=== PATIENT | male | born 1980 | race Hispanic/Latino ===

== ENCOUNTER 2019-11-24 01:42 | Emergency (ER) | payer OTHER ==
[2019-11-24 03:08] LABS: APPEARANCE,URINE Clear (CLEAR); BILIRUBIN,URINE Negative (NEGATIVE); COLOR,URINE Yellow (YELLOW); GLUCOSE, URINE (UA) >=1000 mg/dL (NEGATIVE); KETONES,URINE 40 mg/dL (NEGATIVE); LEUKOCYTE ESTERASE ,URINE Negative (NEGATIVE); NITRATE,URINE Negative (NEGATIVE); OCCULT BLOOD,URINE Negative (NEGATIVE); PH,URINE 6.5 (5.0-8.0); PROTEIN,URINE Negative (NEGATIVE); UROBILINOGEN,URINE 0.2 mg/dL (0.2-1.0)
[2019-11-24 03:15] LABS: BACTERIA,URINE None Seen /HPF (None Seen); SQUAMOUS EPITHELIAL CELL,UR Rare /HPF (0-2); WBC,URINE None Seen /HPF (0-1)
[2019-11-24 03:16] LABS: AMPHET/METH SCREEN,URINE NEGATIVE (NEGATIVE); BARBITURATE SCREEN, URINE NEGATIVE (NEGATIVE); BENZODIAZEPINES SCREEN,URINE NEGATIVE (NEGATIVE); CANNABINOID SCREEN,URINE NEGATIVE (NEGATIVE); COCAINE SCREEN,URINE POSITIVE (NEGATIVE); OPIATE SCREEN,URINE NEGATIVE (NEGATIVE); PHENCYCLIDINE SCREEN,URINE NEGATIVE (NEGATIVE)
[2019-11-24] MEDS ORDERED: INSULIN HUMULIN R 100 UNIT/ML 3ML ONE (03:20)
== END 2019-11-24 03:53 | disposition home or self-care (01) ==
LOC: EDH 01:42 → EEVIPCON 01:42 → EDH 03:53
DX: E11.65 Type 2 diabetes mellitus with hyperglycemia (principal); F14.10 Cocaine abuse, uncomplicated; Z72.0 Tobacco use
CPT/HCPCS: 80305; 81001; 82948; 96372; 99283; J1815

== ENCOUNTER 2021-02-17 09:29 | Inpatient (IN) | payer OTHER ==
[~2021-02-17] VITALS: Ht 170.2 cm; Wt 50.3 kg
[2021-02-17] MEDS ORDERED: INSULIN HUMULIN R 100 UNIT/ML 3ML IV SCH ×3 (09:45→13:45)
[2021-02-17 10:03] LABS: BASOPHILS % (AUTO) 0.5 % (0.0-5.0); EOSINOPHILS % (AUTO) 1.7 % (0.0-8.0); HEMATOCRIT 33.3 % (42-54); LYMPHOCYTES % (AUTO) 10.8 % (21.0-51.0); MEAN CORPUSCULAR HEMOGLOBIN 27.7 pg (27.0-33.0); MEAN CORPUSCULAR HGB CONC 33.3 g/dL (32.0-36.0); MONOCYTES % (AUTO) 4.6 % (3.0-13.0); NEUTROPHILS % (AUTO) 81.7 % (40.0-77.0); PLATELET COUNT (AUTO) 365 K/uL (130-400); RED BLOOD CELL COUNT(AUTO) 4.01 MIL/uL (4.50-6.20); RED CELL DISTRIBUTION WIDTH 12.6 % (11.0-15.5); WHITE BLOOD COUNT (AUTO) 8.5 K/uL (4.8-10.8)
[2021-02-17 10:18] LABS: BILIRUBIN,TOTAL 0.2 mg/dL (0.2-1.0); CREATININE 1.8 mg/dL (0.5-1.5); POTASSIUM 4.7 mmol/L (3.5-5.1); TOTAL PROTEIN, SERUM 9.5 g/dL (6.0-8.3)
[2021-02-17] MEDS ORDERED: SODIUM CHLORIDE 0.9% 1000ML 3,000 ML IV ONE (10:25)
[2021-02-17] MEDS ORDERED: SODIUM CHLORIDE 0.9% IV SCH (10:45)
[2021-02-17] MEDS ORDERED: INSULIN HUMULIN R 100 UNIT/ML 3ML SQ SCH (12:45)
[2021-02-17] MEDS ORDERED: INSULIN REGULAR, HUMAN 3ML 100 UNIT in SODIUM CHLORIDE 0.9% 99 ML IV PRN ×2 (13:00)
[2021-02-17 13:06] VITALS: BP 125/65
[2021-02-17] MEDS ORDERED: SODIUM CHLORIDE 0.9% 1000ML 1,000 ML IV SCH (13:45)
[2021-02-17] MEDS ORDERED: DEXTROSE 5 %-0.45 % NACL 1,000 ML IV PRN (13:45)
[2021-02-17] MEDS ORDERED: ACETAMINOPHEN 325 MG TAB PO PRN ×2 (13:45)
[2021-02-17] MEDS ORDERED: POTASSIUM CHLORIDE 10MEQ/100ML 100 ML IV PRN (13:45)
[2021-02-17] MEDS ORDERED: TEMAZEPAM 15 MG CAPSULE PO PRN (13:45)
[2021-02-17] MEDS ORDERED: ONDANSETRON HCL 4 MG/2 ML VIAL IV PRN (13:45)
[2021-02-17] MEDS ORDERED: LACTULOSE 20 GM/30 ML UDCUP PO PRN (13:45)
[2021-02-17 15:28] LABS: CARBON DIOXIDE 23 mmol/L (21-32); CHLORIDE 96 mmol/L (101-111); CREATININE 1.2 mg/dL (0.5-1.5); GLOMERULAR FILTR. RATE CALC 72 mL/min (>60); GLUCOSE,RANDOM 376 mg/dL (70-105); POTASSIUM 3.9 mmol/L (3.5-5.1); SODIUM SERUM 128 mmol/L (136-145); UREA NITROGEN, BLOOD 15 mg/dL (7-18)
[2021-02-17 15:30] LABS: ALCOHOL, BLOOD < 3 mg/dL (0-10); PHOSPHORUS 2.5 mg/dL (2.5-4.9)
[2021-02-17 15:45] VITALS: BP 134/82
[2021-02-17 16:03] LABS: APPEARANCE,URINE Clear (CLEAR); BILIRUBIN,URINE Negative (NEGATIVE); COLOR,URINE Yellow (YELLOW); GLUCOSE, URINE (UA) >=1000 mg/dL (NEGATIVE); KETONES,URINE Negative (NEGATIVE); LEUKOCYTE ESTERASE ,URINE Moderate (NEGATIVE); NITRATE,URINE Negative (NEGATIVE); OCCULT BLOOD,URINE Trace (NEGATIVE); PH,URINE 6.5 (5.0-8.0); PROTEIN,URINE Negative (NEGATIVE); UROBILINOGEN,URINE 0.2 mg/dL (0.2-1.0)
[2021-02-17 16:09] LABS: BACTERIA,URINE Rare /HPF (None Seen); WBC,URINE 26-50 /HPF (0-1); YEAST,URINE BUDDING Rare /HPF (None Seen)
[2021-02-17 16:10] LABS: SQUAMOUS EPITHELIAL CELL,UR Rare /HPF (0-2)
[2021-02-17 16:11] LABS: AMPHET/METH SCREEN,URINE NEGATIVE (NEGATIVE); BARBITURATE SCREEN, URINE NEGATIVE (NEGATIVE); BENZODIAZEPINES SCREEN,URINE NEGATIVE (NEGATIVE); CANNABINOID SCREEN,URINE NEGATIVE (NEGATIVE); COCAINE SCREEN,URINE POSITIVE (NEGATIVE); OPIATE SCREEN,URINE NEGATIVE (NEGATIVE); PHENCYCLIDINE SCREEN,URINE NEGATIVE (NEGATIVE)
[2021-02-17] MEDS ORDERED: PIP/TAZ ZOSYN 3.375G 3.375 GM VIAL IVPB SCH (17:15)
[2021-02-17] MEDS ORDERED: 0.9% SODIUM CHLORIDE 50 ML IV BAG IV SCH (18:00)
[2021-02-17] MEDS: SODIUM CHLORIDE 0.9% 1000ML 1,000 ML IV SCH ×2 (18:45→19:29)
[2021-02-17] MEDS ORDERED: SODIUM CHLORIDE 0.9% 50 ML IV ONE (19:17)
[2021-02-17] MEDS: ZOSYN 3.375GM+NS 50ML 50 ML IV SCH (19:24)
[2021-02-17 19:40] LABS: CREATININE 1.4 mg/dL (0.5-1.5); POTASSIUM 4.1 mmol/L (3.5-5.1)
[2021-02-17] MEDS: FAMOTIDINE/PF 20 MG/2 ML VIAL IV SCH (19:50)
[2021-02-17] MEDS: INSULIN HUMULIN R 100 UNIT/ML 3ML SQ SCH (19:56)
[2021-02-17] MEDS: INSULIN GLARGINE 100 UNITS/ML 10 ML VIAL SQ SCH (19:56)
[2021-02-17 23:30] VITALS: BP 138/86
[2021-02-17 23:53] VITALS: BP 142/100
[2021-02-18] MEDS: SODIUM CHLORIDE 0.9% 1000ML 1,000 ML IV SCH ×3 (00:04→08:35)
[2021-02-18 00:19] LABS: CREATININE 1.4 mg/dL (0.5-1.5)
[2021-02-18] MEDS: ZOSYN 3.375GM+NS 50ML 50 ML IV SCH ×3 (02:16→18:16)
[2021-02-18 04:00] VITALS: BP 160/107
[2021-02-18 04:50] LABS: CREATININE 1.4 mg/dL (0.5-1.5); MAGNESIUM 1.8 mg/dL (1.80-2.40); POTASSIUM 4.2 mmol/L (3.5-5.1)
[2021-02-18] MEDS: INSULIN HUMULIN R 100 UNIT/ML 3ML SQ SCH ×8 (07:11→20:18)
[2021-02-18 07:53] VITALS: BP 159/100
[2021-02-18] MEDS: FAMOTIDINE/PF 20 MG/2 ML VIAL IV SCH (08:29)
[2021-02-18] MEDS ORDERED: ENOXAPARIN SODIUM 40 MG/0.4 ML SYRINGE SQ SCH (09:00)
[2021-02-18 11:23] VITALS: BP 149/96
[2021-02-18 16:00] VITALS: BP 166/107
[2021-02-18 20:00] VITALS: BP 157/96
[2021-02-18] MEDS: INSULIN GLARGINE 100 UNITS/ML 10 ML VIAL SQ SCH (20:17)
[2021-02-18] MEDS ORDERED: ZOLPIDEM TARTRATE 5 MG TAB ONE (23:12)
[2021-02-18] MEDS ORDERED: ZOLPIDEM TARTRATE 5 MG TAB PO ONE (23:15)
[2021-02-19] VITALS: BP 146/86
[2021-02-19] MEDS: ZOSYN 3.375GM+NS 50ML 50 ML IV SCH ×3 (02:31→18:35)
[2021-02-19 04:00] VITALS: BP 139/94
[2021-02-19] MEDS: INSULIN HUMULIN R 100 UNIT/ML 3ML SQ SCH ×5 (06:09→18:34)
[2021-02-19 08:11] VITALS: BP 143/92
[2021-02-19] MEDS ORDERED: INSULIN GLARGINE 100 UNITS/ML 10 ML VIAL SQ SCH ×2 (09:00→21:00)
[2021-02-19 11:44] VITALS: BP 130/93
[2021-02-19 15:59] VITALS: BP 152/95
[2021-02-19] MEDS ORDERED: INSULIN HUMULIN R 100 UNIT/ML 3ML SQ SCH ×2 (17:00→22:00)
[2021-02-19 19:49] VITALS: BP 147/79
[2021-02-19] MEDS ORDERED: ACETAMINOPHEN 325 MG TAB ONE (23:43)
[2021-02-19] MEDS ORDERED: ZOLPIDEM TARTRATE 5 MG TAB ONE (23:44)
[2021-02-19] MEDS ORDERED: ACETAMINOPHEN 325 MG TAB PO PRN (23:45)
[2021-02-19] MEDS ORDERED: ZOLPIDEM TARTRATE 5 MG TAB PO ONE (23:45)
[2021-02-20] VITALS: BP 140/74
[2021-02-20] MEDS: ZOSYN 3.375GM+NS 50ML 50 ML IV SCH ×2 (01:35→09:41)
[2021-02-20 03:45] VITALS: BP 104/54
[2021-02-20] MEDS: INSULIN HUMULIN R 100 UNIT/ML 3ML SQ SCH ×5 (06:31→12:56)
[2021-02-20] MEDS: INSULIN GLARGINE 100 UNITS/ML 10 ML VIAL SQ SCH ×2 (06:33→06:36)
[2021-02-20 08:09] VITALS: BP 128/87
[2021-02-20] MEDS ORDERED: INSULIN HUMULIN R 100 UNIT/ML 3ML SQ SCH (11:30)
[2021-02-20 12:00] VITALS: BP 126/84
[2021-02-20 12:06] VITALS: BP 126/84
[2021-02-20 16:00] VITALS: BP 126/78
[2021-02-20] MEDS ORDERED: INSULIN GLARGINE 100 UNITS/ML 10 ML VIAL SQ SCH (21:00)
== END 2021-02-20 18:30 | disposition left against medical advice (07) | DRG 638 ==
LOC: EDH 09:29 → EDHIP 09:30 → 4BH 02-18 01:35
PROVIDERS: ADMIT Internal Medicine; ATTEND Internal Medicine
DX: E11.00 Type 2 diabetes mellitus with hyperosmolarity without nonketotic hyperglycemic-hyperosmolar coma (NKHHC) (principal); E87.1 Hypo-osmolality and hyponatremia; N17.9 Acute kidney failure, unspecified; F14.20 Cocaine dependence, uncomplicated; E86.1 Hypovolemia; F17.210 Nicotine dependence, cigarettes, uncomplicated; D72.810 Lymphocytopenia; E86.0 Dehydration; Z53.29 Procedure and treatment not carried out because of patient's decision for other reasons; Z59.0 Homelessness; Z79.4 Long term (current) use of insulin; Z91.19 Patient's noncompliance with other medical treatment and regimen
CPT/HCPCS: 36415; 71045; 80048; 80053; 80305; 81001; 82010; 82948; 82977; 83036; 83605; 83735; 83930; 84100; 84145; 84443; 84484; 85025; 86701; 86709; 87040; 87088; 87390; 99291; G0378; J1650; J1815; J2543; J3490; J7030

== ENCOUNTER 2021-02-27 19:33 | Inpatient (IN) | payer OTHER ==
[~2021-02-27] VITALS: Ht 170.2 cm; Wt 53.5 kg
[2021-02-27 19:38] VITALS: BP 152/102
[2021-02-27] MEDS ORDERED: INSULIN HUMULIN R 100 UNIT/ML 3ML IV STA (19:45)
[2021-02-27] MEDS ORDERED: NACL 0.9% 1000ML 1,000 ML IV ONE ×2 (19:45→22:27)
[2021-02-27 20:01] LABS: HEMATOCRIT 30.3 % (42-54); MEAN CORPUSCULAR HEMOGLOBIN 27.4 pg (27.0-33.0); MEAN CORPUSCULAR HGB CONC 34.3 g/dL (32.0-36.0); MEAN CORPUSCULAR VOLUME 79.9 fL (79-99); RED BLOOD CELL COUNT(AUTO) 3.79 MIL/uL (4.50-6.20); RED CELL DISTRIBUTION WIDTH 12.5 % (11.0-15.5); WHITE BLOOD COUNT (AUTO) 17.6 K/uL (4.8-10.8)
[2021-02-27 20:03] LABS: APPEARANCE,URINE Cloudy (CLEAR); BILIRUBIN,URINE Negative (NEGATIVE); COLOR,URINE Yellow (YELLOW); GLUCOSE, URINE (UA) >=1000 mg/dL (NEGATIVE); KETONES,URINE Negative (NEGATIVE); LEUKOCYTE ESTERASE ,URINE Moderate (NEGATIVE); NITRATE,URINE Negative (NEGATIVE); OCCULT BLOOD,URINE Trace (NEGATIVE); PROTEIN,URINE Trace mg/dL (NEGATIVE); UROBILINOGEN,URINE 0.2 mg/dL (0.2-1.0)
[2021-02-27 20:08] LABS: ABG BASE EXCESS -1.5 mmol/L (-2.0-3.0); ABG OXYGEN SATURATION 98.3 % (95.0-99.0); ABG PCO2 26 mmHg (35-48)
[2021-02-27] MEDS ORDERED: CEFTRIAXONE 1G VIAL IVP STA (20:11)
[2021-02-27 20:20] LABS: ALANINE AMINOTRANSFERASE 18 U/L (12-78); ALBUMIN 2.3 g/dL (3.5-5.0); ASPARTATE AMINOTRANSFERASE 16 U/L (10-37); BILIRUBIN,TOTAL 0.3 mg/dL (0.2-1.0); CARBON DIOXIDE 24 mmol/L (21-32); CREATININE 2.2 mg/dL (0.5-1.5); GLOMERULAR FILTR. RATE CALC 36 mL/min (>60); POTASSIUM 4.1 mmol/L (3.5-5.1); SODIUM SERUM 118 mmol/L (136-145); TOTAL PROTEIN, SERUM 8.3 g/dL (6.0-8.3); UREA NITROGEN, BLOOD 30 mg/dL (7-18)
[2021-02-27 20:21] LABS: BACTERIA,URINE Moderate /HPF (None Seen); WBC,URINE 26-50 /HPF (0-1); YEAST,URINE BUDDING Many /HPF (None Seen)
[2021-02-27 20:26] LABS: LIPASE < 50 U/L (114-286)
[2021-02-27 20:27] LABS: CHLORIDE 85 mmol/L (101-111); GLUCOSE,RANDOM 676 mg/dL (70-105)
[2021-02-27 21:26] VITALS: BP 137/80
[2021-02-27] MEDS ORDERED: NITROGLYCERIN 0.4 MG SL TAB SL PRN (21:30)
[2021-02-27] MEDS ORDERED: ONDANSETRON 4MG INJ IV PRN (21:30)
[2021-02-27] MEDS ORDERED: GLUCAGON 1MG KIT 1 MG ML IM PRN (21:30)
[2021-02-27] MEDS ORDERED: NACL 0.9% IV SCH (21:30)
[2021-02-27] MEDS ORDERED: DEXTROSE 50%-WATER 50 ML DISP.SYRIN IV PRN (21:30)
[2021-02-27] MEDS ORDERED: ACETAMINOPHEN 325 MG TAB PO PRN (21:30)
[2021-02-27] MEDS: NACL 0.9% 1000ML 1,000 ML IV SCH (21:49)
[2021-02-27] MEDS: INSULIN HUMULIN R 100 UNIT/ML 3ML SQ SCH (22:25)
[2021-02-27 22:47] VITALS: BP 130/67
[2021-02-27] MEDS ORDERED: DEXTROSE 5 %-0.45 % NACL 1,000 ML IV PRN (23:00)
[2021-02-27 23:11] LABS: AMPHET/METH SCREEN,URINE NEGATIVE (NEGATIVE); BARBITURATE SCREEN, URINE NEGATIVE (NEGATIVE); BENZODIAZEPINES SCREEN,URINE NEGATIVE (NEGATIVE); CANNABINOID SCREEN,URINE NEGATIVE (NEGATIVE); COCAINE SCREEN,URINE POSITIVE (NEGATIVE); OPIATE SCREEN,URINE NEGATIVE (NEGATIVE); PHENCYCLIDINE SCREEN,URINE NEGATIVE (NEGATIVE)
[2021-02-28] VITALS (7 sets, daily range): BP systolic 122–150; BP diastolic 75–98
[2021-02-28 00:33] LABS: CREATININE 1.9 mg/dL (0.5-1.5); POTASSIUM 3.5 mmol/L (3.5-5.1)
[2021-02-28] MEDS ORDERED: INSULIN HUMULIN R 100 UNIT/ML 3ML SQ SCH (01:30)
[2021-02-28] MEDS: NACL 0.9% 1000ML 1,000 ML IV SCH ×3 (01:47→20:34)
[2021-02-28 05:54] LABS: BASOPHILS % (AUTO) 0.2 % (0.0-5.0); EOSINOPHILS % (AUTO) 1.5 % (0.0-8.0); HEMATOCRIT 27.5 % (42-54); LYMPHOCYTES % (AUTO) 5.8 % (21.0-51.0); MEAN CORPUSCULAR HEMOGLOBIN 27.5 pg (27.0-33.0); MEAN CORPUSCULAR HGB CONC 34.2 g/dL (32.0-36.0); MEAN CORPUSCULAR VOLUME 80.4 fL (79-99); NEUTROPHILS % (AUTO) 86.8 % (40.0-77.0); PLATELET COUNT (AUTO) 338 K/uL (130-400); RED BLOOD CELL COUNT(AUTO) 3.42 MIL/uL (4.50-6.20); RED CELL DISTRIBUTION WIDTH 12.3 % (11.0-15.5); WHITE BLOOD COUNT (AUTO) 14.9 K/uL (4.8-10.8)
[2021-02-28] MEDS: INSULIN HUMULIN R 100 UNIT/ML 3ML SQ SCH ×6 (06:06→20:49)
[2021-02-28 06:14] LABS: ALBUMIN 1.9 g/dL (3.5-5.0); BILIRUBIN,TOTAL 0.2 mg/dL (0.2-1.0); CREATININE 1.8 mg/dL (0.5-1.5); MAGNESIUM 1.9 mg/dL (1.80-2.40); POTASSIUM 3.4 mmol/L (3.5-5.1)
[2021-02-28] MEDS ORDERED: HEPARIN 5,000 UNIT VIAL SQ SCH (09:00)
[2021-02-28] MEDS ORDERED: AMLODIPINE 5 MG TAB PO SCH (09:45)
[2021-02-28] MEDS: FAMOTIDINE 20MG VIAL IV SCH ×2 (10:16→20:34)
[2021-02-28] MEDS ORDERED: KCL 20 MEQ ERTAB PO SCH (12:00)
[2021-02-28 17:41] LABS: CREATININE,URINE RANDOM 11 mg/dL (30-135); SODIUM,URINE RANDOM 20 mmol/l (40-220)
[2021-02-28] MEDS: ACETAMINOPHEN 325 MG TAB PO PRN (20:57)
[2021-02-28] MEDS ORDERED: CEFTRIAXONE 1G VIAL IV SCH (21:00)
[2021-02-28] MEDS: HEPARIN 5,000 UNIT VIAL SQ SCH (22:30)
[2021-02-28] MEDS ORDERED: TEMAZEPAM 15 MG CAPSULE ONE (22:42)
[2021-02-28] MEDS ORDERED: TEMAZEPAM 15 MG CAPSULE PO ONE (22:45)
[2021-03-01] VITALS: BP 131/91
[2021-03-01 04:00] VITALS: BP 129/77
[2021-03-01 04:08] LABS: MEAN CORPUSCULAR HEMOGLOBIN 27.6 pg (27.0-33.0); MEAN CORPUSCULAR HGB CONC 34.6 g/dL (32.0-36.0); MEAN CORPUSCULAR VOLUME 79.8 fL (79-99); RED BLOOD CELL COUNT(AUTO) 3.51 MIL/uL (4.50-6.20); RED CELL DISTRIBUTION WIDTH 12.3 % (11.0-15.5)
[2021-03-01 04:24] LABS: CREATININE 1.5 mg/dL (0.5-1.5); POTASSIUM 4.1 mmol/L (3.5-5.1)
[2021-03-01] MEDS: HEPARIN 5,000 UNIT VIAL SQ SCH (05:41)
[2021-03-01] MEDS: NACL 0.9% 1000ML 1,000 ML IV SCH (05:49)
[2021-03-01] MEDS: INSULIN HUMULIN R 100 UNIT/ML 3ML SQ SCH ×5 (05:56→12:14)
[2021-03-01 07:27] VITALS: BP 135/87
[2021-03-01] MEDS ORDERED: INSULIN GLARGINE 100 UNITS/ML 10 ML VIAL SQ SCH ×2 (09:00→21:00)
[2021-03-01] MEDS: INSULIN GLARGINE 100 UNITS/ML 10 ML VIAL SQ SCH ×2 (09:00→09:44)
[2021-03-01] MEDS ORDERED: AMLODIPINE 5 MG TAB PO SCH (09:00)
[2021-03-01] MEDS: ACETAMINOPHEN 325 MG TAB PO PRN (09:41)
[2021-03-01] MEDS: FAMOTIDINE 20MG VIAL IV SCH (09:45)
[2021-03-01 11:31] VITALS: BP 129/85
[2021-03-01] MEDS ORDERED: INSULIN HUMULIN R 100 UNIT/ML 3ML SQ SCH (17:00)
== END 2021-03-01 15:20 | disposition left against medical advice (07) | DRG 872 ==
LOC: EDH 19:33 → EDHIP 19:34 → 4CH 02-28 01:41
PROVIDERS: ADMIT Family Medicine; ATTEND Family Medicine
DX: A41.9 Sepsis, unspecified organism (principal); E87.1 Hypo-osmolality and hyponatremia; N17.9 Acute kidney failure, unspecified; N39.0 Urinary tract infection, site not specified; E86.0 Dehydration; E86.1 Hypovolemia; E88.09 Other disorders of plasma-protein metabolism, not elsewhere classified; F14.10 Cocaine abuse, uncomplicated; F17.210 Nicotine dependence, cigarettes, uncomplicated; I12.9 Hypertensive chronic kidney disease with stage 1 through stage 4 chronic kidney disease, or unspecified chronic kidney disease; N18.30 Chronic kidney disease, stage 3 unspecified; Z53.29 Procedure and treatment not carried out because of patient's decision for other reasons; E10.65 Type 1 diabetes mellitus with hyperglycemia; E10.22 Type 1 diabetes mellitus with diabetic chronic kidney disease; Z20.822 Contact with and (suspected) exposure to COVID-19; R65.20 Severe sepsis without septic shock; Z59.0 Homelessness; Z79.4 Long term (current) use of insulin; Z86.73 Personal history of transient ischemic attack (TIA), and cerebral infarction without residual deficits; Z91.19 Patient's noncompliance with other medical treatment and regimen
CPT/HCPCS: 36415; 36600; 71045; 80048; 80053; 80305; 81001; 82010; 82570; 82803; 82948; 83036; 83605; 83690; 83735; 84145; 84300; 84484; 85025; 85027; 87040; 87088; 87635; 93005; G0378; J0696; J1644; J1815; J3490; J7030; J7042

== ENCOUNTER 2021-03-11 14:38 | Inpatient (IN) | payer OTHER ==
[~2021-03-11] VITALS: Ht 175.3 cm; Wt 53.8 kg
[~2021-03-11 14:38] MED LIST: CEPH500B PO; FLUC200T8 PO; GLIM1TAB18 PO
[2021-03-11 15:20] LABS: APPEARANCE,URINE Cloudy (CLEAR); BILIRUBIN,URINE Negative (NEGATIVE); GLUCOSE, URINE (UA) >=1000 mg/dL (NEGATIVE); KETONES,URINE Negative (NEGATIVE); LEUKOCYTE ESTERASE ,URINE Moderate (NEGATIVE); NITRATE,URINE Negative (NEGATIVE); OCCULT BLOOD,URINE Large (NEGATIVE); PROTEIN,URINE POS 2+ mg/dL (NEGATIVE); UROBILINOGEN,URINE 0.2 mg/dL (0.2-1.0)
[2021-03-11 15:21] LABS: BASOPHILS % (AUTO) 0.4 % (0.0-5.0); EOSINOPHILS % (AUTO) 0.1 % (0.0-8.0); HEMATOCRIT 28.6 % (42-54); LYMPHOCYTES % (AUTO) 2.4 % (21.0-51.0); MEAN CORPUSCULAR HEMOGLOBIN 27.2 pg (27.0-33.0); MEAN CORPUSCULAR HGB CONC 32.9 g/dL (32.0-36.0); MEAN CORPUSCULAR VOLUME 82.9 fL (79-99); MONOCYTES % (AUTO) 4.6 % (3.0-13.0); NEUTROPHILS % (AUTO) 92.2 % (40.0-77.0); PLATELET COUNT (AUTO) 488 K/uL (130-400); RED BLOOD CELL COUNT(AUTO) 3.45 MIL/uL (4.50-6.20); RED CELL DISTRIBUTION WIDTH 12.2 % (11.0-15.5); WHITE BLOOD COUNT (AUTO) 19.7 K/uL (4.8-10.8)
[2021-03-11 15:28] LABS: AMPHET/METH SCREEN,URINE NEGATIVE (NEGATIVE); BARBITURATE SCREEN, URINE NEGATIVE (NEGATIVE); BENZODIAZEPINES SCREEN,URINE NEGATIVE (NEGATIVE); CANNABINOID SCREEN,URINE NEGATIVE (NEGATIVE); COCAINE SCREEN,URINE POSITIVE (NEGATIVE); OPIATE SCREEN,URINE NEGATIVE (NEGATIVE); PHENCYCLIDINE SCREEN,URINE NEGATIVE (NEGATIVE)
[2021-03-11] MEDS ORDERED: 0.9%NACL 1000ML 1,000 ML IV ONE (15:30)
[2021-03-11 15:40] LABS: COLOR,URINE Red (YELLOW)
[2021-03-11 15:41] LABS: BACTERIA,URINE Few /HPF (None Seen); MUCUS,URINE Few LPF (None Seen); RBC,URINE 26-50 /HPF (0-1); SQUAMOUS EPITHELIAL CELL,UR Few /HPF (0-2)
[2021-03-11 15:44] LABS: ALANINE AMINOTRANSFERASE 15 U/L (12-78); ALBUMIN 2.4 g/dL (3.5-5.0); ASPARTATE AMINOTRANSFERASE 11 U/L (10-37); BILIRUBIN,TOTAL 0.2 mg/dL (0.2-1.0); CARBON DIOXIDE 25 mmol/L (21-32); CREATINE KINASE, TOTAL 39 U/L (21-232); GLOMERULAR FILTR. RATE CALC 40 mL/min (>60); MYOGLOBIN 28 ng/mL (10-92); POTASSIUM 4.1 mmol/L (3.5-5.1); SODIUM SERUM 122 mmol/L (136-145); TOTAL PROTEIN, SERUM 8.4 g/dL (6.0-8.3); TROPONIN I < 0.04 ng/mL (0.00-0.06); UREA NITROGEN, BLOOD 24 mg/dL (7-18)
[2021-03-11 15:47] LABS: CHLORIDE 87 mmol/L (101-111); GLUCOSE,RANDOM 731 mg/dL (70-105)
[2021-03-11] MEDS ORDERED: CEFTRIAXONE 1G VIAL IVP SCH (16:00)
[2021-03-11] MEDS ORDERED: 0.9%NACL 1000ML 1,000 ML IV SCH (16:00)
[2021-03-11] MEDS ORDERED: POTASSIUM CHLORIDE 10% ELIXIR 20 MEQ/15 ML UDCUP PO PRN (18:00)
[2021-03-11] MEDS ORDERED: ONDANSETRON 4MG INJ IV PRN (18:00)
[2021-03-11] MEDS ORDERED: DiphenhydrAMINE HCL 50 MG/ML VIAL IV PRN (18:00)
[2021-03-11] MEDS ORDERED: LACTULOSE 20 GM/30 ML UDCUP PO PRN (18:00)
[2021-03-11] MEDS ORDERED: DEXTROSE 50%-WATER 50 ML DISP.SYRIN IV PRN (18:00)
[2021-03-11] MEDS ORDERED: POTASSIUM CHLORIDE 20MEQ/100ML 100 ML IV PRN (18:00)
[2021-03-11] MEDS ORDERED: GUAIFENESIN-DM 200/20 MG 10 ML PO PRN (18:00)
[2021-03-11] MEDS ORDERED: GLUCAGON 1MG KIT 1 MG ML IM PRN (18:00)
[2021-03-11] MEDS ORDERED: NITROGLYCERIN 0.4 MG SL TAB SL PRN (18:00)
[2021-03-11] MEDS ORDERED: MAG/ALUM/SIMETH 30 ML UDCUP PO PRN (18:00)
[2021-03-11] MEDS ORDERED: ACETAMINOPHEN 325 MG TAB PO PRN (18:00)
[2021-03-11] MEDS ORDERED: INSULIN HUMULIN R 100 UNIT/ML 3ML SQ ONE (18:15)
[2021-03-11 18:46] VITALS: BP 137/80
[2021-03-11] MEDS: LACTATED RINGERS 1000ML 1,000 ML IV SCH ×2 (19:10→22:52)
[2021-03-11 19:22] VITALS: BP 130/82
[2021-03-11 19:27] LABS: CREATININE 1.9 mg/dL (0.5-1.5); POTASSIUM 3.8 mmol/L (3.5-5.1)
[2021-03-11] MEDS: INSULIN HUMULIN R 100 UNIT/ML 3ML SQ SCH (21:00)
[2021-03-11 22:42] LABS: CREATININE 1.6 mg/dL (0.5-1.5)
[2021-03-11] MEDS: POTASSIUM CHLORIDE 20MEQ/100ML 100 ML IV PRN (22:45)
[2021-03-11 22:52] VITALS: BP 123/69
[2021-03-11 23:15] VITALS: BP 137/82
[2021-03-11] MEDS: KCL 20 MEQ ERTAB PO PRN (23:27)
[2021-03-12] VITALS: BP 137/82
[2021-03-12] MEDS: POTASSIUM CHLORIDE 20MEQ/100ML 100 ML IV PRN (00:04)
[2021-03-12] MEDS: KCL 20 MEQ ERTAB PO PRN (00:29)
[2021-03-12] MEDS: LACTATED RINGERS 1000ML 1,000 ML IV SCH ×3 (03:27→21:12)
[2021-03-12 04:00] VITALS: BP 124/72
[2021-03-12 05:18] LABS: BASOPHILS % (AUTO) 0.3 % (0.0-5.0); EOSINOPHILS % (AUTO) 1.5 % (0.0-8.0); HEMATOCRIT 27.2 % (42-54); LYMPHOCYTES % (AUTO) 11.1 % (21.0-51.0); MEAN CORPUSCULAR HEMOGLOBIN 27.3 pg (27.0-33.0); MEAN CORPUSCULAR HGB CONC 33.1 g/dL (32.0-36.0); MEAN CORPUSCULAR VOLUME 82.4 fL (79-99); MONOCYTES % (AUTO) 5.7 % (3.0-13.0); NEUTROPHILS % (AUTO) 80.8 % (40.0-77.0); PLATELET COUNT (AUTO) 459 K/uL (130-400); RED CELL DISTRIBUTION WIDTH 12.2 % (11.0-15.5); WHITE BLOOD COUNT (AUTO) 15.4 K/uL (4.8-10.8)
[2021-03-12 05:39] LABS: ALBUMIN 1.9 g/dL (3.5-5.0); BILIRUBIN,TOTAL 0.2 mg/dL (0.2-1.0); CREATININE 1.4 mg/dL (0.5-1.5); CRP QUANTITATIVE 173.1 mg/L (0.00-9.0); POTASSIUM 4.2 mmol/L (3.5-5.1)
[2021-03-12] MEDS: INSULIN HUMULIN R 100 UNIT/ML 3ML SQ SCH ×8 (06:12→21:16)
[2021-03-12 07:30] VITALS: BP 134/102
[2021-03-12] MEDS: INSULIN GLARGINE 100 UNITS/ML 10 ML VIAL SQ SCH ×3 (07:30→21:13)
[2021-03-12] MEDS: CEFTRIAXONE 1G VIAL IVP SCH ×2 (08:23→21:12)
[2021-03-12 08:27] LABS: CREATININE 1.4 mg/dL (0.5-1.5); POTASSIUM 4.2 mmol/L (3.5-5.1)
[2021-03-12 11:00] VITALS: BP 164/99
[2021-03-12] MEDS ORDERED: INSULIN HUMULIN R 100 UNIT/ML 3ML SQ SCH (11:00)
[2021-03-12 16:00] VITALS: BP 139/81
[2021-03-12 20:00] VITALS: BP 147/92
[2021-03-12] MEDS ORDERED: LACTATED RINGERS 1000ML 1,000 ML IV ONE (21:11)
[2021-03-12] MEDS: DIPHENHYDRAMINE HCL 25 MG CAPSULE PO PRN (21:34)
[2021-03-12] MEDS: ACETAMINOPHEN 325 MG TAB PO PRN (21:35)
[2021-03-13] VITALS: BP 149/85
[2021-03-13] MEDS ORDERED: LACTATED RINGERS 1000ML 1,000 ML IV ONE ×2 (02:13→06:55)
[2021-03-13 04:43] VITALS: BP 146/95
[2021-03-13 04:56] LABS: BASOPHILS % (AUTO) 0.3 % (0.0-5.0); EOSINOPHILS % (AUTO) 2.2 % (0.0-8.0); HEMATOCRIT 25.9 % (42-54); LYMPHOCYTES % (AUTO) 19.2 % (21.0-51.0); MEAN CORPUSCULAR HEMOGLOBIN 26.9 pg (27.0-33.0); MEAN CORPUSCULAR HGB CONC 33.2 g/dL (32.0-36.0); MEAN CORPUSCULAR VOLUME 80.9 fL (79-99); MONOCYTES % (AUTO) 5.4 % (3.0-13.0); NEUTROPHILS % (AUTO) 72.3 % (40.0-77.0); PLATELET COUNT (AUTO) 441 K/uL (130-400); RED CELL DISTRIBUTION WIDTH 11.9 % (11.0-15.5); WHITE BLOOD COUNT (AUTO) 10.5 K/uL (4.8-10.8)
[2021-03-13 05:11] LABS: ALBUMIN 1.7 g/dL (3.5-5.0); BILIRUBIN,TOTAL 0.1 mg/dL (0.2-1.0); CREATININE 1.5 mg/dL (0.5-1.5); CRP QUANTITATIVE 93.2 mg/L (0.00-9.0); POTASSIUM 3.9 mmol/L (3.5-5.1); TOTAL PROTEIN, SERUM 6.8 g/dL (6.0-8.3)
[2021-03-13] MEDS: CEFTRIAXONE 1G VIAL IVP SCH ×2 (05:17→20:44)
[2021-03-13] MEDS: INSULIN HUMULIN R 100 UNIT/ML 3ML SQ SCH ×7 (05:17→20:55)
[2021-03-13 19:52] VITALS: BP 153/99
[2021-03-13] MEDS ORDERED: INSULIN GLARGINE 100 UNITS/ML 10 ML VIAL SQ SCH (21:00)
[2021-03-14 00:06] VITALS: BP 137/77
[2021-03-14] MEDS: DIPHENHYDRAMINE HCL 25 MG CAPSULE PO PRN ×2 (00:09→22:01)
[2021-03-14] MEDS: ACETAMINOPHEN 325 MG TAB PO PRN ×2 (00:12→22:03)
[2021-03-14 05:09] VITALS: BP 126/75
[2021-03-14 06:20] LABS: BASOPHILS % (AUTO) 0.4 % (0.0-5.0); EOSINOPHILS % (AUTO) 1.6 % (0.0-8.0); HEMATOCRIT 28.3 % (42-54); LYMPHOCYTES % (AUTO) 20.7 % (21.0-51.0); MEAN CORPUSCULAR HEMOGLOBIN 26.7 pg (27.0-33.0); MEAN CORPUSCULAR HGB CONC 32.9 g/dL (32.0-36.0); MEAN CORPUSCULAR VOLUME 81.3 fL (79-99); NEUTROPHILS % (AUTO) 70.6 % (40.0-77.0); PLATELET COUNT (AUTO) 458 K/uL (130-400); RED BLOOD CELL COUNT(AUTO) 3.48 MIL/uL (4.50-6.20); RED CELL DISTRIBUTION WIDTH 12.3 % (11.0-15.5); WHITE BLOOD COUNT (AUTO) 8.9 K/uL (4.8-10.8)
[2021-03-14 06:41] LABS: ALBUMIN 1.9 g/dL (3.5-5.0); BILIRUBIN,TOTAL 0.1 mg/dL (0.2-1.0); CREATININE 1.5 mg/dL (0.5-1.5); CRP QUANTITATIVE 51.8 mg/L (0.00-9.0); POTASSIUM 3.8 mmol/L (3.5-5.1); TOTAL PROTEIN, SERUM 7.1 g/dL (6.0-8.3)
[2021-03-14] MEDS: INSULIN HUMULIN R 100 UNIT/ML 3ML SQ SCH ×7 (07:23→21:10)
[2021-03-14] MEDS: CEFTRIAXONE 1G VIAL IVP SCH ×2 (09:15→21:12)
[2021-03-14 12:00] VITALS: BP 147/102
[2021-03-14] MEDS ORDERED: AMLODIPINE 5 MG TAB PO ONE (13:30)
[2021-03-14 16:00] VITALS: BP 131/69
[2021-03-14 19:38] VITALS: BP 152/94
[2021-03-14] MEDS ORDERED: INSULIN GLARGINE 100 UNITS/ML 10 ML VIAL SQ SCH (21:00)
[2021-03-14 23:37] VITALS: BP 143/84
[2021-03-15 03:55] VITALS: BP 138/84
[2021-03-15 06:27] LABS: BASOPHILS % (AUTO) 0.4 % (0.0-5.0); EOSINOPHILS % (AUTO) 1.5 % (0.0-8.0); LYMPHOCYTES % (AUTO) 20.7 % (21.0-51.0); MEAN CORPUSCULAR HEMOGLOBIN 27.1 pg (27.0-33.0); MEAN CORPUSCULAR HGB CONC 32.8 g/dL (32.0-36.0); MEAN CORPUSCULAR VOLUME 82.6 fL (79-99); MONOCYTES % (AUTO) 6.9 % (3.0-13.0); NEUTROPHILS % (AUTO) 69.4 % (40.0-77.0); PLATELET COUNT (AUTO) 514 K/uL (130-400); RED BLOOD CELL COUNT(AUTO) 3.51 MIL/uL (4.50-6.20); RED CELL DISTRIBUTION WIDTH 12.5 % (11.0-15.5); WHITE BLOOD COUNT (AUTO) 7.9 K/uL (4.8-10.8)
[2021-03-15 06:55] LABS: CREATININE 1.6 mg/dL (0.5-1.5); POTASSIUM 4.3 mmol/L (3.5-5.1)
[2021-03-15] MEDS: INSULIN HUMULIN R 100 UNIT/ML 3ML SQ SCH ×4 (07:27→12:09)
[2021-03-15 07:30] VITALS: BP 162/108
[2021-03-15] MEDS ORDERED: AMLODIPINE 5 MG TAB PO SCH (09:00)
[2021-03-15] MEDS: CEFTRIAXONE 1G VIAL IVP SCH (09:11)
[2021-03-15] MEDS: ACETAMINOPHEN 325 MG TAB PO PRN (09:18)
[2021-03-15 11:00] VITALS: BP 146/99
== END 2021-03-15 16:00 | disposition left against medical advice (07) | DRG 872 ==
LOC: EDH 14:38 → EDHIP 14:39 → 3CH 23:22
PROVIDERS: ADMIT Family Medicine; ATTEND Family Medicine
DX: A41.9 Sepsis, unspecified organism (principal); N39.0 Urinary tract infection, site not specified; N17.9 Acute kidney failure, unspecified; R45.851 Suicidal ideations; I10 Essential (primary) hypertension; E86.0 Dehydration; F14.90 Cocaine use, unspecified, uncomplicated; E10.65 Type 1 diabetes mellitus with hyperglycemia; F60.7 Dependent personality disorder; F19.10 Other psychoactive substance abuse, uncomplicated; Z59.0 Homelessness; Z79.4 Long term (current) use of insulin; Z91.14 Patient's other noncompliance with medication regimen; Z91.19 Patient's noncompliance with other medical treatment and regimen; Z82.3 Family history of stroke; Z83.3 Family history of diabetes mellitus; Z82.0 Family history of epilepsy and other diseases of the nervous system; Z82.49 Family history of ischemic heart disease and other diseases of the circulatory system
CPT/HCPCS: 36415; 71045; 73562; 73600; 73630; 80048; 80053; 80305; 81001; 82010; 82550; 82947; 82948; 83605; 83874; 84145; 84484; 85025; 86140; 87040; 87088; G0378; J0696; J1200; J1815; J3480; J7120; Q0163

== ENCOUNTER 2021-04-10 17:10 | Inpatient (IN) | payer OTHER ==
[~2021-04-10] VITALS: Ht 170.2 cm; Wt 51.1 kg
[2021-04-10 17:21] VITALS: BP 128/88
[2021-04-10 17:35] LABS: BASOPHILS % (AUTO) 0.3 % (0.0-5.0); EOSINOPHILS % (AUTO) 0.4 % (0.0-8.0); HEMATOCRIT 28.5 % (42-54); LYMPHOCYTES % (AUTO) 5.2 % (21.0-51.0); MEAN CORPUSCULAR HEMOGLOBIN 27.3 pg (27.0-33.0); MEAN CORPUSCULAR HGB CONC 34.4 g/dL (32.0-36.0); MEAN CORPUSCULAR VOLUME 79.4 fL (79-99); NEUTROPHILS % (AUTO) 88.9 % (40.0-77.0); PLATELET COUNT (AUTO) 342 K/uL (130-400); RED BLOOD CELL COUNT(AUTO) 3.59 MIL/uL (4.50-6.20); RED CELL DISTRIBUTION WIDTH 12.8 % (11.0-15.5); WHITE BLOOD COUNT (AUTO) 14.3 K/uL (4.8-10.8)
[2021-04-10 17:56] LABS: PLATELET MORPHOLOGY PLT CLUMPS PRESENT
[2021-04-10 18:06] LABS: ALBUMIN 2.6 g/dL (3.5-5.0); BILIRUBIN,TOTAL 0.2 mg/dL (0.2-1.0); CREATININE 1.8 mg/dL (0.5-1.5); POTASSIUM 3.6 mmol/L (3.5-5.1); TOTAL PROTEIN, SERUM 8.1 g/dL (6.0-8.3)
[2021-04-10] MEDS ORDERED: 0.9%NACL 1000ML 1,000 ML IV ONE ×2 (18:30→19:30)
[2021-04-10] MEDS ORDERED: ONDANSETRON 4MG INJ IVP ONE (18:30)
[2021-04-10 18:37] VITALS: BP 142/92
[2021-04-10] MEDS ORDERED: ONDANSETRON 4MG INJ ONE (20:05)
[2021-04-10 21:04] VITALS: BP 159/98
[2021-04-10 21:28] LABS: APPEARANCE,URINE CLOUDY (CLEAR); BILIRUBIN,URINE NEGATIVE (NEGATIVE); COLOR,URINE YELLOW (YELLOW); GLUCOSE, URINE (UA) >=1000 mg/dL (NEGATIVE); KETONES,URINE NEGATIVE (NEGATIVE); LEUKOCYTE ESTERASE ,URINE MODERATE (NEGATIVE); NITRATE,URINE NEGATIVE (NEGATIVE); OCCULT BLOOD,URINE LARGE (NEGATIVE); PROTEIN,URINE 30 mg/dL (NEGATIVE); UROBILINOGEN,URINE 0.2 mg/dL (0.2-1.0)
[2021-04-10 21:52] LABS: BACTERIA,URINE Few /HPF (None Seen); WBC,URINE TNTC /HPF (0-1)
[2021-04-10 22:13] VITALS: BP 151/86
[2021-04-10] MEDS ORDERED: CEFTRIAXONE 1G VIAL IVP ONE (22:30)
[2021-04-10 22:53] LABS: CREATININE 1.6 mg/dL (0.5-1.5); POTASSIUM 3.5 mmol/L (3.5-5.1)
[2021-04-10 23:00] LABS: INR 0.98 (0.85-1.15); PROTHROMBIN TIME 10.7 SEC (9.6-11.6)
[2021-04-10] MEDS ORDERED: ZOLPIDEM TARTRATE 5 MG TAB PO PRN (23:00)
[2021-04-10] MEDS ORDERED: ONDANSETRON 4MG INJ IV PRN (23:00)
[2021-04-10] MEDS ORDERED: 0.9%NACL 1000ML 1,983 ML IV ONE (23:00)
[2021-04-10] MEDS ORDERED: SODIUM CHLORIDE 3% 500 ML IV SCH (23:00)
[2021-04-10 23:01] LABS: PARTIAL THROMBOPLASTIN TIME 26.8 SEC (26.3-35.5)
[2021-04-10 23:25] VITALS: BP 151/86
[2021-04-11] MEDS: CEFTRIAXONE 1G VIAL IV SCH ×2 (00:18→22:07)
[2021-04-11 01:36] VITALS: BP 145/86
[2021-04-11] MEDS ORDERED: SODIUM CHLORIDE 1,000 MG TAB ONE (05:49)
[2021-04-11 06:25] VITALS: BP 155/91
[2021-04-11 06:53] LABS: BASOPHILS % (AUTO) 0.3 % (0.0-5.0); EOSINOPHILS % (AUTO) 2.1 % (0.0-8.0); HEMATOCRIT 28.9 % (42-54); LYMPHOCYTES % (AUTO) 14.8 % (21.0-51.0); MEAN CORPUSCULAR HEMOGLOBIN 27.3 pg (27.0-33.0); MEAN CORPUSCULAR HGB CONC 33.9 g/dL (32.0-36.0); MEAN CORPUSCULAR VOLUME 80.5 fL (79-99); MONOCYTES % (AUTO) 5.8 % (3.0-13.0); NEUTROPHILS % (AUTO) 76.7 % (40.0-77.0); PLATELET COUNT (AUTO) 354 K/uL (130-400); RED BLOOD CELL COUNT(AUTO) 3.59 MIL/uL (4.50-6.20); RED CELL DISTRIBUTION WIDTH 13.1 % (11.0-15.5)
[2021-04-11 07:07] LABS: PROTHROMBIN TIME 10.9 SEC (9.6-11.6)
[2021-04-11 07:08] LABS: PARTIAL THROMBOPLASTIN TIME 26.6 SEC (26.3-35.5)
[2021-04-11 07:09] LABS: POTASSIUM 3.7 mmol/L (3.5-5.1)
[2021-04-11 07:10] LABS: ALBUMIN 2.2 g/dL (3.5-5.0); BILIRUBIN,TOTAL 0.2 mg/dL (0.2-1.0); CREATININE 1.5 mg/dL (0.5-1.5); MAGNESIUM 1.8 mg/dL (1.80-2.40); PHOSPHORUS 2.5 mg/dL (2.5-4.9); TOTAL PROTEIN, SERUM 7.5 g/dL (6.0-8.3)
[2021-04-11] MEDS ORDERED: INSULIN HUMULIN R 100 UNIT/ML 3ML SQ SCH (07:30)
[2021-04-11] MEDS ORDERED: SODIUM CHLORIDE 1,000 MG TAB PO SCH (08:00)
[2021-04-11] MEDS: HEPARIN 5,000 UNIT VIAL SQ SCH ×2 (09:00→20:37)
[2021-04-11] MEDS: FAMOTIDINE 20MG VIAL IV SCH ×2 (09:00→20:43)
[2021-04-11] MEDS ORDERED: INSULIN GLARGINE 100 UNITS/ML 10 ML VIAL SQ SCH (09:00)
[2021-04-11 12:00] VITALS: BP 170/116
[2021-04-11] MEDS: INSULIN HUMULIN R 100 UNIT/ML 3ML SQ SCH ×4 (13:20→20:55)
[2021-04-11 13:32] LABS: CREATININE 1.4 mg/dL (0.5-1.5); POTASSIUM 3.9 mmol/L (3.5-5.1)
[2021-04-11] MEDS: 0.9%NACL 1000ML 1,000 ML IV SCH (14:58)
[2021-04-11 16:00] VITALS: BP 142/91
[2021-04-11 20:00] VITALS: BP 159/99
[2021-04-11] MEDS ORDERED: GLUCAGON 1MG KIT 1 MG ML IM PRN (21:00)
[2021-04-11] MEDS ORDERED: DEXTROSE 50%-WATER 50 ML DISP.SYRIN IV PRN (21:00)
[2021-04-11] MEDS ORDERED: INSULIN HUMULIN R 100 UNIT/ML 3ML SQ ONE (21:00)
[2021-04-12] VITALS: BP 115/89
[2021-04-12] MEDS ORDERED: LIDOCAINE 5% TOPICAL PATCH TP ONE
[2021-04-12] MEDS ORDERED: ACETAMINOPHEN 325 MG TAB PO PRN
[2021-04-12] MEDS: 0.9%NACL 1000ML 1,000 ML IV SCH ×2 (02:04→12:44)
[2021-04-12 04:00] VITALS: BP 147/89
[2021-04-12 04:18] LABS: BASOPHILS % (AUTO) 0.3 % (0.0-5.0); EOSINOPHILS % (AUTO) 2.5 % (0.0-8.0); HEMATOCRIT 26.3 % (42-54); LYMPHOCYTES % (AUTO) 21.6 % (21.0-51.0); MEAN CORPUSCULAR HEMOGLOBIN 26.9 pg (27.0-33.0); MEAN CORPUSCULAR HGB CONC 34.2 g/dL (32.0-36.0); MEAN CORPUSCULAR VOLUME 78.5 fL (79-99); NEUTROPHILS % (AUTO) 71.2 % (40.0-77.0); PLATELET COUNT (AUTO) 303 K/uL (130-400); RED BLOOD CELL COUNT(AUTO) 3.35 MIL/uL (4.50-6.20); RED CELL DISTRIBUTION WIDTH 12.7 % (11.0-15.5)
[2021-04-12 04:28] LABS: CREATININE 1.4 mg/dL (0.5-1.5); MAGNESIUM 1.6 mg/dL (1.80-2.40); POTASSIUM 3.4 mmol/L (3.5-5.1)
[2021-04-12] MEDS: INSULIN HUMULIN R 100 UNIT/ML 3ML SQ SCH ×2 (05:52→12:46)
[2021-04-12] MEDS ORDERED: INSULIN GLARGINE 100 UNITS/ML 10 ML VIAL SQ SCH (07:30)
[2021-04-12 07:58] VITALS: BP 141/99
[2021-04-12] MEDS ORDERED: KCL 20 MEQ ERTAB PO SCH (08:00)
[2021-04-12] MEDS: FAMOTIDINE 20MG VIAL IV SCH (08:38)
[2021-04-12] MEDS: HEPARIN 5,000 UNIT VIAL SQ SCH (08:41)
[2021-04-12] MEDS ORDERED: INSULIN GLARGINE 100 UNITS/ML 10 ML VIAL SQ ONE (09:00)
[2021-04-12 12:51] VITALS: BP 161/98
[2021-04-12 16:30] VITALS: BP 160/100
[2021-04-12] MEDS ORDERED: INSULIN HUMULIN R 100 UNIT/ML 3ML SQ SCH ×2 (16:30→17:00)
[2021-04-12] MEDS ORDERED: LACTULOSE 20 GM/30 ML UDCUP PO ONE (17:00)
[2021-04-12] MEDS ORDERED: POLYETHYLENE GLYCOL 3350 17 GM POWD.PACK PO ONE (17:00)
== END 2021-04-12 17:51 | disposition left against medical advice (07) | DRG 638 ==
LOC: EDH 17:10 → EDHIP 17:11 → 4CH 04-11 12:09
PROVIDERS: ADMIT Internal Medicine; ATTEND Internal Medicine
DX: E11.65 Type 2 diabetes mellitus with hyperglycemia (principal); E87.1 Hypo-osmolality and hyponatremia; N17.9 Acute kidney failure, unspecified; N39.0 Urinary tract infection, site not specified; D64.9 Anemia, unspecified; E11.22 Type 2 diabetes mellitus with diabetic chronic kidney disease; E86.1 Hypovolemia; Z20.822 Contact with and (suspected) exposure to COVID-19; Z53.29 Procedure and treatment not carried out because of patient's decision for other reasons; F17.210 Nicotine dependence, cigarettes, uncomplicated; I12.9 Hypertensive chronic kidney disease with stage 1 through stage 4 chronic kidney disease, or unspecified chronic kidney disease; K59.00 Constipation, unspecified; W18.30XA Fall on same level, unspecified, initial encounter; R07.81 Pleurodynia; N18.9 Chronic kidney disease, unspecified; Z59.0 Homelessness; Z79.4 Long term (current) use of insulin; Z86.73 Personal history of transient ischemic attack (TIA), and cerebral infarction without residual deficits; Z91.19 Patient's noncompliance with other medical treatment and regimen; Z91.14 Patient's other noncompliance with medication regimen; Y93.89 Activity, other specified; Y92.89 Other specified places as the place of occurrence of the external cause; Y99.8 Other external cause status
CPT/HCPCS: 36415; 71250; 74176; 80048; 80053; 81001; 82010; 82550; 82948; 83036; 83605; 83690; 83735; 84100; 84145; 84484; 85025; 85610; 85730; 87040; 87088; 87635; 93005; G0378; J0696; J1644; J1815; J2405; J3490; J7030

== ENCOUNTER 2021-04-28 13:04 | Inpatient (IN) | payer OTHER ==
[~2021-04-28] VITALS: Ht 170.2 cm; Wt 52.8 kg
[2021-04-28 13:06] VITALS: BP 154/96
[2021-04-28] MEDS ORDERED: 0.9%NACL 1000ML 1,000 ML IV ONE (13:30)
[2021-04-28] MEDS ORDERED: INSULIN HUMULIN R 100 UNIT/ML 3ML SQ ONE (13:30)
[2021-04-28 13:40] LABS: ABG BASE EXCESS -5.5 mmol/L (-2.0-3.0); ABG HCO3 20.4 mmol/L (21.0-28.0); ABG OXYGEN SATURATION 44.3 % (95.0-99.0); ABG PCO2 41 mmHg (35-48)
[2021-04-28 13:45] LABS: APPEARANCE,URINE Cloudy (CLEAR); BILIRUBIN,URINE Negative (NEGATIVE); COLOR,URINE Yellow (YELLOW); GLUCOSE, URINE (UA) >=1000 mg/dL (NEGATIVE); KETONES,URINE Negative (NEGATIVE); LEUKOCYTE ESTERASE ,URINE Moderate (NEGATIVE); NITRATE,URINE Negative (NEGATIVE); OCCULT BLOOD,URINE Trace (NEGATIVE); PH,URINE 6.5 (5.0-8.0); PROTEIN,URINE Trace mg/dL (NEGATIVE); UROBILINOGEN,URINE 0.2 mg/dL (0.2-1.0)
[2021-04-28 14:34] LABS: BASOPHILS % (AUTO) 0.2 % (0.0-5.0); EOSINOPHILS % (AUTO) 1.5 % (0.0-8.0); HEMATOCRIT 31.8 % (42-54); LYMPHOCYTES % (AUTO) 18.8 % (21.0-51.0); MEAN CORPUSCULAR HEMOGLOBIN 26.6 pg (27.0-33.0); MEAN CORPUSCULAR VOLUME 80.5 fL (79-99); MONOCYTES % (AUTO) 1.7 % (3.0-13.0); NEUTROPHILS % (AUTO) 77.6 % (40.0-77.0); PLATELET COUNT (AUTO) 294 K/uL (130-400); RED BLOOD CELL COUNT(AUTO) 3.95 MIL/uL (4.50-6.20); WHITE BLOOD COUNT (AUTO) 4.6 K/uL (4.8-10.8)
[2021-04-28 14:43] LABS: ALBUMIN 2.7 g/dL (3.5-5.0); BILIRUBIN,TOTAL 0.2 mg/dL (0.2-1.0); CREATININE 1.6 mg/dL (0.5-1.5); CRP QUANTITATIVE 3.5 mg/L (0.00-9.0); POTASSIUM 3.1 mmol/L (3.5-5.1); TOTAL PROTEIN, SERUM 7.7 g/dL (6.0-8.3)
[2021-04-28 14:52] LABS: BACTERIA,URINE Rare /HPF (None Seen); SQUAMOUS EPITHELIAL CELL,UR Rare /HPF (0-2); WBC,URINE 26-50 /HPF (0-1)
[2021-04-28] MEDS ORDERED: MAG/ALUM/SIMETH 30 ML UDCUP PO PRN (15:30)
[2021-04-28] MEDS ORDERED: NITROGLYCERIN 0.4 MG SL TAB SL PRN (15:30)
[2021-04-28] MEDS ORDERED: DIPHENHYDRAMINE HCL 25 MG CAPSULE PO PRN (15:30)
[2021-04-28] MEDS ORDERED: ACETAMINOPHEN WITH CODEINE 1 TAB TAB PO PRN (15:30)
[2021-04-28] MEDS ORDERED: POTASSIUM BICARB/CIT AC 25 MEQ TABLET.EFF PO ONE (15:30)
[2021-04-28] MEDS ORDERED: LACTULOSE 20 GM/30 ML UDCUP PO PRN (15:30)
[2021-04-28] MEDS ORDERED: GUAIFENESIN-DM 200/20 MG 10 ML PO PRN (15:30)
[2021-04-28] MEDS ORDERED: ONDANSETRON 4MG INJ IV PRN (15:30)
[2021-04-28] MEDS ORDERED: ACETAMINOPHEN 325 MG TAB PO PRN (15:30)
[2021-04-28] MEDS ORDERED: HYDRALAZINE 20MG/ML VIAL IV PRN (16:00)
[2021-04-28] MEDS ORDERED: DEXTROSE 50%-WATER 50 ML DISP.SYRIN IV PRN (16:00)
[2021-04-28] MEDS ORDERED: GLUCAGON 1MG KIT 1 MG ML IM PRN (16:00)
[2021-04-28] MEDS: 0.9%NACL 1000ML 1,000 ML IV SCH (16:29)
[2021-04-28 17:41] VITALS: BP 138/96
[2021-04-28] MEDS: INSULIN HUMULIN R 100 UNIT/ML 3ML SQ SCH ×2 (18:18→22:08)
[2021-04-28 19:35] VITALS: BP 130/74
[2021-04-28 21:00] VITALS: BP 130/74
[2021-04-28] MEDS: HEPARIN 5,000 UNIT VIAL SQ SCH (23:00)
[2021-04-29] VITALS (8 sets, daily range): BP systolic 132–161; BP diastolic 71–104
[2021-04-29] MEDS: 0.9%NACL 1000ML 1,000 ML IV SCH ×3 (00:41→22:10)
[2021-04-29] MEDS: INSULIN HUMULIN R 100 UNIT/ML 3ML SQ SCH ×7 (05:39→22:12)
[2021-04-29 06:32] LABS: BASOPHILS % (AUTO) 0.1 % (0.0-5.0); EOSINOPHILS % (AUTO) 2.3 % (0.0-8.0); HEMATOCRIT 28.8 % (42-54); LYMPHOCYTES % (AUTO) 21.3 % (21.0-51.0); MEAN CORPUSCULAR HEMOGLOBIN 26.9 pg (27.0-33.0); MEAN CORPUSCULAR VOLUME 79.1 fL (79-99); PLATELET COUNT (AUTO) 309 K/uL (130-400); RED BLOOD CELL COUNT(AUTO) 3.64 MIL/uL (4.50-6.20); WHITE BLOOD COUNT (AUTO) 6.8 K/uL (4.8-10.8)
[2021-04-29 06:54] LABS: ALBUMIN 2.3 g/dL (3.5-5.0); BILIRUBIN,TOTAL 0.2 mg/dL (0.2-1.0); CREATININE 1.6 mg/dL (0.5-1.5); POTASSIUM 3.6 mmol/L (3.5-5.1); TOTAL PROTEIN, SERUM 6.6 g/dL (6.0-8.3)
[2021-04-29] MEDS: INSULIN GLARGINE 100 UNITS/ML 10 ML VIAL SQ SCH ×2 (07:07→22:11)
[2021-04-29] MEDS: FAMOTIDINE 20MG VIAL IV SCH (09:20)
[2021-04-29] MEDS: HEPARIN 5,000 UNIT VIAL SQ SCH ×2 (09:21→22:14)
[2021-04-30 00:10] VITALS: BP 147/90
[2021-04-30 04:20] VITALS: BP 130/85
[2021-04-30] MEDS: INSULIN HUMULIN R 100 UNIT/ML 3ML SQ SCH ×7 (06:20→16:54)
[2021-04-30 07:30] VITALS: BP 112/64
[2021-04-30] MEDS: 0.9%NACL 1000ML 1,000 ML IV SCH ×2 (07:30→11:59)
[2021-04-30] MEDS: INSULIN GLARGINE 100 UNITS/ML 10 ML VIAL SQ SCH (07:30)
[2021-04-30 07:56] LABS: BASOPHILS % (AUTO) 0.3 % (0.0-5.0); EOSINOPHILS % (AUTO) 1.3 % (0.0-8.0); HEMATOCRIT 28.8 % (42-54); MEAN CORPUSCULAR HEMOGLOBIN 27.1 pg (27.0-33.0); MEAN CORPUSCULAR HGB CONC 33.7 g/dL (32.0-36.0); MEAN CORPUSCULAR VOLUME 80.4 fL (79-99); MONOCYTES % (AUTO) 5.5 % (3.0-13.0); NEUTROPHILS % (AUTO) 71.2 % (40.0-77.0); PLATELET COUNT (AUTO) 298 K/uL (130-400); RED BLOOD CELL COUNT(AUTO) 3.58 MIL/uL (4.50-6.20); RED CELL DISTRIBUTION WIDTH 13.5 % (11.0-15.5); WHITE BLOOD COUNT (AUTO) 7.5 K/uL (4.8-10.8)
[2021-04-30 08:06] LABS: CREATININE 1.2 mg/dL (0.5-1.5); MAGNESIUM 1.7 mg/dL (1.80-2.40)
[2021-04-30] MEDS: FAMOTIDINE 20MG VIAL IV SCH (08:55)
[2021-04-30] MEDS: HEPARIN 5,000 UNIT VIAL SQ SCH (08:56)
[2021-04-30] MEDS: KCL 20 MEQ ERTAB PO PRN ×3 (09:00→16:50)
[2021-04-30] MEDS ORDERED: MAGNESIUM OXIDE 400 MG TABLET PO SCH (09:00)
[2021-04-30] MEDS ORDERED: POTASSIUM CHLORIDE 20MEQ/100ML 100 ML IV PRN (09:00)
[2021-04-30] MEDS ORDERED: MAGNESIUM 2GM PREMIX 50ML 50 ML IV SCH (09:00)
[2021-04-30] MEDS ORDERED: POTASSIUM CHLORIDE 10% ELIXIR 20 MEQ/15 ML UDCUP PO PRN (09:00)
[2021-04-30 11:00] VITALS: BP 113/81
[2021-04-30 16:00] VITALS: BP 142/94
== END 2021-04-30 18:25 | disposition left against medical advice (07) | DRG 638 ==
LOC: EDH 13:04 → EDHIP 13:05 → UNDOADMIN 16:21 → EDHIP 16:21 → 3CH 04-29 00:11
PROVIDERS: ADMIT Hospitalist; ATTEND Hospitalist
DX: E11.65 Type 2 diabetes mellitus with hyperglycemia (principal); E87.1 Hypo-osmolality and hyponatremia; R64 Cachexia; Z68.1 Body mass index [BMI] 19.9 or less, adult; E86.0 Dehydration; D64.9 Anemia, unspecified; E87.6 Hypokalemia; I10 Essential (primary) hypertension; E86.1 Hypovolemia; F12.90 Cannabis use, unspecified, uncomplicated; F14.90 Cocaine use, unspecified, uncomplicated; F17.210 Nicotine dependence, cigarettes, uncomplicated; N28.9 Disorder of kidney and ureter, unspecified; Z20.822 Contact with and (suspected) exposure to COVID-19; Z59.0 Homelessness; Z79.4 Long term (current) use of insulin; Z86.73 Personal history of transient ischemic attack (TIA), and cerebral infarction without residual deficits; Z91.14 Patient's other noncompliance with medication regimen; Z91.19 Patient's noncompliance with other medical treatment and regimen; Z82.0 Family history of epilepsy and other diseases of the nervous system; Z82.3 Family history of stroke; Z83.3 Family history of diabetes mellitus; Z82.49 Family history of ischemic heart disease and other diseases of the circulatory system
CPT/HCPCS: 36415; 36600; 71045; 80048; 80053; 81001; 82010; 82803; 82948; 83036; 83735; 84484; 85025; 86140; 87088; 87635; 93005; C9803; G0378; J1644; J1815; J3475; J3490; J7030

== ENCOUNTER 2021-06-07 15:55 | Emergency (ER) | payer OTHER ==
[~2021-06-07] VITALS: Ht 157.5 cm; Wt 59.0 kg
[2021-06-07 16:16] VITALS: BP 122/97
[2021-06-07 17:31] LABS: HEMATOCRIT 31.6 % (42-54); MEAN CORPUSCULAR HEMOGLOBIN 27.6 pg (27.0-33.0); MEAN CORPUSCULAR HGB CONC 33.2 g/dL (32.0-36.0); MEAN CORPUSCULAR VOLUME 83.2 fL (79-99); RED BLOOD CELL COUNT(AUTO) 3.8 MIL/uL (4.50-6.20); RED CELL DISTRIBUTION WIDTH 13.2 % (11.0-15.5); WHITE BLOOD COUNT (AUTO) 10.4 K/uL (4.8-10.8)
[2021-06-07 17:50] LABS: CREATININE 1.4 mg/dL (0.5-1.5); POTASSIUM 4.1 mmol/L (3.5-5.1)
[2021-06-07] MEDS ORDERED: INSULIN HUMULIN R 100 UNIT/ML 3ML SQ STA (18:26)
[2021-06-07] MEDS ORDERED: METF-444 PO (19:07)
[2021-06-07 19:25] VITALS: BP 124/89
== END 2021-06-07 19:31 | disposition home or self-care (01) ==
LOC: EDH 15:55
DX: E11.65 Type 2 diabetes mellitus with hyperglycemia (principal); Z59.0 Homelessness
CPT/HCPCS: 36415; 80048; 85027; 96372; 99283; J1815

== ENCOUNTER 2021-08-11 03:01 | Emergency (ER) | payer OTHER ==
[~2021-08-11] VITALS: Ht 170.2 cm; Wt 61.7 kg
[~2021-08-11 03:01] MED LIST changes: -CEPH500B PO; -FLUC200T8 PO; -GLIM1TAB18 PO; +METF-444 PO
[2021-08-11 04:56] VITALS: BP 122/49
== END 2021-08-11 04:53 | disposition home or self-care (01) ==
LOC: EDH 03:01
DX: Z46.6 Encounter for fitting and adjustment of urinary device (principal); E11.9 Type 2 diabetes mellitus without complications; F17.200 Nicotine dependence, unspecified, uncomplicated; Z79.84 Long term (current) use of oral hypoglycemic drugs; Z86.73 Personal history of transient ischemic attack (TIA), and cerebral infarction without residual deficits

== ENCOUNTER 2021-08-19 13:36 | Emergency (ER) | payer OTHER ==
[~2021-08-19] VITALS: Ht 170.2 cm; Wt 59.0 kg
[2021-08-19 13:59] LABS: BASOPHILS % (AUTO) 0.4 % (0.0-5.0); EOSINOPHILS % (AUTO) 0.5 % (0.0-8.0); HEMATOCRIT 26.6 % (42-54); LYMPHOCYTES % (AUTO) 7.2 % (21.0-51.0); MEAN CORPUSCULAR HEMOGLOBIN 27.3 pg (27.0-33.0); MEAN CORPUSCULAR HGB CONC 33.8 g/dL (32.0-36.0); MEAN CORPUSCULAR VOLUME 80.6 fL (79-99); NEUTROPHILS % (AUTO) 82.5 % (40.0-77.0); PLATELET COUNT (AUTO) 286 K/uL (130-400); RED CELL DISTRIBUTION WIDTH 12.2 % (11.0-15.5); WHITE BLOOD COUNT (AUTO) 10.5 K/uL (4.8-10.8)
[2021-08-19 14:20] LABS: CREATININE 1.6 mg/dL (0.5-1.5); POTASSIUM 3.7 mmol/L (3.5-5.1)
[2021-08-19 14:25] LABS: BILIRUBIN,TOTAL 0.3 mg/dL (0.2-1.0); TOTAL PROTEIN, SERUM 7.2 g/dL (6.0-8.3)
[2021-08-19] MEDS ORDERED: NITROGLYCERIN 1GM OINT 1 INCH/1GM TD ONE (14:30)
[2021-08-19 14:53] VITALS: BP 143/82
== END 2021-08-19 15:43 | disposition home or self-care (01) ==
LOC: EDH 13:36
DX: E11.65 Type 2 diabetes mellitus with hyperglycemia (principal); R07.89 Other chest pain; I10 Essential (primary) hypertension; Z20.822 Contact with and (suspected) exposure to COVID-19; Z91.14 Patient's other noncompliance with medication regimen; F17.210 Nicotine dependence, cigarettes, uncomplicated; Z79.84 Long term (current) use of oral hypoglycemic drugs; Z86.73 Personal history of transient ischemic attack (TIA), and cerebral infarction without residual deficits
CPT/HCPCS: 36415; 71045; 73030; 80053; 83605; 84484; 85025; 87040 ×2; 87635; 93005; 99285; C9803

== ENCOUNTER 2021-08-25 19:30 | Inpatient (IN) | payer OTHER ==
[~2021-08-25] VITALS: Ht 170.2 cm; Wt 58.1 kg
[2021-08-25] MEDS ORDERED: NEOMY SULF/BACITRA/POLYMYXIN B 1 EACH PACKET TP ONE ×2 (20:00→21:56)
[2021-08-25] MEDS ORDERED: 0.9%NACL 1000ML 1,000 ML IV ONE ×3 (20:00→22:00)
[2021-08-25 20:28] LABS: ABG BASE EXCESS -9.1 mmol/L (-2.0-3.0); ABG HCO3 12.2 mmol/L (21.0-28.0); ABG OXYGEN SATURATION 98.1 % (95.0-99.0); ABG PCO2 16 mmHg (35-48)
[2021-08-25 20:37] LABS: BASOPHILS % (AUTO) 0.6 % (0.0-5.0); EOSINOPHILS % (AUTO) 0.1 % (0.0-8.0); LYMPHOCYTES % (AUTO) 2.3 % (21.0-51.0); MEAN CORPUSCULAR HEMOGLOBIN 27.4 pg (27.0-33.0); MEAN CORPUSCULAR HGB CONC 34.8 g/dL (32.0-36.0); MEAN CORPUSCULAR VOLUME 78.6 fL (79-99); MONOCYTES % (AUTO) 5.7 % (3.0-13.0); NEUTROPHILS % (AUTO) 90.2 % (40.0-77.0); PLATELET COUNT (AUTO) 365 K/uL (130-400); RED BLOOD CELL COUNT(AUTO) 3.18 MIL/uL (4.50-6.20); RED CELL DISTRIBUTION WIDTH 11.8 % (11.0-15.5); WHITE BLOOD COUNT (AUTO) 19.7 K/uL (4.8-10.8)
[2021-08-25 20:53] LABS: BILIRUBIN,TOTAL 0.5 mg/dL (0.2-1.0); CREATININE 1.6 mg/dL (0.5-1.5); POTASSIUM 3.5 mmol/L (3.5-5.1); TOTAL PROTEIN, SERUM 6.9 g/dL (6.0-8.3)
[2021-08-25] MEDS ORDERED: INSULIN HUMULIN R 100 UNIT/ML 3ML IV ONE (22:00)
[2021-08-25] MEDS ORDERED: 0.9%NACL 1000ML 1,000 ML IV SCH (23:00)
[2021-08-25] MEDS ORDERED: DEXTROSE 5 %-0.45 % NACL 1,000 ML IV PRN (23:00)
[2021-08-25 23:01] LABS: APPEARANCE,URINE Cloudy (CLEAR); BILIRUBIN,URINE Negative (NEGATIVE); COLOR,URINE Yellow (YELLOW); GLUCOSE, URINE (UA) >=1000 mg/dL (NEGATIVE); KETONES,URINE 40 mg/dL (NEGATIVE); LEUKOCYTE ESTERASE ,URINE Moderate (NEGATIVE); NITRATE,URINE Negative (NEGATIVE); OCCULT BLOOD,URINE Small (NEGATIVE); PROTEIN,URINE POS 2+ mg/dL (NEGATIVE); UROBILINOGEN,URINE 0.2 mg/dL (0.2-1.0)
[2021-08-25 23:13] LABS: RBC,URINE 0-1 /HPF (0-1); WBC,URINE 26-50 /HPF (0-1)
[2021-08-25 23:16] LABS: BACTERIA,URINE Rare /HPF (None Seen); SQUAMOUS EPITHELIAL CELL,UR Few /HPF (0-2); YEAST,URINE BUDDING Few /HPF (None Seen)
[2021-08-25] MEDS ORDERED: ONDANSETRON 4MG INJ IV PRN (23:30)
[2021-08-25] MEDS ORDERED: POTASSIUM CHLORIDE 10MEQ/100ML 10 MEQ/100 ML ML IV SCH (23:30)
[2021-08-25] MEDS ORDERED: HYDRALAZINE 20MG/ML VIAL IV PRN (23:30)
[2021-08-25] MEDS ORDERED: GUAIFENESIN-DM 200/20 MG 10 ML PO PRN (23:30)
[2021-08-25] MEDS ORDERED: ACETAMINOPHEN 325 MG TAB PO PRN (23:30)
[2021-08-25] MEDS ORDERED: LACTULOSE 20 GM/30 ML UDCUP PO PRN (23:30)
[2021-08-25] MEDS ORDERED: INSULIN REGULAR, HUMAN 3ML 100 UNIT in 0.9%NACL 100ML 99 ML IV PRN ×2 (23:30)
[2021-08-25] MEDS ORDERED: MAG/ALUM/SIMETH 30 ML UDCUP PO PRN (23:30)
[2021-08-25] MEDS: 0.9%NACL 1000ML 1,000 ML IV SCH (23:43)
[2021-08-26] VITALS (19 sets, daily range): BP systolic 127–170; BP diastolic 50–98
[2021-08-26] MEDS: ZOSYN 3.375GM +NS 50ML IV SCH ×2 (00:10→08:55)
[2021-08-26] MEDS ORDERED: INSULIN HUMULIN R 100 UNIT/ML 3ML ONE (00:13)
[2021-08-26 00:14] LABS: AMPHET/METH SCREEN,URINE NEGATIVE (NEGATIVE); BARBITURATE SCREEN, URINE NEGATIVE (NEGATIVE); BENZODIAZEPINES SCREEN,URINE NEGATIVE (NEGATIVE); CANNABINOID SCREEN,URINE NEGATIVE (NEGATIVE); COCAINE SCREEN,URINE POSITIVE (NEGATIVE); OPIATE SCREEN,URINE NEGATIVE (NEGATIVE); PHENCYCLIDINE SCREEN,URINE NEGATIVE (NEGATIVE)
[2021-08-26 00:42] LABS: CREATININE 1.5 mg/dL (0.5-1.5)
[2021-08-26 01:06] LABS: ABG BASE EXCESS -5.4 mmol/L (-2.0-3.0); ABG HCO3 15.5 mmol/L (21.0-28.0); ABG OXYGEN SATURATION 98.3 % (95.0-99.0); ABG PCO2 21 mmHg (35-48)
[2021-08-26] MEDS ORDERED: MAGNESIUM 2GM PREMIX 50ML 50 ML IV SCH (02:30)
[2021-08-26] MEDS ORDERED: MORPHINE 2 MG SYG IVP ONE ×2 (03:30→22:00)
[2021-08-26] MEDS: POTASSIUM CHLORIDE 10MEQ/100ML 100 ML IV PRN ×6 (04:00→16:44)
[2021-08-26] MEDS: 0.9%NACL 1000ML 1,000 ML IV SCH ×4 (04:00→17:54)
[2021-08-26 05:00] LABS: CREATININE 1.4 mg/dL (0.5-1.5)
[2021-08-26 05:11] LABS: POTASSIUM 2.9 mmol/L (3.5-5.1)
[2021-08-26 08:16] LABS: CREATININE 1.3 mg/dL (0.5-1.5)
[2021-08-26] MEDS: FAMOTIDINE 20MG TAB PO SCH ×2 (08:55→21:00)
[2021-08-26] MEDS: ACETAMINOPHEN WITH CODEINE 1 TAB TAB PO PRN ×2 (08:56→17:08)
[2021-08-26] MEDS: ENOXAPARIN SODIUM 30 MG/0.3 ML SQ SCH (08:57)
[2021-08-26] MEDS: CEFTRIAXONE 1G VIAL IVP SCH (11:45)
[2021-08-26 12:19] LABS: CREATININE 1.2 mg/dL (0.5-1.5)
[2021-08-26 12:21] LABS: POTASSIUM 2.9 mmol/L (3.5-5.1)
[2021-08-26] MEDS ORDERED: KCL 20 MEQ ERTAB PO ONE (12:25)
[2021-08-26 16:17] LABS: CREATININE 1.2 mg/dL (0.5-1.5); POTASSIUM 3.5 mmol/L (3.5-5.1)
[2021-08-26] MEDS ORDERED: POTASSIUM CHLORIDE 20MEQ/100ML 100 ML IV PRN (17:00)
[2021-08-26] MEDS ORDERED: MAGNESIUM 2GM PREMIX 50ML 50 ML IV PRN (17:00)
[2021-08-26] MEDS ORDERED: KCL 20 MEQ ERTAB PO PRN (17:00)
[2021-08-26] MEDS ORDERED: LIDOCAINE HCL-MPF 1% 2ML VIAL IV PRN (17:00)
[2021-08-26 21:54] LABS: CREATININE 1.1 mg/dL (0.5-1.5); POTASSIUM 3.2 mmol/L (3.5-5.1)
[2021-08-26] MEDS: POTASSIUM CHLORIDE 10% ELIXIR 20 MEQ/15 ML UDCUP PO PRN (22:43)
[2021-08-27] MEDS: 0.9%NACL 1000ML 1,000 ML IV SCH (00:27)
[2021-08-27] MEDS: POTASSIUM CHLORIDE 10% ELIXIR 20 MEQ/15 ML UDCUP PO PRN ×2 (01:31→04:22)
[2021-08-27] MEDS: ACETAMINOPHEN WITH CODEINE 1 TAB TAB PO PRN ×4 (01:34→21:03)
[2021-08-27 04:30] VITALS: BP 132/80
[2021-08-27 04:32] LABS: CREATININE 1.2 mg/dL (0.5-1.5); POTASSIUM 3.9 mmol/L (3.5-5.1)
[2021-08-27 07:12] LABS: BASOPHILS % (AUTO) 0.8 % (0.0-5.0); EOSINOPHILS % (AUTO) 0.2 % (0.0-8.0); HEMATOCRIT 23.4 % (42-54); MEAN CORPUSCULAR HEMOGLOBIN 27.1 pg (27.0-33.0); MEAN CORPUSCULAR HGB CONC 33.8 g/dL (32.0-36.0); MEAN CORPUSCULAR VOLUME 80.1 fL (79-99); MONOCYTES % (AUTO) 2.2 % (3.0-13.0); PLATELET COUNT (AUTO) 329 K/uL (130-400); RED BLOOD CELL COUNT(AUTO) 2.92 MIL/uL (4.50-6.20); RED CELL DISTRIBUTION WIDTH 11.8 % (11.0-15.5); WHITE BLOOD COUNT (AUTO) 15.7 K/uL (4.8-10.8)
[2021-08-27 07:50] LABS: PHOSPHORUS 1.8 mg/dL (2.5-4.9)
[2021-08-27 08:00] VITALS: BP 122/80
[2021-08-27] MEDS: FAMOTIDINE 20MG TAB PO SCH ×2 (08:09→20:47)
[2021-08-27] MEDS: METOPROLOL TARTRATE 25 MG TAB PO SCH ×2 (08:09→20:49)
[2021-08-27] MEDS: ENOXAPARIN SODIUM 30 MG/0.3 ML SQ SCH (08:10)
[2021-08-27] MEDS: INSULIN GLARGINE 100 UNITS/ML 10 ML VIAL SQ SCH (08:11)
[2021-08-27 08:48] LABS: % IRON SATURATION 8.3 % (30-44)
[2021-08-27] MEDS: CEFTRIAXONE 1G VIAL IVP SCH (09:24)
[2021-08-27] MEDS ORDERED: ZOSYN 3.375GM +NS 50ML IV SCH (10:00)
[2021-08-27] MEDS ORDERED: ZOSYN 3.375GM+NS 50ML 50 ML IV SCH ×2 (10:00→21:00)
[2021-08-27] MEDS ORDERED: 0.9%NACL 50ML 50 ML IV ONE (10:19)
[2021-08-27 11:00] VITALS: BP 117/69
[2021-08-27] MEDS ORDERED: BALSAM PERU/CASTOR OIL 60 GM TUBE TP SCH (11:00)
[2021-08-27] MEDS: ZYVOX 600 MG TAB PO SCH ×2 (11:21→20:47)
[2021-08-27] MEDS: INSULIN HUMULIN R 100 UNIT/ML 3ML SQ SCH ×3 (11:33→20:51)
[2021-08-27] MEDS ORDERED: VANCOMYCIN PROTOCOL PER PHARMACY IV SCH (12:30)
[2021-08-27] MEDS ORDERED: COMPOUND IV REFRIGERATED 1 EACH IVSOLN MISC PRN (13:00)
[2021-08-27] MEDS ORDERED: VANCOMYCIN 1.25GM/NS 250ML IVPB ONE ×2 (13:00)
[2021-08-27] MEDS: FLUCONAZOLE 100 MG TAB PO SCH (15:11)
[2021-08-27 16:53] VITALS: BP 134/81
[2021-08-27 19:50] VITALS: BP 133/83
[2021-08-27] MEDS: VANCOMYCIN 750MG VIAL IVPB SCH (20:49)
[2021-08-27] MEDS: 0.9% NACL 250ML 250 ML IV SCH (20:49)
[2021-08-27 23:31] VITALS: BP 117/67
[2021-08-28] VITALS (20 sets, daily range): BP systolic 93–146; BP diastolic 54–95
[2021-08-28] MEDS ORDERED: DiphenhydrAMINE HCL 50 MG/ML VIAL IV ONE
[2021-08-28] MEDS: 0.9% NACL 250ML 250 ML IV SCH ×3 (05:12→20:55)
[2021-08-28] MEDS: VANCOMYCIN 750MG VIAL IVPB SCH ×2 (05:12→13:00)
[2021-08-28] MEDS: INSULIN HUMULIN R 100 UNIT/ML 3ML SQ SCH ×7 (06:24→20:56)
[2021-08-28 07:38] LABS: HEMATOCRIT 21.7 % (42-54); MEAN CORPUSCULAR HGB CONC 34.6 g/dL (32.0-36.0); MEAN CORPUSCULAR VOLUME 78.1 fL (79-99); RED BLOOD CELL COUNT(AUTO) 2.78 MIL/uL (4.50-6.20); RED CELL DISTRIBUTION WIDTH 11.9 % (11.0-15.5); WHITE BLOOD COUNT (AUTO) 15.9 K/uL (4.8-10.8)
[2021-08-28 07:59] LABS: ALBUMIN 1.2 g/dL (3.5-5.0); BILIRUBIN,TOTAL 0.3 mg/dL (0.2-1.0); CREATININE 1.1 mg/dL (0.5-1.5); POTASSIUM 3.4 mmol/L (3.5-5.1); TOTAL PROTEIN, SERUM 5.9 g/dL (6.0-8.3)
[2021-08-28] MEDS: METOPROLOL TARTRATE 25 MG TAB PO SCH ×2 (08:16→20:55)
[2021-08-28] MEDS: ACETAMINOPHEN WITH CODEINE 1 TAB TAB PO PRN ×2 (08:16→08:17)
[2021-08-28] MEDS: FAMOTIDINE 20MG TAB PO SCH ×2 (08:16→20:54)
[2021-08-28] MEDS: INSULIN GLARGINE 100 UNITS/ML 10 ML VIAL SQ SCH (08:54)
[2021-08-28] MEDS: ENOXAPARIN SODIUM 30 MG/0.3 ML SQ SCH (08:55)
[2021-08-28] MEDS ORDERED: FENTANYL CITRATE PF 50 MCG/1 ML 2ML VIAL ONE (13:43)
[2021-08-28] MEDS ORDERED: PROPOFOL 10 MG/ML 20ML VIAL IV ONE (13:43)
[2021-08-28] MEDS ORDERED: MIDAZOLAM HCL 1 MG/ML 2ML VIAL ONE (13:43)
[2021-08-28] MEDS ORDERED: BUPIVACAINE/PF 0.25% 30ML VIAL IJ ONE (13:45)
[2021-08-28] MEDS ORDERED: LIDOCAINE HCL 1% 20 ML VIAL ONE (13:45)
[2021-08-28] MEDS ORDERED: CEFAZOLIN SODIUM 1 GM VIAL ONE (13:54)
[2021-08-28] MEDS ORDERED: CEFAZOLIN SODIUM 2 GM VIAL IV ONE (13:55)
[2021-08-28] MEDS ORDERED: VANCOMYCIN 750MG VIAL ONE (13:56)
[2021-08-28] MEDS ORDERED: RENAL DOSE IV SCH (15:30)
[2021-08-28] MEDS: DOXYCYCLINE HYCLATE 100 MG TABLET PO SCH (16:23)
[2021-08-28] MEDS: FLUCONAZOLE 100 MG TAB PO SCH (16:23)
[2021-08-28] MEDS: TRAZODONE HCL 100 MG TABLET PO SCH (20:54)
[2021-08-28] MEDS: DULOXETINE HCL 30 MG CAP PO SCH (20:55)
[2021-08-28] MEDS: 0.9%NACL 100ML 100 ML IV SCH (23:26)
[2021-08-28] MEDS: VANCOMYCIN 500MG+NS 100ML IVPB IV SCH (23:27)
[2021-08-29] MEDS: DOXYCYCLINE HYCLATE 100 MG TABLET PO SCH ×2 (03:12→12:23)
[2021-08-29 04:02] VITALS: BP 128/87
[2021-08-29] MEDS: 0.9% NACL 250ML 250 ML IV SCH ×4 (05:00→19:34)
[2021-08-29] MEDS: 0.9%NACL 100ML 100 ML IV SCH ×3 (06:03→22:12)
[2021-08-29] MEDS: VANCOMYCIN 500MG+NS 100ML IVPB IV SCH ×3 (06:03→22:12)
[2021-08-29] MEDS: INSULIN HUMULIN R 100 UNIT/ML 3ML SQ SCH ×7 (06:08→22:25)
[2021-08-29 06:40] LABS: BASOPHILS % (AUTO) 0.3 % (0.0-5.0); EOSINOPHILS % (AUTO) 0.5 % (0.0-8.0); HEMATOCRIT 22.4 % (42-54); LYMPHOCYTES % (AUTO) 4.3 % (21.0-51.0); MEAN CORPUSCULAR HEMOGLOBIN 27.2 pg (27.0-33.0); MEAN CORPUSCULAR HGB CONC 33.9 g/dL (32.0-36.0); MEAN CORPUSCULAR VOLUME 80.3 fL (79-99); MONOCYTES % (AUTO) 2.8 % (3.0-13.0); NEUTROPHILS % (AUTO) 89.2 % (40.0-77.0); PLATELET COUNT (AUTO) 309 K/uL (130-400); RED BLOOD CELL COUNT(AUTO) 2.79 MIL/uL (4.50-6.20); RED CELL DISTRIBUTION WIDTH 12.3 % (11.0-15.5); WHITE BLOOD COUNT (AUTO) 14.9 K/uL (4.8-10.8)
[2021-08-29 06:58] LABS: ALBUMIN 1.2 g/dL (3.5-5.0); BILIRUBIN,TOTAL 0.2 mg/dL (0.2-1.0); CREATININE 1.1 mg/dL (0.5-1.5); POTASSIUM 3.7 mmol/L (3.5-5.1)
[2021-08-29 07:51] VITALS: BP 140/76
[2021-08-29] MEDS: FAMOTIDINE 20MG TAB PO SCH ×2 (08:16→22:11)
[2021-08-29] MEDS: DULOXETINE HCL 30 MG CAP PO SCH ×2 (08:16→22:12)
[2021-08-29] MEDS: AMLODIPINE 5 MG TAB PO SCH (08:16)
[2021-08-29] MEDS: FLUOXETINE HCL 20 MG CAPSULE PO SCH (08:16)
[2021-08-29] MEDS: ENOXAPARIN SODIUM 30 MG/0.3 ML SQ SCH (08:17)
[2021-08-29] MEDS: INSULIN GLARGINE 100 UNITS/ML 10 ML VIAL SQ SCH (08:21)
[2021-08-29 11:43] VITALS: BP 119/72
[2021-08-29] MEDS: ACETAMINOPHEN WITH CODEINE 1 TAB TAB PO PRN ×2 (12:23→22:12)
[2021-08-29] MEDS: FLUCONAZOLE 100 MG TAB PO SCH (12:24)
[2021-08-29] MEDS: CEFTRIAXONE 2GM VIAL IVP SCH (12:31)
[2021-08-29 15:24] VITALS: BP 123/71
[2021-08-29 19:51] VITALS: BP 140/83
[2021-08-29] MEDS: TRAZODONE HCL 100 MG TABLET PO SCH (22:12)
[2021-08-29 23:27] VITALS: BP 129/78
[2021-08-30] MEDS: DOXYCYCLINE HYCLATE 100 MG TABLET PO SCH ×2 (03:29→13:24)
[2021-08-30 03:41] VITALS: BP 127/78
[2021-08-30] MEDS: ACETAMINOPHEN WITH CODEINE 1 TAB TAB PO PRN ×3 (05:38→19:33)
[2021-08-30] MEDS: VANCOMYCIN 500MG+NS 100ML IVPB IV SCH ×3 (06:12→20:17)
[2021-08-30] MEDS: 0.9%NACL 100ML 100 ML IV SCH ×3 (06:12→20:17)
[2021-08-30] MEDS: INSULIN HUMULIN R 100 UNIT/ML 3ML SQ SCH ×7 (06:14→20:27)
[2021-08-30 07:00] VITALS: BP 144/91
[2021-08-30 07:03] LABS: BASOPHILS % (AUTO) 0.2 % (0.0-5.0); EOSINOPHILS % (AUTO) 0.9 % (0.0-8.0); HEMATOCRIT 21.6 % (42-54); LYMPHOCYTES % (AUTO) 5.3 % (21.0-51.0); MEAN CORPUSCULAR HEMOGLOBIN 26.8 pg (27.0-33.0); MEAN CORPUSCULAR HGB CONC 33.8 g/dL (32.0-36.0); MEAN CORPUSCULAR VOLUME 79.4 fL (79-99); MONOCYTES % (AUTO) 4.3 % (3.0-13.0); NEUTROPHILS % (AUTO) 83.3 % (40.0-77.0); PLATELET COUNT (AUTO) 335 K/uL (130-400); RED BLOOD CELL COUNT(AUTO) 2.72 MIL/uL (4.50-6.20); RED CELL DISTRIBUTION WIDTH 12.5 % (11.0-15.5); WHITE BLOOD COUNT (AUTO) 15.6 K/uL (4.8-10.8)
[2021-08-30 07:11] LABS: CREATININE 0.8 mg/dL (0.5-1.5); POTASSIUM 3.7 mmol/L (3.5-5.1)
[2021-08-30] MEDS: FAMOTIDINE 20MG TAB PO SCH ×2 (08:10→20:16)
[2021-08-30] MEDS: DULOXETINE HCL 30 MG CAP PO SCH ×2 (08:10→20:16)
[2021-08-30] MEDS: AMLODIPINE 5 MG TAB PO SCH (08:10)
[2021-08-30] MEDS: FLUOXETINE HCL 20 MG CAPSULE PO SCH (08:10)
[2021-08-30] MEDS: CEFTRIAXONE 2GM VIAL IVP SCH (08:10)
[2021-08-30] MEDS: ENOXAPARIN SODIUM 30 MG/0.3 ML SQ SCH (08:10)
[2021-08-30] MEDS: INSULIN GLARGINE 100 UNITS/ML 10 ML VIAL SQ SCH (08:14)
[2021-08-30 11:00] VITALS: BP 128/85
[2021-08-30] MEDS: 0.9% NACL 250ML 250 ML IV SCH ×2 (13:24→20:28)
[2021-08-30] MEDS: FLUCONAZOLE 100 MG TAB PO SCH (13:42)
[2021-08-30 16:00] VITALS: BP 160/98
[2021-08-30 19:56] VITALS: BP 138/85
[2021-08-30] MEDS: TRAZODONE HCL 100 MG TABLET PO SCH (20:16)
[2021-08-30] MEDS: SODIUM HYPOCHLORITE 0.25% [HALF STRENGTH] 473 ML TOPICAL SOLN TP SCH (20:17)
[2021-08-30 22:50] VITALS: BP 142/91
[2021-08-31] MEDS: DOXYCYCLINE HYCLATE 100 MG TABLET PO SCH ×2 (01:05→13:13)
[2021-08-31 04:00] VITALS: BP 153/88
[2021-08-31] MEDS: 0.9% NACL 250ML 250 ML IV SCH (05:00)
[2021-08-31 05:35] LABS: BASOPHILS % (AUTO) 0.3 % (0.0-5.0); EOSINOPHILS % (AUTO) 0.8 % (0.0-8.0); HEMATOCRIT 22.6 % (42-54); LYMPHOCYTES % (AUTO) 6.8 % (21.0-51.0); MEAN CORPUSCULAR HEMOGLOBIN 27.2 pg (27.0-33.0); MEAN CORPUSCULAR HGB CONC 33.6 g/dL (32.0-36.0); MONOCYTES % (AUTO) 5.9 % (3.0-13.0); NEUTROPHILS % (AUTO) 78.9 % (40.0-77.0); PLATELET COUNT (AUTO) 351 K/uL (130-400); RED BLOOD CELL COUNT(AUTO) 2.79 MIL/uL (4.50-6.20); RED CELL DISTRIBUTION WIDTH 12.2 % (11.0-15.5); WHITE BLOOD COUNT (AUTO) 14.6 K/uL (4.8-10.8)
[2021-08-31 05:43] LABS: CREATININE 0.8 mg/dL (0.5-1.5); POTASSIUM 3.5 mmol/L (3.5-5.1)
[2021-08-31] MEDS: INSULIN HUMULIN R 100 UNIT/ML 3ML SQ SCH ×6 (06:51→17:00)
[2021-08-31] MEDS: 0.9%NACL 100ML 100 ML IV SCH (07:00)
[2021-08-31] MEDS: VANCOMYCIN 500MG+NS 100ML IVPB IV SCH (07:00)
[2021-08-31 07:14] VITALS: BP 146/90
[2021-08-31] MEDS ORDERED: 0.9% NACL 250ML 250 ML IV SCH ×3 (07:30→21:00)
[2021-08-31] MEDS ORDERED: VANCOMYCIN KIT 1 GM/250 ML IV.KIT IV SCH ×2 (07:30→12:00)
[2021-08-31] MEDS: ACETAMINOPHEN WITH CODEINE 1 TAB TAB PO PRN ×2 (08:26→10:35)
[2021-08-31] MEDS ORDERED: INSULIN GLARGINE 100 UNITS/ML 10 ML VIAL SQ SCH (09:00)
[2021-08-31] MEDS: DULOXETINE HCL 30 MG CAP PO SCH (10:09)
[2021-08-31] MEDS: FAMOTIDINE 20MG TAB PO SCH (10:09)
[2021-08-31] MEDS: AMLODIPINE 5 MG TAB PO SCH (10:09)
[2021-08-31] MEDS: FLUOXETINE HCL 20 MG CAPSULE PO SCH (10:09)
[2021-08-31] MEDS: CEFTRIAXONE 2GM VIAL IVP SCH (10:09)
[2021-08-31] MEDS: ENOXAPARIN SODIUM 30 MG/0.3 ML SQ SCH (10:10)
[2021-08-31] MEDS: SODIUM HYPOCHLORITE 0.25% [HALF STRENGTH] 473 ML TOPICAL SOLN TP SCH (10:16)
[2021-08-31 11:20] VITALS: BP 129/83
[2021-08-31] MEDS: FLUCONAZOLE 100 MG TAB PO SCH (11:49)
[2021-08-31 15:02] VITALS: BP 115/72
[2021-08-31] MEDS ORDERED: METF-446 PO (16:48)
[2021-08-31] MEDS ORDERED: GLIM4TAB36 PO (16:48)
[2021-08-31] MEDS ORDERED: PIOG30TA10 PO (16:48)
[2021-08-31] MEDS ORDERED: CEFU500T67 PO (16:48)
[2021-08-31] MEDS ORDERED: DOXY100T2 PO (16:48)
[2021-08-31] MEDS ORDERED: VANCOMYCIN 750MG VIAL IVPB SCH (21:00)
== END 2021-08-31 18:35 | disposition home or self-care (01) | DRG 853 ==
LOC: EDH 19:30 → EDHIP 19:31 → 2BH 08-26 02:01 → 2DH 08-27 17:08 → 3AH 08-30 22:44
PROVIDERS: ADMIT Hospitalist; ATTEND Hospitalist
PROC: 0WBK0ZZ Excision of Upper Back, Open Approach (ICD-10-PCS; principal; 2021-08-28 14:01)
DX: A41.9 Sepsis, unspecified organism (principal); E11.10 Type 2 diabetes mellitus with ketoacidosis without coma; N39.0 Urinary tract infection, site not specified; F32.1 Major depressive disorder, single episode, moderate; L02.212 Cutaneous abscess of back [any part, except buttock and flank]; R64 Cachexia; E87.1 Hypo-osmolality and hyponatremia; E87.6 Hypokalemia; L89.322 Pressure ulcer of left buttock, stage 2; L89.312 Pressure ulcer of right buttock, stage 2; F14.10 Cocaine abuse, uncomplicated; D64.9 Anemia, unspecified; B96.20 Unspecified Escherichia coli [E. coli] as the cause of diseases classified elsewhere; B37.9 Candidiasis, unspecified; B95.62 Methicillin resistant Staphylococcus aureus infection as the cause of diseases classified elsewhere; E86.0 Dehydration; F17.210 Nicotine dependence, cigarettes, uncomplicated; F41.1 Generalized anxiety disorder; I10 Essential (primary) hypertension; Z68.20 Body mass index [BMI] 20.0-20.9, adult; Z59.00 Homelessness unspecified; Z79.4 Long term (current) use of insulin; Z91.14 Patient's other noncompliance with medication regimen; Z91.19 Patient's noncompliance with other medical treatment and regimen; Z83.3 Family history of diabetes mellitus; Z82.3 Family history of stroke; Z82.49 Family history of ischemic heart disease and other diseases of the circulatory system; Z82.0 Family history of epilepsy and other diseases of the nervous system; Z82.1 Family history of blindness and visual loss
CPT/HCPCS: 36415; 36600; 71045; 73080; 73552; 80048; 80053; 80202; 80305; 81001; 82010; 82435; 82607; 82728; 82746; 82803; 82947; 82948; 83540; 83550; 83605; 83690; 83735; 84100; 84132; 84145; 84295; 84484; 85018; 85025; 85027; 85045; 87040; 87070; 87076; 87077; 87088; 87186; 87205; 93005; 99291; G0378; J0360; J0690; J0696; J1200; J1650; J1815; J2250; J2405; J2543; J2704; J3010; J3370; J3475; J3490; J7030; J7042; J7050

== ENCOUNTER 2021-09-01 06:49 | Emergency (ER) | payer OTHER ==
[~2021-09-01 06:49] MED LIST changes: +CEFU500T67 PO; +DOXY100T2 PO; +GLIM4TAB36 PO; -METF-444 PO; +METF-446 PO; +PIOG30TA10 PO
== END 2021-09-01 08:19 | disposition home or self-care (01) ==
LOC: EDH 06:49
DX: M79.652 Pain in left thigh (principal); E11.9 Type 2 diabetes mellitus without complications; I10 Essential (primary) hypertension; F17.200 Nicotine dependence, unspecified, uncomplicated; Z79.84 Long term (current) use of oral hypoglycemic drugs
CPT/HCPCS: 99281

== ENCOUNTER 2021-09-01 12:52 | Emergency (ER) | payer OTHER ==
[~2021-09-01] VITALS: Ht 170.2 cm; Wt 54.4 kg
[2021-09-01] MEDS ORDERED: HYDROCODONE/ACETAMINOPHEN 10/325 MG TAB ONE (14:26)
[2021-09-01] MEDS ORDERED: HYDROCODONE/ACETAMINOPHEN 10/325 MG TAB PO ONE (14:30)
[2021-09-01 15:24] VITALS: BP 128/81
== END 2021-09-01 15:32 | disposition left against medical advice (07) ==
LOC: EDH 12:52
DX: R11.0 Nausea (principal); Z53.21 Procedure and treatment not carried out due to patient leaving prior to being seen by health care provider
CPT/HCPCS: 87070; 87076; 87077; 87186

== ENCOUNTER 2021-09-06 13:00 | Emergency (ER) | payer OTHER ==
[~2021-09-06] VITALS: Ht 170.2 cm; Wt 47.6 kg
[2021-09-06 14:17] VITALS: BP 152/101
[2021-09-06 14:18] LABS: BASOPHILS % (AUTO) 0.2 % (0.0-5.0); EOSINOPHILS % (AUTO) 0.1 % (0.0-8.0); HEMATOCRIT 25.1 % (42-54); MEAN CORPUSCULAR HGB CONC 32.3 g/dL (32.0-36.0); MEAN CORPUSCULAR VOLUME 83.7 fL (79-99); MONOCYTES % (AUTO) 3.1 % (3.0-13.0); NEUTROPHILS % (AUTO) 88.3 % (40.0-77.0); PLATELET COUNT (AUTO) 651 K/uL (130-400); RED CELL DISTRIBUTION WIDTH 12.8 % (11.0-15.5)
[2021-09-06 14:38] LABS: ALANINE AMINOTRANSFERASE 12 U/L (12-78); ALBUMIN 1.8 g/dL (3.5-5.0); AMYLASE 18 U/L (25-115); ASPARTATE AMINOTRANSFERASE 17 U/L (10-37); BILIRUBIN,TOTAL 0.1 mg/dL (0.2-1.0); CARBON DIOXIDE 30 mmol/L (21-32); CHLORIDE 98 mmol/L (101-111); CREATININE 1.2 mg/dL (0.5-1.5); GLOMERULAR FILTR. RATE CALC 72 mL/min (>60); GLUCOSE,RANDOM 367 mg/dL (70-105); SODIUM SERUM 132 mmol/L (136-145); TOTAL PROTEIN, SERUM 7.2 g/dL (6.0-8.3); UREA NITROGEN, BLOOD 7 mg/dL (7-18)
[2021-09-06 14:55] LABS: POTASSIUM 2.8 mmol/L (3.5-5.1)
[2021-09-06] MEDS ORDERED: 0.9%NACL 1000ML 1,000 ML IV SCH (15:00)
[2021-09-06] MEDS ORDERED: POTASSIUM BICARB/CIT AC 25 MEQ TABLET.EFF PO ONE (15:30)
[2021-09-06] MEDS ORDERED: POTASSIUM CHLORIDE 10MEQ/100ML 10 MEQ/100 ML ML IV ONE (15:30)
[2021-09-06] MEDS ORDERED: METF-446 PO (17:10)
[2021-09-06 17:23] LABS: APPEARANCE,URINE Clear (CLEAR); BILIRUBIN,URINE Negative (NEGATIVE); COLOR,URINE Yellow (YELLOW); GLUCOSE, URINE (UA) >=1000 mg/dL (NEGATIVE); KETONES,URINE Negative (NEGATIVE); LEUKOCYTE ESTERASE ,URINE Trace (NEGATIVE); NITRATE,URINE Negative (NEGATIVE); OCCULT BLOOD,URINE Negative (NEGATIVE); PROTEIN,URINE Negative (NEGATIVE); UROBILINOGEN,URINE 0.2 mg/dL (0.2-1.0)
[2021-09-06 17:51] LABS: BACTERIA,URINE Few /HPF (None Seen); RBC,URINE None Seen /HPF (0-1); SQUAMOUS EPITHELIAL CELL,UR None Seen /HPF (0-2)
[2021-09-06 18:21] LABS: AMPHET/METH SCREEN,URINE NEGATIVE (NEGATIVE); BARBITURATE SCREEN, URINE NEGATIVE (NEGATIVE); BENZODIAZEPINES SCREEN,URINE NEGATIVE (NEGATIVE); CANNABINOID SCREEN,URINE NEGATIVE (NEGATIVE); COCAINE SCREEN,URINE POSITIVE (NEGATIVE); OPIATE SCREEN,URINE NEGATIVE (NEGATIVE); PHENCYCLIDINE SCREEN,URINE NEGATIVE (NEGATIVE)
== END 2021-09-06 17:40 | disposition home or self-care (01) ==
LOC: EDH 13:00
DX: E87.6 Hypokalemia (principal); D75.839 Thrombocytosis, unspecified; D72.819 Decreased white blood cell count, unspecified; I12.9 Hypertensive chronic kidney disease with stage 1 through stage 4 chronic kidney disease, or unspecified chronic kidney disease; E11.65 Type 2 diabetes mellitus with hyperglycemia; N18.9 Chronic kidney disease, unspecified; E11.22 Type 2 diabetes mellitus with diabetic chronic kidney disease; D63.1 Anemia in chronic kidney disease; F17.210 Nicotine dependence, cigarettes, uncomplicated; Z79.84 Long term (current) use of oral hypoglycemic drugs; Z79.899 Other long term (current) drug therapy
CPT/HCPCS: 36415; 80053; 80305; 81001; 82010; 82150; 85025; 87088; 96365; 99284; J7030

== ENCOUNTER 2021-10-23 16:16 | Inpatient (IN) | payer OTHER ==
[~2021-10-23] VITALS: Ht 157.5 cm; Wt 51.3 kg
[2021-10-23 16:57] LABS: BASOPHILS % (AUTO) 0.2 % (0.0-5.0); EOSINOPHILS % (AUTO) 0.1 % (0.0-8.0); HEMATOCRIT 26.7 % (42-54); LYMPHOCYTES % (AUTO) 4.6 % (21.0-51.0); MEAN CORPUSCULAR HEMOGLOBIN 26.6 pg (27.0-33.0); MEAN CORPUSCULAR HGB CONC 29.6 g/dL (32.0-36.0); MEAN CORPUSCULAR VOLUME 89.9 fL (79-99); MONOCYTES % (AUTO) 5.3 % (3.0-13.0); PLATELET COUNT (AUTO) 675 K/uL (130-400); RED BLOOD CELL COUNT(AUTO) 2.97 MIL/uL (4.50-6.20); WHITE BLOOD COUNT (AUTO) 16.7 K/uL (4.8-10.8)
[2021-10-23] MEDS ORDERED: 0.9%NACL 1000ML 1,000 ML IV SCH (17:00)
[2021-10-23] MEDS ORDERED: POTASSIUM CHLORIDE 10MEQ/100ML 100 ML IV PRN (17:00)
[2021-10-23] MEDS ORDERED: DEXTROSE 5 %-0.45 % NACL 1,000 ML IV PRN (17:00)
[2021-10-23 17:09] LABS: ABG BASE EXCESS -8.3 mmol/L (-2.0-3.0); ABG HCO3 14.8 mmol/L (21.0-28.0); ABG OXYGEN SATURATION 97.7 % (95.0-99.0); ABG PCO2 26 mmHg (35-48)
[2021-10-23 17:19] LABS: CREATININE 2.2 mg/dL (0.5-1.5); POTASSIUM 3.9 mmol/L (3.5-5.1)
[2021-10-23 17:26] LABS: ALBUMIN 1.9 g/dL (3.5-5.0); BILIRUBIN,TOTAL 0.1 mg/dL (0.2-1.0)
[2021-10-23] MEDS ORDERED: INSULIN HUMULIN R 100 UNIT/ML 3ML IV ONE (18:00)
[2021-10-23] MEDS ORDERED: INSULIN REGULAR, HUMAN 3ML 100 UNIT in 0.9%NACL 100ML 99 ML IV PRN ×2 (18:00)
[2021-10-23] MEDS: 0.9%NACL 1000ML 1,000 ML IV SCH ×2 (18:40→20:05)
[2021-10-23] MEDS ORDERED: ONDANSETRON 4MG INJ ONE (18:42)
[2021-10-23] MEDS ORDERED: POTASSIUM CHLORIDE 10MEQ SR TAB PO SCH (19:00)
[2021-10-23] MEDS ORDERED: ONDANSETRON 4MG INJ IVP ONE (19:00)
[2021-10-23] MEDS ORDERED: ONDANSETRON 4MG INJ IV PRN (19:30)
[2021-10-23] MEDS ORDERED: KCL 20 MEQ ERTAB PO ONE (19:45)
[2021-10-23] MEDS: FAMOTIDINE 20MG VIAL IV SCH (20:05)
[2021-10-23 20:11] LABS: APPEARANCE,URINE CLOUDY (CLEAR); BILIRUBIN,URINE NEGATIVE (NEGATIVE); COLOR,URINE YELLOW (YELLOW); GLUCOSE, URINE (UA) >=1000 mg/dL (NEGATIVE); KETONES,URINE NEGATIVE (NEGATIVE); LEUKOCYTE ESTERASE ,URINE MODERATE (NEGATIVE); NITRATE,URINE NEGATIVE (NEGATIVE); OCCULT BLOOD,URINE MODERATE (NEGATIVE); PROTEIN,URINE 30 mg/dL (NEGATIVE); UROBILINOGEN,URINE 0.2 mg/dL (0.2-1.0)
[2021-10-23 20:18] LABS: BACTERIA,URINE Few /HPF (None Seen); WBC,URINE TNTC /HPF (0-1); YEAST,URINE BUDDING Moderate /HPF (None Seen)
[2021-10-23 20:20] LABS: AMPHET/METH SCREEN,URINE NEGATIVE (NEGATIVE); BARBITURATE SCREEN, URINE NEGATIVE (NEGATIVE); BENZODIAZEPINES SCREEN,URINE NEGATIVE (NEGATIVE); CANNABINOID SCREEN,URINE NEGATIVE (NEGATIVE); COCAINE SCREEN,URINE POSITIVE (NEGATIVE); OPIATE SCREEN,URINE NEGATIVE (NEGATIVE); PHENCYCLIDINE SCREEN,URINE NEGATIVE (NEGATIVE)
[2021-10-23 20:21] LABS: SQUAMOUS EPITHELIAL CELL,UR Rare /HPF (0-2)
[2021-10-23] MEDS ORDERED: MORPHINE 2 MG SYG IVP ONE (20:30)
[2021-10-23] MEDS ORDERED: VANCOMYCIN 1G/250ML KIT 250 ML IV ONE (21:30)
[2021-10-23] MEDS ORDERED: VANCOMYCIN 1G VIAL IVPB ONE (21:30)
[2021-10-23] MEDS ORDERED: VANCOMYCIN PROTOCOL PER PHARMACY IV SCH (21:30)
[2021-10-23] MEDS ORDERED: PHARMACY COMMUNICATION MISC SCH (21:30)
[2021-10-23] MEDS ORDERED: RENAL DOSE IV ONE (21:30)
[2021-10-23 21:36] LABS: CREATININE 1.5 mg/dL (0.5-1.5)
[2021-10-23] MEDS: ZOSYN 3.375GM +NS 50ML IV SCH (21:37)
[2021-10-23 21:38] LABS: POTASSIUM 2.6 mmol/L (3.5-5.1)
[2021-10-23 21:39] LABS: INR 1.06 (0.85-1.15); PROTHROMBIN TIME 11.5 SEC (9.6-11.6)
[2021-10-23 21:40] LABS: PARTIAL THROMBOPLASTIN TIME 29.3 SEC (26.3-35.5)
[2021-10-23 21:55] LABS: HEMOGLOBIN A1C 11.7 % (4.0-6.0)
[2021-10-23 22:20] LABS: CHLORIDE,URINE RANDOM 35 mmol/L (110-250); POTASSIUM,URINE RANDOM < 9 mmol/L (25-125); SODIUM,URINE RANDOM 34 mmol/l (40-220)
[2021-10-23] MEDS: POTASSIUM CHLORIDE 10MEQ/100ML 100 ML IV PRN (22:58)
[2021-10-24] VITALS (24 sets, daily range): BP systolic 90–122; BP diastolic 60–82
[2021-10-24] MEDS: POTASSIUM CHLORIDE 10MEQ/100ML 100 ML IV PRN (00:33)
[2021-10-24] MEDS ORDERED: SODIUM BICARB 8.4% 50ML SYRING 150 MEQ in DEXTROSE 5%-WATER 1,000 ML IVP STA (02:23)
[2021-10-24] MEDS ORDERED: PROMETHAZINE HCL 25 MG/ML 1ML AMPULE IM PRN (02:30)
[2021-10-24] MEDS ORDERED: SODIUM BICARB 50MEQ 50ML VIAL 150 ML ONE (02:39)
[2021-10-24] MEDS ORDERED: MORPHINE 4 MG SYG IV STA (02:46)
[2021-10-24] MEDS ORDERED: MORPHINE 4 MG SYG ONE (02:47)
[2021-10-24 03:29] LABS: ABG OXYGEN SATURATION 76.2 % (95.0-99.0); BASE EXCESS,VENOUS BLOOD GAS -1.7 (-2.0-3.0); HCO3,VENOUS BLOOD GAS 22.8 (21.0-28.0); PCO2,VENOUS BLOOD GAS 38 (35-48); PH,VENOUS BLOOD GAS 7.399 (7.350-7.450)
[2021-10-24] MEDS ORDERED: 0.9%NACL 1000ML 1,000 ML IV SCH (03:30)
[2021-10-24 03:44] LABS: CREATININE 1.3 mg/dL (0.5-1.5); POTASSIUM 3.3 mmol/L (3.5-5.1)
[2021-10-24 03:56] LABS: ALBUMIN 1.5 g/dL (3.5-5.0); BILIRUBIN,TOTAL 0.1 mg/dL (0.2-1.0); TOTAL PROTEIN, SERUM 6.4 g/dL (6.0-8.3)
[2021-10-24] MEDS: ZOSYN 3.375GM +NS 50ML IV SCH (06:05)
[2021-10-24 07:52] LABS: BASOPHILS % (AUTO) 0.3 % (0.0-5.0); EOSINOPHILS % (AUTO) 1.2 % (0.0-8.0); HEMATOCRIT 22.1 % (42-54); LYMPHOCYTES % (AUTO) 12.6 % (21.0-51.0); MEAN CORPUSCULAR HEMOGLOBIN 27.1 pg (27.0-33.0); MEAN CORPUSCULAR HGB CONC 32.1 g/dL (32.0-36.0); MEAN CORPUSCULAR VOLUME 84.4 fL (79-99); MONOCYTES % (AUTO) 6.6 % (3.0-13.0); NEUTROPHILS % (AUTO) 78.8 % (40.0-77.0); PLATELET COUNT (AUTO) 665 K/uL (130-400); RED BLOOD CELL COUNT(AUTO) 2.62 MIL/uL (4.50-6.20); RED CELL DISTRIBUTION WIDTH 12.9 % (11.0-15.5); WHITE BLOOD COUNT (AUTO) 10.3 K/uL (4.8-10.8)
[2021-10-24 08:08] LABS: CREATININE 1.2 mg/dL (0.5-1.5); POTASSIUM 3.3 mmol/L (3.5-5.1)
[2021-10-24] MEDS: ENOXAPARIN SODIUM 30 MG/0.3 ML SQ SCH (08:53)
[2021-10-24] MEDS: INSULIN GLARGINE 100 UNITS/ML 10 ML VIAL SQ SCH (08:58)
[2021-10-24] MEDS ORDERED: KCL 20 MEQ ERTAB PO SCH (09:00)
[2021-10-24] MEDS: 0.9%NACL 1000ML 1,000 ML IV SCH ×2 (09:09→21:26)
[2021-10-24] MEDS: VANCOMYCIN 500MG+NS 100ML 100 ML IV SCH ×2 (09:23→21:32)
[2021-10-24 10:18] LABS: RETICULOCYTE % (AUTO) 1.95 % (0.42-2.23)
[2021-10-24 10:56] LABS: THYROID STIMULATING HORMONE 3.1 uIU/mL (0.36-3.74)
[2021-10-24] MEDS: INSULIN HUMULIN R 100 UNIT/ML 3ML SQ SCH ×3 (11:27→21:00)
[2021-10-24 11:33] LABS: % IRON SATURATION 14.1 % (30-44)
[2021-10-24] MEDS ORDERED: LIDOCAINE HCL MPF 1% 5ML VIAL ONE (12:25)
[2021-10-24 13:23] LABS: CREATININE 1.2 mg/dL (0.5-1.5); POTASSIUM 3.6 mmol/L (3.5-5.1)
[2021-10-24] MEDS ORDERED: SUCCINYLCHOLINE CHLORIDE 20 MG/ML 10 ML VIAL ONE (14:31)
[2021-10-24] MEDS ORDERED: LIDOCAINE PF 100MG/5ML (2%) SYRINGE 5ML ONE (14:32)
[2021-10-24] MEDS ORDERED: MIDAZOLAM HCL 1 MG/ML 2ML VIAL ONE (14:32)
[2021-10-24] MEDS ORDERED: PROPOFOL 10 MG/ML 20ML VIAL IV ONE (14:32)
[2021-10-24] MEDS ORDERED: FENTANYL CITRATE PF 50 MCG/1 ML 2ML VIAL ONE (14:33)
[2021-10-24] MEDS ORDERED: GLYCOPYRROLATE 1 MG/5 ML SYRINGE ONE (14:58)
[2021-10-24] MEDS ORDERED: ONDANSETRON 4MG INJ ONE (15:29)
[2021-10-24] MEDS: CEFEPIME HCL 2 GM VIAL IVP SCH (16:00)
[2021-10-24] MEDS ORDERED: MEPERIDINE-PF 25 MG/ML SYG ONE ×2 (16:01→16:14)
[2021-10-24 20:58] LABS: CREATININE 1.1 mg/dL (0.5-1.5); POTASSIUM 3.5 mmol/L (3.5-5.1)
[2021-10-24] MEDS: FAMOTIDINE 20MG VIAL IV SCH (21:21)
[2021-10-24] MEDS: MORPHINE 2 MG SYG IVP PRN (21:23)
[2021-10-24] MEDS: METRONIDAZOLE 500MG/100ML BAG 100 ML IVPB SCH (21:26)
[2021-10-25 00:26] VITALS: BP 102/72
[2021-10-25] MEDS: MORPHINE 2 MG SYG IVP PRN ×3 (02:04→21:08)
[2021-10-25 03:00] LABS: CREATININE 1.1 mg/dL (0.5-1.5); POTASSIUM 3.7 mmol/L (3.5-5.1)
[2021-10-25] MEDS ORDERED: MORPHINE 4 MG SYG IM ONE (04:30)
[2021-10-25] MEDS ORDERED: TAMSULOSIN HCL 0.4 MG CAP.ER.24H PO SCH (04:30)
[2021-10-25] MEDS: CEFEPIME HCL 2 GM VIAL IVP SCH ×2 (04:34→16:28)
[2021-10-25 04:36] VITALS: BP 116/75
[2021-10-25] MEDS: INSULIN HUMULIN R 100 UNIT/ML 3ML SQ SCH ×4 (06:34→21:25)
[2021-10-25] MEDS: METRONIDAZOLE 500MG/100ML BAG 100 ML IVPB SCH ×3 (06:36→21:08)
[2021-10-25 07:42] VITALS: BP 118/74
[2021-10-25] MEDS ORDERED: COMPOUND IV MISC 1 EACH IVSOLN MISC PRN (10:00)
[2021-10-25] MEDS ORDERED: 0.9%NACL 100ML 100 ML ONE (10:15)
[2021-10-25] MEDS: VANCOMYCIN 500MG+NS 100ML 100 ML IV SCH (10:27)
[2021-10-25] MEDS: ENOXAPARIN SODIUM 30 MG/0.3 ML SQ SCH (10:28)
[2021-10-25] MEDS: INSULIN GLARGINE 100 UNITS/ML 10 ML VIAL SQ SCH (10:34)
[2021-10-25 11:16] VITALS: BP 124/82
[2021-10-25] MEDS: IRON SUCROSE COMPLEX 300 MG in 0.9% NACL 250ML 250 ML IV SCH (16:01)
[2021-10-25] MEDS: 0.9%NACL 1000ML 1,000 ML IV SCH (16:01)
[2021-10-25 16:29] VITALS: BP 130/74
[2021-10-25 20:00] VITALS: BP 143/77
[2021-10-25] MEDS: TAMSULOSIN HCL 0.4 MG CAP.ER.24H PO SCH (21:08)
[2021-10-25] MEDS: FAMOTIDINE 20MG VIAL IV SCH (21:08)
[2021-10-26] VITALS: BP_SYST 113; BP_SYST 158; BP_DIAS 67; BP_DIAS 71
[2021-10-26] MEDS: CEFEPIME HCL 2 GM VIAL IVP SCH ×2 (02:56→18:08)
[2021-10-26] MEDS: MORPHINE 2 MG SYG IVP PRN ×3 (02:59→12:19)
[2021-10-26] MEDS: 0.9%NACL 1000ML 1,000 ML IV SCH ×2 (03:01→14:20)
[2021-10-26 04:00] VITALS: BP 132/80
[2021-10-26 05:30] LABS: HEMATOCRIT 21.6 % (42-54); MEAN CORPUSCULAR HEMOGLOBIN 26.7 pg (27.0-33.0); MEAN CORPUSCULAR HGB CONC 31.5 g/dL (32.0-36.0); MEAN CORPUSCULAR VOLUME 84.7 fL (79-99); RED BLOOD CELL COUNT(AUTO) 2.55 MIL/uL (4.50-6.20); RED CELL DISTRIBUTION WIDTH 12.6 % (11.0-15.5); WHITE BLOOD COUNT (AUTO) 8.8 K/uL (4.8-10.8)
[2021-10-26 05:48] LABS: CREATININE 1.3 mg/dL (0.5-1.5); POTASSIUM 3.9 mmol/L (3.5-5.1)
[2021-10-26] MEDS: INSULIN HUMULIN R 100 UNIT/ML 3ML SQ SCH ×4 (06:18→21:00)
[2021-10-26] MEDS: METRONIDAZOLE 500MG/100ML BAG 100 ML IVPB SCH ×3 (06:26→21:53)
[2021-10-26 07:55] VITALS: BP 142/85
[2021-10-26] MEDS: INSULIN GLARGINE 100 UNITS/ML 10 ML VIAL SQ SCH (10:09)
[2021-10-26] MEDS: IRON SUCROSE COMPLEX 300 MG in 0.9% NACL 250ML 250 ML IV SCH (10:12)
[2021-10-26] MEDS: VANCOMYCIN 750MG VIAL IVPB SCH (10:12)
[2021-10-26 11:13] VITALS: BP 158/91
[2021-10-26] MEDS ORDERED: 0.9% NACL 500ML IV.SOLN 500 ML IV ONE (11:53)
[2021-10-26 12:38] LABS: HEMATOCRIT 18.7 % (42-54)
[2021-10-26 16:20] VITALS: BP 126/75
[2021-10-26 16:34] LABS: HEMATOCRIT 23.6 % (42-54)
[2021-10-26] MEDS: ACETAMINOPHEN WITH CODEINE 1 TAB TAB PO PRN ×2 (18:36→23:00)
[2021-10-26 19:00] VITALS: BP 117/69
[2021-10-26] MEDS ORDERED: EPOETIN ALFA-EPBX (NON-ESRD) 10,000 UNIT/ML VIAL SQ SCH (19:30)
[2021-10-26] MEDS: FAMOTIDINE 20MG VIAL IV SCH (21:53)
[2021-10-26] MEDS: TAMSULOSIN HCL 0.4 MG CAP.ER.24H PO SCH (21:54)
[2021-10-26 23:07] LABS: HEMATOCRIT 23.5 % (42-54)
[2021-10-27] VITALS: BP 133/78
[2021-10-27 04:00] VITALS: BP 123/81
[2021-10-27] MEDS: CEFEPIME HCL 2 GM VIAL IVP SCH (05:09)
[2021-10-27] MEDS: ACETAMINOPHEN WITH CODEINE 1 TAB TAB PO PRN ×3 (05:11→20:14)
[2021-10-27] MEDS: METRONIDAZOLE 500MG/100ML BAG 100 ML IVPB SCH (05:12)
[2021-10-27 05:15] LABS: MEAN CORPUSCULAR HEMOGLOBIN 26.7 pg (27.0-33.0); MEAN CORPUSCULAR VOLUME 83.3 fL (79-99); RED CELL DISTRIBUTION WIDTH 12.7 % (11.0-15.5); WHITE BLOOD COUNT (AUTO) 8.6 K/uL (4.8-10.8)
[2021-10-27 05:22] LABS: POTASSIUM 4.5 mmol/L (3.5-5.1)
[2021-10-27] MEDS: INSULIN HUMULIN R 100 UNIT/ML 3ML SQ SCH ×4 (07:30→21:03)
[2021-10-27 08:00] VITALS: BP 132/83
[2021-10-27] MEDS ORDERED: 0.9% NACL 500ML IV.SOLN 500 ML IV ONE (10:23)
[2021-10-27] MEDS: INSULIN GLARGINE 100 UNITS/ML 10 ML VIAL SQ SCH (10:29)
[2021-10-27] MEDS: VANCOMYCIN 750MG VIAL IVPB SCH (10:30)
[2021-10-27] MEDS: IRON SUCROSE COMPLEX 300 MG in 0.9% NACL 250ML 250 ML IV SCH (10:30)
[2021-10-27 12:00] VITALS: BP 121/80
[2021-10-27 16:00] VITALS: BP 166/65
[2021-10-27] MEDS: TAMSULOSIN HCL 0.4 MG CAP.ER.24H PO SCH (20:10)
[2021-10-27] MEDS: FAMOTIDINE 20MG VIAL IV SCH (20:10)
[2021-10-27] MEDS: DOXYCYCLINE HYCLATE 100 MG TABLET PO SCH (20:10)
[2021-10-27 21:14] VITALS: BP 138/90
[2021-10-28 01:01] VITALS: BP 144/74
[2021-10-28] MEDS: ACETAMINOPHEN WITH CODEINE 1 TAB TAB PO PRN ×2 (04:25→12:31)
[2021-10-28 04:38] LABS: HEMATOCRIT 25.3 % (42-54); MEAN CORPUSCULAR HEMOGLOBIN 26.8 pg (27.0-33.0); MEAN CORPUSCULAR VOLUME 83.8 fL (79-99); RED BLOOD CELL COUNT(AUTO) 3.02 MIL/uL (4.50-6.20); RED CELL DISTRIBUTION WIDTH 12.7 % (11.0-15.5); WHITE BLOOD COUNT (AUTO) 5.6 K/uL (4.8-10.8)
[2021-10-28 04:45] LABS: CREATININE 1.3 mg/dL (0.5-1.5); POTASSIUM 4.6 mmol/L (3.5-5.1)
[2021-10-28] MEDS: INSULIN HUMULIN R 100 UNIT/ML 3ML SQ SCH ×2 (06:02→11:30)
[2021-10-28 06:40] VITALS: BP 127/77
[2021-10-28] MEDS: DOXYCYCLINE HYCLATE 100 MG TABLET PO SCH (08:14)
[2021-10-28] MEDS: INSULIN GLARGINE 100 UNITS/ML 10 ML VIAL SQ SCH (08:20)
[2021-10-28 10:35] VITALS: BP 126/82
[2021-10-28 12:00] VITALS: BP 156/97
[2021-10-28] MEDS ORDERED: PIOG30TA10 PO (12:57)
[2021-10-28] MEDS ORDERED: GLIM4TAB36 PO (12:57)
[2021-10-28] MEDS ORDERED: METF-446 PO (12:57)
[2021-10-28] MEDS ORDERED: DOXY100T2 PO (12:57)
== END 2021-10-28 17:00 | disposition home or self-care (01) | DRG 853 ==
LOC: EDH 16:16 → EDHIP 16:17 → 4CH 10-24 16:35 → 3BH 10-25 06:26 → 4BH 10-27 11:47
PROVIDERS: ADMIT Internal Medicine; ATTEND Internal Medicine
PROC: 0J9M3ZX Drainage of Left Upper Leg Subcutaneous Tissue and Fascia, Percutaneous Approach, Diagnostic (ICD-10-PCS; 2021-10-24)
PROC: 0JBM0ZZ Excision of Left Upper Leg Subcutaneous Tissue and Fascia, Open Approach (ICD-10-PCS; principal; 2021-10-24 14:31)
PROC: 30233N1 Transfusion of Nonautologous Red Blood Cells into Peripheral Vein, Percutaneous Approach (ICD-10-PCS; 2021-10-26)
DX: A41.9 Sepsis, unspecified organism (principal); E10.10 Type 1 diabetes mellitus with ketoacidosis without coma; E43 Unspecified severe protein-calorie malnutrition; E87.1 Hypo-osmolality and hyponatremia; N17.9 Acute kidney failure, unspecified; L02.416 Cutaneous abscess of left lower limb; I12.9 Hypertensive chronic kidney disease with stage 1 through stage 4 chronic kidney disease, or unspecified chronic kidney disease; Z20.822 Contact with and (suspected) exposure to COVID-19; B95.62 Methicillin resistant Staphylococcus aureus infection as the cause of diseases classified elsewhere; D50.9 Iron deficiency anemia, unspecified; E86.0 Dehydration; F14.10 Cocaine abuse, uncomplicated; F17.210 Nicotine dependence, cigarettes, uncomplicated; E10.22 Type 1 diabetes mellitus with diabetic chronic kidney disease; N18.9 Chronic kidney disease, unspecified; N32.89 Other specified disorders of bladder; Z68.20 Body mass index [BMI] 20.0-20.9, adult; Z71.89 Other specified counseling; Z59.00 Homelessness unspecified; Z79.4 Long term (current) use of insulin; Z91.14 Patient's other noncompliance with medication regimen; Z91.19 Patient's noncompliance with other medical treatment and regimen; Z83.3 Family history of diabetes mellitus; Z82.49 Family history of ischemic heart disease and other diseases of the circulatory system; Z82.3 Family history of stroke; Z82.41 Family history of sudden cardiac death; Z82.0 Family history of epilepsy and other diseases of the nervous system
CPT/HCPCS: 36415; 36430; 36600; 71045; 73700; 74176; 80048; 80051; 80053; 80202; 80305; 81001; 82010; 82040; 82270; 82435; 82550; 82607; 82728; 82803; 82947; 82948; 83036; 83605; 83630; 83690; 83735; 83930; 83935; 84132; 84145; 84295; 84443; 84484; 85014; 85018; 85025; 85027; 85610; 85651; 85730; 86140; 86850; 86900; 86901; 86923; 87040; 87046; 87070; 87076; 87077; 87088; 87177; 87186; 87205; 87324; 87338; 87635; 87804; 93005; 93926; 97039; 99291; G0378; J0330; J0692; J1650; J1756; J1815; J2001; J2175; J2250; J2270; J2405; J2543; J2704; J3010; J3370; J3490; J7030; J7040; J7050; J7070; P9016

== ENCOUNTER 2021-11-16 13:32 | Observation (INO) | payer OTHER ==
[~2021-11-16] VITALS: Ht 170.2 cm; Wt 55.3 kg
[~2021-11-16 13:32] MED LIST changes: -CEFU500T67 PO
[2021-11-16 14:01] LABS: BASOPHILS % (AUTO) 0.4 % (0.0-5.0); EOSINOPHILS % (AUTO) 0.3 % (0.0-8.0); HEMATOCRIT 37.1 % (42-54); LYMPHOCYTES % (AUTO) 7.6 % (21.0-51.0); MEAN CORPUSCULAR HEMOGLOBIN 27.5 pg (27.0-33.0); MEAN CORPUSCULAR HGB CONC 30.2 g/dL (32.0-36.0); MEAN CORPUSCULAR VOLUME 90.9 fL (79-99); MONOCYTES % (AUTO) 4.2 % (3.0-13.0); PLATELET COUNT (AUTO) 455 K/uL (130-400); RED BLOOD CELL COUNT(AUTO) 4.08 MIL/uL (4.50-6.20); RED CELL DISTRIBUTION WIDTH 14.6 % (11.0-15.5); WHITE BLOOD COUNT (AUTO) 9.2 K/uL (4.8-10.8)
[2021-11-16 14:25] LABS: ALBUMIN 2.5 g/dL (3.5-5.0); BILIRUBIN,TOTAL 0.1 mg/dL (0.2-1.0); CREATININE 1.5 mg/dL (0.5-1.5); POTASSIUM 4.1 mmol/L (3.5-5.1); TOTAL PROTEIN, SERUM 8.1 g/dL (6.0-8.3)
[2021-11-16] MEDS ORDERED: CEFTRIAXONE 1G VIAL IVP ONE (14:30)
[2021-11-16] MEDS ORDERED: 0.9%NACL 1000ML 1,000 ML IV ONE ×2 (14:30→15:30)
[2021-11-16] MEDS ORDERED: INSULIN HUMULIN R 100 UNIT/ML 3ML IV ONE (15:00)
[2021-11-16 15:03] LABS: PLATELET MORPHOLOGY PLT CLUMPS PRESENT
[2021-11-16 15:13] LABS: ABG OXYGEN SATURATION 73.6 % (95.0-99.0); BASE EXCESS,VENOUS BLOOD GAS -3.4 (-2.0-3.0); HCO3,VENOUS BLOOD GAS 22.1 (21.0-28.0); PCO2,VENOUS BLOOD GAS 42 (35-48); PH,VENOUS BLOOD GAS 7.345 (7.350-7.450)
[2021-11-16 16:39] LABS: CREATININE 1.5 mg/dL (0.5-1.5); POTASSIUM 3.1 mmol/L (3.5-5.1)
[2021-11-16] MEDS ORDERED: DEXTROSE 50%-WATER 50 ML DISP.SYRIN IV PRN (19:00)
[2021-11-16] MEDS ORDERED: GLUCAGON 1MG KIT 1 MG ML IM PRN (19:00)
[2021-11-16] MEDS: 0.9%NACL 1000ML 1,000 ML IV SCH (20:43)
[2021-11-16] MEDS: INSULIN HUMULIN R 100 UNIT/ML 3ML SQ SCH (20:51)
[2021-11-16] MEDS ORDERED: NITROGLYCERIN 0.4 MG SL TAB SL PRN (21:30)
[2021-11-16] MEDS ORDERED: DIPHENHYDRAMINE HCL 25 MG CAPSULE PO PRN (21:30)
[2021-11-16] MEDS ORDERED: MAG/ALUM/SIMETH 30 ML UDCUP PO PRN (21:30)
[2021-11-16] MEDS ORDERED: LACTULOSE 20 GM/30 ML UDCUP PO PRN (21:30)
[2021-11-16] MEDS ORDERED: POTASSIUM CHLORIDE 20MEQ/100ML 100 ML IV PRN (21:30)
[2021-11-16] MEDS ORDERED: ACETAMINOPHEN 325 MG TAB PO PRN (21:30)
[2021-11-16] MEDS ORDERED: LIDOCAINE HCL-MPF 1% 2ML VIAL IV PRN (21:30)
[2021-11-16] MEDS ORDERED: ONDANSETRON 4MG INJ IV PRN (21:30)
[2021-11-16] MEDS ORDERED: GUAIFENESIN-DM 200/20 MG 10 ML PO PRN (21:30)
[2021-11-16] MEDS ORDERED: KCL 20 MEQ ERTAB PO PRN (21:30)
[2021-11-16] MEDS ORDERED: HYDRALAZINE 20MG/ML VIAL IV PRN (21:30)
[2021-11-16] MEDS ORDERED: ACETAMINOPHEN WITH CODEINE 1 TAB TAB PO PRN ×2 (21:30)
[2021-11-16] MEDS ORDERED: POTASSIUM CHLORIDE 10% ELIXIR 20 MEQ/15 ML UDCUP PO PRN (21:30)
[2021-11-16 21:53] LABS: HEMOGLOBIN A1C 9.9 % (4.0-6.0)
[2021-11-16] MEDS ORDERED: [UNRECOGNIZED DRUG - REMARK] MISC SCH (22:00)
[2021-11-16] MEDS ORDERED: PHARMACY COMMUNICATION MISC SCH (22:30)
[2021-11-17 02:30] VITALS: BP 151/88
[2021-11-17] MEDS: 0.9%NACL 1000ML 1,000 ML IV SCH ×2 (04:03→15:11)
[2021-11-17] MEDS: ZOSYN 3.375GM+NS 50ML 50 ML IV SCH ×2 (04:13→12:02)
[2021-11-17] MEDS: INSULIN HUMULIN R 100 UNIT/ML 3ML SQ SCH ×3 (06:36→15:33)
[2021-11-17 07:10] VITALS: BP 133/84
[2021-11-17] MEDS ORDERED: ENOXAPARIN SODIUM 40 MG/0.4 ML SYRINGE SQ SCH (09:00)
[2021-11-17] MEDS ORDERED: PIOGLITAZONE 30MG TAB PO SCH (09:00)
[2021-11-17] MEDS ORDERED: FAMOTIDINE 20MG VIAL IV SCH (09:00)
[2021-11-17] MEDS ORDERED: GLIMEPIRIDE 2 MG TABLET PO SCH (09:00)
[2021-11-17] MEDS ORDERED: KCL 20 MEQ ERTAB PO SCH (10:30)
[2021-11-17 11:10] VITALS: BP 155/103
[2021-11-17 15:05] VITALS: BP 146/92
[2021-11-17] MEDS ORDERED: INSULIN GLARGINE 100 UNITS/ML 10 ML VIAL SQ SCH (21:00)
[2021-11-18] MEDS ORDERED: METFORMIN HCL 500 MG TAB.SR.24H PO SCH (17:00)
== END 2021-11-17 19:53 | disposition left against medical advice (07) ==
LOC: EDH 13:32 → EDHIP 13:33 → 3AH 11-17 02:37
PROVIDERS: ADMIT Hospitalist; ATTEND Hospitalist
DX: M79.652 Pain in left thigh (principal); E87.2 Acidosis; E86.0 Dehydration; E87.6 Hypokalemia; F17.200 Nicotine dependence, unspecified, uncomplicated; L02.416 Cutaneous abscess of left lower limb; Z79.4 Long term (current) use of insulin; Z91.19 Patient's noncompliance with other medical treatment and regimen; Z79.899 Other long term (current) drug therapy; Z98.890 Other specified postprocedural states
CPT/HCPCS: 36415 ×2; 36600; 76882; 80053; 82010; 82803; 82948 ×9; 83036; 83605 ×3; 84132; 85025; 87040 ×2; 96361 ×2; 96365; 96366 ×2; 96372 ×2; 96375 ×2; 99291; G0378 ×25; J0696; J1650; J1815 ×4; J2543 ×2; J3490; J7030 ×3; J7070; 80048

== ENCOUNTER 2021-11-24 05:58 | Emergency (ER) | payer OTHER ==
[~2021-11-24] VITALS: Ht 170.2 cm; Wt 51.3 kg
[2021-11-24 07:56] LABS: BASOPHILS % (AUTO) 0.1 % (0.0-5.0); EOSINOPHILS % (AUTO) 0.1 % (0.0-8.0); LYMPHOCYTES % (AUTO) 5.9 % (21.0-51.0); MEAN CORPUSCULAR HEMOGLOBIN 27.2 pg (27.0-33.0); MEAN CORPUSCULAR HGB CONC 31.7 g/dL (32.0-36.0); MEAN CORPUSCULAR VOLUME 85.8 fL (79-99); MONOCYTES % (AUTO) 5.4 % (3.0-13.0); NEUTROPHILS % (AUTO) 87.7 % (40.0-77.0); PLATELET COUNT (AUTO) 474 K/uL (130-400); RED BLOOD CELL COUNT(AUTO) 4.08 MIL/uL (4.50-6.20); RED CELL DISTRIBUTION WIDTH 14.5 % (11.0-15.5); WHITE BLOOD COUNT (AUTO) 14.6 K/uL (4.8-10.8)
[2021-11-24 08:24] LABS: ALBUMIN 2.9 g/dL (3.5-5.0); CREATININE 1.5 mg/dL (0.5-1.5); POTASSIUM 4.1 mmol/L (3.5-5.1)
[2021-11-24 08:27] LABS: BILIRUBIN,TOTAL 0.2 mg/dL (0.2-1.0); TOTAL PROTEIN, SERUM 8.9 g/dL (6.0-8.3)
[2021-11-24] MEDS ORDERED: INSULIN HUMULIN R 100 UNIT/ML 3ML IV SCH (09:00)
[2021-11-24] MEDS ORDERED: 0.9%NACL 1000ML 1,000 ML IV SCH (09:00)
[2021-11-24] MEDS ORDERED: CEPH500B PO (10:06)
[2021-11-24 10:12] VITALS: BP 125/71
[2021-11-24] MEDS ORDERED: CEFTRIAXONE 1G VIAL IVP SCH (10:30)
== END 2021-11-24 10:25 | disposition home or self-care (01) ==
LOC: EDH 05:58
DX: L08.9 Local infection of the skin and subcutaneous tissue, unspecified (principal); E11.9 Type 2 diabetes mellitus without complications; Z91.19 Patient's noncompliance with other medical treatment and regimen; M79.605 Pain in left leg; F17.200 Nicotine dependence, unspecified, uncomplicated; Z79.4 Long term (current) use of insulin
CPT/HCPCS: 36415; 80053; 82010; 85025; 96361; 96374; 96375; 99284; J0696; J1815; J7030

== ENCOUNTER 2021-12-27 11:00 | Emergency (ER) | payer SELFPAY ==
[~2021-12-27] VITALS: Ht 170.2 cm; Wt 59.0 kg
[~2021-12-27 11:00] MED LIST changes: +CEPH500B PO
[2021-12-27 11:01] VITALS: BP 143/99
== END 2021-12-27 11:18 | disposition left against medical advice (07) ==
LOC: EDH 11:00
DX: R51.9 Headache, unspecified (principal); Z53.21 Procedure and treatment not carried out due to patient leaving prior to being seen by health care provider

== ENCOUNTER 2021-12-29 02:45 | Emergency (ER) | payer OTHER ==
[2021-12-29 02:49] VITALS: BP 145/89
== END 2021-12-29 04:21 | disposition home or self-care (01) ==
LOC: EDH 02:45
DX: L02.821 Furuncle of head [any part, except face] (principal); Z91.14 Patient's other noncompliance with medication regimen; E11.9 Type 2 diabetes mellitus without complications; F17.200 Nicotine dependence, unspecified, uncomplicated; Z59.00 Homelessness unspecified; Z79.84 Long term (current) use of oral hypoglycemic drugs

== ENCOUNTER 2022-01-11 21:38 | Inpatient (IN) | payer OTHER ==
[~2022-01-11] VITALS: Ht 170.2 cm; Wt 55.9 kg
[2022-01-11 22:00] LABS: BASOPHILS % (AUTO) 0.3 % (0.0-5.0); EOSINOPHILS % (AUTO) 0.4 % (0.0-8.0); LYMPHOCYTES % (AUTO) 7.9 % (21.0-51.0); MEAN CORPUSCULAR HEMOGLOBIN 27.6 pg (27.0-33.0); MEAN CORPUSCULAR HGB CONC 33.7 g/dL (32.0-36.0); MEAN CORPUSCULAR VOLUME 81.8 fL (79-99); MONOCYTES % (AUTO) 5.9 % (3.0-13.0); NEUTROPHILS % (AUTO) 85.1 % (40.0-77.0); PLATELET COUNT (AUTO) 399 K/uL (130-400); RED CELL DISTRIBUTION WIDTH 12.4 % (11.0-15.5); WHITE BLOOD COUNT (AUTO) 11.4 K/uL (4.8-10.8)
[2022-01-11] MEDS ORDERED: 0.9%NACL 1000ML 1,000 ML IV ONE (22:00)
[2022-01-11 22:20] LABS: ALANINE AMINOTRANSFERASE 8 U/L (12-78); ALBUMIN 2.3 g/dL (3.5-5.0); ASPARTATE AMINOTRANSFERASE 10 U/L (10-37); BILIRUBIN,TOTAL 0.2 mg/dL (0.2-1.0); CARBON DIOXIDE 28 mmol/L (21-32); CHLORIDE 92 mmol/L (101-111); CREATININE 1.7 mg/dL (0.5-1.5); GLOMERULAR FILTR. RATE CALC 48 mL/min (>60); GLUCOSE,RANDOM 604 mg/dL (70-105); POTASSIUM 3.1 mmol/L (3.5-5.1); SODIUM SERUM 128 mmol/L (136-145); TOTAL PROTEIN, SERUM 8.1 g/dL (6.0-8.3); UREA NITROGEN, BLOOD 10 mg/dL (7-18)
[2022-01-11] MEDS ORDERED: CEFTRIAXONE 1G VIAL ONE (22:50)
[2022-01-11] MEDS ORDERED: INSULIN HUMULIN R 100 UNIT/ML 3ML ONE (22:51)
[2022-01-11] MEDS ORDERED: INSULIN HUMULIN R 100 UNIT/ML 3ML IV ONE (23:00)
[2022-01-11] MEDS ORDERED: CEFTRIAXONE 1G VIAL IVP ONE (23:00)
[2022-01-11] MEDS ORDERED: POTASSIUM BICARB/CIT AC 25 MEQ TABLET.EFF PO ONE (23:00)
[2022-01-12] MEDS ORDERED: VANCOMYCIN PROTOCOL PER PHARMACY IV PRN
[2022-01-12] MEDS ORDERED: LIDOCAINE HCL-MPF 1% 2ML VIAL IV PRN
[2022-01-12] MEDS ORDERED: POTASSIUM CHLORIDE 10% ELIXIR 20 MEQ/15 ML UDCUP PO PRN
[2022-01-12] MEDS ORDERED: MORPHINE 4 MG SYG IV PRN
[2022-01-12] MEDS ORDERED: POTASSIUM CHLORIDE 20MEQ/100ML 100 ML IV PRN
[2022-01-12] MEDS ORDERED: KCL 20 MEQ ERTAB PO PRN
[2022-01-12] MEDS ORDERED: PHARMACY COMMUNICATION MISC SCH
[2022-01-12] MEDS ORDERED: ONDANSETRON 4MG INJ IV PRN
[2022-01-12] MEDS ORDERED: VANCOMYCIN 1G/250ML KIT 250 ML IV ONE (01:00)
[2022-01-12] MEDS: 0.9%NACL 1000ML 1,000 ML IV SCH ×3 (01:10→20:45)
[2022-01-12] MEDS ORDERED: [UNRECOGNIZED DRUG - OTHER] IV ONE (01:30)
[2022-01-12] MEDS: CEFEPIME HCL 2 GM VIAL IVP SCH (01:31)
[2022-01-12] MEDS: HYDROCODONE/ACETAMINOPHEN 5/325 MG TAB PO PRN (01:57)
[2022-01-12 07:25] LABS: BASOPHILS % (AUTO) 0.2 % (0.0-5.0); EOSINOPHILS % (AUTO) 1.3 % (0.0-8.0); HEMATOCRIT 28.5 % (42-54); LYMPHOCYTES % (AUTO) 9.6 % (21.0-51.0); MEAN CORPUSCULAR HEMOGLOBIN 26.8 pg (27.0-33.0); MEAN CORPUSCULAR VOLUME 81.2 fL (79-99); NEUTROPHILS % (AUTO) 82.5 % (40.0-77.0); PLATELET COUNT (AUTO) 417 K/uL (130-400); RED BLOOD CELL COUNT(AUTO) 3.51 MIL/uL (4.50-6.20); RED CELL DISTRIBUTION WIDTH 12.6 % (11.0-15.5); WHITE BLOOD COUNT (AUTO) 13.5 K/uL (4.8-10.8)
[2022-01-12 07:44] LABS: CREATININE 1.3 mg/dL (0.5-1.5); MAGNESIUM 1.8 mg/dL (1.80-2.40); PHOSPHORUS 2.1 mg/dL (2.5-4.9); POTASSIUM 3.6 mmol/L (3.5-5.1)
[2022-01-12] MEDS ORDERED: HEPARIN 5,000 UNIT VIAL SQ SCH (09:00)
[2022-01-12] MEDS: FAMOTIDINE 20MG VIAL IV SCH (09:19)
[2022-01-12] MEDS: INSULIN HUMULIN R 100 UNIT/ML 3ML SQ SCH ×4 (09:19→21:13)
[2022-01-12 09:58] LABS: APPEARANCE,URINE Cloudy (CLEAR); BILIRUBIN,URINE Negative (NEGATIVE); COLOR,URINE Yellow (YELLOW); GLUCOSE, URINE (UA) >=1000 mg/dL (NEGATIVE); KETONES,URINE Negative (NEGATIVE); LEUKOCYTE ESTERASE ,URINE Moderate (NEGATIVE); NITRATE,URINE Negative (NEGATIVE); OCCULT BLOOD,URINE Moderate (NEGATIVE); PH,URINE 6.5 (5.0-8.0); PROTEIN,URINE POS 2+ mg/dL (NEGATIVE); UROBILINOGEN,URINE 0.2 mg/dL (0.2-1.0)
[2022-01-12 10:10] LABS: BACTERIA,URINE Rare /HPF (None Seen); RBC,URINE 0-1 /HPF (0-1); SQUAMOUS EPITHELIAL CELL,UR Rare /HPF (0-2)
[2022-01-12] MEDS: ACETAMINOPHEN 325 MG TAB PO PRN (11:21)
[2022-01-12 14:51] LABS: HEMOGLOBIN A1C 12.6 % (4.0-6.0)
[2022-01-12] MEDS: VANCOMYCIN 500MG+NS 100ML 100 ML IV SCH (18:17)
[2022-01-13] MEDS: CEFEPIME HCL 2 GM VIAL IVP SCH (02:06)
[2022-01-13] MEDS: VANCOMYCIN 500MG+NS 100ML 100 ML IV SCH ×2 (06:13→19:07)
[2022-01-13] MEDS: INSULIN HUMULIN R 100 UNIT/ML 3ML SQ SCH ×4 (07:30→20:45)
[2022-01-13] MEDS: FAMOTIDINE 20MG VIAL IV SCH (09:11)
[2022-01-13 09:37] LABS: BASOPHILS % (AUTO) 0.3 % (0.0-5.0); EOSINOPHILS % (AUTO) 0.6 % (0.0-8.0); HEMATOCRIT 28.2 % (42-54); LYMPHOCYTES % (AUTO) 12.4 % (21.0-51.0); MEAN CORPUSCULAR HEMOGLOBIN 27.2 pg (27.0-33.0); MEAN CORPUSCULAR HGB CONC 32.3 g/dL (32.0-36.0); MEAN CORPUSCULAR VOLUME 84.4 fL (79-99); MONOCYTES % (AUTO) 6.6 % (3.0-13.0); NEUTROPHILS % (AUTO) 79.7 % (40.0-77.0); PLATELET COUNT (AUTO) 454 K/uL (130-400); RED BLOOD CELL COUNT(AUTO) 3.34 MIL/uL (4.50-6.20); RED CELL DISTRIBUTION WIDTH 12.8 % (11.0-15.5); WHITE BLOOD COUNT (AUTO) 12.3 K/uL (4.8-10.8)
[2022-01-13 09:42] LABS: CREATININE 1.2 mg/dL (0.5-1.5); POTASSIUM 3.8 mmol/L (3.5-5.1)
[2022-01-13 09:43] LABS: INR 0.94 (0.85-1.15); PROTHROMBIN TIME 10.3 SEC (9.6-11.6)
[2022-01-13 09:47] LABS: ALBUMIN 1.7 g/dL (3.5-5.0); BILIRUBIN,TOTAL 0.1 mg/dL (0.2-1.0); CRP QUANTITATIVE 113.4 mg/L (0.00-9.0)
[2022-01-13 10:32] LABS: ERYTHROCYTE SEDIMENTATION RATE 98 MM/HR (0-15)
[2022-01-13] MEDS: 0.9%NACL 1000ML 1,000 ML IV SCH (15:34)
[2022-01-13 16:00] VITALS: BP 149/89
[2022-01-13 20:49] VITALS: BP 147/95
[2022-01-14] VITALS (19 sets, daily range): BP systolic 108–154; BP diastolic 63–118
[2022-01-14] MEDS: CEFEPIME HCL 2 GM VIAL IVP SCH (00:07)
[2022-01-14] MEDS: HYDROCODONE/ACETAMINOPHEN 5/325 MG TAB PO PRN (00:11)
[2022-01-14] MEDS: 0.9%NACL 1000ML 1,000 ML IV SCH ×3 (00:11→20:30)
[2022-01-14] MEDS: VANCOMYCIN 500MG+NS 100ML 100 ML IV SCH ×2 (05:08→17:15)
[2022-01-14] MEDS: INSULIN HUMULIN R 100 UNIT/ML 3ML SQ SCH ×4 (06:37→20:39)
[2022-01-14] MEDS: MORPHINE 2 MG SYG IV PRN ×2 (06:47→20:30)
[2022-01-14 07:10] LABS: BASOPHILS % (AUTO) 0.3 % (0.0-5.0); EOSINOPHILS % (AUTO) 2.2 % (0.0-8.0); HEMATOCRIT 27.1 % (42-54); LYMPHOCYTES % (AUTO) 19.8 % (21.0-51.0); MEAN CORPUSCULAR HEMOGLOBIN 26.4 pg (27.0-33.0); MEAN CORPUSCULAR HGB CONC 31.4 g/dL (32.0-36.0); MEAN CORPUSCULAR VOLUME 84.2 fL (79-99); MONOCYTES % (AUTO) 6.7 % (3.0-13.0); NEUTROPHILS % (AUTO) 70.7 % (40.0-77.0); PLATELET COUNT (AUTO) 400 K/uL (130-400); RED BLOOD CELL COUNT(AUTO) 3.22 MIL/uL (4.50-6.20); RED CELL DISTRIBUTION WIDTH 12.7 % (11.0-15.5); WHITE BLOOD COUNT (AUTO) 6.8 K/uL (4.8-10.8)
[2022-01-14 07:12] LABS: CREATININE 1.4 mg/dL (0.5-1.5); MAGNESIUM 1.9 mg/dL (1.80-2.40)
[2022-01-14] MEDS: FAMOTIDINE 20MG VIAL IV SCH (09:43)
[2022-01-14] MEDS ORDERED: PROPOFOL 1000 MG/100 ML 0 ML IV ONE (10:53)
[2022-01-14] MEDS ORDERED: MIDAZOLAM HCL 1 MG/ML 2ML VIAL ONE (11:00)
[2022-01-14] MEDS ORDERED: PROPOFOL 10 MG/ML 20ML VIAL IV ONE (11:10)
[2022-01-14] MEDS ORDERED: ROCURONIUM 10MG/1ML SYR 10 MG/ML ML ONE (11:10)
[2022-01-14] MEDS ORDERED: GLYCOPYRROLATE 1 MG/5 ML SYRINGE ONE (11:10)
[2022-01-14] MEDS ORDERED: FENTANYL CITRATE PF 50 MCG/1 ML 5ML AMP IV ONE (11:11)
[2022-01-14] MEDS ORDERED: LIDOCAINE PF 100MG/5ML (2%) SYRINGE 5ML ONE (11:16)
[2022-01-14] MEDS ORDERED: MEPERIDINE-PF 25 MG/ML SYG ONE (11:39)
[2022-01-14] MEDS ORDERED: ONDANSETRON 4MG INJ ONE (11:48)
[2022-01-14] MEDS ORDERED: NEOSTIGMINE 5MG/5ML SYR IV ONE (11:48)
[2022-01-14] MEDS: INSULIN GLARGINE 100 UNITS/ML 10 ML VIAL SQ SCH (20:38)
[2022-01-15] VITALS: BP 140/92
[2022-01-15 04:00] VITALS: BP 108/63
[2022-01-15] MEDS: VANCOMYCIN 500MG+NS 100ML 100 ML IV SCH ×2 (06:05→16:51)
[2022-01-15] MEDS: INSULIN HUMULIN R 100 UNIT/ML 3ML SQ SCH ×7 (06:06→22:03)
[2022-01-15 06:11] LABS: BASOPHILS % (AUTO) 0.1 % (0.0-5.0); EOSINOPHILS % (AUTO) 3.2 % (0.0-8.0); HEMATOCRIT 24.6 % (42-54); LYMPHOCYTES % (AUTO) 25.8 % (21.0-51.0); MEAN CORPUSCULAR HEMOGLOBIN 26.4 pg (27.0-33.0); MEAN CORPUSCULAR HGB CONC 31.7 g/dL (32.0-36.0); MEAN CORPUSCULAR VOLUME 83.4 fL (79-99); MONOCYTES % (AUTO) 5.5 % (3.0-13.0); NEUTROPHILS % (AUTO) 64.7 % (40.0-77.0); PLATELET COUNT (AUTO) 385 K/uL (130-400); RED BLOOD CELL COUNT(AUTO) 2.95 MIL/uL (4.50-6.20); RED CELL DISTRIBUTION WIDTH 12.8 % (11.0-15.5); WHITE BLOOD COUNT (AUTO) 7.1 K/uL (4.8-10.8)
[2022-01-15 07:11] LABS: POTASSIUM 4.3 mmol/L (3.5-5.1)
[2022-01-15 08:00] VITALS: BP 132/88
[2022-01-15] MEDS: FAMOTIDINE 20MG VIAL IV SCH (09:29)
[2022-01-15 12:00] VITALS: BP 146/90
[2022-01-15] MEDS: MORPHINE 2 MG SYG IV PRN ×2 (13:23→21:55)
[2022-01-15] MEDS: 0.9%NACL 1000ML 1,000 ML IV SCH (13:23)
[2022-01-15 16:00] VITALS: BP 147/90
[2022-01-15] MEDS: HYDROCODONE/ACETAMINOPHEN 5/325 MG TAB PO PRN (16:56)
[2022-01-15 20:00] VITALS: BP 144/86
[2022-01-15] MEDS: INSULIN GLARGINE 100 UNITS/ML 10 ML VIAL SQ SCH (22:03)
[2022-01-16] VITALS (7 sets, daily range): BP systolic 125–153; BP diastolic 84–105
[2022-01-16] MEDS: HYDROCODONE/ACETAMINOPHEN 5/325 MG TAB PO PRN (00:26)
[2022-01-16 04:07] LABS: HEMATOCRIT 23.9 % (42-54); MEAN CORPUSCULAR HEMOGLOBIN 26.7 pg (27.0-33.0); MEAN CORPUSCULAR HGB CONC 32.2 g/dL (32.0-36.0); RED BLOOD CELL COUNT(AUTO) 2.88 MIL/uL (4.50-6.20); RED CELL DISTRIBUTION WIDTH 12.6 % (11.0-15.5); WHITE BLOOD COUNT (AUTO) 6.9 K/uL (4.8-10.8)
[2022-01-16 04:23] LABS: POTASSIUM 3.9 mmol/L (3.5-5.1)
[2022-01-16] MEDS ORDERED: 0.9% NACL 250ML 250 ML ONE (06:23)
[2022-01-16] MEDS: 0.9%NACL 1000ML 1,000 ML IV SCH ×2 (06:27→16:26)
[2022-01-16] MEDS: VANCOMYCIN 500MG+NS 100ML 100 ML IV SCH ×2 (06:28→16:33)
[2022-01-16] MEDS: MORPHINE 2 MG SYG IV PRN ×3 (06:34→21:56)
[2022-01-16] MEDS: INSULIN HUMULIN R 100 UNIT/ML 3ML SQ SCH ×7 (06:37→21:00)
[2022-01-16] MEDS: FAMOTIDINE 20MG VIAL IV SCH (09:21)
[2022-01-16] MEDS: INSULIN GLARGINE 100 UNITS/ML 10 ML VIAL SQ SCH (21:49)
[2022-01-17] MEDS: MORPHINE 2 MG SYG IV PRN (04:51)
[2022-01-17] MEDS: VANCOMYCIN 500MG+NS 100ML 100 ML IV SCH (04:53)
[2022-01-17] MEDS: 0.9%NACL 1000ML 1,000 ML IV SCH (04:55)
[2022-01-17 05:39] VITALS: BP 140/98
[2022-01-17] MEDS: INSULIN HUMULIN R 100 UNIT/ML 3ML SQ SCH ×6 (06:08→16:16)
[2022-01-17 08:00] VITALS: BP 162/103
[2022-01-17] MEDS: FAMOTIDINE 20MG VIAL IV SCH (08:31)
[2022-01-17 10:50] VITALS: BP 151/102
[2022-01-17] MEDS: ACETAMINOPHEN 325 MG TAB PO PRN (11:29)
[2022-01-17] MEDS ORDERED: AMLODIPINE 5 MG TAB PO SCH (12:30)
[2022-01-17 15:00] VITALS: BP 162/104
[2022-01-18] MEDS ORDERED: AMLODIPINE 5 MG TAB PO SCH (09:00)
== END 2022-01-17 17:22 | disposition left against medical advice (07) | DRG 872 ==
LOC: EDH 21:38 → EDHIP 21:39 → 4CH 01-13 10:35
PROVIDERS: ADMIT Internal Medicine; ATTEND Internal Medicine
PROC: 0J900ZX Drainage of Scalp Subcutaneous Tissue and Fascia, Open Approach, Diagnostic (ICD-10-PCS; principal; 2022-01-14 11:36)
DX: A41.02 Sepsis due to Methicillin resistant Staphylococcus aureus (principal); L02.811 Cutaneous abscess of head [any part, except face]; N17.9 Acute kidney failure, unspecified; N39.0 Urinary tract infection, site not specified; D84.9 Immunodeficiency, unspecified; E46 Unspecified protein-calorie malnutrition; E87.1 Hypo-osmolality and hyponatremia; Z68.1 Body mass index [BMI] 19.9 or less, adult; E87.6 Hypokalemia; E10.22 Type 1 diabetes mellitus with diabetic chronic kidney disease; F02.80 Dementia in other diseases classified elsewhere, unspecified severity, without behavioral disturbance, psychotic disturbance, mood disturbance, and anxiety; F17.210 Nicotine dependence, cigarettes, uncomplicated; Z53.29 Procedure and treatment not carried out because of patient's decision for other reasons; F19.90 Other psychoactive substance use, unspecified, uncomplicated; G30.9 Alzheimer's disease, unspecified; N18.30 Chronic kidney disease, stage 3 unspecified; L73.9 Follicular disorder, unspecified; I12.9 Hypertensive chronic kidney disease with stage 1 through stage 4 chronic kidney disease, or unspecified chronic kidney disease; E10.65 Type 1 diabetes mellitus with hyperglycemia; L02.821 Furuncle of head [any part, except face]; E86.0 Dehydration; I25.10 Atherosclerotic heart disease of native coronary artery without angina pectoris; Z82.3 Family history of stroke; Z82.0 Family history of epilepsy and other diseases of the nervous system; Z83.3 Family history of diabetes mellitus; Z82.49 Family history of ischemic heart disease and other diseases of the circulatory system; Z59.00 Homelessness unspecified; Z79.4 Long term (current) use of insulin; Z91.14 Patient's other noncompliance with medication regimen; Z91.19 Patient's noncompliance with other medical treatment and regimen
CPT/HCPCS: 36415; 71045; 76536; 80048; 80053; 80202; 81001; 82010; 82948; 83036; 83605; 83735; 83930; 84100; 84145; 85025; 85027; 85610; 85651; 85730; 86140; 87040; 87070; 87076; 87077; 87088; 87186; 87205; A6407; G0378; J0692; J0696; J1815; J2001; J2175; J2250; J2405; J2704; J2710; J3010; J3370; J3490; J7030; J7050

== ENCOUNTER 2022-02-17 08:57 | Inpatient (IN) | payer OTHER ==
[~2022-02-17] VITALS: Ht 175.3 cm; Wt 53.5 kg
[2022-02-17 10:22] LABS: ABG BASE EXCESS -10.2 mmol/L (-2.0-3.0); ABG HCO3 16.5 mmol/L (21.0-28.0); ABG OXYGEN SATURATION 29.5 % (95.0-99.0); ABG PCO2 40 mmHg (35-48)
[2022-02-17 10:29] LABS: BASOPHILS % (AUTO) 0.3 % (0.0-5.0); EOSINOPHILS % (AUTO) 0.1 % (0.0-8.0); HEMATOCRIT 30.4 % (42-54); LYMPHOCYTES % (AUTO) 2.5 % (21.0-51.0); MEAN CORPUSCULAR HEMOGLOBIN 27.2 pg (27.0-33.0); MEAN CORPUSCULAR HGB CONC 31.6 g/dL (32.0-36.0); MEAN CORPUSCULAR VOLUME 86.1 fL (79-99); MONOCYTES % (AUTO) 3.1 % (3.0-13.0); NEUTROPHILS % (AUTO) 92.9 % (40.0-77.0); PLATELET COUNT (AUTO) 413 K/uL (130-400); RED BLOOD CELL COUNT(AUTO) 3.53 MIL/uL (4.50-6.20); RED CELL DISTRIBUTION WIDTH 13.1 % (11.0-15.5); WHITE BLOOD COUNT (AUTO) 17.5 K/uL (4.8-10.8)
[2022-02-17] MEDS ORDERED: CEFEPIME HCL 2 GM VIAL IVP SCH ×2 (10:30→20:00)
[2022-02-17] MEDS ORDERED: VANCOMYCIN 1G VIAL IVPB ONE (10:30)
[2022-02-17] MEDS ORDERED: 0.9%NACL 1000ML 1,000 ML IV ONE ×2 (10:30)
[2022-02-17 10:40] LABS: HEMOGLOBIN A1C 12.8 % (4.0-6.0)
[2022-02-17] MEDS ORDERED: VANCOMYCIN 1G/250ML KIT 250 ML IV ONE (10:40)
[2022-02-17 10:42] LABS: ALBUMIN 2.5 g/dL (3.5-5.0); BILIRUBIN,TOTAL 0.1 mg/dL (0.2-1.0); CREATININE 2.9 mg/dL (0.5-1.5); TOTAL PROTEIN, SERUM 8.7 g/dL (6.0-8.3)
[2022-02-17] MEDS ORDERED: INSULIN HUMULIN R 100 UNIT/ML 3ML IV ONE (11:00)
[2022-02-17] MEDS: 0.9%NACL 1000ML 1,000 ML IV SCH ×4 (11:00→21:00)
[2022-02-17] MEDS ORDERED: ACETAMINOPHEN 325 MG TAB PO PRN ×2 (11:00)
[2022-02-17] MEDS ORDERED: ONDANSETRON 4MG INJ IV PRN (11:00)
[2022-02-17] MEDS ORDERED: LORAZEPAM 2 MG/ML 1 ML VIAL IVP ONE (11:00)
[2022-02-17 11:26] LABS: RETICULOCYTE % (AUTO) 1.65 % (0.42-2.23)
[2022-02-17 11:28] LABS: AMPHET/METH SCREEN,URINE NEGATIVE (NEGATIVE); BARBITURATE SCREEN, URINE NEGATIVE (NEGATIVE); BENZODIAZEPINES SCREEN,URINE NEGATIVE (NEGATIVE); CANNABINOID SCREEN,URINE NEGATIVE (NEGATIVE); COCAINE SCREEN,URINE POSITIVE (NEGATIVE); OPIATE SCREEN,URINE NEGATIVE (NEGATIVE); PHENCYCLIDINE SCREEN,URINE NEGATIVE (NEGATIVE)
[2022-02-17] MEDS: FAMOTIDINE 20MG TAB PO SCH (11:29)
[2022-02-17] MEDS ORDERED: DEXTROSE 5 %-0.45 % NACL 1,000 ML IV PRN ×2 (11:30)
[2022-02-17] MEDS ORDERED: POTASSIUM CHLORIDE 10MEQ/100ML 100 ML IV PRN ×2 (11:30)
[2022-02-17] MEDS ORDERED: INSULIN HUMULIN R 100 UNIT/ML 3ML IV SCH (11:30)
[2022-02-17] MEDS ORDERED: 0.9%NACL 1000ML 1,000 ML IV SCH ×3 (11:30)
[2022-02-17] MEDS ORDERED: RENAL DOSE IV SCH (11:30)
[2022-02-17 11:31] LABS: INR 0.93 (0.85-1.15); PROTHROMBIN TIME 10.1 SEC (9.6-11.6)
[2022-02-17 11:32] LABS: PARTIAL THROMBOPLASTIN TIME 30.3 SEC (26.3-35.5)
[2022-02-17 11:47] LABS: APPEARANCE,URINE TURBID (CLEAR); BILIRUBIN,URINE NEGATIVE (NEGATIVE); COLOR,URINE YELLOW (YELLOW); GLUCOSE, URINE (UA) >=1000 mg/dL (NEGATIVE); KETONES,URINE NEGATIVE (NEGATIVE); LEUKOCYTE ESTERASE ,URINE MODERATE (NEGATIVE); NITRATE,URINE NEGATIVE (NEGATIVE); OCCULT BLOOD,URINE MODERATE (NEGATIVE); PROTEIN,URINE 100 mg/dL (NEGATIVE); UROBILINOGEN,URINE 0.2 mg/dL (0.2-1.0)
[2022-02-17 11:48] LABS: % IRON SATURATION 16.1 % (30-44)
[2022-02-17 11:56] LABS: BACTERIA,URINE Few /HPF (None Seen); WBC,URINE TNTC /HPF (0-1); YEAST,URINE BUDDING Few /HPF (None Seen)
[2022-02-17 11:57] LABS: SQUAMOUS EPITHELIAL CELL,UR Rare /HPF (0-2)
[2022-02-17 12:01] LABS: AMMONIA < 10 umol/L (11-32); CARBON DIOXIDE 17 mmol/L (21-32); CHLORIDE 92 mmol/L (101-111); CREATININE 2.4 mg/dL (0.5-1.5); GLOMERULAR FILTR. RATE CALC 32 mL/min (>60); POTASSIUM 3.4 mmol/L (3.5-5.1); SODIUM SERUM 122 mmol/L (136-145); UREA NITROGEN, BLOOD 29 mg/dL (7-18)
[2022-02-17 12:02] LABS: MAGNESIUM 2.4 mg/dL (1.80-2.40); PHOSPHORUS 5.4 mg/dL (2.5-4.9); THYROID STIMULATING HORMONE 2.35 uIU/mL (0.36-3.74)
[2022-02-17 12:02] LABS: GLUCOSE,RANDOM 700 mg/dL (70-105)
[2022-02-17 12:10] LABS: CRP QUANTITATIVE 190.7 mg/L (0.00-9.0)
[2022-02-17] MEDS ORDERED: INSULIN GLARGINE 100 UNITS/ML 10 ML VIAL SQ SCH (12:30)
[2022-02-17] MEDS: INSULIN REGULAR, HUMAN 3ML 100 UNIT in 0.9%NACL 100ML 99 ML IV PRN ×8 (12:42→17:48)
[2022-02-17] MEDS: PHARMACY COMMUNICATION MISC SCH ×9 (13:00→20:00)
[2022-02-17 17:33] LABS: CREATININE 1.8 mg/dL (0.5-1.5); MAGNESIUM 1.8 mg/dL (1.80-2.40); POTASSIUM 3.7 mmol/L (3.5-5.1)
[2022-02-17] MEDS: CEFEPIME HCL 1 GM VIAL IVP SCH (20:58)
[2022-02-17] MEDS: LINEZOLID 600 MG/ISO-OSM 300 ML IV SCH (20:58)
[2022-02-17] MEDS ORDERED: INSULIN HUMULIN R 100 UNIT/ML 3ML SQ SCH (21:00)
[2022-02-17] MEDS ORDERED: INSULIN HUMULIN R 100 UNIT/ML 3ML ONE (23:17)
[2022-02-17] MEDS: INSULIN GLARGINE 100 UNITS/ML 10 ML VIAL SQ SCH (23:22)
[2022-02-18] VITALS (7 sets, daily range): BP systolic 95–135; BP diastolic 66–81
[2022-02-18 04:38] LABS: CREATININE 1.4 mg/dL (0.5-1.5); POTASSIUM 3.1 mmol/L (3.5-5.1)
[2022-02-18] MEDS: INSULIN HUMULIN R 100 UNIT/ML 3ML SQ SCH ×5 (06:25→21:55)
[2022-02-18] MEDS: 0.9%NACL 1000ML 1,000 ML IV SCH (06:25)
[2022-02-18] MEDS ORDERED: ENOXAPARIN SODIUM 40 MG/0.4 ML SYRINGE SQ SCH (09:00)
[2022-02-18] MEDS ORDERED: COMPOUND IV MISC 1 EACH IVSOLN MISC PRN (09:30)
[2022-02-18 09:38] LABS: HEMATOCRIT 26.6 % (42-54); MEAN CORPUSCULAR HEMOGLOBIN 27.1 pg (27.0-33.0); MEAN CORPUSCULAR HGB CONC 33.1 g/dL (32.0-36.0); MEAN CORPUSCULAR VOLUME 81.8 fL (79-99); RED BLOOD CELL COUNT(AUTO) 3.25 MIL/uL (4.50-6.20); RED CELL DISTRIBUTION WIDTH 12.8 % (11.0-15.5); WHITE BLOOD COUNT (AUTO) 12.9 K/uL (4.8-10.8)
[2022-02-18] MEDS: CEFEPIME HCL 2 GM VIAL IVP SCH (10:20)
[2022-02-18] MEDS: ENOXAPARIN SODIUM 40 MG/0.4 ML SYRINGE SQ SCH (10:20)
[2022-02-18] MEDS: FAMOTIDINE 20MG TAB PO SCH (10:20)
[2022-02-18] MEDS: LINEZOLID 600 MG/ISO-OSM 300 ML IV SCH (10:20)
[2022-02-18] MEDS: IRON SUCROSE COMPLEX 300 MG in 0.9%NACL 50ML 50 ML IV SCH (10:40)
[2022-02-18] MEDS ORDERED: KCL 20 MEQ ERTAB PO SCH (12:30)
[2022-02-18] MEDS ORDERED: VANCOMYCIN PROTOCOL PER PHARMACY IV SCH (15:00)
[2022-02-18] MEDS ORDERED: VANCOMYCIN 750MG VIAL IVPB SCH ×2 (15:30)
[2022-02-18] MEDS: VANCOMYCIN 750MG VIAL IVPB SCH (21:47)
[2022-02-18] MEDS: CEFEPIME HCL 1 GM VIAL IVP SCH (21:47)
[2022-02-18] MEDS: 0.9% NACL 250ML 250 ML IV SCH (21:49)
[2022-02-18] MEDS: INSULIN GLARGINE 100 UNITS/ML 10 ML VIAL SQ SCH (21:56)
[2022-02-19 04:00] VITALS: BP 105/71
[2022-02-19 04:11] LABS: HEMATOCRIT 23.8 % (42-54); MEAN CORPUSCULAR HEMOGLOBIN 27.2 pg (27.0-33.0); MEAN CORPUSCULAR HGB CONC 32.4 g/dL (32.0-36.0); MEAN CORPUSCULAR VOLUME 84.1 fL (79-99); RED BLOOD CELL COUNT(AUTO) 2.83 MIL/uL (4.50-6.20); RED CELL DISTRIBUTION WIDTH 12.8 % (11.0-15.5); WHITE BLOOD COUNT (AUTO) 8.9 K/uL (4.8-10.8)
[2022-02-19 04:22] LABS: ALBUMIN 1.6 g/dL (3.5-5.0); CREATININE 1.3 mg/dL (0.5-1.5); POTASSIUM 4.1 mmol/L (3.5-5.1)
[2022-02-19] MEDS: VANCOMYCIN 750MG VIAL IVPB SCH ×2 (04:38→14:02)
[2022-02-19] MEDS: 0.9%NACL 1000ML 1,000 ML IV SCH ×4 (04:38→20:21)
[2022-02-19] MEDS: 0.9% NACL 250ML 250 ML IV SCH ×2 (04:38→14:02)
[2022-02-19] MEDS: INSULIN HUMULIN R 100 UNIT/ML 3ML SQ SCH ×7 (06:50→21:00)
[2022-02-19 07:59] VITALS: BP 134/83
[2022-02-19] MEDS: FAMOTIDINE 20MG TAB PO SCH (09:02)
[2022-02-19] MEDS: ENOXAPARIN SODIUM 40 MG/0.4 ML SYRINGE SQ SCH (09:03)
[2022-02-19] MEDS: CEFEPIME HCL 2 GM VIAL IVP SCH (09:03)
[2022-02-19] MEDS: IRON SUCROSE COMPLEX 300 MG in 0.9%NACL 50ML 50 ML IV SCH (09:54)
[2022-02-19 11:04] VITALS: BP 149/73
[2022-02-19 16:32] VITALS: BP 115/61
[2022-02-19 20:27] VITALS: BP 120/63
[2022-02-19] MEDS: INSULIN GLARGINE 100 UNITS/ML 10 ML VIAL SQ SCH (21:00)
[2022-02-20 00:13] VITALS: BP 123/52
[2022-02-20] MEDS: 0.9%NACL 1000ML 1,000 ML IV SCH ×2 (03:01→08:38)
[2022-02-20] MEDS: VANCOMYCIN 750MG VIAL IVPB SCH (03:27)
[2022-02-20 04:05] LABS: HEMATOCRIT 23.5 % (42-54); MEAN CORPUSCULAR HEMOGLOBIN 27.3 pg (27.0-33.0); MEAN CORPUSCULAR HGB CONC 32.8 g/dL (32.0-36.0); MEAN CORPUSCULAR VOLUME 83.3 fL (79-99); RED BLOOD CELL COUNT(AUTO) 2.82 MIL/uL (4.50-6.20); RED CELL DISTRIBUTION WIDTH 12.8 % (11.0-15.5); WHITE BLOOD COUNT (AUTO) 7.5 K/uL (4.8-10.8)
[2022-02-20 04:19] VITALS: BP 134/92
[2022-02-20 04:22] LABS: POTASSIUM 3.9 mmol/L (3.5-5.1)
[2022-02-20] MEDS: 0.9% NACL 250ML 250 ML IV SCH (04:27)
[2022-02-20 07:45] VITALS: BP 136/83
[2022-02-20] MEDS: INSULIN HUMULIN R 100 UNIT/ML 3ML SQ SCH ×2 (07:54→07:55)
[2022-02-20] MEDS: FAMOTIDINE 20MG TAB PO SCH (08:37)
[2022-02-20] MEDS: ENOXAPARIN SODIUM 40 MG/0.4 ML SYRINGE SQ SCH (08:38)
[2022-02-20] MEDS: CEFEPIME HCL 2 GM VIAL IVP SCH (08:39)
[2022-02-20] MEDS ORDERED: MUPI22OI2 TP (09:15)
[2022-02-20] MEDS ORDERED: DOXY100T2 PO (09:15)
[2022-02-20] MEDS ORDERED: INSLAN SQ (09:26)
[2022-02-20] MEDS ORDERED: SYRI-1554 MC (09:26)
[2022-02-20] MEDS ORDERED: INSU10VI3 SQ (09:26)
[2022-02-20] MEDS ORDERED: GLIM4TAB36 PO (09:29)
[2022-02-20] MEDS ORDERED: METF-446 PO (09:29)
[2022-02-20] MEDS ORDERED: PIOG30TA70 PO (09:29)
== END 2022-02-20 11:43 | disposition home or self-care (01) | DRG 637 ==
LOC: EDH 08:57 → EDHIP 08:58 → 2DH 02-18 00:48 → 4BH 02-18 14:34
PROVIDERS: ADMIT Hospitalist; ATTEND Hospitalist
DX: E11.10 Type 2 diabetes mellitus with ketoacidosis without coma (principal); E43 Unspecified severe protein-calorie malnutrition; E87.1 Hypo-osmolality and hyponatremia; N17.9 Acute kidney failure, unspecified; N39.0 Urinary tract infection, site not specified; Z68.1 Body mass index [BMI] 19.9 or less, adult; L03.818 Cellulitis of other sites; L02.811 Cutaneous abscess of head [any part, except face]; D50.9 Iron deficiency anemia, unspecified; E86.0 Dehydration; E87.6 Hypokalemia; E87.8 Other disorders of electrolyte and fluid balance, not elsewhere classified; F14.90 Cocaine use, unspecified, uncomplicated; F17.200 Nicotine dependence, unspecified, uncomplicated; Z82.3 Family history of stroke; Z82.49 Family history of ischemic heart disease and other diseases of the circulatory system; R74.01 Elevation of levels of liver transaminase levels; E86.1 Hypovolemia; I12.9 Hypertensive chronic kidney disease with stage 1 through stage 4 chronic kidney disease, or unspecified chronic kidney disease; N18.2 Chronic kidney disease, stage 2 (mild); E11.22 Type 2 diabetes mellitus with diabetic chronic kidney disease
CPT/HCPCS: 36415; 36600; 76536; 80048; 80053; 80305; 81001; 82010; 82040; 82140; 82607; 82728; 82746; 82803; 82948; 83036; 83540; 83550; 83605; 83690; 83735; 83930; 83935; 84100; 84132; 84145; 84443; 85025; 85027; 85045; 85610; 85651; 85730; 86140; 86341; 87040; 87077; 87088; 87186; 99291; G0378; J0692; J1650; J1756; J1815; J2020; J2060; J3370; J7030; J7042; J7050

== ENCOUNTER 2022-03-14 09:12 | Emergency (ER) | payer OTHER ==
[~2022-03-14] VITALS: Ht 170.2 cm; Wt 75.7 kg
[~2022-03-14 09:12] MED LIST changes: -CEPH500B PO; +MUPI22OI2 TP; -PIOG30TA10 PO; +PIOG30TA70 PO
[2022-03-14 09:54] LABS: BASOPHILS % (AUTO) 0.1 % (0.0-5.0); EOSINOPHILS % (AUTO) 0.3 % (0.0-8.0); HEMATOCRIT 32.2 % (42-54); LYMPHOCYTES % (AUTO) 6.7 % (21.0-51.0); MEAN CORPUSCULAR HEMOGLOBIN 27.4 pg (27.0-33.0); MEAN CORPUSCULAR VOLUME 85.6 fL (79-99); MONOCYTES % (AUTO) 4.3 % (3.0-13.0); PLATELET COUNT (AUTO) 390 K/uL (130-400); RED BLOOD CELL COUNT(AUTO) 3.76 MIL/uL (4.50-6.20); RED CELL DISTRIBUTION WIDTH 13.3 % (11.0-15.5); WHITE BLOOD COUNT (AUTO) 14.4 K/uL (4.8-10.8)
[2022-03-14 10:16] LABS: ALBUMIN 2.7 g/dL (3.5-5.0); BILIRUBIN,TOTAL 0.3 mg/dL (0.2-1.0); CREATININE 2.1 mg/dL (0.5-1.5); TOTAL PROTEIN, SERUM 8.6 g/dL (6.0-8.3)
[2022-03-14] MEDS ORDERED: INSULIN HUMULIN R 100 UNIT/ML 3ML ONE (10:28)
[2022-03-14] MEDS ORDERED: 0.9%NACL 1000ML 1,000 ML IV SCH (11:00)
[2022-03-14] MEDS ORDERED: INSULIN HUMULIN R 100 UNIT/ML 3ML IV ONE (11:00)
[2022-03-14 12:50] LABS: APPEARANCE,URINE CLEAR (CLEAR); BILIRUBIN,URINE NEGATIVE (NEGATIVE); COLOR,URINE YELLOW (YELLOW); GLUCOSE, URINE (UA) >=1000 mg/dL (NEGATIVE); KETONES,URINE NEGATIVE (NEGATIVE); LEUKOCYTE ESTERASE ,URINE MODERATE (NEGATIVE); NITRATE,URINE NEGATIVE (NEGATIVE); OCCULT BLOOD,URINE MODERATE (NEGATIVE); PROTEIN,URINE TRACE mg/dL (NEGATIVE); UROBILINOGEN,URINE 0.2 mg/dL (0.2-1.0)
[2022-03-14 13:10] LABS: BACTERIA,URINE Rare /HPF (None Seen); RBC,URINE 0-1 /HPF (0-1); WBC,URINE 51-100 /HPF (0-1)
[2022-03-14 13:11] LABS: SQUAMOUS EPITHELIAL CELL,UR Rare /HPF (0-2)
[2022-03-14] MEDS ORDERED: CEFTRIAXONE 1G VIAL IVP ONE (13:30)
[2022-03-14 13:58] VITALS: BP 150/89
[2022-03-14] MEDS ORDERED: CEFD300C3 PO (14:20)
== END 2022-03-14 14:36 | disposition home or self-care (01) ==
LOC: EDH 09:12
DX: N39.0 Urinary tract infection, site not specified (principal); E11.65 Type 2 diabetes mellitus with hyperglycemia; I10 Essential (primary) hypertension; Z98.890 Other specified postprocedural states; Z79.899 Other long term (current) drug therapy; Z79.84 Long term (current) use of oral hypoglycemic drugs; Z59.00 Homelessness unspecified
CPT/HCPCS: 36415; 80053; 81001; 82948; 85025; 87088; 96361; 96374; 96375; 99285; J0696; J1815; J7030

== ENCOUNTER 2022-06-12 12:15 | Emergency (ER) | payer OTHER ==
[~2022-06-12] VITALS: Ht 170.2 cm; Wt 52.2 kg
[~2022-06-12 12:15] MED LIST changes: +CEFD300C3 PO
[2022-06-12] MEDS ORDERED: 0.9%NACL 1000ML 1,000 ML IV ONE ×4 (12:46→14:00)
[2022-06-12] MEDS ORDERED: INSULIN HUMULIN R 100 UNIT/ML 3ML ONE (12:46)
[2022-06-12 12:49] LABS: BASOPHILS % (AUTO) 0.3 % (0.0-5.0); EOSINOPHILS % (AUTO) 0.5 % (0.0-8.0); HEMATOCRIT 24.2 % (42-54); LYMPHOCYTES % (AUTO) 12.1 % (21.0-51.0); MEAN CORPUSCULAR HEMOGLOBIN 27.3 pg (27.0-33.0); MEAN CORPUSCULAR HGB CONC 33.9 g/dL (32.0-36.0); MEAN CORPUSCULAR VOLUME 80.7 fL (79-99); MONOCYTES % (AUTO) 5.7 % (3.0-13.0); NEUTROPHILS % (AUTO) 81.1 % (40.0-77.0); PLATELET COUNT (AUTO) 314 K/uL (130-400); RED CELL DISTRIBUTION WIDTH 12.9 % (11.0-15.5); WHITE BLOOD COUNT (AUTO) 7.9 K/uL (4.8-10.8)
[2022-06-12] MEDS ORDERED: INSULIN HUMULIN R 100 UNIT/ML 3ML IV ONE (13:00)
[2022-06-12 13:08] LABS: CREATININE 1.9 mg/dL (0.5-1.5); POTASSIUM 3.4 mmol/L (3.5-5.1); TOTAL PROTEIN, SERUM 7.5 g/dL (6.0-8.3)
[2022-06-12 13:10] LABS: APPEARANCE,URINE CLOUDY (CLEAR); BILIRUBIN,URINE NEGATIVE (NEGATIVE); COLOR,URINE YELLOW (YELLOW); GLUCOSE, URINE (UA) >=1000 mg/dL (NEGATIVE); KETONES,URINE NEGATIVE (NEGATIVE); LEUKOCYTE ESTERASE ,URINE SMALL Leu/uL (NEGATIVE); NITRATE,URINE NEGATIVE (NEGATIVE); OCCULT BLOOD,URINE MODERATE (NEGATIVE); PROTEIN,URINE 30 mg/dL (NEGATIVE); UROBILINOGEN,URINE 0.2 mg/dL (0.2-1.0)
[2022-06-12 13:17] LABS: BACTERIA,URINE Few /HPF (None Seen); RBC,URINE None Seen /HPF (0-1); WBC,URINE TNTC /HPF (0-1)
[2022-06-12 13:38] LABS: ABG OXYGEN SATURATION 48.7 % (95.0-99.0); BASE EXCESS,VENOUS BLOOD GAS -5.3 (-2.0-3.0); HCO3,VENOUS BLOOD GAS 21.2 (21.0-28.0); PCO2,VENOUS BLOOD GAS 45 (35-48); PH,VENOUS BLOOD GAS 7.293 (7.350-7.450)
[2022-06-12 14:03] VITALS: BP 156/86
[2022-06-12 16:00] LABS: ABG OXYGEN SATURATION 84.8 % (95.0-99.0); BASE EXCESS,VENOUS BLOOD GAS -6.8 (-2.0-3.0); HCO3,VENOUS BLOOD GAS 17.3 (21.0-28.0); PCO2,VENOUS BLOOD GAS 30 (35-48)
[2022-06-12] MEDS ORDERED: KCL 20 MEQ ERTAB PO ONE ×2 (16:04→16:30)
[2022-06-12] MEDS ORDERED: METF-446 PO (16:07)
== END 2022-06-12 16:41 | disposition home or self-care (01) ==
LOC: EDH 12:15
DX: E11.65 Type 2 diabetes mellitus with hyperglycemia (principal); E86.0 Dehydration; E87.1 Hypo-osmolality and hyponatremia; E87.6 Hypokalemia; D64.9 Anemia, unspecified; F17.200 Nicotine dependence, unspecified, uncomplicated; I11.9 Hypertensive heart disease without heart failure; Z79.84 Long term (current) use of oral hypoglycemic drugs; Z91.14 Patient's other noncompliance with medication regimen
CPT/HCPCS: 99284; 96374; 96361; 82947; 82550; 83874; 84484; 80053; 82803 ×2; 85025; 87088; 83605; 82010; 81001; 36415; 93005; 36600 ×2; 82948 ×2; 82435; 84132; 84295; J1815; J7030

== ENCOUNTER 2022-06-20 11:36 | Inpatient (IN) | payer OTHER ==
[2022-06-20] VITALS (8 sets, daily range): BP systolic 109–163; BP diastolic 59–97
[~2022-06-20] VITALS: Ht 170.2 cm; Wt 61.1 kg
[2022-06-20 12:25] LABS: BASOPHILS % (AUTO) 0.2 % (0.0-5.0); HEMATOCRIT 24.3 % (42-54); LYMPHOCYTES % (AUTO) 4.7 % (21.0-51.0); MEAN CORPUSCULAR HEMOGLOBIN 27.6 pg (27.0-33.0); MEAN CORPUSCULAR HGB CONC 33.3 g/dL (32.0-36.0); MEAN CORPUSCULAR VOLUME 82.9 fL (79-99); MONOCYTES % (AUTO) 4.9 % (3.0-13.0); NEUTROPHILS % (AUTO) 89.3 % (40.0-77.0); PLATELET COUNT (AUTO) 391 K/uL (130-400); RED BLOOD CELL COUNT(AUTO) 2.93 MIL/uL (4.50-6.20); RED CELL DISTRIBUTION WIDTH 12.8 % (11.0-15.5); WHITE BLOOD COUNT (AUTO) 10.7 K/uL (4.8-10.8)
[2022-06-20] MEDS ORDERED: 0.9%NACL 1000ML 1,000 ML IV ONE (12:30)
[2022-06-20] MEDS ORDERED: ONDANSETRON 4MG INJ IVP ONE (12:30)
[2022-06-20] MEDS ORDERED: 0.9% NACL 500ML IV.SOLN 500 ML IV ONE (12:30)
[2022-06-20] MEDS ORDERED: MORPHINE 2 MG SYG IVP ONE (12:30)
[2022-06-20 12:40] LABS: ALBUMIN 1.4 g/dL (3.5-5.0); ASPARTATE AMINOTRANSFERASE 12 U/L (10-37); CARBON DIOXIDE 11 mmol/L (21-32); CREATININE 2.2 mg/dL (0.5-1.5); GLOMERULAR FILTR. RATE CALC 36 mL/min (>60); SODIUM SERUM 114 mmol/L (136-145); TOTAL PROTEIN, SERUM 7.2 g/dL (6.0-8.3); UREA NITROGEN, BLOOD 53 mg/dL (7-18)
[2022-06-20 12:50] LABS: ABG OXYGEN SATURATION 54.8 % (95.0-99.0); BASE EXCESS,VENOUS BLOOD GAS -14.2 (-2.0-3.0); HCO3,VENOUS BLOOD GAS 10.9 (21.0-28.0); PCO2,VENOUS BLOOD GAS 25 (35-48); PH,VENOUS BLOOD GAS 7.259 (7.350-7.450)
[2022-06-20 13:21] LABS: ALANINE AMINOTRANSFERASE < 6 U/L (12-78)
[2022-06-20 13:23] LABS: CHLORIDE 82 mmol/L (101-111); GLUCOSE,RANDOM 710 mg/dL (70-105)
[2022-06-20] MEDS ORDERED: INSULIN HUMULIN R 100 UNIT/ML 3ML ONE (13:52)
[2022-06-20] MEDS ORDERED: INSULIN HUMULIN R 100 UNIT/ML 3ML IV ONE (14:00)
[2022-06-20] MEDS ORDERED: POTASSIUM CHLORIDE 20 MEQ/10 ML VIAL IV SCH (16:30)
[2022-06-20] MEDS ORDERED: ACETAMINOPHEN 325 MG TAB PO PRN (16:30)
[2022-06-20] MEDS ORDERED: MAGNESIUM 2GM PREMIX 50ML 50 ML IV SCH ×2 (16:30)
[2022-06-20] MEDS ORDERED: MANNITOL 20% IV SCH (16:30)
[2022-06-20] MEDS ORDERED: DEXTROSE 5 %-0.45 % NACL 1,000 ML IV SCH ×2 (16:30)
[2022-06-20] MEDS ORDERED: 0.9%NACL 1000ML 1,000 ML IV SCH ×2 (16:30)
[2022-06-20] MEDS ORDERED: ONDANSETRON 4MG INJ IV PRN (16:30)
[2022-06-20] MEDS ORDERED: INSULIN REGULAR, HUMAN 3ML 100 UNIT in 0.9%NACL 100ML 100 ML IV SCH ×2 (16:30)
[2022-06-20] MEDS ORDERED: POTASSIUM CHLORIDE 10MEQ/100ML 100 ML IV PRN (16:30)
[2022-06-20 17:00] LABS: POTASSIUM 3.6 mmol/L (3.5-5.1)
[2022-06-20 17:01] LABS: ABG OXYGEN SATURATION 76.5 % (95.0-99.0); BASE EXCESS,VENOUS BLOOD GAS -10.7 (-2.0-3.0); HCO3,VENOUS BLOOD GAS 12.8 (21.0-28.0); PCO2,VENOUS BLOOD GAS 24 (35-48); PH,VENOUS BLOOD GAS 7.346 (7.350-7.450)
[2022-06-20] MEDS: 0.9%NACL 1000ML 1,000 ML IV SCH ×2 (17:24→20:12)
[2022-06-20] MEDS: POTASSIUM CHLORIDE 10MEQ/100ML 100 ML IV PRN ×2 (18:22→22:36)
[2022-06-20] MEDS: D5W-1/2 NS/20MEQ KCL 1,000 ML IV SCH ×2 (19:00→20:11)
[2022-06-20] MEDS ORDERED: PHARMACY COMMUNICATION MISC SCH (19:00)
[2022-06-20] MEDS: ACETAMINOPHEN 325 MG TAB PO PRN (20:08)
[2022-06-20] MEDS: FAMOTIDINE 20MG VIAL IV SCH (20:08)
[2022-06-20 20:20] LABS: POTASSIUM 3.4 mmol/L (3.5-5.1)
[2022-06-20 20:42] LABS: CHOLESTEROL 53 mg/dL (<200); HDL CHOLESTEROL 12 mg/dL (29-71); TRIGLYCERIDES 101 mg/dL (30-200)
[2022-06-20 20:43] LABS: ALCOHOL, BLOOD < 3 mg/dL (0-10); LDL DIRECT 17 mg/dL (0-99); THYROID STIMULATING HORMONE 0.98 uIU/mL (0.36-3.74)
[2022-06-20 20:45] LABS: INR 1.14 (0.85-1.15); PROTHROMBIN TIME 12.3 SEC (9.6-11.6)
[2022-06-20 21:39] LABS: AMPHET/METH SCREEN,URINE NEGATIVE (NEGATIVE); BARBITURATE SCREEN, URINE NEGATIVE (NEGATIVE); BENZODIAZEPINES SCREEN,URINE NEGATIVE (NEGATIVE); CANNABINOID SCREEN,URINE NEGATIVE (NEGATIVE); COCAINE SCREEN,URINE POSITIVE (NEGATIVE); OPIATE SCREEN,URINE NEGATIVE (NEGATIVE); PHENCYCLIDINE SCREEN,URINE NEGATIVE (NEGATIVE)
[2022-06-20 21:49] LABS: APPEARANCE,URINE CLEAR (CLEAR); BILIRUBIN,URINE NEGATIVE (NEGATIVE); COLOR,URINE LIGHT-YELLOW (YELLOW); GLUCOSE, URINE (UA) >=1000 mg/dL (NEGATIVE); KETONES,URINE 20 mg/dL (NEGATIVE); LEUKOCYTE ESTERASE ,URINE NEGATIVE Leu/uL (NEGATIVE); NITRATE,URINE NEGATIVE (NEGATIVE); OCCULT BLOOD,URINE SMALL (NEGATIVE); PH,URINE 5.5 (5.0-8.0); PROTEIN,URINE 50 mg/dL (NEGATIVE); UROBILINOGEN,URINE 0.2 mg/dL (0.2-1.0)
[2022-06-20 21:54] LABS: BACTERIA,URINE RARE /HPF (None Seen); MUCUS,URINE RARE LPF (None Seen); SQUAMOUS EPITHELIAL CELL,UR RARE /HPF (0-2)
[2022-06-21] VITALS (19 sets, daily range): BP systolic 107–161; BP diastolic 62–108
[2022-06-21] MEDS: TRAMADOL HCL 50 MG TABLET PO PRN ×4 (00:13→19:52)
[2022-06-21 00:28] LABS: CREATININE 1.8 mg/dL (0.5-1.5); POTASSIUM 3.4 mmol/L (3.5-5.1)
[2022-06-21] MEDS: POTASSIUM CHLORIDE 10MEQ/100ML 100 ML IV PRN ×5 (00:36→06:31)
[2022-06-21] MEDS: 0.9%NACL 1000ML 1,000 ML IV SCH ×4 (02:43→15:18)
[2022-06-21 03:43] LABS: CREATININE 1.7 mg/dL (0.5-1.5); POTASSIUM 3.2 mmol/L (3.5-5.1)
[2022-06-21] MEDS: D5W-1/2 NS/20MEQ KCL 1,000 ML IV SCH (04:18)
[2022-06-21 07:31] LABS: HEMATOCRIT 22.8 % (42-54); MEAN CORPUSCULAR HGB CONC 33.8 g/dL (32.0-36.0); RED BLOOD CELL COUNT(AUTO) 2.85 MIL/uL (4.50-6.20); RED CELL DISTRIBUTION WIDTH 12.9 % (11.0-15.5); WHITE BLOOD COUNT (AUTO) 11.6 K/uL (4.8-10.8)
[2022-06-21 07:48] LABS: CREATININE 1.5 mg/dL (0.5-1.5); MAGNESIUM 1.7 mg/dL (1.80-2.40); POTASSIUM 4.3 mmol/L (3.5-5.1)
[2022-06-21] MEDS: FAMOTIDINE 20MG VIAL IV SCH ×2 (07:49→19:48)
[2022-06-21] MEDS: ENOXAPARIN SODIUM 40 MG/0.4 ML SYRINGE SQ SCH (07:49)
[2022-06-21] MEDS: INSULIN HUMULIN R 100 UNIT/ML 3ML SQ SCH ×4 (08:05→19:50)
[2022-06-21] MEDS: INSULIN GLARGINE 100 UNITS/ML 10 ML VIAL SQ SCH ×2 (08:14→19:59)
[2022-06-21] MEDS: CEFTRIAXONE 1G VIAL IVP SCH ×2 (08:18→19:50)
[2022-06-21] MEDS ORDERED: POTASSIUM CHLORIDE 20MEQ/100ML 100 ML IV PRN ×2 (10:00)
[2022-06-21] MEDS ORDERED: POTASSIUM CHLORIDE 10% ELIXIR 20 MEQ/15 ML UDCUP PO PRN (10:00)
[2022-06-21] MEDS ORDERED: LIDOCAINE HCL-MPF 1% 2ML VIAL IV PRN ×2 (10:00)
[2022-06-21] MEDS: MAGNESIUM 2GM PREMIX 50ML 50 ML IV PRN (10:12)
[2022-06-21] MEDS ORDERED: DEXTROSE 50%-WATER 50 ML DISP.SYRIN IV ONE (15:35)
[2022-06-21] MEDS ORDERED: GLUCAGON 1MG KIT 1 MG ML IM PRN (16:00)
[2022-06-21] MEDS ORDERED: DEXTROSE 50%-WATER 50 ML DISP.SYRIN IV PRN (16:00)
[2022-06-22] MEDS: 0.9%NACL 1000ML 1,000 ML IV SCH (02:18)
[2022-06-22] MEDS: TRAMADOL HCL 50 MG TABLET PO PRN ×4 (02:18→23:12)
[2022-06-22 03:52] VITALS: BP 126/72
[2022-06-22] MEDS: INSULIN HUMULIN R 100 UNIT/ML 3ML SQ SCH ×4 (05:45→21:00)
[2022-06-22] MEDS: INSULIN GLARGINE 100 UNITS/ML 10 ML VIAL SQ SCH ×2 (05:46→21:55)
[2022-06-22] MEDS: CEFTRIAXONE 1G VIAL IVP SCH ×2 (07:20→20:01)
[2022-06-22] MEDS: FAMOTIDINE 20MG VIAL IV SCH ×2 (07:20→20:01)
[2022-06-22] MEDS: ENOXAPARIN SODIUM 40 MG/0.4 ML SYRINGE SQ SCH (07:23)
[2022-06-22 08:00] VITALS: BP 121/58
[2022-06-22 08:46] LABS: BASOPHILS % (AUTO) 0.2 % (0.0-5.0); EOSINOPHILS % (AUTO) 0.2 % (0.0-8.0); LYMPHOCYTES % (AUTO) 6.7 % (21.0-51.0); MEAN CORPUSCULAR HEMOGLOBIN 27.2 pg (27.0-33.0); MEAN CORPUSCULAR HGB CONC 33.2 g/dL (32.0-36.0); MEAN CORPUSCULAR VOLUME 82.1 fL (79-99); NEUTROPHILS % (AUTO) 88.6 % (40.0-77.0); PLATELET COUNT (AUTO) 279 K/uL (130-400); RED BLOOD CELL COUNT(AUTO) 2.46 MIL/uL (4.50-6.20); RED CELL DISTRIBUTION WIDTH 12.9 % (11.0-15.5); WHITE BLOOD COUNT (AUTO) 9.1 K/uL (4.8-10.8)
[2022-06-22 08:51] LABS: HEMATOCRIT 20.2 % (42-54)
[2022-06-22 08:55] LABS: INR 1.31 (0.85-1.15); PROTHROMBIN TIME 14.1 SEC (9.6-11.6)
[2022-06-22 08:56] LABS: PARTIAL THROMBOPLASTIN TIME 44.5 SEC (26.3-35.5)
[2022-06-22 09:01] LABS: CARBON DIOXIDE 20 mmol/L (21-32); CHLORIDE 96 mmol/L (101-111); CREATININE 1.2 mg/dL (0.5-1.5); GLOMERULAR FILTR. RATE CALC 72 mL/min (>60); GLUCOSE,RANDOM 96 mg/dL (70-105); PHOSPHORUS 1.5 mg/dL (2.5-4.9); POTASSIUM 3.3 mmol/L (3.5-5.1); SODIUM SERUM 121 mmol/L (136-145); UREA NITROGEN, BLOOD 19 mg/dL (7-18)
[2022-06-22 09:08] LABS: % IRON SATURATION 18.1 % (30-44)
[2022-06-22] MEDS: METOPROLOL TARTRATE 25 MG TAB PO SCH ×2 (09:08→20:01)
[2022-06-22] MEDS: DRONABINOL 2.5 MG CAP PO SCH ×2 (09:08→20:01)
[2022-06-22 09:40] LABS: ASPARTATE AMINOTRANSFERASE 15 U/L (10-37); BILIRUBIN,DIRECT 0.2 mg/dL (0.0-0.3); THYROID STIMULATING HORMONE 1.73 uIU/mL (0.36-3.74); TOTAL PROTEIN, SERUM 5.9 g/dL (6.0-8.3)
[2022-06-22 09:43] LABS: ALANINE AMINOTRANSFERASE < 6 U/L (12-78)
[2022-06-22 12:00] VITALS: BP 108/70
[2022-06-22 16:00] VITALS: BP 126/71
[2022-06-22 20:00] VITALS: BP 139/87
[2022-06-22] MEDS: KCL 20 MEQ ERTAB PO PRN (23:13)
[2022-06-23] VITALS: BP 128/77
[2022-06-23] MEDS: KCL 20 MEQ ERTAB PO PRN ×2 (00:58→03:22)
[2022-06-23] MEDS: TRAMADOL HCL 50 MG TABLET PO PRN ×3 (03:23→22:17)
[2022-06-23] MEDS: MAGNESIUM 2GM PREMIX 50ML 50 ML IV PRN ×2 (03:28→05:52)
[2022-06-23 04:53] LABS: EOSINOPHILS % (AUTO) 0.2 % (0.0-8.0); HEMATOCRIT 21.5 % (42-54); MEAN CORPUSCULAR HEMOGLOBIN 26.4 pg (27.0-33.0); MEAN CORPUSCULAR HGB CONC 32.6 g/dL (32.0-36.0); MEAN CORPUSCULAR VOLUME 81.1 fL (79-99); MONOCYTES % (AUTO) 3.9 % (3.0-13.0); NEUTROPHILS % (AUTO) 86.9 % (40.0-77.0); PLATELET COUNT (AUTO) 284 K/uL (130-400); RED BLOOD CELL COUNT(AUTO) 2.65 MIL/uL (4.50-6.20); RED CELL DISTRIBUTION WIDTH 12.9 % (11.0-15.5); WHITE BLOOD COUNT (AUTO) 9.2 K/uL (4.8-10.8)
[2022-06-23 04:54] LABS: BASOPHILS % (AUTO) 0.2 % (0.0-5.0)
[2022-06-23 05:05] VITALS: BP 149/77
[2022-06-23 05:14] LABS: CREATININE 1.1 mg/dL (0.5-1.5); MAGNESIUM 1.7 mg/dL (1.80-2.40); POTASSIUM 3.9 mmol/L (3.5-5.1)
[2022-06-23] MEDS: INSULIN HUMULIN R 100 UNIT/ML 3ML SQ SCH ×4 (05:24→20:08)
[2022-06-23] MEDS: INSULIN GLARGINE 100 UNITS/ML 10 ML VIAL SQ SCH ×2 (05:29→20:08)
[2022-06-23] MEDS ORDERED: PHARMACY COMMUNICATION MISC SCH (05:30)
[2022-06-23 08:00] VITALS: BP 113/63
[2022-06-23] MEDS ORDERED: [UNRECOGNIZED DRUG - OTHER] IV SCH (09:00)
[2022-06-23] MEDS ORDERED: IRON SUCROSE COMPLEX IV SCH (09:00)
[2022-06-23] MEDS ORDERED: IRON SUCROSE COMPLEX 100 MG/5 ML VIAL ONE (09:06)
[2022-06-23] MEDS: DRONABINOL 2.5 MG CAP PO SCH ×2 (09:10→20:07)
[2022-06-23] MEDS: FAMOTIDINE 20MG VIAL IV SCH ×2 (09:10→20:08)
[2022-06-23] MEDS: METOPROLOL TARTRATE 25 MG TAB PO SCH ×2 (09:10→20:07)
[2022-06-23] MEDS: CEFTRIAXONE 1G VIAL IVP SCH (09:10)
[2022-06-23 12:00] VITALS: BP 120/72
[2022-06-23] MEDS ORDERED: EPOETIN ALFA-EPBX (NON-ESRD) 10,000 UNIT/ML VIAL SQ SCH (13:30)
[2022-06-23 16:00] VITALS: BP 142/89
[2022-06-23] MEDS: CLONAZEPAM 1MG TAB PO SCH ×2 (17:12→20:07)
[2022-06-23] MEDS ORDERED: VANCOMYCIN PROTOCOL PER PHARMACY IV SCH (17:30)
[2022-06-23] MEDS: VANCOMYCIN 1G/250ML KIT 250 ML IV SCH (18:43)
[2022-06-23 20:12] VITALS: BP 155/99
[2022-06-24] VITALS: BP 139/92
[2022-06-24] MEDS: TRAMADOL HCL 50 MG TABLET PO PRN ×2 (02:30→10:14)
[2022-06-24 04:00] VITALS: BP 152/77
[2022-06-24] MEDS: INSULIN HUMULIN R 100 UNIT/ML 3ML SQ SCH ×4 (05:27→21:00)
[2022-06-24 05:28] LABS: POTASSIUM 3.5 mmol/L (3.5-5.1)
[2022-06-24] MEDS: INSULIN GLARGINE 100 UNITS/ML 10 ML VIAL SQ SCH ×2 (06:46→21:00)
[2022-06-24 08:00] VITALS: BP 133/74
[2022-06-24] MEDS ORDERED: IRON SUCROSE COMPLEX 100 MG/5 ML VIAL IVP SCH (09:00)
[2022-06-24] MEDS: NEUTRA-PHOS PACKET 1 EACH PO SCH ×4 (09:00→21:16)
[2022-06-24] MEDS ORDERED: IRON SUCROSE COMPLEX 500 MG in 0.9%NACL 50ML 50 ML IV SCH (09:00)
[2022-06-24] MEDS: DULOXETINE HCL 30 MG CAP PO SCH (09:55)
[2022-06-24] MEDS: TAMSULOSIN HCL 0.4 MG CAP.ER.24H PO SCH (09:56)
[2022-06-24] MEDS: FINASTERIDE 5 MG TABLET PO SCH (09:56)
[2022-06-24] MEDS: DRONABINOL 2.5 MG CAP PO SCH ×2 (09:58→21:17)
[2022-06-24] MEDS: FAMOTIDINE 20MG VIAL IV SCH ×2 (09:58→21:17)
[2022-06-24] MEDS: METOPROLOL TARTRATE 25 MG TAB PO SCH ×2 (09:59→21:16)
[2022-06-24] MEDS ORDERED: 0.9% NACL 250ML 250 ML ONE ×2 (10:04→21:13)
[2022-06-24] MEDS: KCL 20 MEQ ERTAB PO PRN ×2 (10:08→12:49)
[2022-06-24] MEDS: CLONAZEPAM 1MG TAB PO SCH ×2 (10:13→21:17)
[2022-06-24] MEDS: VANCOMYCIN 1G/250ML KIT 250 ML IV SCH ×2 (10:13→21:17)
[2022-06-24 12:00] VITALS: BP 127/96
[2022-06-24] MEDS ORDERED: EPOETIN ALFA-EPBX (NON-ESRD) 10,000 UNIT/ML VIAL SQ SCH (12:00)
[2022-06-24] MEDS ORDERED: KETOROLAC 30MG VIAL (30MG/ML) IVP PRN (14:30)
[2022-06-24 16:00] VITALS: BP 113/75
[2022-06-24 19:59] VITALS: BP 128/75
[2022-06-25] VITALS (7 sets, daily range): BP systolic 98–133; BP diastolic 47–84
[2022-06-25] MEDS: TRAMADOL HCL 50 MG TABLET PO PRN (04:52)
[2022-06-25 05:00] LABS: BASOPHILS % (AUTO) 0.2 % (0.0-5.0); EOSINOPHILS % (AUTO) 0.3 % (0.0-8.0); HEMATOCRIT 21.3 % (42-54); MEAN CORPUSCULAR HGB CONC 32.9 g/dL (32.0-36.0); MEAN CORPUSCULAR VOLUME 82.2 fL (79-99); MONOCYTES % (AUTO) 7.8 % (3.0-13.0); NEUTROPHILS % (AUTO) 78.3 % (40.0-77.0); PLATELET COUNT (AUTO) 223 K/uL (130-400); RED BLOOD CELL COUNT(AUTO) 2.59 MIL/uL (4.50-6.20); RED CELL DISTRIBUTION WIDTH 12.9 % (11.0-15.5); WHITE BLOOD COUNT (AUTO) 8.8 K/uL (4.8-10.8)
[2022-06-25 05:26] LABS: MAGNESIUM 1.7 mg/dL (1.80-2.40); PHOSPHORUS 3.3 mg/dL (2.5-4.9)
[2022-06-25 05:36] LABS: CRP QUANTITATIVE 159.6 mg/L (0.00-9.0)
[2022-06-25] MEDS: INSULIN HUMULIN R 100 UNIT/ML 3ML SQ SCH ×4 (05:59→21:00)
[2022-06-25] MEDS: MAGNESIUM 2GM PREMIX 50ML 50 ML IV PRN (06:00)
[2022-06-25] MEDS: INSULIN GLARGINE 100 UNITS/ML 10 ML VIAL SQ SCH ×2 (07:13→21:39)
[2022-06-25 08:28] LABS: HEMATOCRIT 21.5 % (42-54)
[2022-06-25] MEDS: VANCOMYCIN 1G/250ML KIT 250 ML IV SCH (09:00)
[2022-06-25] MEDS: TAMSULOSIN HCL 0.4 MG CAP.ER.24H PO SCH (09:19)
[2022-06-25] MEDS: DULOXETINE HCL 30 MG CAP PO SCH (09:19)
[2022-06-25] MEDS: METOPROLOL TARTRATE 25 MG TAB PO SCH ×2 (09:20→21:34)
[2022-06-25] MEDS: FINASTERIDE 5 MG TABLET PO SCH (09:20)
[2022-06-25] MEDS: DRONABINOL 2.5 MG CAP PO SCH ×2 (09:21→21:34)
[2022-06-25] MEDS: FAMOTIDINE 20MG VIAL IV SCH ×2 (09:21→21:34)
[2022-06-25] MEDS: CLONAZEPAM 1MG TAB PO SCH ×2 (09:21→21:34)
[2022-06-25] MEDS: NEUTRA-PHOS PACKET 1 EACH PO SCH ×2 (09:23→12:05)
[2022-06-25] MEDS: ACETAMINOPHEN 325 MG TAB PO PRN (09:40)
[2022-06-25] MEDS: 0.9% NACL 250ML 250 ML IV SCH (21:33)
[2022-06-25] MEDS: VANCOMYCIN 750MG VIAL IVPB SCH (21:34)
[2022-06-25] MEDS ORDERED: MAGNESIUM 2GM PREMIX 50ML 50 ML IV PRN (22:00)
[2022-06-26 03:59] VITALS: BP 106/63
[2022-06-26 05:26] LABS: BASOPHILS % (AUTO) 0.2 % (0.0-5.0); EOSINOPHILS % (AUTO) 0.4 % (0.0-8.0); HEMATOCRIT 21.9 % (42-54); LYMPHOCYTES % (AUTO) 8.6 % (21.0-51.0); MEAN CORPUSCULAR HEMOGLOBIN 26.6 pg (27.0-33.0); MEAN CORPUSCULAR VOLUME 83.3 fL (79-99); PLATELET COUNT (AUTO) 235 K/uL (130-400); RED BLOOD CELL COUNT(AUTO) 2.63 MIL/uL (4.50-6.20); RED CELL DISTRIBUTION WIDTH 12.9 % (11.0-15.5); WHITE BLOOD COUNT (AUTO) 9.4 K/uL (4.8-10.8)
[2022-06-26 05:42] LABS: CREATININE 1.1 mg/dL (0.5-1.5); MAGNESIUM 2.1 mg/dL (1.80-2.40); POTASSIUM 3.9 mmol/L (3.5-5.1)
[2022-06-26] MEDS: INSULIN GLARGINE 100 UNITS/ML 10 ML VIAL SQ SCH ×2 (06:38→19:49)
[2022-06-26] MEDS: INSULIN HUMULIN R 100 UNIT/ML 3ML SQ SCH ×4 (06:41→19:50)
[2022-06-26 07:10] VITALS: BP 100/60
[2022-06-26 08:48] LABS: HEMATOCRIT 21.3 % (42-54)
[2022-06-26] MEDS: 0.9% NACL 250ML 250 ML IV SCH ×2 (09:51→19:20)
[2022-06-26] MEDS: VANCOMYCIN 750MG VIAL IVPB SCH ×2 (09:51→19:20)
[2022-06-26] MEDS: FAMOTIDINE 20MG VIAL IV SCH ×2 (09:52→19:20)
[2022-06-26] MEDS: DULOXETINE HCL 30 MG CAP PO SCH (09:54)
[2022-06-26] MEDS: TAMSULOSIN HCL 0.4 MG CAP.ER.24H PO SCH (09:54)
[2022-06-26] MEDS: CLONAZEPAM 1MG TAB PO SCH ×2 (09:56→19:19)
[2022-06-26] MEDS: METOPROLOL TARTRATE 25 MG TAB PO SCH ×2 (09:56→19:19)
[2022-06-26] MEDS: FINASTERIDE 5 MG TABLET PO SCH (09:57)
[2022-06-26] MEDS: DRONABINOL 2.5 MG CAP PO SCH ×2 (09:57→19:19)
[2022-06-26 11:10] VITALS: BP 103/70
[2022-06-26 15:05] VITALS: BP 119/65
[2022-06-26 20:17] VITALS: BP 132/64
[2022-06-27 04:57] VITALS: BP 121/66
[2022-06-27] MEDS: INSULIN GLARGINE 100 UNITS/ML 10 ML VIAL SQ SCH ×2 (05:27→21:00)
[2022-06-27] MEDS: INSULIN HUMULIN R 100 UNIT/ML 3ML SQ SCH ×4 (05:27→21:00)
[2022-06-27 05:31] LABS: BASOPHILS % (AUTO) 0.2 % (0.0-5.0); EOSINOPHILS % (AUTO) 0.2 % (0.0-8.0); HEMATOCRIT 21.3 % (42-54); LYMPHOCYTES % (AUTO) 9.1 % (21.0-51.0); MEAN CORPUSCULAR HEMOGLOBIN 26.5 pg (27.0-33.0); MEAN CORPUSCULAR HGB CONC 31.9 g/dL (32.0-36.0); MEAN CORPUSCULAR VOLUME 82.9 fL (79-99); MONOCYTES % (AUTO) 5.9 % (3.0-13.0); NEUTROPHILS % (AUTO) 77.6 % (40.0-77.0); PLATELET COUNT (AUTO) 278 K/uL (130-400); RED BLOOD CELL COUNT(AUTO) 2.57 MIL/uL (4.50-6.20); WHITE BLOOD COUNT (AUTO) 14.2 K/uL (4.8-10.8)
[2022-06-27 06:02] LABS: POTASSIUM 3.8 mmol/L (3.5-5.1)
[2022-06-27 08:00] VITALS: BP 149/59
[2022-06-27 08:21] LABS: HEMATOCRIT 21.3 % (42-54)
[2022-06-27] MEDS: DRONABINOL 2.5 MG CAP PO SCH ×2 (08:41→21:00)
[2022-06-27] MEDS: TAMSULOSIN HCL 0.4 MG CAP.ER.24H PO SCH (08:41)
[2022-06-27] MEDS: METOPROLOL TARTRATE 25 MG TAB PO SCH ×2 (08:42→21:00)
[2022-06-27] MEDS: FAMOTIDINE 20MG VIAL IV SCH ×2 (08:42→21:00)
[2022-06-27] MEDS: CLONAZEPAM 1MG TAB PO SCH ×2 (08:42→21:00)
[2022-06-27] MEDS: DULOXETINE HCL 30 MG CAP PO SCH (08:42)
[2022-06-27] MEDS: 0.9% NACL 250ML 250 ML IV SCH ×2 (10:56→21:00)
[2022-06-27] MEDS: VANCOMYCIN 750MG VIAL IVPB SCH ×2 (10:56→21:00)
[2022-06-27 12:00] VITALS: BP 107/57
[2022-06-27 16:00] VITALS: BP 100/58
[2022-06-27] MEDS: ACETAMINOPHEN 325 MG TAB PO PRN (22:52)
[2022-06-28] VITALS (12 sets, daily range): BP systolic 117–139; BP diastolic 65–81
[2022-06-28 05:27] LABS: BASOPHILS % (AUTO) 0.2 % (0.0-5.0); EOSINOPHILS % (AUTO) 0.3 % (0.0-8.0); LYMPHOCYTES % (AUTO) 9.5 % (21.0-51.0); MEAN CORPUSCULAR HEMOGLOBIN 27.2 pg (27.0-33.0); MEAN CORPUSCULAR VOLUME 82.4 fL (79-99); MONOCYTES % (AUTO) 4.3 % (3.0-13.0); NEUTROPHILS % (AUTO) 79.6 % (40.0-77.0); PLATELET COUNT (AUTO) 306 K/uL (130-400); RED CELL DISTRIBUTION WIDTH 13.1 % (11.0-15.5); WHITE BLOOD COUNT (AUTO) 14.8 K/uL (4.8-10.8)
[2022-06-28 05:38] LABS: HEMATOCRIT 20.6 % (42-54)
[2022-06-28 05:40] LABS: MAGNESIUM 1.7 mg/dL (1.80-2.40); PHOSPHORUS 3.7 mg/dL (2.5-4.9); POTASSIUM 3.8 mmol/L (3.5-5.1)
[2022-06-28] MEDS: INSULIN GLARGINE 100 UNITS/ML 10 ML VIAL SQ SCH ×2 (06:44→20:47)
[2022-06-28] MEDS: INSULIN HUMULIN R 100 UNIT/ML 3ML SQ SCH ×4 (06:44→20:32)
[2022-06-28] MEDS ORDERED: BACITRACIN 28.4 GM OINT TP ONE (09:00)
[2022-06-28] MEDS: CLONAZEPAM 1MG TAB PO SCH ×2 (10:20→20:31)
[2022-06-28] MEDS: DRONABINOL 2.5 MG CAP PO SCH ×2 (10:20→20:31)
[2022-06-28] MEDS: DULOXETINE HCL 30 MG CAP PO SCH (10:20)
[2022-06-28] MEDS: TAMSULOSIN HCL 0.4 MG CAP.ER.24H PO SCH (10:20)
[2022-06-28] MEDS: METOPROLOL TARTRATE 25 MG TAB PO SCH ×2 (10:22→20:32)
[2022-06-28] MEDS: 0.9% NACL 250ML 250 ML IV SCH ×2 (11:36→20:56)
[2022-06-28] MEDS: FAMOTIDINE 20MG VIAL IV SCH ×2 (11:36→20:31)
[2022-06-28] MEDS: VANCOMYCIN 750MG VIAL IVPB SCH ×2 (11:36→20:56)
[2022-06-29] VITALS (7 sets, daily range): BP systolic 95–141; BP diastolic 60–90
[2022-06-29 05:51] LABS: BASOPHILS % (AUTO) 0.3 % (0.0-5.0); EOSINOPHILS % (AUTO) 0.3 % (0.0-8.0); HEMATOCRIT 24.2 % (42-54); LYMPHOCYTES % (AUTO) 9.1 % (21.0-51.0); MEAN CORPUSCULAR HEMOGLOBIN 27.4 pg (27.0-33.0); MEAN CORPUSCULAR HGB CONC 32.6 g/dL (32.0-36.0); MONOCYTES % (AUTO) 4.8 % (3.0-13.0); NEUTROPHILS % (AUTO) 79.3 % (40.0-77.0); PLATELET COUNT (AUTO) 283 K/uL (130-400); RED BLOOD CELL COUNT(AUTO) 2.88 MIL/uL (4.50-6.20); RED CELL DISTRIBUTION WIDTH 13.5 % (11.0-15.5); WHITE BLOOD COUNT (AUTO) 10.4 K/uL (4.8-10.8)
[2022-06-29 06:05] LABS: CREATININE 1.2 mg/dL (0.5-1.5); POTASSIUM 3.8 mmol/L (3.5-5.1)
[2022-06-29] MEDS: INSULIN GLARGINE 100 UNITS/ML 10 ML VIAL SQ SCH ×3 (06:27→20:43)
[2022-06-29] MEDS: INSULIN HUMULIN R 100 UNIT/ML 3ML SQ SCH ×4 (06:28→20:42)
[2022-06-29] MEDS: TAMSULOSIN HCL 0.4 MG CAP.ER.24H PO SCH (09:02)
[2022-06-29] MEDS: FAMOTIDINE 20MG VIAL IV SCH ×2 (09:03→20:41)
[2022-06-29] MEDS: CLONAZEPAM 1MG TAB PO SCH ×2 (09:03→20:39)
[2022-06-29] MEDS: METOPROLOL TARTRATE 25 MG TAB PO SCH ×2 (09:03→21:07)
[2022-06-29] MEDS: DULOXETINE HCL 30 MG CAP PO SCH (09:03)
[2022-06-29] MEDS: BACITRACIN 28.4 GM OINT TP SCH (09:04)
[2022-06-29] MEDS: VANCOMYCIN 750MG VIAL IVPB SCH ×2 (09:04→20:36)
[2022-06-29] MEDS: 0.9% NACL 250ML 250 ML IV SCH ×2 (09:18→20:37)
[2022-06-29] MEDS: ACETAMINOPHEN 325 MG TAB PO PRN ×2 (15:26→20:38)
[2022-06-30] MEDS: ACETAMINOPHEN 325 MG TAB PO PRN (02:50)
[2022-06-30 03:32] VITALS: BP 132/63
[2022-06-30] MEDS: INSULIN HUMULIN R 100 UNIT/ML 3ML SQ SCH ×4 (06:35→20:40)
[2022-06-30] MEDS: INSULIN GLARGINE 100 UNITS/ML 10 ML VIAL SQ SCH ×2 (06:40→20:40)
[2022-06-30 07:44] VITALS: BP 130/56
[2022-06-30] MEDS: VANCOMYCIN 750MG VIAL IVPB SCH ×2 (09:10→20:38)
[2022-06-30] MEDS: 0.9% NACL 250ML 250 ML IV SCH ×2 (09:10→20:38)
[2022-06-30] MEDS: CLONAZEPAM 1MG TAB PO SCH ×2 (09:11→20:38)
[2022-06-30] MEDS: DULOXETINE HCL 30 MG CAP PO SCH (09:11)
[2022-06-30] MEDS: METOPROLOL TARTRATE 25 MG TAB PO SCH ×2 (09:11→20:38)
[2022-06-30] MEDS: TAMSULOSIN HCL 0.4 MG CAP.ER.24H PO SCH (09:11)
[2022-06-30] MEDS: FAMOTIDINE 20MG VIAL IV SCH ×2 (09:11→21:28)
[2022-06-30] MEDS: BACITRACIN 28.4 GM OINT TP SCH (09:11)
[2022-06-30 09:23] LABS: BASOPHILS % (AUTO) 0.2 % (0.0-5.0); EOSINOPHILS % (AUTO) 0.3 % (0.0-8.0); HEMATOCRIT 25.8 % (42-54); LYMPHOCYTES % (AUTO) 9.5 % (21.0-51.0); MEAN CORPUSCULAR HEMOGLOBIN 26.9 pg (27.0-33.0); MEAN CORPUSCULAR HGB CONC 31.4 g/dL (32.0-36.0); MEAN CORPUSCULAR VOLUME 85.7 fL (79-99); MONOCYTES % (AUTO) 3.8 % (3.0-13.0); NEUTROPHILS % (AUTO) 82.5 % (40.0-77.0); PLATELET COUNT (AUTO) 294 K/uL (130-400); RED BLOOD CELL COUNT(AUTO) 3.01 MIL/uL (4.50-6.20); RED CELL DISTRIBUTION WIDTH 13.8 % (11.0-15.5); WHITE BLOOD COUNT (AUTO) 12.5 K/uL (4.8-10.8)
[2022-06-30 09:39] LABS: CREATININE 1.2 mg/dL (0.5-1.5); POTASSIUM 3.7 mmol/L (3.5-5.1)
[2022-06-30 12:00] VITALS: BP 139/65
[2022-06-30 16:00] VITALS: BP 112/64
[2022-06-30 19:41] VITALS: BP 127/83
[2022-07-01] VITALS (7 sets, daily range): BP systolic 119–176; BP diastolic 46–91
[2022-07-01] MEDS: INSULIN GLARGINE 100 UNITS/ML 10 ML VIAL SQ SCH ×2 (06:16→21:20)
[2022-07-01] MEDS: INSULIN HUMULIN R 100 UNIT/ML 3ML SQ SCH ×4 (06:17→21:00)
[2022-07-01] MEDS: VANCOMYCIN 750MG VIAL IVPB SCH ×2 (09:49→21:00)
[2022-07-01] MEDS: CLONAZEPAM 1MG TAB PO SCH ×2 (09:50→21:18)
[2022-07-01] MEDS: METOPROLOL TARTRATE 25 MG TAB PO SCH ×2 (09:50→21:18)
[2022-07-01] MEDS: FAMOTIDINE 20MG VIAL IV SCH ×2 (09:50→21:18)
[2022-07-01] MEDS: DULOXETINE HCL 30 MG CAP PO SCH (09:50)
[2022-07-01] MEDS: 0.9% NACL 250ML 250 ML IV SCH ×2 (09:50→21:00)
[2022-07-01] MEDS: TAMSULOSIN HCL 0.4 MG CAP.ER.24H PO SCH (09:50)
[2022-07-01] MEDS: BACITRACIN 28.4 GM OINT TP SCH (09:51)
[2022-07-01] MEDS: ACETAMINOPHEN 325 MG TAB PO PRN ×2 (13:37→22:34)
[2022-07-01] MEDS ORDERED: KETOROLAC 15MG/ML VIAL (15MG/ML) IM ONE (17:30)
[2022-07-01] MEDS: KCL 20 MEQ ERTAB PO PRN (17:42)
[2022-07-02 04:25] VITALS: BP 117/74
[2022-07-02 05:37] LABS: BASOPHILS % (AUTO) 0.2 % (0.0-5.0); EOSINOPHILS % (AUTO) 0.3 % (0.0-8.0); HEMATOCRIT 25.6 % (42-54); LYMPHOCYTES % (AUTO) 14.4 % (21.0-51.0); MEAN CORPUSCULAR HEMOGLOBIN 26.6 pg (27.0-33.0); MEAN CORPUSCULAR HGB CONC 30.9 g/dL (32.0-36.0); MEAN CORPUSCULAR VOLUME 86.2 fL (79-99); MONOCYTES % (AUTO) 4.9 % (3.0-13.0); PLATELET COUNT (AUTO) 311 K/uL (130-400); RED BLOOD CELL COUNT(AUTO) 2.97 MIL/uL (4.50-6.20); RED CELL DISTRIBUTION WIDTH 13.8 % (11.0-15.5); WHITE BLOOD COUNT (AUTO) 9.6 K/uL (4.8-10.8)
[2022-07-02 05:59] LABS: MAGNESIUM 1.9 mg/dL (1.80-2.40); PHOSPHORUS 3.9 mg/dL (2.5-4.9); POTASSIUM 4.9 mmol/L (3.5-5.1)
[2022-07-02] MEDS ORDERED: VANCOMYCIN 500MG+NS 100ML 100 ML IV SCH (06:00)
[2022-07-02] MEDS: INSULIN HUMULIN R 100 UNIT/ML 3ML SQ SCH ×2 (06:15→11:30)
[2022-07-02] MEDS: INSULIN GLARGINE 100 UNITS/ML 10 ML VIAL SQ SCH (06:21)
[2022-07-02 08:00] VITALS: BP 126/75
[2022-07-02] MEDS: TAMSULOSIN HCL 0.4 MG CAP.ER.24H PO SCH (08:44)
[2022-07-02] MEDS: FAMOTIDINE 20MG VIAL IV SCH (08:44)
[2022-07-02] MEDS: CLONAZEPAM 1MG TAB PO SCH (08:44)
[2022-07-02] MEDS: DULOXETINE HCL 30 MG CAP PO SCH (08:44)
[2022-07-02] MEDS: METOPROLOL TARTRATE 25 MG TAB PO SCH (08:44)
[2022-07-02] MEDS: ACETAMINOPHEN 325 MG TAB PO PRN (08:49)
[2022-07-02] MEDS: MAGNESIUM 2GM PREMIX 50ML 50 ML IV PRN (08:50)
[2022-07-02] MEDS: BACITRACIN 28.4 GM OINT TP SCH (08:57)
[2022-07-02 12:00] VITALS: BP 121/72
== END 2022-07-02 15:30 | disposition left against medical advice (07) | DRG 871 ==
LOC: EDH 11:36 → EDHIP 11:37 → 2BH 17:52 → 3AH 06-21 18:45
PROVIDERS: ADMIT Internal Medicine; ATTEND Internal Medicine
PROC: 30233N1 Transfusion of Nonautologous Red Blood Cells into Peripheral Vein, Percutaneous Approach (ICD-10-PCS; principal; 2022-06-22)
DX: A41.02 Sepsis due to Methicillin resistant Staphylococcus aureus (principal); E11.10 Type 2 diabetes mellitus with ketoacidosis without coma; E43 Unspecified severe protein-calorie malnutrition; I26.90 Septic pulmonary embolism without acute cor pulmonale; Z20.822 Contact with and (suspected) exposure to COVID-19; S72.115A Nondisplaced fracture of greater trochanter of left femur, initial encounter for closed fracture; N17.9 Acute kidney failure, unspecified; L03.115 Cellulitis of right lower limb; E87.1 Hypo-osmolality and hyponatremia; R64 Cachexia; N13.6 Pyonephrosis; L02.511 Cutaneous abscess of right hand; I13.0 Hypertensive heart and chronic kidney disease with heart failure and stage 1 through stage 4 chronic kidney disease, or unspecified chronic kidney disease; W18.39XA Other fall on same level, initial encounter; E11.22 Type 2 diabetes mellitus with diabetic chronic kidney disease; R65.20 Severe sepsis without septic shock; E86.1 Hypovolemia; I95.1 Orthostatic hypotension; Z53.20 Procedure and treatment not carried out because of patient's decision for unspecified reasons; N18.9 Chronic kidney disease, unspecified; F17.210 Nicotine dependence, cigarettes, uncomplicated; F14.10 Cocaine abuse, uncomplicated; E87.6 Hypokalemia; E86.0 Dehydration; F32.A Depression, unspecified; Z59.00 Homelessness unspecified; Z91.199 Patient's noncompliance with other medical treatment and regimen due to unspecified reason; Z91.14 Patient's other noncompliance with medication regimen; Z86.73 Personal history of transient ischemic attack (TIA), and cerebral infarction without residual deficits; Z86.718 Personal history of other venous thrombosis and embolism; Z79.4 Long term (current) use of insulin; Z56.0 Unemployment, unspecified; Y93.89 Activity, other specified; Y92.89 Other specified places as the place of occurrence of the external cause; Y99.8 Other external cause status; Z68.21 Body mass index [BMI] 21.0-21.9, adult
CPT/HCPCS: 36415; 36430; 36600; 70450; 71045; 71250; 72125; 72131; 73502; 73552; 74176; 76770; 78582; 80048; 80053; 80061; 80076; 80202; 80305; 81001; 82010; 82270; 82728; 82746; 82803; 82948; 83540; 83550; 83605; 83735; 84100; 84145; 84443; 84484; 85014; 85018; 85025; 85027; 85045; 85610; 85651; 85730; 86140; 86701; 86850; 86900; 86901; 86923; 87040; 87070; 87076; 87077; 87088; 87186; 87390; 87635; 87804; 93005; 93306; 93356; 93970; A9540; A9558; G0378; J0696; J1650; J1756; J1815; J1885; J2405; J3370; J3475; J3480; J3490; J7030; J7050; J7070; P9016; Q0167

== ENCOUNTER 2022-07-03 17:28 | Inpatient (IN) | payer OTHER ==
[~2022-07-03] VITALS: Ht 170.2 cm; Wt 62.4 kg
[~2022-07-03 17:28] MED LIST changes: -CEFD300C3 PO; -DOXY100T2 PO; -MUPI22OI2 TP
[2022-07-03 17:43] LABS: BASOPHILS % (AUTO) 0.1 % (0.0-5.0); EOSINOPHILS % (AUTO) 0.1 % (0.0-8.0); HEMATOCRIT 25.3 % (42-54); LYMPHOCYTES % (AUTO) 14.2 % (21.0-51.0); MEAN CORPUSCULAR HEMOGLOBIN 26.8 pg (27.0-33.0); MEAN CORPUSCULAR VOLUME 83.8 fL (79-99); PLATELET COUNT (AUTO) 322 K/uL (130-400); RED BLOOD CELL COUNT(AUTO) 3.02 MIL/uL (4.50-6.20); RED CELL DISTRIBUTION WIDTH 14.4 % (11.0-15.5)
[2022-07-03 17:51] LABS: CREATININE 0.9 mg/dL (0.5-1.5); POTASSIUM 3.8 mmol/L (3.5-5.1)
[2022-07-03 17:56] LABS: ALBUMIN 1.4 g/dL (3.5-5.0); TOTAL PROTEIN, SERUM 6.8 g/dL (6.0-8.3)
[2022-07-03 18:30] LABS: APPEARANCE,URINE CLOUDY (CLEAR); BILIRUBIN,URINE NEGATIVE (NEGATIVE); COLOR,URINE LIGHT-YELLOW (YELLOW); GLUCOSE, URINE (UA) NEGATIVE (NEGATIVE); KETONES,URINE NEGATIVE (NEGATIVE); LEUKOCYTE ESTERASE ,URINE 500 Leu/uL (NEGATIVE); NITRATE,URINE NEGATIVE (NEGATIVE); PH,URINE 6.5 (5.0-8.0); PROTEIN,URINE 10 mg/dL (NEGATIVE); UROBILINOGEN,URINE 0.2 mg/dL (0.2-1.0)
[2022-07-03] MEDS ORDERED: ONDANSETRON 4MG INJ IV PRN (18:30)
[2022-07-03] MEDS ORDERED: VANCOMYCIN PROTOCOL PER PHARMACY IV PRN (18:30)
[2022-07-03] MEDS ORDERED: MORPHINE 2 MG SYG IV PRN (18:30)
[2022-07-03] MEDS ORDERED: 0.9%NACL 1000ML 1,000 ML IV SCH (18:30)
[2022-07-03 18:38] LABS: AMPHET/METH SCREEN,URINE NEGATIVE (NEGATIVE); BARBITURATE SCREEN, URINE NEGATIVE (NEGATIVE); BENZODIAZEPINES SCREEN,URINE NEGATIVE (NEGATIVE); CANNABINOID SCREEN,URINE NEGATIVE (NEGATIVE); COCAINE SCREEN,URINE POSITIVE (NEGATIVE); OPIATE SCREEN,URINE NEGATIVE (NEGATIVE); PHENCYCLIDINE SCREEN,URINE NEGATIVE (NEGATIVE)
[2022-07-03 18:39] LABS: MUCUS,URINE RARE LPF (None Seen); SQUAMOUS EPITHELIAL CELL,UR RARE /HPF (0-2); WBC,URINE 51-100 /HPF (0-1); YEAST,URINE BUDDING MOD /HPF (None Seen)
[2022-07-03] MEDS: VANCOMYCIN 500MG+NS 100ML 100 ML IV SCH (19:03)
[2022-07-03] MEDS: LACTATED RINGERS 1000ML 1,000 ML IV SCH (19:03)
[2022-07-03] MEDS: HEPARIN 5,000 UNIT VIAL SQ SCH (21:05)
[2022-07-03] MEDS: INSULIN HUMULIN R 100 UNIT/ML 3ML SQ SCH (21:05)
[2022-07-03] MEDS: MORPHINE 4 MG SYG IV PRN (23:33)
[2022-07-03] MEDS: CLONAZEPAM 0.5 MG TABLET PO SCH (23:33)
[2022-07-04] VITALS (7 sets, daily range): BP systolic 121–165; BP diastolic 75–98
[2022-07-04] MEDS: MORPHINE 4 MG SYG IV PRN ×2 (04:09→09:18)
[2022-07-04 05:10] LABS: BASOPHILS % (AUTO) 0.4 % (0.0-5.0); EOSINOPHILS % (AUTO) 0.4 % (0.0-8.0); HEMATOCRIT 22.6 % (42-54); LYMPHOCYTES % (AUTO) 12.7 % (21.0-51.0); MEAN CORPUSCULAR HEMOGLOBIN 27.2 pg (27.0-33.0); MEAN CORPUSCULAR HGB CONC 31.4 g/dL (32.0-36.0); MEAN CORPUSCULAR VOLUME 86.6 fL (79-99); MONOCYTES % (AUTO) 6.9 % (3.0-13.0); NEUTROPHILS % (AUTO) 78.4 % (40.0-77.0); PLATELET COUNT (AUTO) 326 K/uL (130-400); RED BLOOD CELL COUNT(AUTO) 2.61 MIL/uL (4.50-6.20); RED CELL DISTRIBUTION WIDTH 14.3 % (11.0-15.5); WHITE BLOOD COUNT (AUTO) 7.7 K/uL (4.8-10.8)
[2022-07-04 05:21] LABS: MAGNESIUM 1.9 mg/dL (1.80-2.40); PHOSPHORUS 3.5 mg/dL (2.5-4.9); POTASSIUM 4.6 mmol/L (3.5-5.1)
[2022-07-04] MEDS ORDERED: 0.9%NACL 100ML 100 ML ONE (05:42)
[2022-07-04] MEDS: VANCOMYCIN 500MG+NS 100ML 100 ML IV SCH ×2 (05:47→18:28)
[2022-07-04] MEDS: INSULIN HUMULIN R 100 UNIT/ML 3ML SQ SCH ×3 (05:59→17:12)
[2022-07-04] MEDS ORDERED: ACETAMINOPHEN 325 MG TAB PO PRN (06:30)
[2022-07-04] MEDS: ACETAMINOPHEN 325 MG TAB PO PRN (06:40)
[2022-07-04] MEDS ORDERED: DULOXETINE HCL 30 MG CAP PO SCH (09:00)
[2022-07-04] MEDS: FAMOTIDINE 20MG TAB PO SCH (09:09)
[2022-07-04] MEDS: CLONAZEPAM 0.5 MG TABLET PO SCH ×2 (09:09→20:17)
[2022-07-04] MEDS: TAMSULOSIN HCL 0.4 MG CAP.ER.24H PO SCH (09:09)
[2022-07-04] MEDS: FINASTERIDE 5 MG TABLET PO SCH (09:09)
[2022-07-04] MEDS: HEPARIN 5,000 UNIT VIAL SQ SCH ×2 (09:10→20:28)
[2022-07-04] MEDS: LACTATED RINGERS 1000ML 1,000 ML IV SCH (09:22)
[2022-07-04] MEDS ORDERED: TROLAMINE SALICYLATE CREAM 85 GM TUBE TP PRN (17:30)
[2022-07-04] MEDS: GABAPENTIN 300 MG CAPSULE PO SCH (20:18)
[2022-07-04] MEDS: ACETAMINOPHEN WITH CODEINE 1 TAB TAB PO PRN (20:18)
[2022-07-04] MEDS: INSULIN LISPRO 100 UNIT/ML 3ML SQ SCH (20:19)
[2022-07-05] VITALS (7 sets, daily range): BP systolic 133–157; BP diastolic 73–96
[2022-07-05 05:50] LABS: BASOPHILS % (AUTO) 0.3 % (0.0-5.0); EOSINOPHILS % (AUTO) 0.6 % (0.0-8.0); HEMATOCRIT 22.8 % (42-54); LYMPHOCYTES % (AUTO) 18.9 % (21.0-51.0); MEAN CORPUSCULAR HEMOGLOBIN 27.4 pg (27.0-33.0); MEAN CORPUSCULAR VOLUME 85.7 fL (79-99); MONOCYTES % (AUTO) 7.1 % (3.0-13.0); NEUTROPHILS % (AUTO) 72.3 % (40.0-77.0); PLATELET COUNT (AUTO) 338 K/uL (130-400); RED BLOOD CELL COUNT(AUTO) 2.66 MIL/uL (4.50-6.20); RED CELL DISTRIBUTION WIDTH 14.3 % (11.0-15.5); WHITE BLOOD COUNT (AUTO) 6.2 K/uL (4.8-10.8)
[2022-07-05 06:13] LABS: % IRON SATURATION 20.6 % (30-44)
[2022-07-05 06:22] LABS: CREATININE 1.3 mg/dL (0.5-1.5); MAGNESIUM 1.9 mg/dL (1.80-2.40); PHOSPHORUS 4.1 mg/dL (2.5-4.9); POTASSIUM 4.4 mmol/L (3.5-5.1); THYROID STIMULATING HORMONE 9.41 uIU/mL (0.36-3.74)
[2022-07-05] MEDS: INSULIN LISPRO 100 UNIT/ML 3ML SQ SCH ×4 (06:56→21:09)
[2022-07-05] MEDS: INSULIN HUMULIN R 100 UNIT/ML 3ML SQ SCH ×3 (06:56→16:27)
[2022-07-05] MEDS: FAMOTIDINE 20MG TAB PO SCH (08:14)
[2022-07-05] MEDS: CLONAZEPAM 0.5 MG TABLET PO SCH ×2 (08:14→21:11)
[2022-07-05] MEDS: GABAPENTIN 300 MG CAPSULE PO SCH ×2 (08:14→21:10)
[2022-07-05] MEDS: TAMSULOSIN HCL 0.4 MG CAP.ER.24H PO SCH (08:14)
[2022-07-05] MEDS: DULOXETINE HCL 30 MG CAP PO SCH (08:14)
[2022-07-05] MEDS: FINASTERIDE 5 MG TABLET PO SCH (08:14)
[2022-07-05] MEDS: HEPARIN 5,000 UNIT VIAL SQ SCH ×2 (08:21→21:09)
[2022-07-05] MEDS ORDERED: IRON SUCROSE COMPLEX 200 MG in 0.9%NACL 50ML 50 ML IV SCH (10:30)
[2022-07-05] MEDS ORDERED: EPOETIN ALFA-EPBX (NON-ESRD) 10,000 UNIT/ML VIAL SQ SCH (10:30)
[2022-07-05] MEDS: DRONABINOL 2.5 MG CAP PO SCH (11:26)
[2022-07-05] MEDS: IRON SUCROSE COMPLEX 100 MG/5 ML VIAL IVP SCH (11:27)
[2022-07-05] MEDS: VANCOMYCIN 500MG+NS 100ML 100 ML IV SCH (18:21)
[2022-07-06 03:38] VITALS: BP 148/108
[2022-07-06 03:47] VITALS: BP 150/90
[2022-07-06 05:50] LABS: BASOPHILS % (AUTO) 0.5 % (0.0-5.0); EOSINOPHILS % (AUTO) 0.5 % (0.0-8.0); HEMATOCRIT 23.7 % (42-54); MEAN CORPUSCULAR HEMOGLOBIN 27.2 pg (27.0-33.0); MEAN CORPUSCULAR HGB CONC 32.1 g/dL (32.0-36.0); MEAN CORPUSCULAR VOLUME 84.9 fL (79-99); MONOCYTES % (AUTO) 6.9 % (3.0-13.0); NEUTROPHILS % (AUTO) 78.8 % (40.0-77.0); PLATELET COUNT (AUTO) 344 K/uL (130-400); RED BLOOD CELL COUNT(AUTO) 2.79 MIL/uL (4.50-6.20); RED CELL DISTRIBUTION WIDTH 14.2 % (11.0-15.5); WHITE BLOOD COUNT (AUTO) 6.6 K/uL (4.8-10.8)
[2022-07-06] MEDS: VANCOMYCIN 500MG+NS 100ML 100 ML IV SCH ×2 (06:28→17:29)
[2022-07-06] MEDS: LEVOTHYROXINE 50 MCG TABLET PO SCH (06:28)
[2022-07-06] MEDS: INSULIN LISPRO 100 UNIT/ML 3ML SQ SCH ×2 (06:34→11:30)
[2022-07-06 06:35] LABS: CREATININE 1.2 mg/dL (0.5-1.5); MAGNESIUM 1.8 mg/dL (1.80-2.40); PHOSPHORUS 3.2 mg/dL (2.5-4.9); POTASSIUM 4.5 mmol/L (3.5-5.1)
[2022-07-06] MEDS: INSULIN HUMULIN R 100 UNIT/ML 3ML SQ SCH ×5 (06:35→21:26)
[2022-07-06 08:00] VITALS: BP 123/83
[2022-07-06] MEDS: ZINC SULFATE 220 CAPSULE PO SCH (10:18)
[2022-07-06] MEDS: IRON SUCROSE COMPLEX 100 MG/5 ML VIAL IVP SCH (10:18)
[2022-07-06] MEDS: TAMSULOSIN HCL 0.4 MG CAP.ER.24H PO SCH (10:19)
[2022-07-06] MEDS: GABAPENTIN 300 MG CAPSULE PO SCH ×3 (10:19→21:25)
[2022-07-06] MEDS: DULOXETINE HCL 30 MG CAP PO SCH (10:19)
[2022-07-06] MEDS: DRONABINOL 2.5 MG CAP PO SCH (10:19)
[2022-07-06] MEDS: FINASTERIDE 5 MG TABLET PO SCH (10:19)
[2022-07-06] MEDS: CLONAZEPAM 0.5 MG TABLET PO SCH ×2 (10:19→21:25)
[2022-07-06] MEDS: ASCORBIC ACID 500 MG TAB PO SCH (10:19)
[2022-07-06] MEDS: FAMOTIDINE 20MG TAB PO SCH (10:20)
[2022-07-06] MEDS: HEPARIN 5,000 UNIT VIAL SQ SCH ×2 (10:30→21:29)
[2022-07-06 12:00] VITALS: BP 145/95
[2022-07-06] MEDS ORDERED: METOPROLOL TARTRATE 25 MG TAB PO ONE (12:30)
[2022-07-06] MEDS: METOPROLOL TARTRATE 25 MG TAB PO SCH ×2 (13:11→21:25)
[2022-07-06 16:00] VITALS: BP 123/68
[2022-07-06] MEDS: ACETAMINOPHEN WITH CODEINE 1 TAB TAB PO PRN (18:16)
[2022-07-06 20:28] VITALS: BP 133/87
[2022-07-06] MEDS: ACETAMINOPHEN 325 MG TAB PO PRN (21:24)
[2022-07-07] VITALS (7 sets, daily range): BP systolic 124–155; BP diastolic 71–92
[2022-07-07] MEDS: ACETAMINOPHEN WITH CODEINE 1 TAB TAB PO PRN ×2 (00:07→21:43)
[2022-07-07 05:42] LABS: BASOPHILS % (AUTO) 0.5 % (0.0-5.0); EOSINOPHILS % (AUTO) 1.6 % (0.0-8.0); HEMATOCRIT 21.2 % (42-54); LYMPHOCYTES % (AUTO) 19.7 % (21.0-51.0); MEAN CORPUSCULAR HEMOGLOBIN 27.2 pg (27.0-33.0); MEAN CORPUSCULAR HGB CONC 31.6 g/dL (32.0-36.0); MEAN CORPUSCULAR VOLUME 86.2 fL (79-99); MONOCYTES % (AUTO) 8.7 % (3.0-13.0); NEUTROPHILS % (AUTO) 68.1 % (40.0-77.0); PLATELET COUNT (AUTO) 321 K/uL (130-400); RED BLOOD CELL COUNT(AUTO) 2.46 MIL/uL (4.50-6.20); RED CELL DISTRIBUTION WIDTH 14.1 % (11.0-15.5); WHITE BLOOD COUNT (AUTO) 6.3 K/uL (4.8-10.8)
[2022-07-07 06:12] LABS: CREATININE 1.6 mg/dL (0.5-1.5)
[2022-07-07] MEDS: VANCOMYCIN 500MG+NS 100ML 100 ML IV SCH ×2 (06:47→19:25)
[2022-07-07] MEDS: LEVOTHYROXINE 50 MCG TABLET PO SCH (06:47)
[2022-07-07] MEDS: INSULIN HUMULIN R 100 UNIT/ML 3ML SQ SCH ×7 (07:23→21:47)
[2022-07-07] MEDS: IRON SUCROSE COMPLEX 100 MG/5 ML VIAL IVP SCH (08:44)
[2022-07-07] MEDS: FINASTERIDE 5 MG TABLET PO SCH (08:45)
[2022-07-07] MEDS: GABAPENTIN 300 MG CAPSULE PO SCH ×3 (08:45→21:44)
[2022-07-07] MEDS: TAMSULOSIN HCL 0.4 MG CAP.ER.24H PO SCH (08:45)
[2022-07-07] MEDS: ZINC SULFATE 220 CAPSULE PO SCH (08:45)
[2022-07-07] MEDS: DULOXETINE HCL 30 MG CAP PO SCH (08:46)
[2022-07-07] MEDS: CLONAZEPAM 0.5 MG TABLET PO SCH ×2 (08:46→21:44)
[2022-07-07] MEDS: ASCORBIC ACID 500 MG TAB PO SCH (08:46)
[2022-07-07] MEDS: DRONABINOL 2.5 MG CAP PO SCH (08:46)
[2022-07-07] MEDS: FAMOTIDINE 20MG TAB PO SCH (08:46)
[2022-07-07] MEDS: METOPROLOL TARTRATE 25 MG TAB PO SCH (08:46)
[2022-07-07] MEDS: HEPARIN 5,000 UNIT VIAL SQ SCH ×2 (08:54→21:45)
[2022-07-07] MEDS: METOPROLOL TARTRATE 50 MG TAB PO SCH (21:44)
[2022-07-08 04:42] VITALS: BP 116/66
[2022-07-08 04:44] LABS: BASOPHILS % (AUTO) 0.4 % (0.0-5.0); EOSINOPHILS % (AUTO) 2.5 % (0.0-8.0); HEMATOCRIT 26.1 % (42-54); LYMPHOCYTES % (AUTO) 17.7 % (21.0-51.0); MEAN CORPUSCULAR HEMOGLOBIN 28.1 pg (27.0-33.0); MEAN CORPUSCULAR HGB CONC 32.6 g/dL (32.0-36.0); MEAN CORPUSCULAR VOLUME 86.1 fL (79-99); MONOCYTES % (AUTO) 8.6 % (3.0-13.0); NEUTROPHILS % (AUTO) 70.1 % (40.0-77.0); PLATELET COUNT (AUTO) 305 K/uL (130-400); RED BLOOD CELL COUNT(AUTO) 3.03 MIL/uL (4.50-6.20); RED CELL DISTRIBUTION WIDTH 14.6 % (11.0-15.5); WHITE BLOOD COUNT (AUTO) 6.7 K/uL (4.8-10.8)
[2022-07-08 04:57] LABS: CREATININE 1.4 mg/dL (0.5-1.5); POTASSIUM 4.1 mmol/L (3.5-5.1)
[2022-07-08 04:58] LABS: % IRON SATURATION 20.9 % (30-44)
[2022-07-08] MEDS: VANCOMYCIN 500MG+NS 100ML 100 ML IV SCH ×2 (06:12→18:26)
[2022-07-08] MEDS: LEVOTHYROXINE 50 MCG TABLET PO SCH (06:12)
[2022-07-08] MEDS: INSULIN HUMULIN R 100 UNIT/ML 3ML SQ SCH ×6 (06:56→21:04)
[2022-07-08 08:45] VITALS: BP 133/73
[2022-07-08] MEDS: IRON SUCROSE COMPLEX 100 MG/5 ML VIAL IVP SCH (09:45)
[2022-07-08] MEDS: CLONAZEPAM 0.5 MG TABLET PO SCH ×2 (09:46→21:01)
[2022-07-08] MEDS: DULOXETINE HCL 30 MG CAP PO SCH (09:46)
[2022-07-08] MEDS: ZINC SULFATE 220 CAPSULE PO SCH (09:46)
[2022-07-08] MEDS: DRONABINOL 2.5 MG CAP PO SCH (09:47)
[2022-07-08] MEDS: GABAPENTIN 300 MG CAPSULE PO SCH ×3 (09:47→21:02)
[2022-07-08] MEDS: ASCORBIC ACID 500 MG TAB PO SCH (09:47)
[2022-07-08] MEDS: TAMSULOSIN HCL 0.4 MG CAP.ER.24H PO SCH (09:48)
[2022-07-08] MEDS: FAMOTIDINE 20MG TAB PO SCH (09:49)
[2022-07-08] MEDS: FINASTERIDE 5 MG TABLET PO SCH (09:49)
[2022-07-08] MEDS: METOPROLOL TARTRATE 50 MG TAB PO SCH ×2 (09:49→21:02)
[2022-07-08] MEDS: HEPARIN 5,000 UNIT VIAL SQ SCH ×2 (09:50→21:05)
[2022-07-08 12:55] VITALS: BP 148/88
[2022-07-08] MEDS: ACETAMINOPHEN WITH CODEINE 1 TAB TAB PO PRN ×2 (13:01→21:02)
[2022-07-08 15:35] VITALS: BP 123/72
[2022-07-08 19:52] VITALS: BP 122/83
[2022-07-08] MEDS ORDERED: INSULIN GLARGINE 100 UNITS/ML 10 ML VIAL SQ SCH (21:00)
[2022-07-08 23:53] VITALS: BP 128/85
[2022-07-09 03:45] VITALS: BP 143/87
[2022-07-09] MEDS: VANCOMYCIN 500MG+NS 100ML 100 ML IV SCH ×2 (06:16→17:38)
[2022-07-09] MEDS: LEVOTHYROXINE 50 MCG TABLET PO SCH (06:19)
[2022-07-09] MEDS: INSULIN HUMULIN R 100 UNIT/ML 3ML SQ SCH ×8 (06:20→21:42)
[2022-07-09] MEDS: ACETAMINOPHEN WITH CODEINE 1 TAB TAB PO PRN ×2 (06:28→22:17)
[2022-07-09 08:00] VITALS: BP 110/66
[2022-07-09] MEDS: DRONABINOL 2.5 MG CAP PO SCH (09:54)
[2022-07-09] MEDS: DULOXETINE HCL 30 MG CAP PO SCH (09:55)
[2022-07-09] MEDS: ASCORBIC ACID 500 MG TAB PO SCH (09:55)
[2022-07-09] MEDS: FINASTERIDE 5 MG TABLET PO SCH (09:55)
[2022-07-09] MEDS: ZINC SULFATE 220 CAPSULE PO SCH (09:55)
[2022-07-09] MEDS: FAMOTIDINE 20MG TAB PO SCH (09:55)
[2022-07-09] MEDS: METOPROLOL TARTRATE 50 MG TAB PO SCH (09:55)
[2022-07-09] MEDS: GABAPENTIN 300 MG CAPSULE PO SCH ×3 (09:55→21:40)
[2022-07-09] MEDS: CLONAZEPAM 0.5 MG TABLET PO SCH ×2 (09:56→21:39)
[2022-07-09] MEDS: TAMSULOSIN HCL 0.4 MG CAP.ER.24H PO SCH (09:56)
[2022-07-09] MEDS: IRON SUCROSE COMPLEX 100 MG/5 ML VIAL IVP SCH (09:56)
[2022-07-09] MEDS: HEPARIN 5,000 UNIT VIAL SQ SCH ×2 (10:04→21:41)
[2022-07-09 12:00] VITALS: BP 126/73
[2022-07-09] MEDS ORDERED: EPOETIN ALFA-EPBX (NON-ESRD) 10,000 UNIT/ML VIAL SQ SCH (14:30)
[2022-07-09 16:00] VITALS: BP 100/60
[2022-07-09] MEDS ORDERED: 0.9%NACL 100ML 100 ML ONE (17:37)
[2022-07-09 20:51] VITALS: BP 113/68
[2022-07-09] MEDS: METOPROLOL TARTRATE 25 MG TAB PO SCH (21:40)
[2022-07-09] MEDS: INSULIN GLARGINE 100 UNITS/ML 10 ML VIAL SQ SCH (21:43)
[2022-07-09 22:58] VITALS: BP 124/69
[2022-07-10 03:44] VITALS: BP 106/65
[2022-07-10 04:38] LABS: BASOPHILS % (AUTO) 0.3 % (0.0-5.0); EOSINOPHILS % (AUTO) 3.4 % (0.0-8.0); HEMATOCRIT 24.6 % (42-54); LYMPHOCYTES % (AUTO) 19.1 % (21.0-51.0); MEAN CORPUSCULAR HEMOGLOBIN 28.3 pg (27.0-33.0); MEAN CORPUSCULAR HGB CONC 32.5 g/dL (32.0-36.0); MEAN CORPUSCULAR VOLUME 86.9 fL (79-99); NEUTROPHILS % (AUTO) 64.1 % (40.0-77.0); PLATELET COUNT (AUTO) 333 K/uL (130-400); RED BLOOD CELL COUNT(AUTO) 2.83 MIL/uL (4.50-6.20); RED CELL DISTRIBUTION WIDTH 15.4 % (11.0-15.5); WHITE BLOOD COUNT (AUTO) 7.2 K/uL (4.8-10.8)
[2022-07-10 04:57] LABS: CREATININE 1.5 mg/dL (0.5-1.5); CRP QUANTITATIVE 156.7 mg/L (0.00-9.0); PHOSPHORUS 4.6 mg/dL (2.5-4.9); POTASSIUM 4.2 mmol/L (3.5-5.1)
[2022-07-10] MEDS: LEVOTHYROXINE 50 MCG TABLET PO SCH (05:59)
[2022-07-10] MEDS: VANCOMYCIN 500MG+NS 100ML 100 ML IV SCH ×2 (05:59→18:05)
[2022-07-10] MEDS: INSULIN HUMULIN R 100 UNIT/ML 3ML SQ SCH ×7 (06:21→21:33)
[2022-07-10] MEDS: ACETAMINOPHEN WITH CODEINE 1 TAB TAB PO PRN ×2 (06:45→16:43)
[2022-07-10 06:52] LABS: ERYTHROCYTE SEDIMENTATION RATE 126 MM/HR (0-15)
[2022-07-10 07:49] VITALS: BP 109/74
[2022-07-10] MEDS: CLONAZEPAM 0.5 MG TABLET PO SCH ×2 (09:21→21:30)
[2022-07-10] MEDS: IRON SUCROSE COMPLEX 100 MG/5 ML VIAL IVP SCH (09:21)
[2022-07-10] MEDS: TAMSULOSIN HCL 0.4 MG CAP.ER.24H PO SCH (09:22)
[2022-07-10] MEDS: DULOXETINE HCL 30 MG CAP PO SCH (09:22)
[2022-07-10] MEDS: GABAPENTIN 300 MG CAPSULE PO SCH ×2 (09:23→16:42)
[2022-07-10] MEDS: FINASTERIDE 5 MG TABLET PO SCH (09:23)
[2022-07-10] MEDS: DRONABINOL 2.5 MG CAP PO SCH (09:23)
[2022-07-10] MEDS: METOPROLOL TARTRATE 25 MG TAB PO SCH ×2 (09:23→21:29)
[2022-07-10] MEDS: ASCORBIC ACID 500 MG TAB PO SCH (09:24)
[2022-07-10] MEDS: ZINC SULFATE 220 CAPSULE PO SCH (09:24)
[2022-07-10] MEDS: HEPARIN 5,000 UNIT VIAL SQ SCH (09:30)
[2022-07-10] MEDS: FAMOTIDINE 20MG TAB PO SCH (09:32)
[2022-07-10 11:57] VITALS: BP 112/62
[2022-07-10 16:09] VITALS: BP 123/81
[2022-07-10] MEDS ORDERED: IRON SUCROSE COMPLEX 200 MG in 0.9%NACL 50ML 50 ML IV SCH (17:30)
[2022-07-10] MEDS ORDERED: EPOETIN ALFA-EPBX (NON-ESRD) 10,000 UNIT/ML VIAL SQ SCH (17:30)
[2022-07-10 19:12] VITALS: BP 123/66
[2022-07-10 20:08] LABS: APPEARANCE,URINE CLOUDY (CLEAR); BILIRUBIN,URINE NEGATIVE (NEGATIVE); COLOR,URINE LIGHT-YELLOW (YELLOW); GLUCOSE, URINE (UA) NEGATIVE (NEGATIVE); KETONES,URINE NEGATIVE (NEGATIVE); LEUKOCYTE ESTERASE ,URINE 500 Leu/uL (NEGATIVE); NITRATE,URINE NEGATIVE (NEGATIVE); OCCULT BLOOD,URINE SMALL (NEGATIVE); PH,URINE 6.5 (5.0-8.0); PROTEIN,URINE 20 mg/dL (NEGATIVE); UROBILINOGEN,URINE 0.2 mg/dL (0.2-1.0)
[2022-07-10 20:14] LABS: BACTERIA,URINE RARE /HPF (None Seen); MUCUS,URINE RARE LPF (None Seen); SQUAMOUS EPITHELIAL CELL,UR FEW /HPF (0-2); WBC,URINE TNTC /HPF (0-1)
[2022-07-10] MEDS: GABAPENTIN 100 MG CAPSULE PO SCH (21:29)
[2022-07-10] MEDS: INSULIN GLARGINE 100 UNITS/ML 10 ML VIAL SQ SCH (21:32)
[2022-07-10 22:52] VITALS: BP 125/70
[2022-07-11 03:22] VITALS: BP 114/68
[2022-07-11 05:37] LABS: BASOPHILS % (AUTO) 0.4 % (0.0-5.0); EOSINOPHILS % (AUTO) 4.4 % (0.0-8.0); HEMATOCRIT 25.3 % (42-54); LYMPHOCYTES % (AUTO) 20.3 % (21.0-51.0); MEAN CORPUSCULAR HEMOGLOBIN 27.9 pg (27.0-33.0); MEAN CORPUSCULAR VOLUME 87.2 fL (79-99); MONOCYTES % (AUTO) 11.8 % (3.0-13.0); PLATELET COUNT (AUTO) 345 K/uL (130-400); RED CELL DISTRIBUTION WIDTH 15.5 % (11.0-15.5); WHITE BLOOD COUNT (AUTO) 7.5 K/uL (4.8-10.8)
[2022-07-11] MEDS: VANCOMYCIN 500MG+NS 100ML 100 ML IV SCH ×2 (05:39→17:47)
[2022-07-11] MEDS: LEVOTHYROXINE 50 MCG TABLET PO SCH (05:39)
[2022-07-11 05:47] LABS: ALBUMIN 1.5 g/dL (3.5-5.0); CREATININE 1.4 mg/dL (0.5-1.5); CRP QUANTITATIVE 129.3 mg/L (0.00-9.0); POTASSIUM 4.6 mmol/L (3.5-5.1)
[2022-07-11] MEDS: INSULIN HUMULIN R 100 UNIT/ML 3ML SQ SCH ×7 (06:42→21:00)
[2022-07-11 07:02] LABS: ERYTHROCYTE SEDIMENTATION RATE 123 MM/HR (0-15)
[2022-07-11 07:34] VITALS: BP 127/76
[2022-07-11] MEDS: IRON SUCROSE COMPLEX 100 MG/5 ML VIAL IVP SCH (10:04)
[2022-07-11] MEDS: CLONAZEPAM 0.5 MG TABLET PO SCH ×2 (10:05→20:09)
[2022-07-11] MEDS: METOPROLOL TARTRATE 25 MG TAB PO SCH ×2 (10:05→20:09)
[2022-07-11] MEDS: DULOXETINE HCL 30 MG CAP PO SCH (10:05)
[2022-07-11] MEDS: TAMSULOSIN HCL 0.4 MG CAP.ER.24H PO SCH (10:05)
[2022-07-11] MEDS: ASCORBIC ACID 500 MG TAB PO SCH (10:06)
[2022-07-11] MEDS: DRONABINOL 2.5 MG CAP PO SCH (10:06)
[2022-07-11] MEDS: ZINC SULFATE 220 CAPSULE PO SCH (10:06)
[2022-07-11] MEDS: FAMOTIDINE 20MG TAB PO SCH (10:06)
[2022-07-11] MEDS: GABAPENTIN 100 MG CAPSULE PO SCH ×3 (10:06→20:08)
[2022-07-11] MEDS: FINASTERIDE 5 MG TABLET PO SCH (10:07)
[2022-07-11 11:43] VITALS: BP 113/69
[2022-07-11] MEDS ORDERED: EPOETIN ALFA-EPBX (NON-ESRD) 10,000 UNIT/ML VIAL SQ SCH (13:30)
[2022-07-11 15:51] VITALS: BP 127/87
[2022-07-11 19:56] VITALS: BP 131/82
[2022-07-11] MEDS ORDERED: TRAZODONE HCL 50 MG TAB PO SCH (21:00)
[2022-07-12 00:25] VITALS: BP 125/77
[2022-07-12] MEDS: INSULIN GLARGINE 100 UNITS/ML 10 ML VIAL SQ SCH ×2 (00:25→20:19)
[2022-07-12 03:59] VITALS: BP 179/82
[2022-07-12] MEDS: VANCOMYCIN 500MG+NS 100ML 100 ML IV SCH ×2 (05:05→18:07)
[2022-07-12] MEDS: LEVOTHYROXINE 50 MCG TABLET PO SCH (06:25)
[2022-07-12] MEDS: INSULIN HUMULIN R 100 UNIT/ML 3ML SQ SCH ×7 (07:30→20:18)
[2022-07-12 08:21] VITALS: BP 132/76
[2022-07-12] MEDS: ZINC SULFATE 220 CAPSULE PO SCH (09:30)
[2022-07-12] MEDS: FAMOTIDINE 20MG TAB PO SCH (09:30)
[2022-07-12] MEDS: FINASTERIDE 5 MG TABLET PO SCH (09:30)
[2022-07-12] MEDS: GABAPENTIN 100 MG CAPSULE PO SCH ×3 (09:31→20:12)
[2022-07-12] MEDS: CLONAZEPAM 0.5 MG TABLET PO SCH ×2 (09:31→20:13)
[2022-07-12] MEDS: IRON SUCROSE COMPLEX 100 MG/5 ML VIAL IVP SCH (09:31)
[2022-07-12] MEDS: ASCORBIC ACID 500 MG TAB PO SCH (09:31)
[2022-07-12] MEDS: TAMSULOSIN HCL 0.4 MG CAP.ER.24H PO SCH (09:32)
[2022-07-12] MEDS: DRONABINOL 2.5 MG CAP PO SCH (09:32)
[2022-07-12] MEDS: DULOXETINE HCL 30 MG CAP PO SCH (09:32)
[2022-07-12] MEDS: METOPROLOL TARTRATE 25 MG TAB PO SCH ×2 (09:46→20:12)
[2022-07-12 11:42] VITALS: BP 130/74
[2022-07-12 16:25] VITALS: BP 96/50
[2022-07-12 20:23] VITALS: BP 120/68
[2022-07-12] MEDS: TRAZODONE HCL 50 MG TAB PO SCH (21:00)
[2022-07-13] VITALS (7 sets, daily range): BP systolic 111–151; BP diastolic 64–97
[2022-07-13] MEDS: VANCOMYCIN 500MG+NS 100ML 100 ML IV SCH ×2 (05:38→18:27)
[2022-07-13] MEDS: INSULIN HUMULIN R 100 UNIT/ML 3ML SQ SCH ×7 (05:46→23:08)
[2022-07-13] MEDS: LEVOTHYROXINE 50 MCG TABLET PO SCH (06:42)
[2022-07-13] MEDS: DULOXETINE HCL 30 MG CAP PO SCH (09:30)
[2022-07-13] MEDS: METOPROLOL TARTRATE 25 MG TAB PO SCH ×2 (09:31→20:30)
[2022-07-13] MEDS: ASCORBIC ACID 500 MG TAB PO SCH (09:31)
[2022-07-13] MEDS: ZINC SULFATE 220 CAPSULE PO SCH (09:31)
[2022-07-13] MEDS: CLONAZEPAM 0.5 MG TABLET PO SCH ×2 (09:31→20:30)
[2022-07-13] MEDS: GABAPENTIN 100 MG CAPSULE PO SCH ×3 (09:31→20:28)
[2022-07-13] MEDS: FAMOTIDINE 20MG TAB PO SCH (09:31)
[2022-07-13] MEDS: FINASTERIDE 5 MG TABLET PO SCH (09:31)
[2022-07-13] MEDS: IRON SUCROSE COMPLEX 100 MG/5 ML VIAL IVP SCH (09:32)
[2022-07-13] MEDS: TAMSULOSIN HCL 0.4 MG CAP.ER.24H PO SCH (09:32)
[2022-07-13] MEDS: ACETAMINOPHEN WITH CODEINE 1 TAB TAB PO PRN ×2 (11:05→20:29)
[2022-07-13] MEDS: TRAZODONE HCL 50 MG TAB PO SCH (20:29)
[2022-07-13] MEDS: INSULIN GLARGINE 100 UNITS/ML 10 ML VIAL SQ SCH (23:10)
[2022-07-14 03:55] VITALS: BP 123/72
[2022-07-14 05:00] LABS: BASOPHILS % (AUTO) 0.6 % (0.0-5.0); EOSINOPHILS % (AUTO) 5.9 % (0.0-8.0); HEMATOCRIT 28.7 % (42-54); LYMPHOCYTES % (AUTO) 18.7 % (21.0-51.0); MEAN CORPUSCULAR HEMOGLOBIN 27.6 pg (27.0-33.0); MEAN CORPUSCULAR HGB CONC 31.7 g/dL (32.0-36.0); MONOCYTES % (AUTO) 10.4 % (3.0-13.0); NEUTROPHILS % (AUTO) 60.2 % (40.0-77.0); PLATELET COUNT (AUTO) 402 K/uL (130-400); WHITE BLOOD COUNT (AUTO) 8.2 K/uL (4.8-10.8)
[2022-07-14 05:13] LABS: CREATININE 1.9 mg/dL (0.5-1.5); MAGNESIUM 1.9 mg/dL (1.80-2.40); POTASSIUM 4.7 mmol/L (3.5-5.1)
[2022-07-14] MEDS: VANCOMYCIN 500MG+NS 100ML 100 ML IV SCH ×2 (06:25→17:45)
[2022-07-14] MEDS: INSULIN HUMULIN R 100 UNIT/ML 3ML SQ SCH ×6 (06:29→20:50)
[2022-07-14 09:00] VITALS: BP 126/74
[2022-07-14] MEDS: ZINC SULFATE 220 CAPSULE PO SCH (10:01)
[2022-07-14] MEDS: GABAPENTIN 100 MG CAPSULE PO SCH ×3 (10:01→20:53)
[2022-07-14] MEDS: IRON SUCROSE COMPLEX 100 MG/5 ML VIAL IVP SCH (10:01)
[2022-07-14] MEDS: CLONAZEPAM 0.5 MG TABLET PO SCH ×2 (10:02→20:48)
[2022-07-14] MEDS: FINASTERIDE 5 MG TABLET PO SCH (10:02)
[2022-07-14] MEDS: TAMSULOSIN HCL 0.4 MG CAP.ER.24H PO SCH (10:02)
[2022-07-14] MEDS: DULOXETINE HCL 30 MG CAP PO SCH (10:02)
[2022-07-14] MEDS: FAMOTIDINE 20MG TAB PO SCH (10:02)
[2022-07-14] MEDS: METOPROLOL TARTRATE 25 MG TAB PO SCH ×2 (10:03→20:48)
[2022-07-14] MEDS: LEVOTHYROXINE 50 MCG TABLET PO SCH (10:07)
[2022-07-14] MEDS: ASCORBIC ACID 500 MG TAB PO SCH (10:12)
[2022-07-14 10:50] VITALS: BP 98/55
[2022-07-14 15:28] VITALS: BP 113/84
[2022-07-14] MEDS: ACETAMINOPHEN WITH CODEINE 1 TAB TAB PO PRN (17:20)
[2022-07-14 20:00] VITALS: BP 128/83
[2022-07-14] MEDS: TRAZODONE HCL 50 MG TAB PO SCH (20:49)
[2022-07-14] MEDS: INSULIN GLARGINE 100 UNITS/ML 10 ML VIAL SQ SCH (20:51)
[2022-07-15] VITALS (7 sets, daily range): BP systolic 106–141; BP diastolic 61–88
[2022-07-15] MEDS: ACETAMINOPHEN WITH CODEINE 1 TAB TAB PO PRN (01:05)
[2022-07-15] MEDS: VANCOMYCIN 500MG+NS 100ML 100 ML IV SCH (06:28)
[2022-07-15] MEDS: INSULIN HUMULIN R 100 UNIT/ML 3ML SQ SCH ×7 (06:32→21:22)
[2022-07-15] MEDS: LEVOTHYROXINE 50 MCG TABLET PO SCH (06:58)
[2022-07-15 10:26] LABS: BASOPHILS % (AUTO) 0.5 % (0.0-5.0); EOSINOPHILS % (AUTO) 6.9 % (0.0-8.0); HEMATOCRIT 27.1 % (42-54); LYMPHOCYTES % (AUTO) 19.5 % (21.0-51.0); MEAN CORPUSCULAR HGB CONC 31.7 g/dL (32.0-36.0); MEAN CORPUSCULAR VOLUME 88.3 fL (79-99); MONOCYTES % (AUTO) 8.6 % (3.0-13.0); NEUTROPHILS % (AUTO) 58.5 % (40.0-77.0); PLATELET COUNT (AUTO) 408 K/uL (130-400); RED BLOOD CELL COUNT(AUTO) 3.07 MIL/uL (4.50-6.20); RED CELL DISTRIBUTION WIDTH 16.4 % (11.0-15.5); WHITE BLOOD COUNT (AUTO) 8.9 K/uL (4.8-10.8)
[2022-07-15 10:35] LABS: CREATININE 1.5 mg/dL (0.5-1.5); POTASSIUM 4.7 mmol/L (3.5-5.1)
[2022-07-15] MEDS: IRON SUCROSE COMPLEX 100 MG/5 ML VIAL IVP SCH (10:37)
[2022-07-15] MEDS: TAMSULOSIN HCL 0.4 MG CAP.ER.24H PO SCH (10:38)
[2022-07-15] MEDS: FAMOTIDINE 20MG TAB PO SCH (10:38)
[2022-07-15] MEDS: CLONAZEPAM 0.5 MG TABLET PO SCH ×2 (10:38→21:20)
[2022-07-15] MEDS: METOPROLOL TARTRATE 25 MG TAB PO SCH ×2 (10:38→21:18)
[2022-07-15] MEDS: ASCORBIC ACID 500 MG TAB PO SCH (10:38)
[2022-07-15] MEDS: ZINC SULFATE 220 CAPSULE PO SCH (10:38)
[2022-07-15] MEDS: DULOXETINE HCL 30 MG CAP PO SCH (10:38)
[2022-07-15] MEDS: FINASTERIDE 5 MG TABLET PO SCH (10:38)
[2022-07-15] MEDS: GABAPENTIN 100 MG CAPSULE PO SCH ×3 (10:39→21:19)
[2022-07-15] MEDS: TRAZODONE HCL 50 MG TAB PO SCH (21:20)
[2022-07-15] MEDS: INSULIN GLARGINE 100 UNITS/ML 10 ML VIAL SQ SCH (21:21)
[2022-07-16 04:00] VITALS: BP 99/71
[2022-07-16 05:31] LABS: BASOPHILS % (AUTO) 0.4 % (0.0-5.0); EOSINOPHILS % (AUTO) 5.5 % (0.0-8.0); HEMATOCRIT 28.8 % (42-54); MEAN CORPUSCULAR HEMOGLOBIN 28.2 pg (27.0-33.0); MEAN CORPUSCULAR HGB CONC 32.3 g/dL (32.0-36.0); MEAN CORPUSCULAR VOLUME 87.3 fL (79-99); MONOCYTES % (AUTO) 6.6 % (3.0-13.0); NEUTROPHILS % (AUTO) 67.9 % (40.0-77.0); PLATELET COUNT (AUTO) 451 K/uL (130-400); RED CELL DISTRIBUTION WIDTH 16.6 % (11.0-15.5); WHITE BLOOD COUNT (AUTO) 10.1 K/uL (4.8-10.8)
[2022-07-16 05:44] LABS: CREATININE 1.7 mg/dL (0.5-1.5); MAGNESIUM 2.2 mg/dL (1.80-2.40); POTASSIUM 5.2 mmol/L (3.5-5.1)
[2022-07-16] MEDS: LEVOTHYROXINE 50 MCG TABLET PO SCH (06:00)
[2022-07-16] MEDS: VANCOMYCIN 500MG+NS 100ML 100 ML IV SCH (06:00)
[2022-07-16] MEDS: INSULIN HUMULIN R 100 UNIT/ML 3ML SQ SCH ×7 (06:07→21:23)
[2022-07-16] MEDS: ACETAMINOPHEN WITH CODEINE 1 TAB TAB PO PRN ×3 (06:08→21:17)
[2022-07-16 07:08] VITALS: BP 110/72
[2022-07-16] MEDS: GABAPENTIN 100 MG CAPSULE PO SCH ×3 (09:52→21:15)
[2022-07-16] MEDS: FINASTERIDE 5 MG TABLET PO SCH (09:53)
[2022-07-16] MEDS: CLONAZEPAM 0.5 MG TABLET PO SCH ×2 (09:53→21:16)
[2022-07-16] MEDS: DULOXETINE HCL 30 MG CAP PO SCH (09:53)
[2022-07-16] MEDS: FAMOTIDINE 20MG TAB PO SCH (09:53)
[2022-07-16] MEDS: TAMSULOSIN HCL 0.4 MG CAP.ER.24H PO SCH (09:53)
[2022-07-16] MEDS: ASCORBIC ACID 500 MG TAB PO SCH (09:53)
[2022-07-16] MEDS: ZINC SULFATE 220 CAPSULE PO SCH (09:53)
[2022-07-16] MEDS: IRON SUCROSE COMPLEX 100 MG/5 ML VIAL IVP SCH (09:54)
[2022-07-16] MEDS: METOPROLOL TARTRATE 25 MG TAB PO SCH ×2 (09:54→21:15)
[2022-07-16 11:11] VITALS: BP 107/76
[2022-07-16 16:16] VITALS: BP 112/81
[2022-07-16 20:10] VITALS: BP 117/72
[2022-07-16] MEDS: TRAZODONE HCL 50 MG TAB PO SCH (21:14)
[2022-07-16] MEDS: INSULIN GLARGINE 100 UNITS/ML 10 ML VIAL SQ SCH (21:19)
[2022-07-17 00:06] VITALS: BP 100/64
[2022-07-17 03:55] VITALS: BP 94/54
[2022-07-17] MEDS: INSULIN HUMULIN R 100 UNIT/ML 3ML SQ SCH ×7 (06:20→21:02)
[2022-07-17] MEDS: LEVOTHYROXINE 50 MCG TABLET PO SCH (06:20)
[2022-07-17] MEDS: ACETAMINOPHEN WITH CODEINE 1 TAB TAB PO PRN ×2 (06:24→20:51)
[2022-07-17 08:54] VITALS: BP 118/70
[2022-07-17 09:00] LABS: BASOPHILS % (AUTO) 0.4 % (0.0-5.0); EOSINOPHILS % (AUTO) 5.5 % (0.0-8.0); HEMATOCRIT 29.3 % (42-54); LYMPHOCYTES % (AUTO) 14.1 % (21.0-51.0); MEAN CORPUSCULAR HEMOGLOBIN 28.3 pg (27.0-33.0); MEAN CORPUSCULAR HGB CONC 32.1 g/dL (32.0-36.0); MEAN CORPUSCULAR VOLUME 88.3 fL (79-99); MONOCYTES % (AUTO) 7.3 % (3.0-13.0); NEUTROPHILS % (AUTO) 68.2 % (40.0-77.0); PLATELET COUNT (AUTO) 466 K/uL (130-400); RED BLOOD CELL COUNT(AUTO) 3.32 MIL/uL (4.50-6.20); RED CELL DISTRIBUTION WIDTH 16.7 % (11.0-15.5); WHITE BLOOD COUNT (AUTO) 11.2 K/uL (4.8-10.8)
[2022-07-17 09:12] LABS: CREATININE 1.5 mg/dL (0.5-1.5); POTASSIUM 5.2 mmol/L (3.5-5.1)
[2022-07-17] MEDS: CLONAZEPAM 0.5 MG TABLET PO SCH ×2 (09:15→20:52)
[2022-07-17] MEDS: ASCORBIC ACID 500 MG TAB PO SCH (09:15)
[2022-07-17] MEDS: TAMSULOSIN HCL 0.4 MG CAP.ER.24H PO SCH (09:15)
[2022-07-17] MEDS: FINASTERIDE 5 MG TABLET PO SCH (09:15)
[2022-07-17] MEDS: DULOXETINE HCL 30 MG CAP PO SCH (09:15)
[2022-07-17] MEDS: FAMOTIDINE 20MG TAB PO SCH (09:15)
[2022-07-17] MEDS: ZINC SULFATE 220 CAPSULE PO SCH (09:16)
[2022-07-17] MEDS: METOPROLOL TARTRATE 25 MG TAB PO SCH ×2 (09:16→20:50)
[2022-07-17] MEDS: GABAPENTIN 100 MG CAPSULE PO SCH ×3 (09:16→20:50)
[2022-07-17] MEDS: IRON SUCROSE COMPLEX 100 MG/5 ML VIAL IVP SCH (09:16)
[2022-07-17 12:05] VITALS: BP 148/106
[2022-07-17] MEDS: VANCOMYCIN 500MG+NS 100ML 100 ML IV SCH (14:22)
[2022-07-17 17:03] VITALS: BP 144/92
[2022-07-17 20:00] VITALS: BP 128/85
[2022-07-17] MEDS: TRAZODONE HCL 50 MG TAB PO SCH (20:50)
[2022-07-17] MEDS: INSULIN GLARGINE 100 UNITS/ML 10 ML VIAL SQ SCH (21:00)
[2022-07-18] VITALS: BP 108/75
[2022-07-18 04:00] VITALS: BP_SYST 106; BP_SYST 122; BP_DIAS 58; BP_DIAS 65
[2022-07-18] MEDS ORDERED: BUPIVACAINE/PF 0.25% 30ML VIAL IJ ONE (04:29)
[2022-07-18] MEDS ORDERED: LIDOCAINE HCL 1% 20 ML VIAL ONE (04:30)
[2022-07-18] MEDS: VANCOMYCIN 500MG+NS 100ML 100 ML IV SCH (05:43)
[2022-07-18] MEDS: LEVOTHYROXINE 50 MCG TABLET PO SCH (05:58)
[2022-07-18 06:33] LABS: BASOPHILS % (AUTO) 0.6 % (0.0-5.0); EOSINOPHILS % (AUTO) 5.2 % (0.0-8.0); LYMPHOCYTES % (AUTO) 13.6 % (21.0-51.0); MEAN CORPUSCULAR HEMOGLOBIN 28.3 pg (27.0-33.0); MEAN CORPUSCULAR HGB CONC 32.1 g/dL (32.0-36.0); MEAN CORPUSCULAR VOLUME 88.1 fL (79-99); MONOCYTES % (AUTO) 6.7 % (3.0-13.0); NEUTROPHILS % (AUTO) 68.9 % (40.0-77.0); PLATELET COUNT (AUTO) 473 K/uL (130-400); RED BLOOD CELL COUNT(AUTO) 3.29 MIL/uL (4.50-6.20); RED CELL DISTRIBUTION WIDTH 16.8 % (11.0-15.5); WHITE BLOOD COUNT (AUTO) 10.3 K/uL (4.8-10.8)
[2022-07-18] MEDS: INSULIN HUMULIN R 100 UNIT/ML 3ML SQ SCH ×7 (06:40→21:00)
[2022-07-18 06:47] LABS: CREATININE 1.5 mg/dL (0.5-1.5); POTASSIUM 5.5 mmol/L (3.5-5.1)
[2022-07-18 08:05] VITALS: BP 148/87
[2022-07-18] MEDS: DULOXETINE HCL 30 MG CAP PO SCH (09:50)
[2022-07-18] MEDS: TAMSULOSIN HCL 0.4 MG CAP.ER.24H PO SCH (09:50)
[2022-07-18] MEDS: ASCORBIC ACID 500 MG TAB PO SCH (09:50)
[2022-07-18] MEDS: IRON SUCROSE COMPLEX 100 MG/5 ML VIAL IVP SCH (09:50)
[2022-07-18] MEDS: ZINC SULFATE 220 CAPSULE PO SCH (09:51)
[2022-07-18] MEDS: FINASTERIDE 5 MG TABLET PO SCH (09:51)
[2022-07-18] MEDS: FAMOTIDINE 20MG TAB PO SCH (09:51)
[2022-07-18] MEDS: GABAPENTIN 100 MG CAPSULE PO SCH ×3 (09:52→21:24)
[2022-07-18] MEDS: CLONAZEPAM 0.5 MG TABLET PO SCH ×2 (09:52→21:25)
[2022-07-18] MEDS: METOPROLOL TARTRATE 25 MG TAB PO SCH ×2 (09:52→21:25)
[2022-07-18 11:23] VITALS: BP 137/94
[2022-07-18 17:11] VITALS: BP 127/90
[2022-07-18 20:00] VITALS: BP 121/59
[2022-07-18] MEDS: TRAZODONE HCL 50 MG TAB PO SCH (21:25)
[2022-07-18] MEDS: ACETAMINOPHEN WITH CODEINE 1 TAB TAB PO PRN (21:25)
[2022-07-18] MEDS: INSULIN GLARGINE 100 UNITS/ML 10 ML VIAL SQ SCH (21:29)
[2022-07-19] VITALS: BP 103/50
[2022-07-19 04:00] VITALS: BP 93/52
[2022-07-19 05:42] LABS: BASOPHILS % (AUTO) 0.6 % (0.0-5.0); EOSINOPHILS % (AUTO) 4.4 % (0.0-8.0); HEMATOCRIT 28.3 % (42-54); LYMPHOCYTES % (AUTO) 13.1 % (21.0-51.0); MEAN CORPUSCULAR HEMOGLOBIN 28.7 pg (27.0-33.0); MEAN CORPUSCULAR HGB CONC 32.5 g/dL (32.0-36.0); MEAN CORPUSCULAR VOLUME 88.2 fL (79-99); MONOCYTES % (AUTO) 7.5 % (3.0-13.0); NEUTROPHILS % (AUTO) 68.9 % (40.0-77.0); PLATELET COUNT (AUTO) 512 K/uL (130-400); RED BLOOD CELL COUNT(AUTO) 3.21 MIL/uL (4.50-6.20); RED CELL DISTRIBUTION WIDTH 16.6 % (11.0-15.5)
[2022-07-19 06:07] LABS: CREATININE 1.7 mg/dL (0.5-1.5); CRP QUANTITATIVE 75.7 mg/L (0.00-9.0); POTASSIUM 5.7 mmol/L (3.5-5.1)
[2022-07-19] MEDS: LEVOTHYROXINE 50 MCG TABLET PO SCH (06:45)
[2022-07-19] MEDS: VANCOMYCIN 500MG+NS 100ML 100 ML IV SCH (06:45)
[2022-07-19] MEDS: INSULIN HUMULIN R 100 UNIT/ML 3ML SQ SCH ×4 (06:46→11:30)
[2022-07-19 07:00] LABS: ERYTHROCYTE SEDIMENTATION RATE 107 MM/HR (0-15)
[2022-07-19 08:07] VITALS: BP 98/54
[2022-07-19] MEDS: IRON SUCROSE COMPLEX 100 MG/5 ML VIAL IVP SCH (09:54)
[2022-07-19] MEDS: CLONAZEPAM 0.5 MG TABLET PO SCH (09:55)
[2022-07-19] MEDS: TAMSULOSIN HCL 0.4 MG CAP.ER.24H PO SCH (09:56)
[2022-07-19] MEDS: METOPROLOL TARTRATE 25 MG TAB PO SCH (09:57)
[2022-07-19] MEDS: DULOXETINE HCL 30 MG CAP PO SCH (09:58)
[2022-07-19] MEDS: ASCORBIC ACID 500 MG TAB PO SCH (09:59)
[2022-07-19] MEDS: FAMOTIDINE 20MG TAB PO SCH (09:59)
[2022-07-19] MEDS: ZINC SULFATE 220 CAPSULE PO SCH (09:59)
[2022-07-19] MEDS: GABAPENTIN 100 MG CAPSULE PO SCH ×2 (10:01→14:32)
[2022-07-19] MEDS: FINASTERIDE 5 MG TABLET PO SCH (10:01)
[2022-07-19 11:00] VITALS: BP 129/86
[2022-07-19] MEDS ORDERED: TAMS-1 PO (13:41)
[2022-07-19] MEDS ORDERED: FINA5TAB2 PO (13:41)
[2022-07-19] MEDS ORDERED: METO50TA18 PO (13:41)
[2022-07-19] MEDS ORDERED: DULO30CA2 PO (13:41)
[2022-07-19] MEDS ORDERED: METF-446 PO (13:41)
[2022-07-19] MEDS ORDERED: GLIM4TAB36 PO (13:41)
[2022-07-19] MEDS ORDERED: LEVO50TA4 PO (13:41)
[2022-07-19] MEDS ORDERED: DOXY100C5 PO (13:42)
== END 2022-07-19 16:40 | disposition home or self-care (01) | DRG 637 ==
LOC: EDH 17:28 → EDHIP 17:29 → 3DH 23:29 → 3CH 07-08 14:31 → 3DH 07-08 14:32
PROVIDERS: ADMIT Internal Medicine; ATTEND Internal Medicine
PROC: 30233N1 Transfusion of Nonautologous Red Blood Cells into Peripheral Vein, Percutaneous Approach (ICD-10-PCS; principal; 2022-07-07)
DX: E11.10 Type 2 diabetes mellitus with ketoacidosis without coma (principal); A41.9 Sepsis, unspecified organism; N13.6 Pyonephrosis; E87.1 Hypo-osmolality and hyponatremia; F02.83 Dementia in other diseases classified elsewhere, unspecified severity, with mood disturbance; R64 Cachexia; N17.9 Acute kidney failure, unspecified; F32.A Depression, unspecified; N32.0 Bladder-neck obstruction; N18.9 Chronic kidney disease, unspecified; I12.9 Hypertensive chronic kidney disease with stage 1 through stage 4 chronic kidney disease, or unspecified chronic kidney disease; F17.210 Nicotine dependence, cigarettes, uncomplicated; E11.22 Type 2 diabetes mellitus with diabetic chronic kidney disease; E86.1 Hypovolemia; S61.401A Unspecified open wound of right hand, initial encounter; X58.XXXA Exposure to other specified factors, initial encounter; F10.10 Alcohol abuse, uncomplicated; D50.9 Iron deficiency anemia, unspecified; Z53.29 Procedure and treatment not carried out because of patient's decision for other reasons; I95.1 Orthostatic hypotension; F14.10 Cocaine abuse, uncomplicated; Z59.00 Homelessness unspecified; Z91.199 Patient's noncompliance with other medical treatment and regimen due to unspecified reason; Z79.4 Long term (current) use of insulin; Z56.0 Unemployment, unspecified; Z68.21 Body mass index [BMI] 21.0-21.9, adult
CPT/HCPCS: 36415; 73562; 76770; 80048; 80053; 80202; 80305; 81001; 82040; 82270; 82306; 82607; 82728; 82746; 82948; 83540; 83550; 83735; 83930; 83935; 84100; 84145; 84300; 84439; 84443; 84481; 85025; 85045; 85651; 86140; 86850; 86900; 86901; 86923; 87088; 97039; A6266; G0378; J1644; J1756; J1815; J2270; J2405; J3370; J3490; J7120; P9016; Q0167

== ENCOUNTER 2022-08-19 03:28 | Inpatient (IN) | payer OTHER ==
[~2022-08-19] VITALS: Ht 170.2 cm; Wt 67.9 kg
[~2022-08-19 03:28] MED LIST changes: +ARIP15TA18 PO; +CLOP-31 PO; +DULO30CA2 PO; +FINA5TAB2 PO; +FOLI1TAB85 PO; +LEVO50TA4 PO; +LINA5TAB PO; +METO50TA18 PO; +MIDO5TAB4 PO; -PIOG30TA70 PO; +TAMS-1 PO
[2022-08-19 04:13] LABS: HEMATOCRIT 29.9 % (42-54); MEAN CORPUSCULAR HGB CONC 32.4 g/dL (32.0-36.0); MEAN CORPUSCULAR VOLUME 89.5 fL (79-99); PLATELET COUNT (AUTO) 244 K/uL (130-400); RED BLOOD CELL COUNT(AUTO) 3.34 MIL/uL (4.50-6.20); RED CELL DISTRIBUTION WIDTH 15.2 % (11.0-15.5)
[2022-08-19 04:26] LABS: CREATININE 1.4 mg/dL (0.5-1.5); POTASSIUM 4.3 mmol/L (3.5-5.1)
[2022-08-19 04:30] LABS: ALBUMIN 1.8 g/dL (3.5-5.0); BASOPHILS % (AUTO) 0.5 % (0.0-5.0); EOSINOPHILS % (AUTO) 3.4 % (0.0-8.0); LYMPHOCYTES % (AUTO) 17.1 % (21.0-51.0); NEUTROPHILS % (AUTO) 71.5 % (40.0-77.0); TOTAL PROTEIN, SERUM 7.2 g/dL (6.0-8.3)
[2022-08-19] MEDS ORDERED: LACTULOSE 20 GM/30 ML UDCUP PO PRN (05:30)
[2022-08-19] MEDS ORDERED: VANCOMYCIN 1G/250ML KIT 250 ML IV SCH (05:30)
[2022-08-19] MEDS ORDERED: LIDOCAINE HCL-MPF 1% 2ML VIAL IV PRN (05:30)
[2022-08-19] MEDS ORDERED: KCL 20 MEQ ERTAB PO PRN (05:30)
[2022-08-19] MEDS ORDERED: POTASSIUM CHLORIDE 10% ELIXIR 20 MEQ/15 ML UDCUP PO PRN (05:30)
[2022-08-19] MEDS ORDERED: POTASSIUM CHLORIDE 20MEQ/100ML 100 ML IV PRN (05:30)
[2022-08-19] MEDS ORDERED: VANCOMYCIN PROTOCOL PER PHARMACY IV SCH (05:30)
[2022-08-19] MEDS ORDERED: MAGNESIUM 2GM PREMIX 50ML 50 ML IV PRN (05:30)
[2022-08-19] MEDS: FUROSEMIDE 20MG VIAL IV SCH ×2 (06:09→16:30)
[2022-08-19] MEDS: LEVOTHYROXINE 50 MCG TABLET PO SCH (06:12)
[2022-08-19 06:28] LABS: APPEARANCE,URINE CLEAR (CLEAR); BILIRUBIN,URINE NEGATIVE (NEGATIVE); COLOR,URINE LIGHT-YELLOW (YELLOW); GLUCOSE, URINE (UA) 500 mg/dL (NEGATIVE); KETONES,URINE NEGATIVE (NEGATIVE); LEUKOCYTE ESTERASE ,URINE 500 Leu/uL (NEGATIVE); NITRATE,URINE NEGATIVE (NEGATIVE); OCCULT BLOOD,URINE SMALL (NEGATIVE); PROTEIN,URINE 20 mg/dL (NEGATIVE); UROBILINOGEN,URINE 0.2 mg/dL (0.2-1.0)
[2022-08-19 06:35] LABS: AMPHET/METH SCREEN,URINE NEGATIVE (NEGATIVE); BARBITURATE SCREEN, URINE NEGATIVE (NEGATIVE); BENZODIAZEPINES SCREEN,URINE NEGATIVE (NEGATIVE); CANNABINOID SCREEN,URINE NEGATIVE (NEGATIVE); COCAINE SCREEN,URINE NEGATIVE (NEGATIVE); OPIATE SCREEN,URINE NEGATIVE (NEGATIVE); PHENCYCLIDINE SCREEN,URINE NEGATIVE (NEGATIVE)
[2022-08-19 07:47] LABS: BACTERIA,URINE FEW /HPF (None Seen); SQUAMOUS EPITHELIAL CELL,UR RARE /HPF (0-2); WBC,URINE TNTC /HPF (0-1)
[2022-08-19] MEDS: NYSTATIN 30 GM CREAM.GM. TP SCH ×2 (09:00→21:00)
[2022-08-19] MEDS: LISINOPRIL 20 MG TABLET PO SCH (09:08)
[2022-08-19] MEDS: FAMOTIDINE 20MG TAB PO SCH ×2 (09:08→21:16)
[2022-08-19] MEDS: TAMSULOSIN HCL 0.4 MG CAP.ER.24H PO SCH (09:09)
[2022-08-19] MEDS: ACETAMINOPHEN 325 MG TAB PO PRN ×2 (09:09→21:16)
[2022-08-19] MEDS: METOPROLOL TARTRATE 25 MG TAB PO SCH ×2 (09:09→21:15)
[2022-08-19] MEDS: ASPIRIN 81MG CHEW TAB PO SCH (09:09)
[2022-08-19] MEDS: ENOXAPARIN SODIUM 30 MG/0.3 ML SQ SCH (09:09)
[2022-08-19] MEDS: INSULIN HUMULIN R 100 UNIT/ML 3ML SQ SCH ×4 (09:21→21:19)
[2022-08-19 10:35] VITALS: BP 153/98
[2022-08-19] MEDS: DULOXETINE HCL 30 MG CAP PO SCH (11:44)
[2022-08-19 16:00] VITALS: BP 122/71
[2022-08-19 20:33] VITALS: BP 160/92
[2022-08-19] MEDS: VANCOMYCIN 1G/250ML KIT 250 ML IV SCH (21:17)
[2022-08-19 23:33] VITALS: BP 165/118
[2022-08-20 03:33] VITALS: BP 126/83
[2022-08-20] MEDS: LEVOTHYROXINE 50 MCG TABLET PO SCH (05:36)
[2022-08-20] MEDS: FUROSEMIDE 20MG VIAL IV SCH ×2 (05:37→16:40)
[2022-08-20] MEDS: ACETAMINOPHEN 325 MG TAB PO PRN ×2 (05:42→20:52)
[2022-08-20] MEDS: INSULIN HUMULIN R 100 UNIT/ML 3ML SQ SCH ×4 (07:30→20:55)
[2022-08-20 08:00] VITALS: BP 137/57
[2022-08-20] MEDS: VANCOMYCIN 1G/250ML KIT 250 ML IV SCH ×2 (08:57→20:44)
[2022-08-20] MEDS: METOPROLOL TARTRATE 25 MG TAB PO SCH ×2 (08:58→20:51)
[2022-08-20] MEDS: FAMOTIDINE 20MG TAB PO SCH ×2 (09:00→20:50)
[2022-08-20] MEDS: DULOXETINE HCL 30 MG CAP PO SCH (09:00)
[2022-08-20] MEDS: LISINOPRIL 20 MG TABLET PO SCH (09:02)
[2022-08-20] MEDS: TAMSULOSIN HCL 0.4 MG CAP.ER.24H PO SCH (09:02)
[2022-08-20] MEDS: ASPIRIN 81MG CHEW TAB PO SCH (09:03)
[2022-08-20] MEDS: ENOXAPARIN SODIUM 30 MG/0.3 ML SQ SCH (09:04)
[2022-08-20 10:08] LABS: HEMATOCRIT 23.7 % (42-54); MEAN CORPUSCULAR HEMOGLOBIN 29.1 pg (27.0-33.0); MEAN CORPUSCULAR HGB CONC 32.1 g/dL (32.0-36.0); MEAN CORPUSCULAR VOLUME 90.8 fL (79-99); RED BLOOD CELL COUNT(AUTO) 2.61 MIL/uL (4.50-6.20); WHITE BLOOD COUNT (AUTO) 7.7 K/uL (4.8-10.8)
[2022-08-20 10:22] LABS: ALBUMIN 1.7 g/dL (3.5-5.0); BILIRUBIN,DIRECT 0.1 mg/dL (0.0-0.3); CREATININE 1.5 mg/dL (0.5-1.5); CRP QUANTITATIVE 48.5 mg/L (0.00-9.0); MAGNESIUM 1.4 mg/dL (1.80-2.40); POTASSIUM 4.1 mmol/L (3.5-5.1); TOTAL PROTEIN, SERUM 6.6 g/dL (6.0-8.3)
[2022-08-20] MEDS: NYSTATIN 30 GM CREAM.GM. TP SCH ×2 (11:00→20:55)
[2022-08-20 11:31] VITALS: BP 136/87
[2022-08-20 16:00] VITALS: BP 123/77
[2022-08-20 20:24] VITALS: BP 152/85
[2022-08-20 23:43] VITALS: BP 138/72
[2022-08-21 04:03] VITALS: BP 146/85
[2022-08-21 05:15] LABS: HEMATOCRIT 23.2 % (42-54); MEAN CORPUSCULAR HEMOGLOBIN 28.7 pg (27.0-33.0); MEAN CORPUSCULAR HGB CONC 31.9 g/dL (32.0-36.0); MEAN CORPUSCULAR VOLUME 89.9 fL (79-99); RED BLOOD CELL COUNT(AUTO) 2.58 MIL/uL (4.50-6.20); RED CELL DISTRIBUTION WIDTH 14.6 % (11.0-15.5)
[2022-08-21 05:38] LABS: ALBUMIN 1.7 g/dL (3.5-5.0); CREATININE 1.2 mg/dL (0.5-1.5); CRP QUANTITATIVE 46.3 mg/L (0.00-9.0); POTASSIUM 3.9 mmol/L (3.5-5.1); TOTAL PROTEIN, SERUM 6.6 g/dL (6.0-8.3)
[2022-08-21] MEDS: LEVOTHYROXINE 50 MCG TABLET PO SCH (06:24)
[2022-08-21] MEDS: ACETAMINOPHEN 325 MG TAB PO PRN ×2 (06:24→16:55)
[2022-08-21] MEDS: FUROSEMIDE 20MG VIAL IV SCH ×2 (06:27→17:31)
[2022-08-21] MEDS: INSULIN HUMULIN R 100 UNIT/ML 3ML SQ SCH ×4 (06:29→21:00)
[2022-08-21 07:00] VITALS: BP 157/88
[2022-08-21] MEDS: VANCOMYCIN 1G/250ML KIT 250 ML IV SCH ×2 (09:00→21:51)
[2022-08-21] MEDS: LISINOPRIL 20 MG TABLET PO SCH (09:35)
[2022-08-21] MEDS: TAMSULOSIN HCL 0.4 MG CAP.ER.24H PO SCH (09:35)
[2022-08-21] MEDS: FAMOTIDINE 20MG TAB PO SCH ×2 (09:36→21:52)
[2022-08-21] MEDS: DULOXETINE HCL 30 MG CAP PO SCH (09:36)
[2022-08-21] MEDS: METOPROLOL TARTRATE 25 MG TAB PO SCH ×2 (09:36→21:52)
[2022-08-21] MEDS: ASPIRIN 81MG CHEW TAB PO SCH (09:36)
[2022-08-21] MEDS: NYSTATIN 30 GM CREAM.GM. TP SCH ×2 (09:49→21:00)
[2022-08-21] MEDS: ENOXAPARIN SODIUM 30 MG/0.3 ML SQ SCH (09:49)
[2022-08-21 12:00] VITALS: BP 167/111
[2022-08-21 16:00] VITALS: BP 152/93
[2022-08-21 19:50] VITALS: BP 145/92
[2022-08-22 00:02] VITALS: BP 158/98
[2022-08-22] MEDS: ACETAMINOPHEN 325 MG TAB PO PRN ×4 (01:28→20:51)
[2022-08-22 04:42] VITALS: BP 136/80
[2022-08-22 05:06] LABS: HEMATOCRIT 23.5 % (42-54); MEAN CORPUSCULAR HEMOGLOBIN 28.6 pg (27.0-33.0); MEAN CORPUSCULAR HGB CONC 31.5 g/dL (32.0-36.0); MEAN CORPUSCULAR VOLUME 90.7 fL (79-99); RED BLOOD CELL COUNT(AUTO) 2.59 MIL/uL (4.50-6.20); RED CELL DISTRIBUTION WIDTH 14.6 % (11.0-15.5); WHITE BLOOD COUNT (AUTO) 7.1 K/uL (4.8-10.8)
[2022-08-22 05:34] LABS: ALBUMIN 1.7 g/dL (3.5-5.0); CREATININE 1.2 mg/dL (0.5-1.5); CRP QUANTITATIVE 45.7 mg/L (0.00-9.0); POTASSIUM 4.1 mmol/L (3.5-5.1); TOTAL PROTEIN, SERUM 6.7 g/dL (6.0-8.3)
[2022-08-22] MEDS: LEVOTHYROXINE 50 MCG TABLET PO SCH (06:05)
[2022-08-22] MEDS: FUROSEMIDE 20MG VIAL IV SCH ×2 (06:05→16:59)
[2022-08-22] MEDS: INSULIN HUMULIN R 100 UNIT/ML 3ML SQ SCH ×4 (06:12→20:03)
[2022-08-22 07:50] VITALS: BP 167/111
[2022-08-22] MEDS: VANCOMYCIN 1G/250ML KIT 250 ML IV SCH ×2 (08:57→20:44)
[2022-08-22] MEDS: ASPIRIN 81MG CHEW TAB PO SCH (08:58)
[2022-08-22] MEDS: ENOXAPARIN SODIUM 30 MG/0.3 ML SQ SCH (08:58)
[2022-08-22] MEDS: LISINOPRIL 20 MG TABLET PO SCH (08:58)
[2022-08-22] MEDS: DULOXETINE HCL 30 MG CAP PO SCH (08:58)
[2022-08-22] MEDS: TAMSULOSIN HCL 0.4 MG CAP.ER.24H PO SCH (08:58)
[2022-08-22] MEDS: FAMOTIDINE 20MG TAB PO SCH ×2 (08:59→20:44)
[2022-08-22] MEDS: METOPROLOL TARTRATE 25 MG TAB PO SCH ×2 (08:59→20:45)
[2022-08-22] MEDS: NYSTATIN 30 GM CREAM.GM. TP SCH ×2 (09:50→20:46)
[2022-08-22 11:24] VITALS: BP 140/92
[2022-08-22 15:59] VITALS: BP 148/94
[2022-08-22 20:00] VITALS: BP 141/90
[2022-08-22] MEDS: ONDANSETRON 4MG INJ IVP PRN (23:10)
[2022-08-23] VITALS: BP 149/97
[2022-08-23] MEDS: TEMAZEPAM 15 MG CAPSULE PO PRN ×2 (00:18→23:31)
[2022-08-23 04:00] VITALS: BP 156/96
[2022-08-23] MEDS: FUROSEMIDE 20MG VIAL IV SCH ×2 (05:30→17:34)
[2022-08-23] MEDS: INSULIN HUMULIN R 100 UNIT/ML 3ML SQ SCH ×4 (06:04→21:00)
[2022-08-23] MEDS: LEVOTHYROXINE 50 MCG TABLET PO SCH (06:23)
[2022-08-23] MEDS: ACETAMINOPHEN 325 MG TAB PO PRN ×3 (06:30→23:32)
[2022-08-23 07:57] LABS: HEMATOCRIT 23.7 % (42-54); MEAN CORPUSCULAR HEMOGLOBIN 29.2 pg (27.0-33.0); MEAN CORPUSCULAR HGB CONC 32.9 g/dL (32.0-36.0); MEAN CORPUSCULAR VOLUME 88.8 fL (79-99); RED BLOOD CELL COUNT(AUTO) 2.67 MIL/uL (4.50-6.20); RED CELL DISTRIBUTION WIDTH 14.9 % (11.0-15.5); WHITE BLOOD COUNT (AUTO) 6.6 K/uL (4.8-10.8)
[2022-08-23 08:00] VITALS: BP 160/94
[2022-08-23 08:08] LABS: CREATININE 1.6 mg/dL (0.5-1.5); POTASSIUM 4.2 mmol/L (3.5-5.1)
[2022-08-23] MEDS: VANCOMYCIN 1G/250ML KIT 250 ML IV SCH ×3 (09:00→21:00)
[2022-08-23] MEDS: ASPIRIN 81MG CHEW TAB PO SCH (09:16)
[2022-08-23] MEDS: TAMSULOSIN HCL 0.4 MG CAP.ER.24H PO SCH (09:16)
[2022-08-23] MEDS: METOPROLOL TARTRATE 25 MG TAB PO SCH ×2 (09:16→20:17)
[2022-08-23] MEDS: FAMOTIDINE 20MG TAB PO SCH ×2 (09:16→20:17)
[2022-08-23] MEDS: LISINOPRIL 20 MG TABLET PO SCH (09:16)
[2022-08-23] MEDS: ENOXAPARIN SODIUM 30 MG/0.3 ML SQ SCH (09:17)
[2022-08-23] MEDS: DULOXETINE HCL 30 MG CAP PO SCH (09:17)
[2022-08-23] MEDS: NYSTATIN 30 GM CREAM.GM. TP SCH ×2 (09:18→21:39)
[2022-08-23 11:00] VITALS: BP 155/89
[2022-08-23 16:00] VITALS: BP 156/100
[2022-08-23 19:00] VITALS: BP 144/95
[2022-08-23] MEDS ORDERED: PHARMACY COMMUNICATION MISC SCH (21:30)
[2022-08-24] VITALS: BP 160/110
[2022-08-24 04:00] VITALS: BP 149/106
[2022-08-24] MEDS: INSULIN HUMULIN R 100 UNIT/ML 3ML SQ SCH ×5 (06:13→21:00)
[2022-08-24] MEDS: LEVOTHYROXINE 50 MCG TABLET PO SCH (06:27)
[2022-08-24] MEDS: FUROSEMIDE 20MG VIAL IV SCH ×2 (06:28→16:48)
[2022-08-24 07:10] VITALS: BP 160/111
[2022-08-24] MEDS: ACETAMINOPHEN 325 MG TAB PO PRN (07:33)
[2022-08-24] MEDS: DULOXETINE HCL 30 MG CAP PO SCH (09:09)
[2022-08-24] MEDS: ASPIRIN 81MG CHEW TAB PO SCH (09:09)
[2022-08-24] MEDS: FAMOTIDINE 20MG TAB PO SCH ×2 (09:09→21:07)
[2022-08-24] MEDS: TAMSULOSIN HCL 0.4 MG CAP.ER.24H PO SCH (09:10)
[2022-08-24] MEDS: LISINOPRIL 20 MG TABLET PO SCH (09:10)
[2022-08-24] MEDS: ENOXAPARIN SODIUM 30 MG/0.3 ML SQ SCH (09:11)
[2022-08-24] MEDS: METOPROLOL TARTRATE 25 MG TAB PO SCH ×2 (09:11→21:07)
[2022-08-24] MEDS: NYSTATIN 30 GM CREAM.GM. TP SCH ×2 (09:21→21:08)
[2022-08-24 11:10] VITALS: BP 131/87
[2022-08-24 15:35] VITALS: BP 146/96
[2022-08-24] MEDS ORDERED: VANCOMYCIN 750MG VIAL IVPB SCH (18:00)
[2022-08-24] MEDS ORDERED: 0.9% NACL 250ML 250 ML IV SCH (18:00)
[2022-08-24] MEDS: ONDANSETRON 4MG INJ IVP PRN (18:30)
[2022-08-24 19:00] VITALS: BP 157/97
[2022-08-24] MEDS: TEMAZEPAM 15 MG CAPSULE PO PRN (21:07)
[2022-08-25] VITALS: BP 149/87
[2022-08-25 04:00] VITALS: BP 139/88
[2022-08-25 04:51] LABS: HEMATOCRIT 24.1 % (42-54); MEAN CORPUSCULAR VOLUME 87.6 fL (79-99); RED BLOOD CELL COUNT(AUTO) 2.75 MIL/uL (4.50-6.20); RED CELL DISTRIBUTION WIDTH 14.3 % (11.0-15.5); WHITE BLOOD COUNT (AUTO) 6.8 K/uL (4.8-10.8)
[2022-08-25 05:02] LABS: POTASSIUM 4.3 mmol/L (3.5-5.1)
[2022-08-25] MEDS: FUROSEMIDE 20MG VIAL IV SCH ×2 (05:33→17:30)
[2022-08-25] MEDS: LEVOTHYROXINE 50 MCG TABLET PO SCH (05:33)
[2022-08-25] MEDS: VANCOMYCIN 750MG VIAL IVPB SCH (05:33)
[2022-08-25] MEDS: INSULIN HUMULIN R 100 UNIT/ML 3ML SQ SCH ×4 (05:38→21:36)
[2022-08-25 07:10] VITALS: BP 170/110
[2022-08-25] MEDS: ASPIRIN 81MG CHEW TAB PO SCH (07:50)
[2022-08-25] MEDS: METOPROLOL TARTRATE 25 MG TAB PO SCH ×2 (07:51→21:26)
[2022-08-25] MEDS: FAMOTIDINE 20MG TAB PO SCH ×2 (07:51→21:26)
[2022-08-25] MEDS: TAMSULOSIN HCL 0.4 MG CAP.ER.24H PO SCH (07:51)
[2022-08-25] MEDS: DULOXETINE HCL 30 MG CAP PO SCH (07:51)
[2022-08-25] MEDS: LISINOPRIL 20 MG TABLET PO SCH (07:52)
[2022-08-25] MEDS: ENOXAPARIN SODIUM 30 MG/0.3 ML SQ SCH (07:53)
[2022-08-25] MEDS: NYSTATIN 30 GM CREAM.GM. TP SCH ×2 (07:53→21:27)
[2022-08-25] MEDS: 0.9%NACL 1000ML 1,000 ML IV SCH ×2 (08:15→21:20)
[2022-08-25 11:10] VITALS: BP 169/107
[2022-08-25] MEDS: CEFUROXIME AXETIL 250 MG TABLET PO SCH (14:23)
[2022-08-25 15:10] VITALS: BP 132/85
[2022-08-25 20:00] VITALS: BP 144/101
[2022-08-26] VITALS (7 sets, daily range): BP systolic 126–151; BP diastolic 70–100
[2022-08-26] MEDS: TEMAZEPAM 15 MG CAPSULE PO PRN ×2 (00:57→23:50)
[2022-08-26] MEDS: CEFUROXIME AXETIL 250 MG TABLET PO SCH (00:57)
[2022-08-26] MEDS: ACETAMINOPHEN 325 MG TAB PO PRN ×2 (01:04→20:33)
[2022-08-26] MEDS: FUROSEMIDE 20MG VIAL IV SCH ×2 (05:33→16:17)
[2022-08-26] MEDS: LEVOTHYROXINE 50 MCG TABLET PO SCH (05:33)
[2022-08-26] MEDS: VANCOMYCIN 750MG VIAL IVPB SCH (05:34)
[2022-08-26] MEDS: INSULIN HUMULIN R 100 UNIT/ML 3ML SQ SCH ×4 (08:20→20:28)
[2022-08-26] MEDS: LISINOPRIL 20 MG TABLET PO SCH (09:14)
[2022-08-26] MEDS: DULOXETINE HCL 30 MG CAP PO SCH (09:15)
[2022-08-26] MEDS: FAMOTIDINE 20MG TAB PO SCH ×2 (09:15→20:27)
[2022-08-26] MEDS: METOPROLOL TARTRATE 25 MG TAB PO SCH ×2 (09:15→20:27)
[2022-08-26] MEDS: ASPIRIN 81MG CHEW TAB PO SCH (09:15)
[2022-08-26] MEDS: TAMSULOSIN HCL 0.4 MG CAP.ER.24H PO SCH (09:15)
[2022-08-26] MEDS: ENOXAPARIN SODIUM 30 MG/0.3 ML SQ SCH (09:16)
[2022-08-26] MEDS: NYSTATIN 30 GM CREAM.GM. TP SCH ×2 (09:19→20:29)
[2022-08-26] MEDS: 0.9%NACL 1000ML 1,000 ML IV SCH (10:40)
[2022-08-26] MEDS: ZOSYN 3.375GM +NS 50ML IV SCH ×2 (13:21→20:27)
[2022-08-27 03:51] LABS: BASOPHILS % (AUTO) 0.8 % (0.0-5.0); EOSINOPHILS % (AUTO) 5.2 % (0.0-8.0); HEMATOCRIT 24.4 % (42-54); LYMPHOCYTES % (AUTO) 18.7 % (21.0-51.0); MEAN CORPUSCULAR VOLUME 90.7 fL (79-99); MONOCYTES % (AUTO) 7.2 % (3.0-13.0); NEUTROPHILS % (AUTO) 67.6 % (40.0-77.0); PLATELET COUNT (AUTO) 321 K/uL (130-400); RED BLOOD CELL COUNT(AUTO) 2.69 MIL/uL (4.50-6.20); RED CELL DISTRIBUTION WIDTH 14.3 % (11.0-15.5)
[2022-08-27 04:00] VITALS: BP 142/86
[2022-08-27 04:13] LABS: ALBUMIN 2.1 g/dL (3.5-5.0); CREATININE 1.7 mg/dL (0.5-1.5); POTASSIUM 4.7 mmol/L (3.5-5.1); TOTAL PROTEIN, SERUM 7.8 g/dL (6.0-8.3)
[2022-08-27] MEDS: VANCOMYCIN 750MG VIAL IVPB SCH (05:02)
[2022-08-27] MEDS: FUROSEMIDE 20MG VIAL IV SCH ×2 (05:03→16:00)
[2022-08-27] MEDS: LEVOTHYROXINE 50 MCG TABLET PO SCH (06:20)
[2022-08-27] MEDS: INSULIN HUMULIN R 100 UNIT/ML 3ML SQ SCH ×4 (06:22→20:10)
[2022-08-27] MEDS: ZOSYN 3.375GM +NS 50ML IV SCH ×3 (06:24→19:55)
[2022-08-27 08:00] VITALS: BP 173/120
[2022-08-27] MEDS: ASPIRIN 81MG CHEW TAB PO SCH (08:58)
[2022-08-27] MEDS: METOPROLOL TARTRATE 25 MG TAB PO SCH ×2 (08:58→19:55)
[2022-08-27] MEDS: TAMSULOSIN HCL 0.4 MG CAP.ER.24H PO SCH (08:58)
[2022-08-27] MEDS: DULOXETINE HCL 30 MG CAP PO SCH (08:58)
[2022-08-27] MEDS: LISINOPRIL 20 MG TABLET PO SCH (08:59)
[2022-08-27] MEDS: FAMOTIDINE 20MG TAB PO SCH ×2 (08:59→19:55)
[2022-08-27] MEDS: ENOXAPARIN SODIUM 30 MG/0.3 ML SQ SCH (09:00)
[2022-08-27] MEDS: NYSTATIN 30 GM CREAM.GM. TP SCH ×2 (09:00→20:36)
[2022-08-27 12:00] VITALS: BP 154/99
[2022-08-27] MEDS: 0.9%NACL 1000ML 1,000 ML IV SCH ×2 (13:57)
[2022-08-27 16:00] VITALS: BP 151/104
[2022-08-27 19:45] VITALS: BP 130/87
[2022-08-27] MEDS: ACETAMINOPHEN 325 MG TAB PO PRN (19:55)
[2022-08-28] VITALS: BP 131/91
[2022-08-28] MEDS: 0.9%NACL 1000ML 1,000 ML IV SCH ×2 (03:08→16:43)
[2022-08-28 04:18] VITALS: BP 134/84
[2022-08-28] MEDS: ZOSYN 3.375GM +NS 50ML IV SCH ×3 (04:34→19:58)
[2022-08-28] MEDS: VANCOMYCIN 750MG VIAL IVPB SCH (05:36)
[2022-08-28] MEDS: LEVOTHYROXINE 50 MCG TABLET PO SCH (05:36)
[2022-08-28] MEDS: FUROSEMIDE 20MG VIAL IV SCH ×2 (05:36→16:43)
[2022-08-28] MEDS: INSULIN HUMULIN R 100 UNIT/ML 3ML SQ SCH ×4 (06:01→20:35)
[2022-08-28 08:30] VITALS: BP 124/82
[2022-08-28] MEDS: FAMOTIDINE 20MG TAB PO SCH ×2 (09:29→19:58)
[2022-08-28] MEDS: DULOXETINE HCL 30 MG CAP PO SCH (09:31)
[2022-08-28] MEDS: TAMSULOSIN HCL 0.4 MG CAP.ER.24H PO SCH (09:31)
[2022-08-28] MEDS: ASPIRIN 81MG CHEW TAB PO SCH (09:31)
[2022-08-28] MEDS: LISINOPRIL 20 MG TABLET PO SCH (09:31)
[2022-08-28] MEDS: ENOXAPARIN SODIUM 30 MG/0.3 ML SQ SCH (09:32)
[2022-08-28] MEDS: METOPROLOL TARTRATE 25 MG TAB PO SCH ×2 (09:32→20:27)
[2022-08-28] MEDS: NYSTATIN 30 GM CREAM.GM. TP SCH ×2 (09:34→21:46)
[2022-08-28 11:00] VITALS: BP 166/102
[2022-08-28 16:00] VITALS: BP 145/91
[2022-08-28 20:00] VITALS: BP 161/102
[2022-08-29] VITALS (7 sets, daily range): BP systolic 124–152; BP diastolic 79–99
[2022-08-29] MEDS: ZOSYN 3.375GM +NS 50ML IV SCH ×3 (04:57→20:20)
[2022-08-29] MEDS: VANCOMYCIN 750MG VIAL IVPB SCH (04:58)
[2022-08-29] MEDS: 0.9%NACL 1000ML 1,000 ML IV SCH ×2 (05:11→18:40)
[2022-08-29] MEDS: FUROSEMIDE 20MG VIAL IV SCH ×2 (05:11→14:33)
[2022-08-29] MEDS: ACETAMINOPHEN 325 MG TAB PO PRN ×2 (05:15→20:34)
[2022-08-29 05:16] LABS: BASOPHILS % (AUTO) 0.6 % (0.0-5.0); EOSINOPHILS % (AUTO) 4.3 % (0.0-8.0); HEMATOCRIT 23.7 % (42-54); LYMPHOCYTES % (AUTO) 17.4 % (21.0-51.0); MEAN CORPUSCULAR HEMOGLOBIN 28.6 pg (27.0-33.0); MEAN CORPUSCULAR HGB CONC 31.2 g/dL (32.0-36.0); MEAN CORPUSCULAR VOLUME 91.5 fL (79-99); MONOCYTES % (AUTO) 8.1 % (3.0-13.0); NEUTROPHILS % (AUTO) 68.8 % (40.0-77.0); PLATELET COUNT (AUTO) 313 K/uL (130-400); RED BLOOD CELL COUNT(AUTO) 2.59 MIL/uL (4.50-6.20); RED CELL DISTRIBUTION WIDTH 14.6 % (11.0-15.5); WHITE BLOOD COUNT (AUTO) 6.4 K/uL (4.8-10.8)
[2022-08-29 05:39] LABS: ALBUMIN 2.1 g/dL (3.5-5.0); CREATININE 1.6 mg/dL (0.5-1.5); MAGNESIUM 1.9 mg/dL (1.80-2.40); POTASSIUM 4.5 mmol/L (3.5-5.1); TOTAL PROTEIN, SERUM 7.6 g/dL (6.0-8.3)
[2022-08-29] MEDS: LEVOTHYROXINE 50 MCG TABLET PO SCH (06:22)
[2022-08-29] MEDS: INSULIN HUMULIN R 100 UNIT/ML 3ML SQ SCH ×4 (06:38→20:21)
[2022-08-29] MEDS: NYSTATIN 30 GM CREAM.GM. TP SCH ×2 (09:00→20:22)
[2022-08-29] MEDS: FAMOTIDINE 20MG TAB PO SCH ×2 (10:57→20:20)
[2022-08-29] MEDS: TAMSULOSIN HCL 0.4 MG CAP.ER.24H PO SCH (10:57)
[2022-08-29] MEDS: LISINOPRIL 20 MG TABLET PO SCH (10:57)
[2022-08-29] MEDS: ASPIRIN 81MG CHEW TAB PO SCH (10:57)
[2022-08-29] MEDS: METOPROLOL TARTRATE 25 MG TAB PO SCH ×2 (10:57→20:20)
[2022-08-29] MEDS: DULOXETINE HCL 30 MG CAP PO SCH (11:02)
[2022-08-29] MEDS: ENOXAPARIN SODIUM 30 MG/0.3 ML SQ SCH (11:03)
[2022-08-30 03:40] VITALS: BP 138/82
[2022-08-30] MEDS: VANCOMYCIN 750MG VIAL IVPB SCH (05:32)
[2022-08-30] MEDS: LEVOTHYROXINE 50 MCG TABLET PO SCH (05:32)
[2022-08-30] MEDS: ZOSYN 3.375GM +NS 50ML IV SCH ×3 (05:32→20:28)
[2022-08-30] MEDS: FUROSEMIDE 20MG VIAL IV SCH ×2 (05:32→17:30)
[2022-08-30] MEDS: INSULIN HUMULIN R 100 UNIT/ML 3ML SQ SCH ×4 (05:45→20:28)
[2022-08-30 08:00] VITALS: BP 135/91
[2022-08-30] MEDS: 0.9%NACL 1000ML 1,000 ML IV SCH ×2 (08:00→20:30)
[2022-08-30] MEDS: NYSTATIN 30 GM CREAM.GM. TP SCH ×2 (09:00→20:30)
[2022-08-30] MEDS: FAMOTIDINE 20MG TAB PO SCH ×2 (09:04→20:28)
[2022-08-30] MEDS: DULOXETINE HCL 30 MG CAP PO SCH (09:04)
[2022-08-30] MEDS: LISINOPRIL 20 MG TABLET PO SCH (09:04)
[2022-08-30] MEDS: TAMSULOSIN HCL 0.4 MG CAP.ER.24H PO SCH (09:04)
[2022-08-30] MEDS: METOPROLOL TARTRATE 25 MG TAB PO SCH ×2 (09:04→20:28)
[2022-08-30] MEDS: ASPIRIN 81MG CHEW TAB PO SCH (09:04)
[2022-08-30] MEDS: ENOXAPARIN SODIUM 30 MG/0.3 ML SQ SCH (09:05)
[2022-08-30 11:25] VITALS: BP 181/83
[2022-08-30] MEDS: ACETAMINOPHEN 325 MG TAB PO PRN ×2 (15:48→20:34)
[2022-08-30 16:00] VITALS: BP 164/117
[2022-08-30 20:10] VITALS: BP 154/103
[2022-08-30 23:36] VITALS: BP 150/102
[2022-08-31] MEDS: ONDANSETRON 4MG INJ IVP PRN (01:47)
[2022-08-31 03:50] VITALS: BP 148/97
[2022-08-31] MEDS: FUROSEMIDE 20MG VIAL IV SCH ×2 (04:01→17:30)
[2022-08-31] MEDS: ZOSYN 3.375GM +NS 50ML IV SCH ×3 (04:05→19:36)
[2022-08-31 04:38] LABS: MEAN CORPUSCULAR HEMOGLOBIN 29.3 pg (27.0-33.0); MEAN CORPUSCULAR HGB CONC 31.9 g/dL (32.0-36.0); MEAN CORPUSCULAR VOLUME 91.9 fL (79-99); RED BLOOD CELL COUNT(AUTO) 2.83 MIL/uL (4.50-6.20); RED CELL DISTRIBUTION WIDTH 15.5 % (11.0-15.5); WHITE BLOOD COUNT (AUTO) 6.2 K/uL (4.8-10.8)
[2022-08-31 05:06] LABS: CREATININE 1.5 mg/dL (0.5-1.5); MAGNESIUM 2.2 mg/dL (1.80-2.40); POTASSIUM 4.8 mmol/L (3.5-5.1)
[2022-08-31] MEDS: LEVOTHYROXINE 50 MCG TABLET PO SCH (05:39)
[2022-08-31] MEDS: VANCOMYCIN 500MG+NS 100ML 100 ML IV SCH (05:39)
[2022-08-31] MEDS: INSULIN HUMULIN R 100 UNIT/ML 3ML SQ SCH ×4 (05:49→20:16)
[2022-08-31] MEDS: ACETAMINOPHEN 325 MG TAB PO PRN (05:58)
[2022-08-31 08:00] VITALS: BP 152/100
[2022-08-31] MEDS: FAMOTIDINE 20MG TAB PO SCH ×2 (09:28→19:37)
[2022-08-31] MEDS: LISINOPRIL 20 MG TABLET PO SCH (09:28)
[2022-08-31] MEDS: TAMSULOSIN HCL 0.4 MG CAP.ER.24H PO SCH (09:28)
[2022-08-31] MEDS: DULOXETINE HCL 30 MG CAP PO SCH (09:28)
[2022-08-31] MEDS: ASPIRIN 81MG CHEW TAB PO SCH (09:28)
[2022-08-31] MEDS: METOPROLOL TARTRATE 25 MG TAB PO SCH ×2 (09:28→19:37)
[2022-08-31] MEDS: ENOXAPARIN SODIUM 30 MG/0.3 ML SQ SCH (09:29)
[2022-08-31] MEDS: NYSTATIN 30 GM CREAM.GM. TP SCH ×2 (09:29→19:37)
[2022-08-31] MEDS: 0.9%NACL 1000ML 1,000 ML IV SCH (10:40)
[2022-08-31 12:00] VITALS: BP 141/93
[2022-08-31 16:00] VITALS: BP 160/113
[2022-08-31 20:00] VITALS: BP 151/103
[2022-09-01] VITALS: BP 145/99
[2022-09-01] MEDS: FUROSEMIDE 20MG VIAL IV SCH ×2 (04:14→17:30)
[2022-09-01] MEDS: ZOSYN 3.375GM +NS 50ML IV SCH ×3 (04:14→21:16)
[2022-09-01] MEDS: VANCOMYCIN 500MG+NS 100ML 100 ML IV SCH (05:04)
[2022-09-01] MEDS: LEVOTHYROXINE 50 MCG TABLET PO SCH (05:04)
[2022-09-01 05:06] VITALS: BP 150/98
[2022-09-01] MEDS: INSULIN HUMULIN R 100 UNIT/ML 3ML SQ SCH ×4 (05:48→21:17)
[2022-09-01 08:00] VITALS: BP 168/118
[2022-09-01] MEDS: TAMSULOSIN HCL 0.4 MG CAP.ER.24H PO SCH (08:46)
[2022-09-01] MEDS: LISINOPRIL 20 MG TABLET PO SCH (08:46)
[2022-09-01] MEDS: DULOXETINE HCL 30 MG CAP PO SCH (08:46)
[2022-09-01] MEDS: METOPROLOL TARTRATE 25 MG TAB PO SCH ×2 (08:46→21:18)
[2022-09-01] MEDS: ENOXAPARIN SODIUM 30 MG/0.3 ML SQ SCH (08:46)
[2022-09-01] MEDS: FAMOTIDINE 20MG TAB PO SCH ×2 (08:46→21:17)
[2022-09-01] MEDS: ASPIRIN 81MG CHEW TAB PO SCH (08:46)
[2022-09-01] MEDS: NYSTATIN 30 GM CREAM.GM. TP SCH ×2 (08:47→21:00)
[2022-09-01 12:01] VITALS: BP 147/98
[2022-09-01] MEDS: 0.9%NACL 1000ML 1,000 ML IV SCH ×2 (13:20)
[2022-09-01] MEDS: ACETAMINOPHEN 325 MG TAB PO PRN ×2 (14:20→21:27)
[2022-09-01 16:00] VITALS: BP 137/70
[2022-09-01 20:00] VITALS: BP 163/100
[2022-09-02] VITALS: BP 150/97
[2022-09-02] MEDS: 0.9%NACL 1000ML 1,000 ML IV SCH ×3 (02:40→19:31)
[2022-09-02 04:00] VITALS: BP 151/99
[2022-09-02] MEDS: ZOSYN 3.375GM +NS 50ML IV SCH ×3 (04:26→20:35)
[2022-09-02 04:34] LABS: BASOPHILS % (AUTO) 0.6 % (0.0-5.0); EOSINOPHILS % (AUTO) 3.1 % (0.0-8.0); LYMPHOCYTES % (AUTO) 16.6 % (21.0-51.0); MEAN CORPUSCULAR HEMOGLOBIN 28.9 pg (27.0-33.0); MEAN CORPUSCULAR HGB CONC 31.4 g/dL (32.0-36.0); MEAN CORPUSCULAR VOLUME 91.8 fL (79-99); MONOCYTES % (AUTO) 6.8 % (3.0-13.0); NEUTROPHILS % (AUTO) 72.3 % (40.0-77.0); PLATELET COUNT (AUTO) 322 K/uL (130-400); RED BLOOD CELL COUNT(AUTO) 3.05 MIL/uL (4.50-6.20); RED CELL DISTRIBUTION WIDTH 16.3 % (11.0-15.5); WHITE BLOOD COUNT (AUTO) 6.4 K/uL (4.8-10.8)
[2022-09-02 04:53] LABS: % IRON SATURATION 33.1 % (30-44)
[2022-09-02 05:06] LABS: ALBUMIN 2.3 g/dL (3.5-5.0); CREATININE 1.5 mg/dL (0.5-1.5); CRP QUANTITATIVE 44.5 mg/L (0.00-9.0); POTASSIUM 4.8 mmol/L (3.5-5.1)
[2022-09-02] MEDS: FUROSEMIDE 20MG VIAL IV SCH ×3 (05:09→18:14)
[2022-09-02] MEDS: INSULIN HUMULIN R 100 UNIT/ML 3ML SQ SCH ×4 (06:02→21:00)
[2022-09-02] MEDS: VANCOMYCIN 500MG+NS 100ML 100 ML IV SCH (06:35)
[2022-09-02] MEDS: LEVOTHYROXINE 50 MCG TABLET PO SCH (06:35)
[2022-09-02 08:00] VITALS: BP 156/109
[2022-09-02] MEDS: METOPROLOL TARTRATE 25 MG TAB PO SCH (09:46)
[2022-09-02] MEDS: DULOXETINE HCL 30 MG CAP PO SCH (09:46)
[2022-09-02] MEDS: TAMSULOSIN HCL 0.4 MG CAP.ER.24H PO SCH (09:46)
[2022-09-02] MEDS: LISINOPRIL 20 MG TABLET PO SCH (09:46)
[2022-09-02] MEDS: ASPIRIN 81MG CHEW TAB PO SCH (09:47)
[2022-09-02] MEDS: FAMOTIDINE 20MG TAB PO SCH ×2 (09:47→20:35)
[2022-09-02] MEDS: ENOXAPARIN SODIUM 30 MG/0.3 ML SQ SCH (09:47)
[2022-09-02] MEDS: NYSTATIN 30 GM CREAM.GM. TP SCH ×2 (09:48→20:43)
[2022-09-02 11:55] VITALS: BP 154/73
[2022-09-02] MEDS: ACETAMINOPHEN 325 MG TAB PO PRN (12:11)
[2022-09-02] MEDS ORDERED: METOPROLOL TARTRATE 25 MG TAB PO ONE (14:30)
[2022-09-02 16:00] VITALS: BP 173/118
[2022-09-02 20:00] VITALS: BP 152/89
[2022-09-02] MEDS: METOPROLOL TARTRATE 50 MG TAB PO SCH (20:35)
[2022-09-02] MEDS: ONDANSETRON 4MG INJ IVP PRN (23:24)
[2022-09-03] VITALS: BP 144/91
[2022-09-03] MEDS: ZOSYN 3.375GM +NS 50ML IV SCH ×3 (03:48→20:21)
[2022-09-03] MEDS: FUROSEMIDE 20MG VIAL IV SCH ×2 (03:49→16:41)
[2022-09-03 04:30] VITALS: BP 151/99
[2022-09-03] MEDS: VANCOMYCIN 500MG+NS 100ML 100 ML IV SCH (05:19)
[2022-09-03] MEDS: LEVOTHYROXINE 50 MCG TABLET PO SCH (05:19)
[2022-09-03] MEDS: INSULIN HUMULIN R 100 UNIT/ML 3ML SQ SCH ×4 (06:17→20:18)
[2022-09-03 08:00] VITALS: BP 155/119
[2022-09-03] MEDS: DULOXETINE HCL 30 MG CAP PO SCH (08:46)
[2022-09-03] MEDS: TAMSULOSIN HCL 0.4 MG CAP.ER.24H PO SCH (08:46)
[2022-09-03] MEDS: FAMOTIDINE 20MG TAB PO SCH ×2 (08:47→20:21)
[2022-09-03] MEDS: LISINOPRIL 20 MG TABLET PO SCH (08:47)
[2022-09-03] MEDS: ASPIRIN 81MG CHEW TAB PO SCH (08:47)
[2022-09-03] MEDS: ENOXAPARIN SODIUM 30 MG/0.3 ML SQ SCH (08:50)
[2022-09-03] MEDS: NYSTATIN 30 GM CREAM.GM. TP SCH ×2 (08:51→20:22)
[2022-09-03] MEDS: METOPROLOL TARTRATE 50 MG TAB PO SCH ×2 (08:51→20:21)
[2022-09-03] MEDS: ACETAMINOPHEN 325 MG TAB PO PRN ×2 (08:54→20:27)
[2022-09-03] MEDS ORDERED: AMLODIPINE 5 MG TAB PO ONE (13:00)
[2022-09-03] MEDS: AMLODIPINE 5 MG TAB PO SCH (13:33)
[2022-09-03 16:00] VITALS: BP 139/98
[2022-09-03 19:50] VITALS: BP 153/98
[2022-09-03] MEDS: ONDANSETRON 4MG INJ IVP PRN (20:24)
[2022-09-03 23:34] VITALS: BP 140/96
[2022-09-04 03:49] VITALS: BP 156/92
[2022-09-04] MEDS: ZOSYN 3.375GM +NS 50ML IV SCH ×3 (04:11→20:44)
[2022-09-04] MEDS: FUROSEMIDE 20MG VIAL IV SCH (04:12)
[2022-09-04] MEDS: VANCOMYCIN 500MG+NS 100ML 100 ML IV SCH (05:16)
[2022-09-04] MEDS: LEVOTHYROXINE 50 MCG TABLET PO SCH (05:22)
[2022-09-04 05:42] LABS: HEMATOCRIT 31.6 % (42-54); MEAN CORPUSCULAR HGB CONC 30.7 g/dL (32.0-36.0); MEAN CORPUSCULAR VOLUME 94.3 fL (79-99); PLATELET COUNT (AUTO) 285 K/uL (130-400); RED BLOOD CELL COUNT(AUTO) 3.35 MIL/uL (4.50-6.20); RED CELL DISTRIBUTION WIDTH 16.9 % (11.0-15.5); WHITE BLOOD COUNT (AUTO) 6.4 K/uL (4.8-10.8)
[2022-09-04] MEDS: INSULIN HUMULIN R 100 UNIT/ML 3ML SQ SCH ×4 (05:46→20:58)
[2022-09-04 06:39] LABS: POTASSIUM 5.1 mmol/L (3.5-5.1)
[2022-09-04 06:40] LABS: CREATININE 1.6 mg/dL (0.5-1.5); MAGNESIUM 2.2 mg/dL (1.80-2.40)
[2022-09-04 08:00] VITALS: BP 163/114
[2022-09-04] MEDS: ASPIRIN 81MG CHEW TAB PO SCH (08:34)
[2022-09-04] MEDS: DULOXETINE HCL 30 MG CAP PO SCH (08:34)
[2022-09-04] MEDS: ACETAMINOPHEN 325 MG TAB PO PRN ×2 (08:35→20:53)
[2022-09-04] MEDS: LISINOPRIL 20 MG TABLET PO SCH (08:36)
[2022-09-04] MEDS: METOPROLOL TARTRATE 50 MG TAB PO SCH ×2 (08:36→20:44)
[2022-09-04] MEDS: TAMSULOSIN HCL 0.4 MG CAP.ER.24H PO SCH (08:36)
[2022-09-04] MEDS: FAMOTIDINE 20MG TAB PO SCH ×2 (08:36→20:44)
[2022-09-04] MEDS: NYSTATIN 30 GM CREAM.GM. TP SCH ×2 (08:37→20:58)
[2022-09-04] MEDS: ENOXAPARIN SODIUM 30 MG/0.3 ML SQ SCH (08:37)
[2022-09-04] MEDS: AMLODIPINE 5 MG TAB PO SCH (08:37)
[2022-09-04] MEDS ORDERED: SODIUM ZIRCONIUM CYCLOSILICATE 5 GM POWD.PACK PO SCH (09:30)
[2022-09-04 12:00] VITALS: BP 146/105
[2022-09-04 16:00] VITALS: BP 138/98
[2022-09-04 20:17] VITALS: BP 141/96
[2022-09-04] MEDS: ONDANSETRON 4MG INJ IVP PRN (20:44)
[2022-09-04] MEDS: TEMAZEPAM 15 MG CAPSULE PO PRN (21:00)
[2022-09-04 23:58] VITALS: BP 141/73
[2022-09-05 03:40] VITALS: BP 126/84
[2022-09-05] MEDS: ZOSYN 3.375GM +NS 50ML IV SCH ×3 (04:11→20:14)
[2022-09-05] MEDS: LEVOTHYROXINE 50 MCG TABLET PO SCH (05:12)
[2022-09-05 05:40] LABS: CREATININE 1.8 mg/dL (0.5-1.5); POTASSIUM 4.6 mmol/L (3.5-5.1)
[2022-09-05] MEDS: INSULIN HUMULIN R 100 UNIT/ML 3ML SQ SCH ×4 (05:56→21:00)
[2022-09-05] MEDS: VANCOMYCIN 500MG+NS 100ML 100 ML IV SCH (06:39)
[2022-09-05 08:00] VITALS: BP 160/108
[2022-09-05] MEDS: ENOXAPARIN SODIUM 30 MG/0.3 ML SQ SCH (08:57)
[2022-09-05] MEDS: DULOXETINE HCL 30 MG CAP PO SCH (08:57)
[2022-09-05] MEDS: ACETAMINOPHEN 325 MG TAB PO PRN ×2 (08:58→20:19)
[2022-09-05] MEDS: FAMOTIDINE 20MG TAB PO SCH ×2 (08:58→20:14)
[2022-09-05] MEDS: LISINOPRIL 20 MG TABLET PO SCH (08:59)
[2022-09-05] MEDS: METOPROLOL TARTRATE 50 MG TAB PO SCH ×2 (08:59→20:14)
[2022-09-05] MEDS: AMLODIPINE 5 MG TAB PO SCH (08:59)
[2022-09-05] MEDS: ASPIRIN 81MG CHEW TAB PO SCH (08:59)
[2022-09-05] MEDS: TAMSULOSIN HCL 0.4 MG CAP.ER.24H PO SCH (08:59)
[2022-09-05] MEDS: NYSTATIN 30 GM CREAM.GM. TP SCH ×2 (09:00→21:00)
[2022-09-05 12:00] VITALS: BP 164/109
[2022-09-05 16:00] VITALS: BP 132/89
[2022-09-05 20:00] VITALS: BP 138/98
[2022-09-06] VITALS: BP 137/96
[2022-09-06 04:00] VITALS: BP 147/94
[2022-09-06] MEDS: ZOSYN 3.375GM +NS 50ML IV SCH ×3 (04:07→22:16)
[2022-09-06] MEDS: LEVOTHYROXINE 50 MCG TABLET PO SCH (05:09)
[2022-09-06] MEDS: INSULIN HUMULIN R 100 UNIT/ML 3ML SQ SCH ×4 (05:50→20:51)
[2022-09-06] MEDS: ACETAMINOPHEN 325 MG TAB PO PRN ×2 (05:54→22:23)
[2022-09-06] MEDS: VANCOMYCIN 500MG+NS 100ML 100 ML IV SCH (06:36)
[2022-09-06 08:00] VITALS: BP 155/108
[2022-09-06] MEDS: ENOXAPARIN SODIUM 30 MG/0.3 ML SQ SCH (08:32)
[2022-09-06] MEDS: DULOXETINE HCL 30 MG CAP PO SCH (08:34)
[2022-09-06] MEDS: FAMOTIDINE 20MG TAB PO SCH ×2 (08:34→22:16)
[2022-09-06] MEDS: ASPIRIN 81MG CHEW TAB PO SCH (08:34)
[2022-09-06] MEDS: AMLODIPINE 5 MG TAB PO SCH (08:34)
[2022-09-06] MEDS: METOPROLOL TARTRATE 50 MG TAB PO SCH ×2 (08:35→22:16)
[2022-09-06] MEDS: LISINOPRIL 20 MG TABLET PO SCH (08:35)
[2022-09-06] MEDS: NYSTATIN 30 GM CREAM.GM. TP SCH ×2 (09:00→22:16)
[2022-09-06] MEDS: TAMSULOSIN HCL 0.4 MG CAP.ER.24H PO SCH (09:00)
[2022-09-06] MEDS: NACL NASAL SPRAY 120 SPRAY/BOTTLE NS PRN ×2 (09:55→22:23)
[2022-09-06 11:27] VITALS: BP 152/83
[2022-09-06 16:00] VITALS: BP 153/94
[2022-09-06 20:00] VITALS: BP 148/98
[2022-09-07] VITALS (7 sets, daily range): BP systolic 123–161; BP diastolic 77–113
[2022-09-07] MEDS: ZOSYN 3.375GM +NS 50ML IV SCH ×3 (04:08→23:41)
[2022-09-07] MEDS: VANCOMYCIN 500MG+NS 100ML 100 ML IV SCH (06:00)
[2022-09-07] MEDS: INSULIN HUMULIN R 100 UNIT/ML 3ML SQ SCH ×4 (06:07→20:59)
[2022-09-07] MEDS: LEVOTHYROXINE 50 MCG TABLET PO SCH (06:28)
[2022-09-07] MEDS ORDERED: VANCOMYCIN 1G/250ML KIT 250 ML IV SCH (09:00)
[2022-09-07] MEDS: AMLODIPINE 5 MG TAB PO SCH (09:59)
[2022-09-07] MEDS: DULOXETINE HCL 30 MG CAP PO SCH (09:59)
[2022-09-07] MEDS: FAMOTIDINE 20MG TAB PO SCH ×2 (10:00→20:53)
[2022-09-07] MEDS: TAMSULOSIN HCL 0.4 MG CAP.ER.24H PO SCH (10:00)
[2022-09-07] MEDS: METOPROLOL TARTRATE 50 MG TAB PO SCH ×2 (10:00→20:53)
[2022-09-07] MEDS: LISINOPRIL 20 MG TABLET PO SCH (10:00)
[2022-09-07] MEDS: ASPIRIN 81MG CHEW TAB PO SCH (10:00)
[2022-09-07] MEDS: ENOXAPARIN SODIUM 30 MG/0.3 ML SQ SCH (10:01)
[2022-09-07] MEDS: NYSTATIN 30 GM CREAM.GM. TP SCH ×2 (10:02→20:59)
[2022-09-07] MEDS: ACETAMINOPHEN 325 MG TAB PO PRN ×2 (11:42→23:55)
[2022-09-07] MEDS: TEMAZEPAM 15 MG CAPSULE PO PRN (23:41)
[2022-09-08 03:04] VITALS: BP 126/82
[2022-09-08 05:32] LABS: ALBUMIN 2.1 g/dL (3.5-5.0); CREATININE 2.1 mg/dL (0.5-1.5); POTASSIUM 4.5 mmol/L (3.5-5.1); TOTAL PROTEIN, SERUM 7.3 g/dL (6.0-8.3)
[2022-09-08] MEDS: ZOSYN 3.375GM +NS 50ML IV SCH ×3 (05:40→21:44)
[2022-09-08] MEDS: LEVOTHYROXINE 50 MCG TABLET PO SCH (05:41)
[2022-09-08] MEDS: VANCOMYCIN 500MG+NS 100ML 100 ML IV SCH (05:41)
[2022-09-08] MEDS: INSULIN HUMULIN R 100 UNIT/ML 3ML SQ SCH ×4 (07:14→21:49)
[2022-09-08 07:30] VITALS: BP 128/85
[2022-09-08] MEDS: AMLODIPINE 5 MG TAB PO SCH (08:49)
[2022-09-08] MEDS: DULOXETINE HCL 30 MG CAP PO SCH (08:49)
[2022-09-08] MEDS: METOPROLOL TARTRATE 50 MG TAB PO SCH ×2 (08:49→21:33)
[2022-09-08] MEDS: LISINOPRIL 20 MG TABLET PO SCH (08:50)
[2022-09-08] MEDS: TAMSULOSIN HCL 0.4 MG CAP.ER.24H PO SCH (08:50)
[2022-09-08] MEDS: FAMOTIDINE 20MG TAB PO SCH ×2 (08:50→21:33)
[2022-09-08] MEDS: ENOXAPARIN SODIUM 30 MG/0.3 ML SQ SCH (08:51)
[2022-09-08] MEDS: NYSTATIN 30 GM CREAM.GM. TP SCH ×2 (08:51→21:34)
[2022-09-08] MEDS: ASPIRIN 81MG CHEW TAB PO SCH (08:59)
[2022-09-08] MEDS: ACETAMINOPHEN 325 MG TAB PO PRN ×2 (09:01→17:19)
[2022-09-08 11:00] VITALS: BP 131/72
[2022-09-08] MEDS: 0.9%NACL 1000ML 1,000 ML IV SCH (13:14)
[2022-09-08 15:30] VITALS: BP 110/63
[2022-09-08 19:49] VITALS: BP 123/84
[2022-09-08] MEDS: DIPHENHYDRAMINE HCL 25 MG CAPSULE PO SCH (21:33)
[2022-09-08 23:24] VITALS: BP 130/78
[2022-09-09] MEDS: 0.9%NACL 1000ML 1,000 ML IV SCH (02:20)
[2022-09-09] MEDS: ACETAMINOPHEN 325 MG TAB PO PRN ×4 (02:50→21:35)
[2022-09-09 03:09] VITALS: BP 129/92
[2022-09-09 05:15] LABS: BASOPHILS % (AUTO) 0.6 % (0.0-5.0); EOSINOPHILS % (AUTO) 6.2 % (0.0-8.0); HEMATOCRIT 32.1 % (42-54); LYMPHOCYTES % (AUTO) 20.2 % (21.0-51.0); MEAN CORPUSCULAR HEMOGLOBIN 28.9 pg (27.0-33.0); MEAN CORPUSCULAR HGB CONC 31.2 g/dL (32.0-36.0); MEAN CORPUSCULAR VOLUME 92.8 fL (79-99); MONOCYTES % (AUTO) 6.9 % (3.0-13.0); NEUTROPHILS % (AUTO) 65.9 % (40.0-77.0); PLATELET COUNT (AUTO) 221 K/uL (130-400); RED BLOOD CELL COUNT(AUTO) 3.46 MIL/uL (4.50-6.20); RED CELL DISTRIBUTION WIDTH 15.6 % (11.0-15.5); WHITE BLOOD COUNT (AUTO) 4.7 K/uL (4.8-10.8)
[2022-09-09] MEDS: ZOSYN 3.375GM +NS 50ML IV SCH (05:25)
[2022-09-09] MEDS: VANCOMYCIN 500MG+NS 100ML 100 ML IV SCH (05:25)
[2022-09-09] MEDS: LEVOTHYROXINE 50 MCG TABLET PO SCH (05:26)
[2022-09-09 05:46] LABS: ALBUMIN 2.1 g/dL (3.5-5.0); CREATININE 1.8 mg/dL (0.5-1.5); POTASSIUM 5.2 mmol/L (3.5-5.1); TOTAL PROTEIN, SERUM 7.3 g/dL (6.0-8.3)
[2022-09-09] MEDS: INSULIN HUMULIN R 100 UNIT/ML 3ML SQ SCH ×4 (06:44→20:38)
[2022-09-09 07:30] VITALS: BP 143/101
[2022-09-09] MEDS: AMLODIPINE 5 MG TAB PO SCH (08:56)
[2022-09-09] MEDS: LISINOPRIL 20 MG TABLET PO SCH (08:56)
[2022-09-09] MEDS: METOPROLOL TARTRATE 50 MG TAB PO SCH ×2 (08:56→20:32)
[2022-09-09] MEDS: TAMSULOSIN HCL 0.4 MG CAP.ER.24H PO SCH (08:57)
[2022-09-09] MEDS: ASPIRIN 81MG CHEW TAB PO SCH (08:57)
[2022-09-09] MEDS: DULOXETINE HCL 30 MG CAP PO SCH (08:57)
[2022-09-09] MEDS: FAMOTIDINE 20MG TAB PO SCH ×2 (08:57→20:32)
[2022-09-09] MEDS: ENOXAPARIN SODIUM 30 MG/0.3 ML SQ SCH (08:58)
[2022-09-09] MEDS: NYSTATIN 30 GM CREAM.GM. TP SCH ×2 (09:02→21:31)
[2022-09-09] MEDS ORDERED: KAYEXALATE 15GM/60ML PO SCH (10:00)
[2022-09-09 11:30] VITALS: BP 157/109
[2022-09-09 15:30] VITALS: BP 149/109
[2022-09-09 20:57] VITALS: BP 155/108
[2022-09-09] MEDS: DIPHENHYDRAMINE HCL 25 MG CAPSULE PO SCH (21:31)
[2022-09-10] VITALS (7 sets, daily range): BP systolic 111–159; BP diastolic 74–117
[2022-09-10] MEDS: ACETAMINOPHEN 325 MG TAB PO PRN ×3 (05:34→20:50)
[2022-09-10 05:42] LABS: HEMATOCRIT 32.6 % (42-54); MEAN CORPUSCULAR HEMOGLOBIN 28.5 pg (27.0-33.0); MEAN CORPUSCULAR HGB CONC 31.6 g/dL (32.0-36.0); MEAN CORPUSCULAR VOLUME 90.3 fL (79-99); RED BLOOD CELL COUNT(AUTO) 3.61 MIL/uL (4.50-6.20); RED CELL DISTRIBUTION WIDTH 15.5 % (11.0-15.5); WHITE BLOOD COUNT (AUTO) 5.5 K/uL (4.8-10.8)
[2022-09-10 05:59] LABS: CREATININE 1.8 mg/dL (0.5-1.5); POTASSIUM 5.1 mmol/L (3.5-5.1)
[2022-09-10] MEDS: VANCOMYCIN 500MG+NS 100ML 100 ML IV SCH (06:42)
[2022-09-10] MEDS: LEVOTHYROXINE 50 MCG TABLET PO SCH (06:42)
[2022-09-10] MEDS: INSULIN HUMULIN R 100 UNIT/ML 3ML SQ SCH ×4 (06:43→20:51)
[2022-09-10] MEDS: AMLODIPINE 5 MG TAB PO SCH (08:32)
[2022-09-10] MEDS: METOPROLOL TARTRATE 50 MG TAB PO SCH ×2 (08:32→20:44)
[2022-09-10] MEDS: ENOXAPARIN SODIUM 30 MG/0.3 ML SQ SCH (08:32)
[2022-09-10] MEDS: DULOXETINE HCL 30 MG CAP PO SCH (08:32)
[2022-09-10] MEDS: FAMOTIDINE 20MG TAB PO SCH ×2 (08:32→20:44)
[2022-09-10] MEDS: LISINOPRIL 20 MG TABLET PO SCH (08:33)
[2022-09-10] MEDS: TAMSULOSIN HCL 0.4 MG CAP.ER.24H PO SCH (08:33)
[2022-09-10] MEDS: ASPIRIN 81MG CHEW TAB PO SCH (08:33)
[2022-09-10] MEDS: NYSTATIN 30 GM CREAM.GM. TP SCH (08:34)
[2022-09-10] MEDS: FINASTERIDE 5 MG TABLET PO SCH (13:43)
[2022-09-10] MEDS: DOXAZOSIN MESYLATE 2 MG TABLET PO SCH (13:43)
[2022-09-10] MEDS ORDERED: LABETALOL 20MG VIAL IV PRN (14:00)
[2022-09-10] MEDS ORDERED: LABETALOL 20MG SYG IV PRN (14:00)
[2022-09-10 14:08] LABS: % IRON SATURATION 20.8 % (30-44)
[2022-09-10] MEDS: TRAZODONE HCL 50 MG TAB PO SCH (20:44)
[2022-09-10] MEDS: GABAPENTIN 300 MG CAPSULE PO SCH (20:45)
[2022-09-10] MEDS ORDERED: DOXAZOSIN MESYLATE 2 MG TABLET PO SCH (21:00)
[2022-09-11 04:59] VITALS: BP 130/84
[2022-09-11 05:31] LABS: BASOPHILS % (AUTO) 0.5 % (0.0-5.0); EOSINOPHILS % (AUTO) 7.7 % (0.0-8.0); HEMATOCRIT 32.9 % (42-54); LYMPHOCYTES % (AUTO) 25.9 % (21.0-51.0); MEAN CORPUSCULAR HGB CONC 32.2 g/dL (32.0-36.0); MEAN CORPUSCULAR VOLUME 89.9 fL (79-99); NEUTROPHILS % (AUTO) 58.7 % (40.0-77.0); PLATELET COUNT (AUTO) 265 K/uL (130-400); RED BLOOD CELL COUNT(AUTO) 3.66 MIL/uL (4.50-6.20); RED CELL DISTRIBUTION WIDTH 15.4 % (11.0-15.5); WHITE BLOOD COUNT (AUTO) 4.1 K/uL (4.8-10.8)
[2022-09-11] MEDS: VANCOMYCIN 500MG+NS 100ML 100 ML IV SCH (05:47)
[2022-09-11] MEDS: LEVOTHYROXINE 50 MCG TABLET PO SCH (05:47)
[2022-09-11 06:17] LABS: ALBUMIN 2.3 g/dL (3.5-5.0); CREATININE 1.7 mg/dL (0.5-1.5); POTASSIUM 4.7 mmol/L (3.5-5.1); THYROID STIMULATING HORMONE 7.29 uIU/mL (0.36-3.74); TOTAL PROTEIN, SERUM 7.7 g/dL (6.0-8.3)
[2022-09-11] MEDS: INSULIN HUMULIN R 100 UNIT/ML 3ML SQ SCH ×4 (06:42→20:49)
[2022-09-11 08:00] VITALS: BP 153/108
[2022-09-11] MEDS: ASPIRIN 81MG CHEW TAB PO SCH (08:46)
[2022-09-11] MEDS: DULOXETINE HCL 30 MG CAP PO SCH (08:46)
[2022-09-11] MEDS: METOPROLOL TARTRATE 50 MG TAB PO SCH ×2 (08:46→20:48)
[2022-09-11] MEDS: FAMOTIDINE 20MG TAB PO SCH ×2 (08:46→20:48)
[2022-09-11] MEDS: ACETAMINOPHEN 325 MG TAB PO PRN ×2 (08:47→20:59)
[2022-09-11] MEDS: DOXAZOSIN MESYLATE 2 MG TABLET PO SCH (08:47)
[2022-09-11] MEDS: FINASTERIDE 5 MG TABLET PO SCH (08:48)
[2022-09-11] MEDS: GABAPENTIN 300 MG CAPSULE PO SCH ×2 (08:48→20:48)
[2022-09-11] MEDS: AMLODIPINE 5 MG TAB PO SCH (08:48)
[2022-09-11] MEDS: ENOXAPARIN SODIUM 30 MG/0.3 ML SQ SCH (08:49)
[2022-09-11] MEDS ORDERED: LISINOPRIL 20 MG TABLET PO SCH (09:00)
[2022-09-11 11:55] VITALS: BP 133/86
[2022-09-11 16:00] VITALS: BP 140/96
[2022-09-11] MEDS ORDERED: IRON SUCROSE COMPLEX 500 MG in 0.9% NACL 250ML 250 ML IV ONE (20:00)
[2022-09-11] MEDS: TRAZODONE HCL 50 MG TAB PO SCH (20:48)
[2022-09-11 20:56] VITALS: BP 125/86
[2022-09-11] MEDS ORDERED: EPOETIN ALFA-EPBX (NON-ESRD) 10,000 UNIT/ML VIAL SQ ONE (21:00)
[2022-09-12] VITALS (7 sets, daily range): BP systolic 132–152; BP diastolic 79–114
[2022-09-12 05:30] LABS: % IRON SATURATION 105.9 % (30-44)
[2022-09-12] MEDS: VANCOMYCIN 500MG+NS 100ML 100 ML IV SCH (05:39)
[2022-09-12] MEDS: LEVOTHYROXINE 50 MCG TABLET PO SCH (05:39)
[2022-09-12] MEDS ORDERED: VANCOMYCIN 500MG VIAL IVPB SCH (06:00)
[2022-09-12] MEDS ORDERED: 0.9%NACL 100ML IVPB SCH (06:00)
[2022-09-12] MEDS ORDERED: VANCOMYCIN PROTOCOL PER PHARMACY IV SCH (06:00)
[2022-09-12] MEDS ORDERED: AMLODIPINE 5 MG TAB PO SCH (09:00)
[2022-09-12] MEDS: LISINOPRIL 20 MG TABLET PO SCH (09:00)
[2022-09-12] MEDS: ASPIRIN 81MG CHEW TAB PO SCH (11:09)
[2022-09-12] MEDS: DULOXETINE HCL 30 MG CAP PO SCH (11:09)
[2022-09-12] MEDS: DOXAZOSIN MESYLATE 2 MG TABLET PO SCH (11:09)
[2022-09-12] MEDS: GABAPENTIN 300 MG CAPSULE PO SCH ×2 (11:09→22:08)
[2022-09-12] MEDS: METOPROLOL TARTRATE 50 MG TAB PO SCH (11:09)
[2022-09-12] MEDS: FAMOTIDINE 20MG TAB PO SCH ×2 (11:12→22:08)
[2022-09-12] MEDS: FINASTERIDE 5 MG TABLET PO SCH (11:13)
[2022-09-12] MEDS: ACETAMINOPHEN 325 MG TAB PO PRN ×2 (11:21→22:18)
[2022-09-12] MEDS: INSULIN HUMULIN R 100 UNIT/ML 3ML SQ SCH ×3 (14:01→21:00)
[2022-09-12] MEDS: TRAZODONE HCL 50 MG TAB PO SCH (22:08)
[2022-09-13 04:00] VITALS: BP 145/98
[2022-09-13 05:38] LABS: BASOPHILS % (AUTO) 0.2 % (0.0-5.0); EOSINOPHILS % (AUTO) 4.7 % (0.0-8.0); HEMATOCRIT 30.8 % (42-54); LYMPHOCYTES % (AUTO) 16.1 % (21.0-51.0); MEAN CORPUSCULAR HEMOGLOBIN 28.9 pg (27.0-33.0); MEAN CORPUSCULAR HGB CONC 31.5 g/dL (32.0-36.0); MEAN CORPUSCULAR VOLUME 91.7 fL (79-99); NEUTROPHILS % (AUTO) 70.7 % (40.0-77.0); PLATELET COUNT (AUTO) 202 K/uL (130-400); RED BLOOD CELL COUNT(AUTO) 3.36 MIL/uL (4.50-6.20); RED CELL DISTRIBUTION WIDTH 15.1 % (11.0-15.5); WHITE BLOOD COUNT (AUTO) 5.7 K/uL (4.8-10.8)
[2022-09-13 05:54] LABS: CREATININE 1.9 mg/dL (0.5-1.5); POTASSIUM 4.7 mmol/L (3.5-5.1)
[2022-09-13 06:58] LABS: ERYTHROCYTE SEDIMENTATION RATE 30 MM/HR (0-15)
[2022-09-13] MEDS: LEVOTHYROXINE 50 MCG TABLET PO SCH (07:06)
[2022-09-13] MEDS: INSULIN HUMULIN R 100 UNIT/ML 3ML SQ SCH ×3 (07:30→16:30)
[2022-09-13 08:00] VITALS: BP 144/77
[2022-09-13] MEDS: DULOXETINE HCL 30 MG CAP PO SCH (08:41)
[2022-09-13] MEDS: FINASTERIDE 5 MG TABLET PO SCH (08:41)
[2022-09-13] MEDS: FAMOTIDINE 20MG TAB PO SCH (08:42)
[2022-09-13] MEDS: ASPIRIN 81MG CHEW TAB PO SCH (08:42)
[2022-09-13] MEDS: LISINOPRIL 20 MG TABLET PO SCH (08:42)
[2022-09-13] MEDS: GABAPENTIN 300 MG CAPSULE PO SCH (08:43)
[2022-09-13] MEDS: VANCOMYCIN 500MG+NS 100ML 100 ML IV SCH (08:43)
[2022-09-13] MEDS: DOXAZOSIN MESYLATE 2 MG TABLET PO SCH (08:43)
[2022-09-13] MEDS ORDERED: METOPROLOL TARTRATE 50 MG TAB PO SCH (09:00)
[2022-09-13 12:00] VITALS: BP 146/104
[2022-09-13 16:00] VITALS: BP 130/79
[2022-09-13] MEDS ORDERED: GLIPIZIDE 5 MG TABLET PO SCH (16:30)
[2022-09-13] MEDS ORDERED: ASPI-1005 PO (16:41)
[2022-09-13] MEDS ORDERED: DULO30CA2 PO (16:41)
[2022-09-13] MEDS ORDERED: DOXA2TAB2 PO (16:41)
[2022-09-13] MEDS ORDERED: FINA5TAB2 PO (16:41)
[2022-09-13] MEDS ORDERED: GABA300C PO (16:41)
[2022-09-13] MEDS ORDERED: FOLI1TAB85 PO (16:41)
[2022-09-13] MEDS ORDERED: TRAZ-253 PO (16:41)
[2022-09-13] MEDS ORDERED: GLIP5TAB11 PO (16:41)
[2022-09-13] MEDS ORDERED: LEVO50TA4 PO (16:41)
[2022-09-13] MEDS ORDERED: EMPA10TA PO (16:42)
[2022-09-13] MEDS ORDERED: METO50 PO (16:42)
== END 2022-09-13 19:00 | disposition home or self-care (01) | DRG 871 ==
LOC: EDH 03:28 → EDHIP 03:29 → 4DH 10:35
PROVIDERS: ADMIT Internal Medicine; ATTEND Internal Medicine
DX: A41.9 Sepsis, unspecified organism (principal); E11.10 Type 2 diabetes mellitus with ketoacidosis without coma; E43 Unspecified severe protein-calorie malnutrition; I50.33 Acute on chronic diastolic (congestive) heart failure; I38 Endocarditis, valve unspecified; N12 Tubulo-interstitial nephritis, not specified as acute or chronic; E87.1 Hypo-osmolality and hyponatremia; F14.20 Cocaine dependence, uncomplicated; I13.0 Hypertensive heart and chronic kidney disease with heart failure and stage 1 through stage 4 chronic kidney disease, or unspecified chronic kidney disease; N17.9 Acute kidney failure, unspecified; Z16.12 Extended spectrum beta lactamase (ESBL) resistance; Z16.24 Resistance to multiple antibiotics; F32.A Depression, unspecified; N40.0 Benign prostatic hyperplasia without lower urinary tract symptoms; I11.0 Hypertensive heart disease with heart failure; B96.1 Klebsiella pneumoniae [K. pneumoniae] as the cause of diseases classified elsewhere; D50.9 Iron deficiency anemia, unspecified; E11.22 Type 2 diabetes mellitus with diabetic chronic kidney disease; E78.5 Hyperlipidemia, unspecified; Z53.29 Procedure and treatment not carried out because of patient's decision for other reasons; N40.1 Benign prostatic hyperplasia with lower urinary tract symptoms; N18.9 Chronic kidney disease, unspecified; E86.0 Dehydration; F17.200 Nicotine dependence, unspecified, uncomplicated; Z91.199 Patient's noncompliance with other medical treatment and regimen due to unspecified reason; Z56.0 Unemployment, unspecified; Z59.00 Homelessness unspecified; Z79.899 Other long term (current) drug therapy; Z86.14 Personal history of Methicillin resistant Staphylococcus aureus infection; Z86.73 Personal history of transient ischemic attack (TIA), and cerebral infarction without residual deficits; Z95.2 Presence of prosthetic heart valve; Z95.1 Presence of aortocoronary bypass graft; Z68.23 Body mass index [BMI] 23.0-23.9, adult
CPT/HCPCS: 36415; 71045; 76882; 80048; 80053; 80076; 80202; 80305; 81001; 82607; 82728; 82746; 82948; 83540; 83550; 83735; 83930; 84132; 84145; 84443; 84484; 84550; 85025; 85027; 85045; 85651; 86140; 87040; 87070; 87076; 87077; 87088; 87186; 93005; G0378; J1650; J1756; J1815; J1940; J2405; J2543; J3370; J3475; J7050; Q0163

== ENCOUNTER 2022-09-15 16:41 | Inpatient (IN) | payer OTHER ==
[~2022-09-15] VITALS: Ht 170.2 cm; Wt 59.0 kg
[~2022-09-15 16:41] MED LIST changes: -ARIP15TA18 PO; +ASPI-1005 PO; -CLOP-31 PO; +DOXA2TAB2 PO; +EMPA10TA PO; +GABA300C PO; -GLIM4TAB36 PO; +GLIP5TAB11 PO; -LINA5TAB PO; -METF-446 PO; +METO50 PO; -METO50TA18 PO; -MIDO5TAB4 PO; -TAMS-1 PO; +TRAZ-253 PO
[2022-09-15 17:07] LABS: BASOPHILS % (AUTO) 0.5 % (0.0-5.0); EOSINOPHILS % (AUTO) 0.1 % (0.0-8.0); HEMATOCRIT 36.1 % (42-54); LYMPHOCYTES % (AUTO) 7.2 % (21.0-51.0); MEAN CORPUSCULAR HEMOGLOBIN 28.9 pg (27.0-33.0); MEAN CORPUSCULAR HGB CONC 31.6 g/dL (32.0-36.0); MEAN CORPUSCULAR VOLUME 91.4 fL (79-99); MONOCYTES % (AUTO) 7.7 % (3.0-13.0); NEUTROPHILS % (AUTO) 83.9 % (40.0-77.0); PLATELET COUNT (AUTO) 236 K/uL (130-400); RED BLOOD CELL COUNT(AUTO) 3.95 MIL/uL (4.50-6.20); RED CELL DISTRIBUTION WIDTH 15.2 % (11.0-15.5); WHITE BLOOD COUNT (AUTO) 9.4 K/uL (4.8-10.8)
[2022-09-15 17:17] LABS: INR 1.16 (0.85-1.15); PROTHROMBIN TIME 12.5 SEC (9.6-11.6)
[2022-09-15 17:19] LABS: PARTIAL THROMBOPLASTIN TIME 31.5 SEC (26.3-35.5)
[2022-09-15 17:27] LABS: ALBUMIN 2.5 g/dL (3.5-5.0); CREATININE 1.7 mg/dL (0.5-1.5); POTASSIUM 4.4 mmol/L (3.5-5.1); TOTAL PROTEIN, SERUM 8.7 g/dL (6.0-8.3)
[2022-09-15 17:41] LABS: B-TYPE NATRIURETIC PEPTIDE 3170 pg/mL (0-100)
[2022-09-15] MEDS ORDERED: FUROSEMIDE 40MG VIAL IV STA (18:05)
[2022-09-15] MEDS ORDERED: ACETAMINOPHEN 325 MG TAB PO PRN (18:30)
[2022-09-15] MEDS ORDERED: POTASSIUM CHLORIDE 10% ELIXIR 20 MEQ/15 ML UDCUP PO PRN (18:30)
[2022-09-15] MEDS ORDERED: ONDANSETRON 4MG INJ IV PRN (18:30)
[2022-09-15] MEDS ORDERED: MORPHINE 4 MG SYG IV PRN (18:30)
[2022-09-15] MEDS ORDERED: HYDROCODONE/ACETAMINOPHEN 5/325 MG TAB PO PRN (18:30)
[2022-09-15] MEDS ORDERED: MAGNESIUM 2GM PREMIX 50ML 50 ML IV PRN (18:30)
[2022-09-15] MEDS ORDERED: LIDOCAINE HCL-MPF 1% 2ML VIAL IV PRN (18:30)
[2022-09-15] MEDS ORDERED: POTASSIUM CHLORIDE 20MEQ/100ML 100 ML IV PRN (18:30)
[2022-09-15] MEDS ORDERED: KCL 20 MEQ ERTAB PO PRN (18:30)
[2022-09-15] MEDS: ACETAMINOPHEN 325 MG TAB PO PRN ×2 (19:34→20:15)
[2022-09-15] MEDS: FUROSEMIDE 40MG VIAL IVP SCH (20:15)
[2022-09-15] MEDS: FAMOTIDINE 20MG TAB PO SCH (20:29)
[2022-09-15] MEDS: HEPARIN 5,000 UNIT VIAL SQ SCH (20:34)
[2022-09-15] MEDS: GABAPENTIN 300 MG CAPSULE PO SCH (20:34)
[2022-09-15] MEDS: INSULIN HUMULIN R 100 UNIT/ML 3ML SQ SCH (20:35)
[2022-09-15] MEDS: METOPROLOL TARTRATE 25 MG TAB PO SCH (20:36)
[2022-09-15] MEDS ORDERED: TRAZODONE HCL 50 MG TAB PO SCH (21:00)
[2022-09-15 23:10] LABS: ABG BASE EXCESS -3.1 mmol/L (-2.0-3.0); ABG OXYGEN SATURATION 96.7 % (95.0-99.0); ABG PCO2 31 mmHg (35-48)
[2022-09-15] MEDS ORDERED: ZOSYN 3.375GM +NS 50ML IV SCH (23:30)
[2022-09-15] MEDS ORDERED: DEXAMETHASONE SOD PHOSPHATE 4 MG/ML 1ML VIAL IV SCH (23:30)
[2022-09-16] MEDS ORDERED: IPRATROPIUM/ALBUTEROL SULFATE 3 ML SOLUTION IH SCH
[2022-09-16] MEDS ORDERED: ALBUTEROL 0.083% 2.5 MG/3 ML INH IH ONE (00:57)
[2022-09-16] MEDS ORDERED: IPRATROPIUM 0.5 MG/2.5 ML INH IH ONE (00:57)
[2022-09-16] MEDS ORDERED: DEXAMETHASONE SOD PHOSPHATE 4 MG/ML 1ML VIAL IVP SCH (02:00)
[2022-09-16] MEDS ORDERED: ERGOCALCIFEROL (VITAMIN D2) 50,000 UNIT CAPSULE PO ONE (02:00)
[2022-09-16] MEDS ORDERED: SODIUM BICARB 50MEQ 50ML VIAL IV ONE (02:30)
[2022-09-16] MEDS: DOXYCYCLINE 100MG+NS 250ML IV SCH ×2 (02:40→14:06)
[2022-09-16] MEDS: CEFTRIAXONE 1G VIAL IV SCH ×2 (02:40→14:06)
[2022-09-16 06:00] VITALS: BP 161/84
[2022-09-16] MEDS: INSULIN HUMULIN R 100 UNIT/ML 3ML SQ SCH ×2 (06:19→12:27)
[2022-09-16 06:25] LABS: BASOPHILS % (AUTO) 0.3 % (0.0-5.0); EOSINOPHILS % (AUTO) 0.1 % (0.0-8.0); HEMATOCRIT 35.6 % (42-54); LYMPHOCYTES % (AUTO) 3.8 % (21.0-51.0); MEAN CORPUSCULAR HEMOGLOBIN 28.5 pg (27.0-33.0); MEAN CORPUSCULAR HGB CONC 31.5 g/dL (32.0-36.0); MEAN CORPUSCULAR VOLUME 90.6 fL (79-99); MONOCYTES % (AUTO) 1.2 % (3.0-13.0); NEUTROPHILS % (AUTO) 94.3 % (40.0-77.0); PLATELET COUNT (AUTO) 206 K/uL (130-400); RED BLOOD CELL COUNT(AUTO) 3.93 MIL/uL (4.50-6.20); WHITE BLOOD COUNT (AUTO) 8.9 K/uL (4.8-10.8)
[2022-09-16] MEDS ORDERED: LEVOTHYROXINE 50 MCG TABLET PO SCH (06:30)
[2022-09-16 06:37] LABS: CREATININE 1.7 mg/dL (0.5-1.5); MAGNESIUM 1.9 mg/dL (1.80-2.40); PHOSPHORUS 3.7 mg/dL (2.5-4.9); POTASSIUM 4.2 mmol/L (3.5-5.1)
[2022-09-16] MEDS: ALBUTEROL 0.083% 2.5 MG/3 ML INH IH SCH ×2 (06:48→11:05)
[2022-09-16] MEDS: IPRATROPIUM 0.5 MG/2.5 ML INH IH SCH ×2 (06:48→11:05)
[2022-09-16] MEDS ORDERED: INSULIN HUMULIN R 100 UNIT/ML 3ML SQ SCH (07:30)
[2022-09-16] MEDS ORDERED: ZINC SULFATE 220 CAPSULE PO SCH (09:00)
[2022-09-16] MEDS ORDERED: FINASTERIDE 5 MG TABLET PO SCH (09:00)
[2022-09-16] MEDS ORDERED: ASPIRIN 81MG CHEW TAB PO SCH (09:00)
[2022-09-16] MEDS ORDERED: ASCORBIC ACID 500 MG TAB PO SCH (09:00)
[2022-09-16] MEDS ORDERED: DULOXETINE HCL 30 MG CAP PO SCH (09:00)
[2022-09-16] MEDS ORDERED: DOXAZOSIN MESYLATE 2 MG TABLET PO SCH (09:00)
[2022-09-16] MEDS ORDERED: Vitamin B Complex/Vit C/Folic Acid PO SCH (09:00)
[2022-09-16] MEDS: FUROSEMIDE 40MG VIAL IVP SCH (09:54)
[2022-09-16] MEDS: FAMOTIDINE 20MG TAB PO SCH (09:55)
[2022-09-16] MEDS: METOPROLOL TARTRATE 25 MG TAB PO SCH (09:56)
[2022-09-16] MEDS: GABAPENTIN 300 MG CAPSULE PO SCH (09:56)
[2022-09-16] MEDS: HEPARIN 5,000 UNIT VIAL SQ SCH ×2 (10:06→14:07)
[2022-09-16 11:10] VITALS: BP 148/98
[2022-09-16 14:24] LABS: AMPHET/METH SCREEN,URINE NEGATIVE (NEGATIVE); BARBITURATE SCREEN, URINE NEGATIVE (NEGATIVE); BENZODIAZEPINES SCREEN,URINE NEGATIVE (NEGATIVE); CANNABINOID SCREEN,URINE NEGATIVE (NEGATIVE); COCAINE SCREEN,URINE NEGATIVE (NEGATIVE); OPIATE SCREEN,URINE NEGATIVE (NEGATIVE); PHENCYCLIDINE SCREEN,URINE NEGATIVE (NEGATIVE)
== END 2022-09-16 15:15 | disposition left against medical advice (07) | DRG 871 ==
LOC: EDH 16:41 → EDHIP 16:42 → 4CH 09-16 05:47
PROVIDERS: ADMIT Internal Medicine; ATTEND Internal Medicine
PROC: 5A09357 Assistance with Respiratory Ventilation, Less than 24 Consecutive Hours, Continuous Positive Airway Pressure (ICD-10-PCS; principal; 2022-09-15)
PROC: 5A09357 Assistance with Respiratory Ventilation, Less than 24 Consecutive Hours, Continuous Positive Airway Pressure (ICD-10-PCS; 2022-09-16)
DX: A41.9 Sepsis, unspecified organism (principal); I50.33 Acute on chronic diastolic (congestive) heart failure; U07.1 COVID-19; J12.82 Pneumonia due to coronavirus disease 2019; J96.91 Respiratory failure, unspecified with hypoxia; I13.0 Hypertensive heart and chronic kidney disease with heart failure and stage 1 through stage 4 chronic kidney disease, or unspecified chronic kidney disease; J44.0 Chronic obstructive pulmonary disease with (acute) lower respiratory infection; N17.9 Acute kidney failure, unspecified; E11.22 Type 2 diabetes mellitus with diabetic chronic kidney disease; F17.200 Nicotine dependence, unspecified, uncomplicated; N18.30 Chronic kidney disease, stage 3 unspecified; Z53.20 Procedure and treatment not carried out because of patient's decision for unspecified reasons; Z91.199 Patient's noncompliance with other medical treatment and regimen due to unspecified reason; Z56.0 Unemployment, unspecified; Z59.00 Homelessness unspecified; Z79.82 Long term (current) use of aspirin; Z95.2 Presence of prosthetic heart valve; Z95.1 Presence of aortocoronary bypass graft; Z91.14 Patient's other noncompliance with medication regimen; Z86.73 Personal history of transient ischemic attack (TIA), and cerebral infarction without residual deficits; Z86.14 Personal history of Methicillin resistant Staphylococcus aureus infection
CPT/HCPCS: 36415; 36600; 71045; 71250; 80048; 80053; 80305; 82550; 82803; 82948; 83605; 83735; 83880; 84100; 84145; 84484; 85025; 85610; 85730; 87040; 87635; 87804; 93005; 94640; 94660; 94664; 96374; 99291; G0378; J0696; J1100; J1644; J1815; J1940; J2543; J3490

== ENCOUNTER 2022-09-21 12:38 | Inpatient (IN) | payer OTHER ==
[~2022-09-21] VITALS: Ht 170.2 cm; Wt 66.1 kg
[2022-09-21 12:56] LABS: BASOPHILS % (AUTO) 0.5 % (0.0-5.0); EOSINOPHILS % (AUTO) 4.1 % (0.0-8.0); HEMATOCRIT 34.8 % (42-54); MEAN CORPUSCULAR HEMOGLOBIN 28.8 pg (27.0-33.0); MEAN CORPUSCULAR HGB CONC 31.3 g/dL (32.0-36.0); MEAN CORPUSCULAR VOLUME 91.8 fL (79-99); MONOCYTES % (AUTO) 5.4 % (3.0-13.0); NEUTROPHILS % (AUTO) 75.5 % (40.0-77.0); PLATELET COUNT (AUTO) 181 K/uL (130-400); RED BLOOD CELL COUNT(AUTO) 3.79 MIL/uL (4.50-6.20); RED CELL DISTRIBUTION WIDTH 15.1 % (11.0-15.5); WHITE BLOOD COUNT (AUTO) 8.2 K/uL (4.8-10.8)
[2022-09-21 13:10] LABS: ALBUMIN 2.4 g/dL (3.5-5.0); CREATININE 1.3 mg/dL (0.5-1.5); POTASSIUM 3.6 mmol/L (3.5-5.1); TOTAL PROTEIN, SERUM 7.6 g/dL (6.0-8.3)
[2022-09-21 13:20] LABS: B-TYPE NATRIURETIC PEPTIDE 2900 pg/mL (0-100)
[2022-09-21] MEDS ORDERED: FUROSEMIDE 40MG VIAL IV STA (13:25)
[2022-09-21 14:57] LABS: AMPHET/METH SCREEN,URINE NEGATIVE (NEGATIVE); BARBITURATE SCREEN, URINE NEGATIVE (NEGATIVE); BENZODIAZEPINES SCREEN,URINE NEGATIVE (NEGATIVE); CANNABINOID SCREEN,URINE NEGATIVE (NEGATIVE); COCAINE SCREEN,URINE POSITIVE (NEGATIVE); OPIATE SCREEN,URINE NEGATIVE (NEGATIVE); PHENCYCLIDINE SCREEN,URINE NEGATIVE (NEGATIVE)
[2022-09-21] MEDS ORDERED: NITROGLYCERIN 0.4 MG SL TAB SL PRN (16:00)
[2022-09-21] MEDS ORDERED: DiphenhydrAMINE HCL 50 MG/ML VIAL IV PRN (16:00)
[2022-09-21] MEDS ORDERED: LIDOCAINE HCL-MPF 1% 2ML VIAL IV PRN (16:00)
[2022-09-21] MEDS ORDERED: POTASSIUM CHLORIDE 10% ELIXIR 20 MEQ/15 ML UDCUP PO PRN (16:00)
[2022-09-21] MEDS ORDERED: POTASSIUM CHLORIDE 20MEQ/100ML 100 ML IV PRN (16:00)
[2022-09-21] MEDS ORDERED: DIPHENHYDRAMINE HCL 25 MG CAPSULE PO PRN (16:00)
[2022-09-21] MEDS ORDERED: ONDANSETRON 4MG INJ IV PRN (16:00)
[2022-09-21] MEDS ORDERED: HYDROCODONE/ACETAMINOPHEN 5/325 MG TAB PO PRN ×2 (16:00)
[2022-09-21] MEDS ORDERED: MAG/ALUM/SIMETH 30 ML UDCUP PO PRN (16:00)
[2022-09-21] MEDS ORDERED: LACTULOSE 20 GM/30 ML UDCUP PO PRN (16:00)
[2022-09-21] MEDS ORDERED: ACETAMINOPHEN 325 MG TAB PO PRN ×2 (16:00)
[2022-09-21] MEDS ORDERED: GUAIFENESIN-DM 200/20 MG 10 ML PO PRN (16:00)
[2022-09-21] MEDS ORDERED: DEXTROSE 50%-WATER 50 ML DISP.SYRIN IV PRN (16:30)
[2022-09-21] MEDS ORDERED: GLUCAGON 1MG KIT 1 MG ML IM PRN (16:30)
[2022-09-21] MEDS: HYDRALAZINE 20MG/ML VIAL IV PRN (17:16)
[2022-09-21] MEDS: INSULIN HUMULIN R 100 UNIT/ML 3ML SQ SCH ×2 (17:24→21:00)
[2022-09-21] MEDS: FUROSEMIDE 40MG VIAL IVP SCH (20:49)
[2022-09-21] MEDS: GABAPENTIN 300 MG CAPSULE PO SCH (20:50)
[2022-09-21] MEDS: HEPARIN 5,000 UNIT VIAL SQ SCH (20:50)
[2022-09-21] MEDS: FAMOTIDINE 20MG TAB PO SCH (20:50)
[2022-09-21] MEDS ORDERED: FAMOTIDINE 20MG VIAL IV PRN (21:00)
[2022-09-22] MEDS: LEVOTHYROXINE 50 MCG TABLET PO SCH (07:01)
[2022-09-22 07:16] LABS: BASOPHILS % (AUTO) 0.4 % (0.0-5.0); HEMATOCRIT 34.5 % (42-54); LYMPHOCYTES % (AUTO) 17.6 % (21.0-51.0); MEAN CORPUSCULAR HEMOGLOBIN 28.7 pg (27.0-33.0); MEAN CORPUSCULAR HGB CONC 31.6 g/dL (32.0-36.0); MEAN CORPUSCULAR VOLUME 90.8 fL (79-99); MONOCYTES % (AUTO) 4.5 % (3.0-13.0); PLATELET COUNT (AUTO) 164 K/uL (130-400); WHITE BLOOD COUNT (AUTO) 7.6 K/uL (4.8-10.8)
[2022-09-22 07:29] LABS: ALBUMIN 2.4 g/dL (3.5-5.0); CREATININE 1.5 mg/dL (0.5-1.5); MAGNESIUM 1.7 mg/dL (1.80-2.40); PHOSPHORUS 2.6 mg/dL (2.5-4.9); POTASSIUM 3.3 mmol/L (3.5-5.1); TOTAL PROTEIN, SERUM 7.4 g/dL (6.0-8.3)
[2022-09-22] MEDS: INSULIN HUMULIN R 100 UNIT/ML 3ML SQ SCH ×3 (07:30→17:11)
[2022-09-22] MEDS: FAMOTIDINE 20MG TAB PO SCH ×2 (08:19→19:50)
[2022-09-22] MEDS: GABAPENTIN 300 MG CAPSULE PO SCH ×2 (08:19→19:49)
[2022-09-22] MEDS: AMLODIPINE 5 MG TAB PO SCH (08:19)
[2022-09-22] MEDS: FINASTERIDE 5 MG TABLET PO SCH (08:19)
[2022-09-22] MEDS: PREDNISONE 20 MG TABLET PO SCH (08:19)
[2022-09-22] MEDS: DOXAZOSIN MESYLATE 2 MG TABLET PO SCH (08:20)
[2022-09-22] MEDS: HEPARIN 5,000 UNIT VIAL SQ SCH ×3 (08:21→20:02)
[2022-09-22] MEDS: FUROSEMIDE 40MG VIAL IVP SCH ×2 (08:24→19:51)
[2022-09-22] MEDS: DULOXETINE HCL 30 MG CAP PO SCH (10:31)
[2022-09-22] MEDS ORDERED: METOPROLOL TARTRATE 1 MG/ML 5ML VIAL IV PRN (12:30)
[2022-09-22] MEDS: KCL 20 MEQ ERTAB PO PRN ×3 (12:45→22:05)
[2022-09-22] MEDS: MAGNESIUM 2GM PREMIX 50ML 50 ML IV PRN (13:03)
[2022-09-22 13:40] VITALS: BP 148/106
[2022-09-22 15:20] VITALS: BP 165/116
[2022-09-22] MEDS: HYDRALAZINE 25MG TABLET PO SCH (19:49)
[2022-09-22 19:52] VITALS: BP 165/105
[2022-09-22 21:00] VITALS: BP 161/108
[2022-09-22] MEDS ORDERED: INSULIN HUMULIN R 100 UNIT/ML 3ML SQ SCH (21:00)
[2022-09-22] MEDS: MINERAL OIL/PETROLATUM,WHITE 454 GM CREAM.GM. TP SCH (21:40)
[2022-09-22] MEDS: HYDRALAZINE 20MG/ML VIAL IV PRN (21:41)
[2022-09-22 23:59] VITALS: BP 132/86
[2022-09-23 03:28] VITALS: BP 131/90
[2022-09-23 04:58] LABS: BASOPHILS % (AUTO) 0.2 % (0.0-5.0); EOSINOPHILS % (AUTO) 0.8 % (0.0-8.0); LYMPHOCYTES % (AUTO) 15.6 % (21.0-51.0); MEAN CORPUSCULAR HEMOGLOBIN 28.5 pg (27.0-33.0); MEAN CORPUSCULAR HGB CONC 32.6 g/dL (32.0-36.0); MEAN CORPUSCULAR VOLUME 87.2 fL (79-99); MONOCYTES % (AUTO) 5.9 % (3.0-13.0); PLATELET COUNT (AUTO) 184 K/uL (130-400); RED CELL DISTRIBUTION WIDTH 14.6 % (11.0-15.5); WHITE BLOOD COUNT (AUTO) 6.4 K/uL (4.8-10.8)
[2022-09-23 05:22] LABS: ALBUMIN 2.3 g/dL (3.5-5.0); CREATININE 1.6 mg/dL (0.5-1.5); MAGNESIUM 1.9 mg/dL (1.80-2.40); POTASSIUM 4.6 mmol/L (3.5-5.1); TOTAL PROTEIN, SERUM 7.3 g/dL (6.0-8.3)
[2022-09-23] MEDS: LEVOTHYROXINE 50 MCG TABLET PO SCH (06:35)
[2022-09-23] MEDS: INSULIN HUMULIN R 100 UNIT/ML 3ML SQ SCH ×3 (06:41→17:33)
[2022-09-23] MEDS: MAGNESIUM 2GM PREMIX 50ML 50 ML IV PRN (07:05)
[2022-09-23] MEDS: AMLODIPINE 5 MG TAB PO SCH (08:38)
[2022-09-23] MEDS: DOXAZOSIN MESYLATE 2 MG TABLET PO SCH (08:38)
[2022-09-23] MEDS: GABAPENTIN 300 MG CAPSULE PO SCH (08:38)
[2022-09-23] MEDS: PREDNISONE 20 MG TABLET PO SCH (08:38)
[2022-09-23] MEDS: FINASTERIDE 5 MG TABLET PO SCH (08:38)
[2022-09-23] MEDS: DULOXETINE HCL 30 MG CAP PO SCH (08:38)
[2022-09-23] MEDS: HYDRALAZINE 25MG TABLET PO SCH ×2 (08:39→14:20)
[2022-09-23] MEDS: FAMOTIDINE 20MG TAB PO SCH (08:41)
[2022-09-23] MEDS: HEPARIN 5,000 UNIT VIAL SQ SCH ×2 (08:41→14:25)
[2022-09-23] MEDS: MINERAL OIL/PETROLATUM,WHITE 454 GM CREAM.GM. TP SCH (08:42)
[2022-09-23] MEDS: FUROSEMIDE 40MG VIAL IVP SCH (08:42)
[2022-09-23] MEDS ORDERED: INSULIN GLARGINE 100 UNITS/ML 10 ML VIAL SQ SCH (09:30)
[2022-09-23] MEDS ORDERED: ARTIFICAL TEARS SOL 15 ML OU PRN (10:00)
[2022-09-23 10:19] VITALS: BP 151/102
[2022-09-23 12:00] VITALS: BP 131/88
== END 2022-09-23 18:45 | disposition home or self-care (01) | DRG 307 ==
LOC: EDH 12:38 → EDHIP 12:39 → 3BH 09-22 13:51
PROVIDERS: ADMIT Internal Medicine; ATTEND Internal Medicine
DX: I34.0 Nonrheumatic mitral (valve) insufficiency (principal); I13.0 Hypertensive heart and chronic kidney disease with heart failure and stage 1 through stage 4 chronic kidney disease, or unspecified chronic kidney disease; Z20.822 Contact with and (suspected) exposure to COVID-19; E11.22 Type 2 diabetes mellitus with diabetic chronic kidney disease; F14.90 Cocaine use, unspecified, uncomplicated; F17.200 Nicotine dependence, unspecified, uncomplicated; I50.9 Heart failure, unspecified; N18.9 Chronic kidney disease, unspecified; Z56.0 Unemployment, unspecified; Z59.00 Homelessness unspecified; Z79.82 Long term (current) use of aspirin; Z86.14 Personal history of Methicillin resistant Staphylococcus aureus infection; Z86.16 Personal history of COVID-19; Z87.01 Personal history of pneumonia (recurrent); Z86.73 Personal history of transient ischemic attack (TIA), and cerebral infarction without residual deficits; Z91.14 Patient's other noncompliance with medication regimen; Z91.199 Patient's noncompliance with other medical treatment and regimen due to unspecified reason; Z95.2 Presence of prosthetic heart valve
CPT/HCPCS: 36415; 71045; 80053; 80305; 82947; 82948; 83735; 83880; 84100; 84484; 85025; 85378; 87635; 93005; G0378; J0360; J1644; J1815; J1940; J3475; J3490; Q0163

== ENCOUNTER 2022-09-25 16:44 | Inpatient (IN) | payer OTHER ==
[~2022-09-25] VITALS: Ht 170.2 cm; Wt 68.0 kg
[2022-09-25 17:46] LABS: BASOPHILS % (AUTO) 0.2 % (0.0-5.0); HEMATOCRIT 38.3 % (42-54); LYMPHOCYTES % (AUTO) 5.3 % (21.0-51.0); MEAN CORPUSCULAR HEMOGLOBIN 28.6 pg (27.0-33.0); MEAN CORPUSCULAR HGB CONC 31.9 g/dL (32.0-36.0); MEAN CORPUSCULAR VOLUME 89.9 fL (79-99); NEUTROPHILS % (AUTO) 89.1 % (40.0-77.0); PLATELET COUNT (AUTO) 243 K/uL (130-400); RED BLOOD CELL COUNT(AUTO) 4.26 MIL/uL (4.50-6.20); RED CELL DISTRIBUTION WIDTH 15.3 % (11.0-15.5)
[2022-09-25 17:50] LABS: CREATININE 1.5 mg/dL (0.5-1.5); POTASSIUM 4.3 mmol/L (3.5-5.1)
[2022-09-25 18:00] LABS: ALBUMIN 2.5 g/dL (3.5-5.0); TOTAL PROTEIN, SERUM 7.6 g/dL (6.0-8.3)
[2022-09-25] MEDS ORDERED: 0.9%NACL 1000ML 1,323 ML IV ONE (20:00)
[2022-09-25] MEDS ORDERED: ACETAMINOPHEN 500 MG TABLET PO ONE (20:30)
[2022-09-25] MEDS ORDERED: METOPROLOL TARTRATE 1 MG/ML 5ML VIAL IV ONE (21:00)
[2022-09-25 22:15] LABS: APPEARANCE,URINE CLOUDY (CLEAR); BILIRUBIN,URINE NEGATIVE (NEGATIVE); COLOR,URINE LIGHT-YELLOW (YELLOW); GLUCOSE, URINE (UA) 500 mg/dL (NEGATIVE); KETONES,URINE NEGATIVE (NEGATIVE); LEUKOCYTE ESTERASE ,URINE 500 Leu/uL (NEGATIVE); NITRATE,URINE NEGATIVE (NEGATIVE); OCCULT BLOOD,URINE MODERATE (NEGATIVE); PH,URINE 6.5 (5.0-8.0); PROTEIN,URINE 200 mg/dL (NEGATIVE); UROBILINOGEN,URINE 0.2 mg/dL (0.2-1.0)
[2022-09-25 22:18] LABS: BACTERIA,URINE RARE /HPF (None Seen); SQUAMOUS EPITHELIAL CELL,UR RARE /HPF (0-2); YEAST,URINE BUDDING FEW /HPF (None Seen)
[2022-09-25 22:19] LABS: WBC,URINE >100 /HPF (0-1)
[2022-09-25 22:22] LABS: AMPHET/METH SCREEN,URINE NEGATIVE (NEGATIVE); BARBITURATE SCREEN, URINE NEGATIVE (NEGATIVE); BENZODIAZEPINES SCREEN,URINE NEGATIVE (NEGATIVE); CANNABINOID SCREEN,URINE NEGATIVE (NEGATIVE); COCAINE SCREEN,URINE POSITIVE (NEGATIVE); OPIATE SCREEN,URINE NEGATIVE (NEGATIVE); PHENCYCLIDINE SCREEN,URINE NEGATIVE (NEGATIVE)
[2022-09-25] MEDS ORDERED: CEFTRIAXONE 1G VIAL IVP ONE (23:00)
[2022-09-25] MEDS ORDERED: CEFTRIAXONE 1G VIAL ONE (23:00)
[2022-09-26] MEDS ORDERED: ACETAMINOPHEN 325 MG TAB PO PRN (01:00)
[2022-09-26] MEDS ORDERED: LACTULOSE 20 GM/30 ML UDCUP PO PRN (01:00)
[2022-09-26] MEDS ORDERED: MAG/ALUM/SIMETH 30 ML UDCUP PO PRN (01:00)
[2022-09-26] MEDS ORDERED: NITROGLYCERIN 0.4 MG SL TAB SL PRN (01:00)
[2022-09-26] MEDS ORDERED: GUAIFENESIN-DM 200/20 MG 10 ML PO PRN (01:00)
[2022-09-26] MEDS ORDERED: ONDANSETRON 4MG INJ IV PRN (01:00)
[2022-09-26] MEDS ORDERED: HYDRALAZINE 20MG/ML VIAL IV PRN (01:00)
[2022-09-26] MEDS ORDERED: GLUCAGON 1MG KIT 1 MG ML IM PRN (01:30)
[2022-09-26] MEDS ORDERED: DEXTROSE 50%-WATER 50 ML DISP.SYRIN IV PRN (01:30)
[2022-09-26] MEDS: ZOSYN 3.375GM+NS 50ML 50 ML IV SCH ×3 (04:49→20:52)
[2022-09-26] MEDS: IPRATROPIUM/ALBUTEROL SULFATE 3 ML SOLUTION IH SCH ×3 (06:00→23:16)
[2022-09-26] MEDS ORDERED: IPRATROPIUM 0.5 MG/2.5 ML INH IH ONE ×4 (06:01→23:08)
[2022-09-26] MEDS ORDERED: ALBUTEROL 0.083% 2.5 MG/3 ML INH IH ONE ×4 (06:01→23:08)
[2022-09-26] MEDS: INSULIN HUMULIN R 100 UNIT/ML 3ML SQ SCH ×4 (07:50→20:53)
[2022-09-26] MEDS: ASPIRIN 81MG CHEW TAB PO SCH (08:39)
[2022-09-26] MEDS: FAMOTIDINE 20MG VIAL IV SCH ×2 (08:39→20:11)
[2022-09-26] MEDS ORDERED: AMLODIPINE 5 MG TAB PO SCH (09:00)
[2022-09-26 12:00] VITALS: BP 183/105
[2022-09-26 16:00] VITALS: BP 174/108
[2022-09-26 20:45] VITALS: BP 157/104
[2022-09-26 20:55] VITALS: BP 149/92
[2022-09-26] MEDS: DIPHENHYDRAMINE HCL 25 MG CAPSULE PO PRN (23:50)
[2022-09-26] MEDS: ACETAMINOPHEN WITH CODEINE 1 TAB TAB PO PRN (23:50)
[2022-09-27 00:24] VITALS: BP 156/98
[2022-09-27] MEDS: ZOSYN 3.375GM+NS 50ML 50 ML IV SCH ×3 (04:23→21:06)
[2022-09-27 05:20] VITALS: BP 180/114
[2022-09-27] MEDS: LEVOTHYROXINE 50 MCG TABLET PO SCH (05:32)
[2022-09-27] MEDS: INSULIN HUMULIN R 100 UNIT/ML 3ML SQ SCH ×4 (06:03→21:08)
[2022-09-27 06:27] VITALS: BP 149/81
[2022-09-27] MEDS: IPRATROPIUM 0.5 MG/2.5 ML INH IH SCH ×4 (06:47→23:41)
[2022-09-27] MEDS: ALBUTEROL 0.083% 2.5 MG/3 ML INH IH SCH ×4 (06:47→23:41)
[2022-09-27 07:53] LABS: BASOPHILS % (AUTO) 0.2 % (0.0-5.0); EOSINOPHILS % (AUTO) 1.1 % (0.0-8.0); HEMATOCRIT 30.9 % (42-54); LYMPHOCYTES % (AUTO) 8.1 % (21.0-51.0); MEAN CORPUSCULAR HEMOGLOBIN 28.5 pg (27.0-33.0); MEAN CORPUSCULAR HGB CONC 32.4 g/dL (32.0-36.0); MONOCYTES % (AUTO) 6.2 % (3.0-13.0); NEUTROPHILS % (AUTO) 83.9 % (40.0-77.0); PLATELET COUNT (AUTO) 186 K/uL (130-400); RED BLOOD CELL COUNT(AUTO) 3.51 MIL/uL (4.50-6.20); RED CELL DISTRIBUTION WIDTH 14.8 % (11.0-15.5); WHITE BLOOD COUNT (AUTO) 12.9 K/uL (4.8-10.8)
[2022-09-27 08:00] VITALS: BP 120/61
[2022-09-27 08:29] LABS: ALBUMIN 2.1 g/dL (3.5-5.0); CREATININE 1.7 mg/dL (0.5-1.5); POTASSIUM 3.5 mmol/L (3.5-5.1); TOTAL PROTEIN, SERUM 6.6 g/dL (6.0-8.3)
[2022-09-27] MEDS: INSULIN GLARGINE 100 UNITS/ML 10 ML VIAL SQ SCH (09:00)
[2022-09-27] MEDS: AMLODIPINE 5 MG TAB PO SCH (10:54)
[2022-09-27] MEDS: FAMOTIDINE 20MG VIAL IV SCH ×2 (10:54→21:06)
[2022-09-27] MEDS: ASPIRIN 81MG CHEW TAB PO SCH (10:54)
[2022-09-27 16:00] VITALS: BP 139/86
[2022-09-27 16:40] LABS: BASOPHILS % (AUTO) 0.2 % (0.0-5.0); EOSINOPHILS % (AUTO) 1.5 % (0.0-8.0); HEMATOCRIT 31.8 % (42-54); LYMPHOCYTES % (AUTO) 6.3 % (21.0-51.0); MEAN CORPUSCULAR HEMOGLOBIN 28.6 pg (27.0-33.0); MEAN CORPUSCULAR HGB CONC 31.4 g/dL (32.0-36.0); MEAN CORPUSCULAR VOLUME 90.9 fL (79-99); MONOCYTES % (AUTO) 6.2 % (3.0-13.0); NEUTROPHILS % (AUTO) 85.4 % (40.0-77.0); PLATELET COUNT (AUTO) 189 K/uL (130-400); WHITE BLOOD COUNT (AUTO) 10.7 K/uL (4.8-10.8)
[2022-09-27 19:00] VITALS: BP_SYST 164; BP_DIAS 103; BP_DIAS 104
[2022-09-27] MEDS: DIPHENHYDRAMINE HCL 25 MG CAPSULE PO PRN (23:45)
[2022-09-27] MEDS: ACETAMINOPHEN WITH CODEINE 1 TAB TAB PO PRN (23:45)
[2022-09-28] VITALS (7 sets, daily range): BP systolic 110–151; BP diastolic 77–105
[2022-09-28] MEDS: ZOSYN 3.375GM+NS 50ML 50 ML IV SCH ×3 (04:43→20:34)
[2022-09-28] MEDS: LEVOTHYROXINE 50 MCG TABLET PO SCH (05:41)
[2022-09-28 05:48] LABS: CREATININE 1.7 mg/dL (0.5-1.5); POTASSIUM 4.6 mmol/L (3.5-5.1); TOTAL PROTEIN, SERUM 6.6 g/dL (6.0-8.3)
[2022-09-28] MEDS: INSULIN HUMULIN R 100 UNIT/ML 3ML SQ SCH ×4 (05:51→20:33)
[2022-09-28] MEDS: ALBUTEROL 0.083% 2.5 MG/3 ML INH IH SCH ×4 (06:42→23:33)
[2022-09-28] MEDS: IPRATROPIUM 0.5 MG/2.5 ML INH IH SCH ×4 (06:42→23:33)
[2022-09-28] MEDS: ASPIRIN 81MG CHEW TAB PO SCH (08:23)
[2022-09-28] MEDS: AMLODIPINE 5 MG TAB PO SCH (08:23)
[2022-09-28] MEDS: FAMOTIDINE 20MG VIAL IV SCH ×2 (08:23→20:34)
[2022-09-28] MEDS: METOPROLOL TARTRATE 50 MG TAB PO SCH ×2 (08:23→20:34)
[2022-09-28] MEDS: INSULIN GLARGINE 100 UNITS/ML 10 ML VIAL SQ SCH (08:29)
[2022-09-28] MEDS: DIPHENHYDRAMINE HCL 25 MG CAPSULE PO PRN (20:41)
[2022-09-28] MEDS: ACETAMINOPHEN WITH CODEINE 1 TAB TAB PO PRN (20:42)
[2022-09-29 04:00] VITALS: BP 132/82
[2022-09-29] MEDS: INSULIN HUMULIN R 100 UNIT/ML 3ML SQ SCH ×3 (05:19→16:30)
[2022-09-29] MEDS: ZOSYN 3.375GM+NS 50ML 50 ML IV SCH ×2 (05:20→12:08)
[2022-09-29] MEDS: LEVOTHYROXINE 50 MCG TABLET PO SCH (05:21)
[2022-09-29] MEDS: IPRATROPIUM 0.5 MG/2.5 ML INH IH SCH (07:19)
[2022-09-29] MEDS: ALBUTEROL 0.083% 2.5 MG/3 ML INH IH SCH (07:20)
[2022-09-29 08:00] VITALS: BP 173/114
[2022-09-29] MEDS ORDERED: CEFD300C3 PO (08:15)
[2022-09-29] MEDS: METOPROLOL TARTRATE 50 MG TAB PO SCH (08:22)
[2022-09-29] MEDS: FAMOTIDINE 20MG VIAL IV SCH (08:22)
[2022-09-29] MEDS: AMLODIPINE 5 MG TAB PO SCH (08:22)
[2022-09-29] MEDS: ASPIRIN 81MG CHEW TAB PO SCH (08:22)
[2022-09-29] MEDS: INSULIN GLARGINE 100 UNITS/ML 10 ML VIAL SQ SCH (08:27)
[2022-09-29 12:00] VITALS: BP 144/101
[2022-09-29] MEDS ORDERED: HYDRALAZINE 25MG TABLET PO SCH (12:00)
[2022-09-29] MEDS: DIPHENHYDRAMINE HCL 25 MG CAPSULE PO PRN (12:08)
[2022-09-29] MEDS: ACETAMINOPHEN WITH CODEINE 1 TAB TAB PO PRN (12:09)
[2022-09-29 16:00] VITALS: BP 145/97
== END 2022-09-29 17:15 | disposition home or self-care (01) | DRG 194 ==
LOC: EDH 16:44 → EDHIP 16:45 → 3CH 09-26 10:00
PROVIDERS: ADMIT Hospitalist; ATTEND Hospitalist
DX: J18.9 Pneumonia, unspecified organism (principal); I13.0 Hypertensive heart and chronic kidney disease with heart failure and stage 1 through stage 4 chronic kidney disease, or unspecified chronic kidney disease; E11.22 Type 2 diabetes mellitus with diabetic chronic kidney disease; Z20.822 Contact with and (suspected) exposure to COVID-19; N18.9 Chronic kidney disease, unspecified; I34.0 Nonrheumatic mitral (valve) insufficiency; F14.90 Cocaine use, unspecified, uncomplicated; F17.200 Nicotine dependence, unspecified, uncomplicated; I25.10 Atherosclerotic heart disease of native coronary artery without angina pectoris; I50.9 Heart failure, unspecified; Z56.0 Unemployment, unspecified; Z59.00 Homelessness unspecified; Z86.73 Personal history of transient ischemic attack (TIA), and cerebral infarction without residual deficits; Z95.2 Presence of prosthetic heart valve; Z79.899 Other long term (current) drug therapy; Z86.14 Personal history of Methicillin resistant Staphylococcus aureus infection; Z86.79 Personal history of other diseases of the circulatory system; Z91.199 Patient's noncompliance with other medical treatment and regimen due to unspecified reason
CPT/HCPCS: 36415; 71045; 80053; 80305; 81001; 82948; 83036; 83605; 83880; 84484; 85025; 87040; 87088; 87635; 87804; 93005; 94640; 94664; 96361; 96374; C9803; G0378; J0696; J1815; J2543; J3490; Q0163

== ENCOUNTER 2022-10-09 01:06 | Inpatient (IN) | payer OTHER ==
[~2022-10-09] VITALS: Ht 170.2 cm; Wt 70.7 kg
[~2022-10-09 01:06] MED LIST changes: +CEFD300C3 PO
[2022-10-09 01:45] LABS: BASOPHILS % (AUTO) 0.3 % (0.0-5.0); HEMATOCRIT 33.7 % (42-54); LYMPHOCYTES % (AUTO) 10.2 % (21.0-51.0); MEAN CORPUSCULAR HGB CONC 31.5 g/dL (32.0-36.0); MEAN CORPUSCULAR VOLUME 88.9 fL (79-99); MONOCYTES % (AUTO) 5.4 % (3.0-13.0); NEUTROPHILS % (AUTO) 80.5 % (40.0-77.0); PLATELET COUNT (AUTO) 266 K/uL (130-400); RED BLOOD CELL COUNT(AUTO) 3.79 MIL/uL (4.50-6.20); RED CELL DISTRIBUTION WIDTH 14.7 % (11.0-15.5); WHITE BLOOD COUNT (AUTO) 11.8 K/uL (4.8-10.8)
[2022-10-09 01:58] LABS: INR 1.09 (0.85-1.15); PROTHROMBIN TIME 11.8 SEC (9.6-11.6)
[2022-10-09] MEDS ORDERED: FUROSEMIDE 40MG VIAL IV ONE (02:00)
[2022-10-09] MEDS ORDERED: IPRATROPIUM/ALBUTEROL SULFATE 3 ML SOLUTION IH ONE ×2 (02:00→03:30)
[2022-10-09 02:06] LABS: B-TYPE NATRIURETIC PEPTIDE 625 pg/mL (0-100)
[2022-10-09 02:28] LABS: ALBUMIN 2.1 g/dL (3.5-5.0); POTASSIUM 5.7 mmol/L (3.5-5.1); TOTAL PROTEIN, SERUM 8.1 g/dL (6.0-8.3)
[2022-10-09 02:42] LABS: APPEARANCE,URINE TURBID (CLEAR); BILIRUBIN,URINE NEGATIVE (NEGATIVE); COLOR,URINE YELLOW (YELLOW); GLUCOSE, URINE (UA) 30 mg/dL (NEGATIVE); KETONES,URINE NEGATIVE (NEGATIVE); LEUKOCYTE ESTERASE ,URINE 500 Leu/uL (NEGATIVE); NITRATE,URINE NEGATIVE (NEGATIVE); OCCULT BLOOD,URINE MODERATE (NEGATIVE); PROTEIN,URINE 200 mg/dL (NEGATIVE); UROBILINOGEN,URINE 0.2 mg/dL (0.2-1.0)
[2022-10-09 02:52] LABS: BACTERIA,URINE FEW /HPF (None Seen); WBC,URINE TNTC /HPF (0-1)
[2022-10-09] MEDS ORDERED: ALBUTEROL 0.083% 2.5 MG/3 ML INH IH SCH (03:30)
[2022-10-09] MEDS ORDERED: INSULIN HUMULIN R 100 UNIT/ML 3ML IV ONE (03:30)
[2022-10-09] MEDS ORDERED: CEFTRIAXONE 1G VIAL IVP ONE (03:30)
[2022-10-09] MEDS ORDERED: CALCIUM GLUC 1GM 1 GM in 0.9%NACL 100ML 100 ML IV ONE (03:30)
[2022-10-09] MEDS ORDERED: FUROSEMIDE 40 MG UD CUP PO ONE (03:30)
[2022-10-09] MEDS ORDERED: DEXTROSE 50%-WATER 25 GM/50 ML VIAL IV ONE (03:30)
[2022-10-09 03:51] LABS: AMPHET/METH SCREEN,URINE NEGATIVE (NEGATIVE); BARBITURATE SCREEN, URINE NEGATIVE (NEGATIVE); BENZODIAZEPINES SCREEN,URINE NEGATIVE (NEGATIVE); CANNABINOID SCREEN,URINE NEGATIVE (NEGATIVE); COCAINE SCREEN,URINE NEGATIVE (NEGATIVE); OPIATE SCREEN,URINE NEGATIVE (NEGATIVE); PHENCYCLIDINE SCREEN,URINE NEGATIVE (NEGATIVE)
[2022-10-09] MEDS: PHARMACY COMMUNICATION MISC SCH ×3 (04:00→14:00)
[2022-10-09] MEDS ORDERED: ONDANSETRON 4MG INJ IV PRN (04:00)
[2022-10-09] MEDS ORDERED: MORPHINE 4 MG SYG IV PRN (04:00)
[2022-10-09] MEDS ORDERED: ACETAMINOPHEN 325 MG TAB PO PRN (04:00)
[2022-10-09] MEDS ORDERED: MAGNESIUM 2GM PREMIX 50ML 50 ML IV PRN (04:30)
[2022-10-09] MEDS ORDERED: LIDOCAINE HCL-MPF 1% 2ML VIAL IV PRN (04:30)
[2022-10-09] MEDS ORDERED: POTASSIUM CHLORIDE 10MEQ/100ML 100 ML IV PRN (04:30)
[2022-10-09] MEDS ORDERED: CALCIUM GLUC 1GM/10ML VIAL ONE (04:51)
[2022-10-09] MEDS ORDERED: DEXTROSE 50%-WATER 50 ML DISP.SYRIN IV ONE (04:51)
[2022-10-09] MEDS: KAYEXALATE 15GM/60ML PO SCH ×2 (04:53→06:55)
[2022-10-09 04:55] LABS: HEMOGLOBIN A1C 7.7 % (4.0-6.0)
[2022-10-09] MEDS ORDERED: SODIUM BICARB 50MEQ 50ML VIAL 50 ML ONE (05:13)
[2022-10-09] MEDS ORDERED: SODIUM BICARB 50MEQ 50ML VIAL IV ONE (05:30)
[2022-10-09 05:50] VITALS: BP 131/89
[2022-10-09] MEDS: INSULIN HUMULIN R 100 UNIT/ML 3ML SQ SCH ×4 (06:45→21:00)
[2022-10-09] MEDS ORDERED: NA ZIRCON CYCLOSIL(LOKELMA 10GM) PO SCH (06:55)
[2022-10-09 08:00] VITALS: BP 137/79
[2022-10-09] MEDS: FINASTERIDE 5 MG TABLET PO SCH ×2 (09:00→21:30)
[2022-10-09] MEDS ORDERED: GUAIFENESIN-DM 200/20 MG 10 ML ONE (09:02)
[2022-10-09] MEDS: DULOXETINE HCL 30 MG CAP PO SCH (09:07)
[2022-10-09] MEDS: FAMOTIDINE 20MG VIAL IV SCH (09:07)
[2022-10-09] MEDS: MORPHINE 2 MG SYG IV PRN (09:08)
[2022-10-09] MEDS: DOXAZOSIN MESYLATE 2 MG TABLET PO SCH (09:08)
[2022-10-09] MEDS: ASPIRIN 81MG CHEW TAB PO SCH (09:08)
[2022-10-09] MEDS: METOPROLOL TARTRATE 50 MG TAB PO SCH ×2 (09:09→21:35)
[2022-10-09] MEDS: Vitamin B Complex/Vit C/Folic Acid PO SCH (09:09)
[2022-10-09] MEDS: GABAPENTIN 300 MG CAPSULE PO SCH ×2 (09:09→21:31)
[2022-10-09] MEDS: HEPARIN 5,000 UNIT VIAL SQ SCH ×2 (09:10→21:33)
[2022-10-09] MEDS ORDERED: DiphenhydrAMINE HCL 50 MG/ML VIAL IV PRN (10:00)
[2022-10-09] MEDS: FUROSEMIDE 40MG VIAL IV SCH ×2 (10:00→21:30)
[2022-10-09 12:00] VITALS: BP 121/89
[2022-10-09 16:00] VITALS: BP 136/91
[2022-10-09 20:00] VITALS: BP 117/83
[2022-10-09] MEDS: TRAZODONE HCL 50 MG TAB PO SCH (21:29)
[2022-10-10] VITALS: BP 98/62
[2022-10-10] MEDS: GUAIFENESIN/DEXTROMETHORPHAN 1 EACH TAB.SR.12H PO PRN ×4 (00:12→22:12)
[2022-10-10] MEDS: MORPHINE 2 MG SYG IV PRN ×5 (00:12→22:17)
[2022-10-10 04:00] VITALS: BP_SYST 107; BP_SYST 108; BP_DIAS 70; BP_DIAS 78
[2022-10-10] MEDS: PHARMACY COMMUNICATION MISC SCH ×3 (04:36→10:08)
[2022-10-10] MEDS: MEROPENEM 500 MG VIAL IVP SCH ×2 (04:41→16:35)
[2022-10-10 06:11] LABS: BASOPHILS % (AUTO) 0.4 % (0.0-5.0); HEMATOCRIT 33.2 % (42-54); MEAN CORPUSCULAR HEMOGLOBIN 28.1 pg (27.0-33.0); MEAN CORPUSCULAR HGB CONC 30.7 g/dL (32.0-36.0); MEAN CORPUSCULAR VOLUME 91.5 fL (79-99); MONOCYTES % (AUTO) 8.1 % (3.0-13.0); NEUTROPHILS % (AUTO) 67.3 % (40.0-77.0); PLATELET COUNT (AUTO) 244 K/uL (130-400); RED BLOOD CELL COUNT(AUTO) 3.63 MIL/uL (4.50-6.20); RED CELL DISTRIBUTION WIDTH 15.3 % (11.0-15.5); WHITE BLOOD COUNT (AUTO) 7.7 K/uL (4.8-10.8)
[2022-10-10] MEDS: LEVOTHYROXINE 50 MCG TABLET PO SCH (06:15)
[2022-10-10] MEDS: INSULIN HUMULIN R 100 UNIT/ML 3ML SQ SCH ×4 (06:16→20:52)
[2022-10-10 06:25] LABS: CREATININE 2.1 mg/dL (0.5-1.5); MAGNESIUM 1.9 mg/dL (1.80-2.40); PHOSPHORUS 4.1 mg/dL (2.5-4.9); POTASSIUM 5.5 mmol/L (3.5-5.1)
[2022-10-10 08:00] VITALS: BP 152/95
[2022-10-10] MEDS: ASPIRIN 81MG CHEW TAB PO SCH (09:53)
[2022-10-10] MEDS: FAMOTIDINE 20MG VIAL IV SCH (09:54)
[2022-10-10] MEDS: DOXAZOSIN MESYLATE 2 MG TABLET PO SCH (09:54)
[2022-10-10] MEDS: METOPROLOL TARTRATE 50 MG TAB PO SCH ×2 (09:54→20:52)
[2022-10-10] MEDS: BENZONATATE 100 MG CAPSULE PO PRN (09:54)
[2022-10-10] MEDS: DULOXETINE HCL 30 MG CAP PO SCH (09:54)
[2022-10-10] MEDS: GABAPENTIN 300 MG CAPSULE PO SCH ×2 (09:54→20:52)
[2022-10-10] MEDS: Vitamin B Complex/Vit C/Folic Acid PO SCH (09:54)
[2022-10-10] MEDS: FUROSEMIDE 40MG VIAL IV SCH (09:55)
[2022-10-10] MEDS: HEPARIN 5,000 UNIT VIAL SQ SCH ×2 (10:05→20:58)
[2022-10-10 12:00] VITALS: BP 133/97
[2022-10-10 16:00] VITALS: BP 108/70
[2022-10-10] MEDS ORDERED: VANCOMYCIN PROTOCOL PER PHARMACY IV PRN (16:30)
[2022-10-10] MEDS ORDERED: VANCOMYCIN 1G/250ML KIT 250 ML IV SCH (16:30)
[2022-10-10] MEDS ORDERED: VANCOMYCIN 1.5 GM/250 ML BAG 250 ML IV ONE (17:00)
[2022-10-10] MEDS: 0.9%NACL 1000ML 1,000 ML IV SCH (17:00)
[2022-10-10 20:00] VITALS: BP 109/76
[2022-10-10] MEDS: FINASTERIDE 5 MG TABLET PO SCH (20:52)
[2022-10-10] MEDS: TRAZODONE HCL 50 MG TAB PO SCH (20:52)
[2022-10-11] VITALS: BP 102/70
[2022-10-11] MEDS: 0.9%NACL 1000ML 1,000 ML IV SCH (01:14)
[2022-10-11 04:00] VITALS: BP 86/59
[2022-10-11] MEDS: MEROPENEM 500 MG VIAL IVP SCH ×2 (04:35→17:17)
[2022-10-11] MEDS: MORPHINE 2 MG SYG IV PRN (04:39)
[2022-10-11 04:58] LABS: BASOPHILS % (AUTO) 0.6 % (0.0-5.0); EOSINOPHILS % (AUTO) 5.5 % (0.0-8.0); HEMATOCRIT 31.4 % (42-54); LYMPHOCYTES % (AUTO) 17.6 % (21.0-51.0); MEAN CORPUSCULAR HEMOGLOBIN 27.7 pg (27.0-33.0); MEAN CORPUSCULAR HGB CONC 30.6 g/dL (32.0-36.0); MEAN CORPUSCULAR VOLUME 90.8 fL (79-99); MONOCYTES % (AUTO) 10.7 % (3.0-13.0); PLATELET COUNT (AUTO) 234 K/uL (130-400); RED BLOOD CELL COUNT(AUTO) 3.46 MIL/uL (4.50-6.20); RED CELL DISTRIBUTION WIDTH 15.2 % (11.0-15.5); WHITE BLOOD COUNT (AUTO) 5.1 K/uL (4.8-10.8)
[2022-10-11 05:08] LABS: CREATININE 2.5 mg/dL (0.5-1.5); POTASSIUM 5.8 mmol/L (3.5-5.1)
[2022-10-11] MEDS: GUAIFENESIN/DEXTROMETHORPHAN 1 EACH TAB.SR.12H PO PRN ×2 (06:45→22:46)
[2022-10-11] MEDS: LEVOTHYROXINE 50 MCG TABLET PO SCH (06:45)
[2022-10-11] MEDS: INSULIN HUMULIN R 100 UNIT/ML 3ML SQ SCH ×4 (06:51→21:00)
[2022-10-11] MEDS ORDERED: ACETAMINOPHEN WITH CODEINE 1 TAB TAB PO PRN ×2 (07:30)
[2022-10-11] MEDS ORDERED: KAYEXALATE 15GM/60ML PO SCH (07:30)
[2022-10-11] MEDS ORDERED: RENAL DOSE IV SCH (07:30)
[2022-10-11 08:00] VITALS: BP_SYST 109; BP_SYST 152; BP_DIAS 36; BP_DIAS 69
[2022-10-11] MEDS: DOXAZOSIN MESYLATE 2 MG TABLET PO SCH (08:35)
[2022-10-11] MEDS: DULOXETINE HCL 30 MG CAP PO SCH (08:35)
[2022-10-11] MEDS: GABAPENTIN 300 MG CAPSULE PO SCH ×2 (08:35→21:43)
[2022-10-11] MEDS: ASPIRIN 81MG CHEW TAB PO SCH (08:35)
[2022-10-11] MEDS: METOPROLOL TARTRATE 50 MG TAB PO SCH ×2 (08:36→21:44)
[2022-10-11] MEDS: BENZONATATE 100 MG CAPSULE PO PRN (08:36)
[2022-10-11] MEDS: Vitamin B Complex/Vit C/Folic Acid PO SCH (08:36)
[2022-10-11] MEDS: HEPARIN 5,000 UNIT VIAL SQ SCH ×2 (08:45→21:51)
[2022-10-11] MEDS ORDERED: FAMOTIDINE 20MG TAB PO SCH (09:00)
[2022-10-11 11:34] VITALS: BP 83/61
[2022-10-11 15:27] VITALS: BP 108/66
[2022-10-11] MEDS ORDERED: VANCOMYCIN 1G/250ML KIT 250 ML IV SCH (17:00)
[2022-10-11 19:00] VITALS: BP 94/65
[2022-10-11] MEDS: FINASTERIDE 5 MG TABLET PO SCH (21:43)
[2022-10-11] MEDS: TRAZODONE HCL 50 MG TAB PO SCH (21:43)
[2022-10-12] VITALS: BP 106/62
[2022-10-12 04:00] VITALS: BP 90/55
[2022-10-12] MEDS: MEROPENEM 500 MG VIAL IVP SCH (04:35)
[2022-10-12 05:39] LABS: BASOPHILS % (AUTO) 0.5 % (0.0-5.0); EOSINOPHILS % (AUTO) 5.7 % (0.0-8.0); HEMATOCRIT 31.7 % (42-54); LYMPHOCYTES % (AUTO) 25.7 % (21.0-51.0); MEAN CORPUSCULAR HGB CONC 30.9 g/dL (32.0-36.0); MEAN CORPUSCULAR VOLUME 90.6 fL (79-99); MONOCYTES % (AUTO) 10.8 % (3.0-13.0); NEUTROPHILS % (AUTO) 56.2 % (40.0-77.0); PLATELET COUNT (AUTO) 257 K/uL (130-400); RED CELL DISTRIBUTION WIDTH 15.1 % (11.0-15.5); WHITE BLOOD COUNT (AUTO) 5.6 K/uL (4.8-10.8)
[2022-10-12 06:04] LABS: CREATININE 2.6 mg/dL (0.5-1.5); MAGNESIUM 1.9 mg/dL (1.80-2.40); PHOSPHORUS 6.9 mg/dL (2.5-4.9); POTASSIUM 5.3 mmol/L (3.5-5.1)
[2022-10-12] MEDS: INSULIN HUMULIN R 100 UNIT/ML 3ML SQ SCH ×4 (06:38→20:51)
[2022-10-12] MEDS: LEVOTHYROXINE 50 MCG TABLET PO SCH (06:38)
[2022-10-12 08:00] VITALS: BP 82/58
[2022-10-12] MEDS: METOPROLOL TARTRATE 50 MG TAB PO SCH ×2 (09:00→20:51)
[2022-10-12] MEDS: HEPARIN 5,000 UNIT VIAL SQ SCH ×2 (09:00→20:58)
[2022-10-12] MEDS ORDERED: FLUCONAZOLE 100 MG TAB PO ONE (10:00)
[2022-10-12] MEDS ORDERED: FLUCONAZOLE 100 MG TAB PO SCH (10:00)
[2022-10-12] MEDS: DOXAZOSIN MESYLATE 2 MG TABLET PO SCH (10:53)
[2022-10-12] MEDS: DULOXETINE HCL 30 MG CAP PO SCH (10:53)
[2022-10-12] MEDS: FAMOTIDINE 20MG TAB PO SCH (10:53)
[2022-10-12] MEDS: GABAPENTIN 300 MG CAPSULE PO SCH ×2 (10:54→20:57)
[2022-10-12] MEDS: ASPIRIN 81MG CHEW TAB PO SCH (10:54)
[2022-10-12] MEDS: Vitamin B Complex/Vit C/Folic Acid PO SCH (10:54)
[2022-10-12 12:00] VITALS: BP 91/39
[2022-10-12 16:00] VITALS: BP 111/71
[2022-10-12] MEDS: GUAIFENESIN/DEXTROMETHORPHAN 1 EACH TAB.SR.12H PO PRN ×2 (16:04→21:06)
[2022-10-12] MEDS: ACETAMINOPHEN 325 MG TAB PO PRN ×2 (16:04→21:07)
[2022-10-12 19:00] VITALS: BP 106/78
[2022-10-12] MEDS: TRAZODONE HCL 50 MG TAB PO SCH (20:57)
[2022-10-12] MEDS: FINASTERIDE 5 MG TABLET PO SCH (20:57)
[2022-10-13] VITALS: BP 103/68
[2022-10-13 04:00] VITALS: BP 96/62
[2022-10-13 04:24] LABS: BASOPHILS % (AUTO) 0.6 % (0.0-5.0); EOSINOPHILS % (AUTO) 3.5 % (0.0-8.0); HEMATOCRIT 32.7 % (42-54); LYMPHOCYTES % (AUTO) 17.6 % (21.0-51.0); MEAN CORPUSCULAR HEMOGLOBIN 28.3 pg (27.0-33.0); MEAN CORPUSCULAR HGB CONC 30.9 g/dL (32.0-36.0); MEAN CORPUSCULAR VOLUME 91.6 fL (79-99); MONOCYTES % (AUTO) 7.9 % (3.0-13.0); NEUTROPHILS % (AUTO) 69.4 % (40.0-77.0); PLATELET COUNT (AUTO) 220 K/uL (130-400); RED BLOOD CELL COUNT(AUTO) 3.57 MIL/uL (4.50-6.20); RED CELL DISTRIBUTION WIDTH 15.7 % (11.0-15.5); WHITE BLOOD COUNT (AUTO) 5.2 K/uL (4.8-10.8)
[2022-10-13 04:36] LABS: CREATININE 2.6 mg/dL (0.5-1.5); POTASSIUM 5.3 mmol/L (3.5-5.1)
[2022-10-13 04:42] LABS: % IRON SATURATION 38.5 % (30-44)
[2022-10-13] MEDS: LEVOTHYROXINE 50 MCG TABLET PO SCH (06:21)
[2022-10-13] MEDS: INSULIN HUMULIN R 100 UNIT/ML 3ML SQ SCH ×4 (06:24→21:48)
[2022-10-13 07:30] VITALS: BP 84/55
[2022-10-13] MEDS: METOPROLOL TARTRATE 50 MG TAB PO SCH (08:16)
[2022-10-13] MEDS: DULOXETINE HCL 30 MG CAP PO SCH (09:18)
[2022-10-13] MEDS: Vitamin B Complex/Vit C/Folic Acid PO SCH (09:18)
[2022-10-13] MEDS: ASPIRIN 81MG CHEW TAB PO SCH (09:18)
[2022-10-13] MEDS: ACETAMINOPHEN 325 MG TAB PO PRN (09:19)
[2022-10-13] MEDS: FAMOTIDINE 20MG TAB PO SCH (09:20)
[2022-10-13] MEDS: GABAPENTIN 300 MG CAPSULE PO SCH ×2 (09:20→21:32)
[2022-10-13] MEDS: GUAIFENESIN/DEXTROMETHORPHAN 1 EACH TAB.SR.12H PO PRN (09:20)
[2022-10-13] MEDS: DOXAZOSIN MESYLATE 2 MG TABLET PO SCH (09:20)
[2022-10-13] MEDS: HEPARIN 5,000 UNIT VIAL SQ SCH ×2 (09:37→21:37)
[2022-10-13 11:00] VITALS: BP 125/88
[2022-10-13] MEDS ORDERED: TAMSULOSIN HCL 0.4 MG CAP.ER.24H PO SCH (13:30)
[2022-10-13] MEDS ORDERED: KAYEXALATE 15GM/60ML PO SCH (13:30)
[2022-10-13] MEDS: TAMSULOSIN HCL 0.4 MG CAP.ER.24H PO SCH (14:46)
[2022-10-13 16:00] VITALS: BP 93/60
[2022-10-13 19:00] VITALS: BP 114/85
[2022-10-13] MEDS: TRAZODONE HCL 50 MG TAB PO SCH (21:32)
[2022-10-13] MEDS: METOPROLOL TARTRATE 25 MG TAB PO SCH (21:32)
[2022-10-13] MEDS: FINASTERIDE 5 MG TABLET PO SCH (21:32)
[2022-10-14] VITALS: BP 128/82
[2022-10-14 04:00] VITALS: BP 109/69
[2022-10-14 04:31] LABS: HEMATOCRIT 33.9 % (42-54); MEAN CORPUSCULAR HEMOGLOBIN 28.1 pg (27.0-33.0); MEAN CORPUSCULAR VOLUME 90.6 fL (79-99); PLATELET COUNT (AUTO) 242 K/uL (130-400); RED BLOOD CELL COUNT(AUTO) 3.74 MIL/uL (4.50-6.20); RED CELL DISTRIBUTION WIDTH 16.1 % (11.0-15.5); WHITE BLOOD COUNT (AUTO) 6.4 K/uL (4.8-10.8)
[2022-10-14 04:38] LABS: CREATININE 2.1 mg/dL (0.5-1.5); POTASSIUM 4.8 mmol/L (3.5-5.1)
[2022-10-14 05:04] LABS: BAND NEUTROPHILS % (MANUAL) 6 % (0-2); BASOPHILS % (MANUAL) 1 % (0-2); EOSINOPHILS % (MANUAL) 7 % (1-6); LYMPHOCYTES % (MANUAL) 16 % (22-44); MAN.DIFF COMMENT-IMPRESSION MANUAL DIFFERENTIAL; MONOCYTES % (MANUAL) 9 % (2-9); SEGMENTED NEUTROPHILS % 61 % (40-70)
[2022-10-14 05:05] LABS: PLATELET MORPHOLOGY COMMENT ADEQUATE
[2022-10-14] MEDS: LEVOTHYROXINE 50 MCG TABLET PO SCH (05:28)
[2022-10-14] MEDS: GUAIFENESIN/DEXTROMETHORPHAN 1 EACH TAB.SR.12H PO PRN (05:31)
[2022-10-14] MEDS: ACETAMINOPHEN 325 MG TAB PO PRN ×2 (05:32→12:54)
[2022-10-14] MEDS ORDERED: FOLI1TAB85 PO (07:24)
[2022-10-14] MEDS ORDERED: TAMS-1 PO (07:24)
[2022-10-14] MEDS ORDERED: METO25TA6 PO (07:24)
[2022-10-14] MEDS: INSULIN HUMULIN R 100 UNIT/ML 3ML SQ SCH ×2 (07:30→11:45)
[2022-10-14 08:00] VITALS: BP 120/78
[2022-10-14] MEDS: ASPIRIN 81MG CHEW TAB PO SCH (08:46)
[2022-10-14] MEDS: METOPROLOL TARTRATE 25 MG TAB PO SCH (08:46)
[2022-10-14] MEDS: Vitamin B Complex/Vit C/Folic Acid PO SCH (08:47)
[2022-10-14] MEDS: GABAPENTIN 300 MG CAPSULE PO SCH (08:47)
[2022-10-14] MEDS: TAMSULOSIN HCL 0.4 MG CAP.ER.24H PO SCH (08:47)
[2022-10-14] MEDS: DULOXETINE HCL 30 MG CAP PO SCH (08:47)
[2022-10-14] MEDS: FAMOTIDINE 20MG TAB PO SCH (08:47)
[2022-10-14] MEDS: HEPARIN 5,000 UNIT VIAL SQ SCH (08:53)
[2022-10-14 11:51] VITALS: BP 135/88
[2022-10-14] MEDS: BENZONATATE 100 MG CAPSULE PO PRN (12:48)
[2022-10-14] MEDS ORDERED: GLIPIZIDE 5 MG TABLET PO SCH (16:30)
[2022-10-15] MEDS ORDERED: EMPAGLIFLOZIN 10MG TABLET PO SCH (09:00)
== END 2022-10-14 13:00 | disposition home or self-care (01) | DRG 683 ==
LOC: EDH 01:06 → EDHIP 01:07 → 4DH 05:40
PROVIDERS: ADMIT Internal Medicine; ATTEND Internal Medicine
DX: N17.9 Acute kidney failure, unspecified (principal); E87.1 Hypo-osmolality and hyponatremia; I13.0 Hypertensive heart and chronic kidney disease with heart failure and stage 1 through stage 4 chronic kidney disease, or unspecified chronic kidney disease; N39.0 Urinary tract infection, site not specified; I50.9 Heart failure, unspecified; E11.22 Type 2 diabetes mellitus with diabetic chronic kidney disease; E87.5 Hyperkalemia; I34.0 Nonrheumatic mitral (valve) insufficiency; D64.9 Anemia, unspecified; E03.9 Hypothyroidism, unspecified; E11.51 Type 2 diabetes mellitus with diabetic peripheral angiopathy without gangrene; E11.65 Type 2 diabetes mellitus with hyperglycemia; E78.00 Pure hypercholesterolemia, unspecified; E87.6 Hypokalemia; F17.200 Nicotine dependence, unspecified, uncomplicated; N18.31 Chronic kidney disease, stage 3a; N40.1 Benign prostatic hyperplasia with lower urinary tract symptoms; Z53.29 Procedure and treatment not carried out because of patient's decision for other reasons; Z56.0 Unemployment, unspecified; Z59.00 Homelessness unspecified; Z79.82 Long term (current) use of aspirin; Z79.84 Long term (current) use of oral hypoglycemic drugs; Z79.899 Other long term (current) drug therapy; Z86.14 Personal history of Methicillin resistant Staphylococcus aureus infection; Z86.73 Personal history of transient ischemic attack (TIA), and cerebral infarction without residual deficits; Z95.2 Presence of prosthetic heart valve; Z91.199 Patient's noncompliance with other medical treatment and regimen due to unspecified reason; Z86.79 Personal history of other diseases of the circulatory system
CPT/HCPCS: 36415; 71045; 71046; 76000; 76770; 80048; 80053; 80202; 80305; 81001; 82533; 82948; 83036; 83540; 83550; 83605; 83735; 83880; 83930; 84100; 84145; 84484; 84550; 85025; 85610; 85730; 87040; 87077; 87088; 87186; 93005; 94640; 96374; 96375; G0378; J0610; J0696; J1644; J1815; J1940; J2185; J3370; J3490; J7070

== ENCOUNTER 2022-10-29 10:27 | Emergency (ER) | payer OTHER ==
[~2022-10-29 10:27] MED LIST changes: -CEFD300C3 PO; -DOXA2TAB2 PO; +METO25TA6 PO; -METO50 PO; +TAMS-1 PO
[2022-10-29 10:29] VITALS: BP 188/104
== END 2022-10-29 10:40 | disposition left against medical advice (07) ==
LOC: EDH 10:27
DX: R07.89 Other chest pain (principal); E11.9 Type 2 diabetes mellitus without complications; F17.200 Nicotine dependence, unspecified, uncomplicated; Z79.82 Long term (current) use of aspirin; Z79.84 Long term (current) use of oral hypoglycemic drugs; Z79.899 Other long term (current) drug therapy
CPT/HCPCS: 93005

== ENCOUNTER 2022-10-31 11:23 | Emergency (ER) | payer OTHER | END 2022-10-31 11:52 | disposition left against medical advice (07) | LOC: EDH 11:23 | DX: R07.89 Other chest pain (principal); Z53.21 Procedure and treatment not carried out due to patient leaving prior to being seen by health care provider ==

== ENCOUNTER 2022-11-01 20:15 | Inpatient (IN) | payer OTHER ==
[~2022-11-01] VITALS: Ht 170.2 cm; Wt 6.4 kg
[2022-11-01 21:08] LABS: BASOPHILS % (AUTO) 0.3 % (0.0-5.0); EOSINOPHILS % (AUTO) 3.8 % (0.0-8.0); HEMATOCRIT 35.8 % (42-54); LYMPHOCYTES % (AUTO) 17.2 % (21.0-51.0); MEAN CORPUSCULAR HEMOGLOBIN 27.5 pg (27.0-33.0); MEAN CORPUSCULAR HGB CONC 31.3 g/dL (32.0-36.0); MEAN CORPUSCULAR VOLUME 87.7 fL (79-99); MONOCYTES % (AUTO) 7.1 % (3.0-13.0); NEUTROPHILS % (AUTO) 71.3 % (40.0-77.0); PLATELET COUNT (AUTO) 230 K/uL (130-400); RED BLOOD CELL COUNT(AUTO) 4.08 MIL/uL (4.50-6.20); RED CELL DISTRIBUTION WIDTH 15.2 % (11.0-15.5); WHITE BLOOD COUNT (AUTO) 5.8 K/uL (4.8-10.8)
[2022-11-01 21:17] LABS: CREATININE 1.6 mg/dL (0.5-1.5)
[2022-11-01 21:24] LABS: ALBUMIN 2.3 g/dL (3.5-5.0); TOTAL PROTEIN, SERUM 7.9 g/dL (6.0-8.3)
[2022-11-01 21:36] LABS: B-TYPE NATRIURETIC PEPTIDE 2200 pg/mL (0-100)
[2022-11-01] MEDS ORDERED: FUROSEMIDE 40MG VIAL IV ONE (22:30)
[2022-11-01] MEDS ORDERED: CEFTRIAXONE 1G VIAL IVP ONE (23:00)
[2022-11-02] MEDS ORDERED: AZITHROMYCIN 500MG+NS 250ML IVPB SCH
[2022-11-02] MEDS ORDERED: IPRATROPIUM/ALBUTEROL SULFATE 3 ML SOLUTION IH PRN (00:30)
[2022-11-02] MEDS ORDERED: GLUCAGON 1MG KIT 1 MG ML IM PRN (00:30)
[2022-11-02] MEDS ORDERED: ACETAMINOPHEN 325 MG TAB PO PRN ×2 (00:30)
[2022-11-02] MEDS ORDERED: NITROGLYCERIN 0.4 MG SL TAB SL PRN (00:30)
[2022-11-02] MEDS: INSULIN HUMULIN R 100 UNIT/ML 3ML SQ SCH ×5 (00:44→19:55)
[2022-11-02 00:47] LABS: INR 1.05 (0.85-1.15); PROTHROMBIN TIME 11.4 SEC (9.6-11.6)
[2022-11-02 00:48] LABS: PARTIAL THROMBOPLASTIN TIME 28.7 SEC (26.3-35.5)
[2022-11-02] MEDS ORDERED: MAGNESIUM 2GM PREMIX 50ML 50 ML IV SCH (01:00)
[2022-11-02] MEDS: ONDANSETRON 4MG INJ IV PRN (02:19)
[2022-11-02 03:27] VITALS: BP 149/103
[2022-11-02] MEDS: DEXTROSE 50%-WATER 50 ML DISP.SYRIN IV PRN ×3 (03:35→05:48)
[2022-11-02 03:48] LABS: HEMOGLOBIN A1C 7.7 % (4.0-6.0)
[2022-11-02 04:00] LABS: APPEARANCE,URINE CLEAR (CLEAR); BILIRUBIN,URINE NEGATIVE (NEGATIVE); COLOR,URINE COLORLESS (YELLOW); GLUCOSE, URINE (UA) TRACE mg/dL (NEGATIVE); KETONES,URINE NEGATIVE (NEGATIVE); LEUKOCYTE ESTERASE ,URINE NEGATIVE Leu/uL (NEGATIVE); NITRATE,URINE NEGATIVE (NEGATIVE); OCCULT BLOOD,URINE SMALL (NEGATIVE); PH,URINE 6.5 (5.0-8.0); PROTEIN,URINE 100 mg/dL (NEGATIVE); UROBILINOGEN,URINE 0.2 mg/dL (0.2-1.0)
[2022-11-02 04:09] LABS: MUCUS,URINE RARE LPF (None Seen); SQUAMOUS EPITHELIAL CELL,UR RARE /HPF (0-2)
[2022-11-02 04:19] LABS: AMPHET/METH SCREEN,URINE NEGATIVE (NEGATIVE); BARBITURATE SCREEN, URINE NEGATIVE (NEGATIVE); BENZODIAZEPINES SCREEN,URINE NEGATIVE (NEGATIVE); CANNABINOID SCREEN,URINE NEGATIVE (NEGATIVE); COCAINE SCREEN,URINE POSITIVE (NEGATIVE); OPIATE SCREEN,URINE NEGATIVE (NEGATIVE); PHENCYCLIDINE SCREEN,URINE NEGATIVE (NEGATIVE)
[2022-11-02 06:26] LABS: BASOPHILS % (AUTO) 0.4 % (0.0-5.0); EOSINOPHILS % (AUTO) 3.3 % (0.0-8.0); LYMPHOCYTES % (AUTO) 12.5 % (21.0-51.0); MEAN CORPUSCULAR HEMOGLOBIN 28.1 pg (27.0-33.0); MEAN CORPUSCULAR HGB CONC 31.5 g/dL (32.0-36.0); MEAN CORPUSCULAR VOLUME 89.2 fL (79-99); MONOCYTES % (AUTO) 8.6 % (3.0-13.0); NEUTROPHILS % (AUTO) 74.9 % (40.0-77.0); PLATELET COUNT (AUTO) 184 K/uL (130-400); RED BLOOD CELL COUNT(AUTO) 3.81 MIL/uL (4.50-6.20); RED CELL DISTRIBUTION WIDTH 15.2 % (11.0-15.5)
[2022-11-02 06:43] LABS: ALBUMIN 2.1 g/dL (3.5-5.0); CREATININE 1.5 mg/dL (0.5-1.5); MAGNESIUM 1.8 mg/dL (1.80-2.40); TOTAL PROTEIN, SERUM 6.7 g/dL (6.0-8.3)
[2022-11-02 08:00] VITALS: BP 143/99
[2022-11-02] MEDS: FAMOTIDINE 20MG TAB PO SCH (08:39)
[2022-11-02] MEDS: HEPARIN 5,000 UNIT VIAL SQ SCH ×3 (08:45→20:04)
[2022-11-02 11:28] VITALS: BP 150/105
[2022-11-02] MEDS ORDERED: HEMORRHOIDAL OINTMENT 57 GM CREAM.GM. RC PRN (12:30)
[2022-11-02 16:00] VITALS: BP 153/98
[2022-11-02 20:08] VITALS: BP 160/121
[2022-11-02] MEDS ORDERED: AZITHROMYCIN 500MG+NS 250ML 250 ML IV SCH (21:00)
[2022-11-02] MEDS ORDERED: CEFTRIAXONE 1G VIAL IV SCH (21:00)
[2022-11-03] MEDS: ONDANSETRON 4MG INJ IV PRN (01:57)
[2022-11-03 04:00] VITALS: BP 161/107
[2022-11-03] MEDS: INSULIN HUMULIN R 100 UNIT/ML 3ML SQ SCH ×3 (05:18→16:17)
[2022-11-03 08:00] VITALS: BP_SYST 144; BP_SYST 146; BP_DIAS 106; BP_DIAS 52
[2022-11-03] MEDS: HEPARIN 5,000 UNIT VIAL SQ SCH ×2 (09:00→14:00)
[2022-11-03] MEDS: FAMOTIDINE 20MG TAB PO SCH (09:00)
[2022-11-03] MEDS: AMLODIPINE 5 MG TAB PO SCH ×2 (10:30→12:19)
[2022-11-03] MEDS ORDERED: METOPROLOL TARTRATE 25 MG TAB PO SCH ×2 (10:30→21:00)
[2022-11-03 10:33] LABS: HEMATOCRIT 37.1 % (42-54); MEAN CORPUSCULAR HEMOGLOBIN 27.9 pg (27.0-33.0); MEAN CORPUSCULAR HGB CONC 31.5 g/dL (32.0-36.0); MEAN CORPUSCULAR VOLUME 88.3 fL (79-99); PLATELET COUNT (AUTO) 222 K/uL (130-400); RED CELL DISTRIBUTION WIDTH 14.8 % (11.0-15.5); WHITE BLOOD COUNT (AUTO) 5.7 K/uL (4.8-10.8)
[2022-11-03 10:41] LABS: CREATININE 1.9 mg/dL (0.5-1.5); POTASSIUM 4.8 mmol/L (3.5-5.1)
[2022-11-03 10:46] LABS: ALBUMIN 1.9 g/dL (3.5-5.0); TOTAL PROTEIN, SERUM 6.8 g/dL (6.0-8.3)
[2022-11-03 11:29] LABS: EOSINOPHILS % (MANUAL) 5 % (1-6); LYMPHOCYTES % (MANUAL) 21 % (22-44); MAN.DIFF COMMENT-IMPRESSION MANUAL DIFFERENTIAL; MONOCYTES % (MANUAL) 8 % (2-9); PLATELET MORPHOLOGY COMMENT ADEQUATE; SEGMENTED NEUTROPHILS % 66 % (40-70)
[2022-11-03 12:04] VITALS: BP 157/109
[2022-11-03 16:00] VITALS: BP 157/115
[2022-11-03] MEDS ORDERED: INSULIN GLARGINE 100 UNITS/ML 10 ML VIAL SQ SCH (21:00)
[2022-11-03 21:38] VITALS: BP 140/101
[2022-11-04] MEDS ORDERED: AMLODIPINE 5 MG TAB PO SCH (09:00)
== END 2022-11-03 21:20 | disposition left against medical advice (07) | DRG 871 ==
LOC: EDH 20:15 → EDHIP 20:16 → 2DH 11-02 03:17 → 3CH 11-03 15:47
PROVIDERS: ADMIT Internal Medicine; ATTEND Internal Medicine
DX: A41.9 Sepsis, unspecified organism (principal); J18.9 Pneumonia, unspecified organism; E87.1 Hypo-osmolality and hyponatremia; I13.0 Hypertensive heart and chronic kidney disease with heart failure and stage 1 through stage 4 chronic kidney disease, or unspecified chronic kidney disease; Z20.822 Contact with and (suspected) exposure to COVID-19; E11.22 Type 2 diabetes mellitus with diabetic chronic kidney disease; I50.9 Heart failure, unspecified; E11.65 Type 2 diabetes mellitus with hyperglycemia; E83.42 Hypomagnesemia; R19.7 Diarrhea, unspecified; H54.8 Legal blindness, as defined in USA; E11.649 Type 2 diabetes mellitus with hypoglycemia without coma; E78.5 Hyperlipidemia, unspecified; E86.0 Dehydration; F17.210 Nicotine dependence, cigarettes, uncomplicated; I25.10 Atherosclerotic heart disease of native coronary artery without angina pectoris; I27.20 Pulmonary hypertension, unspecified; N18.31 Chronic kidney disease, stage 3a; Z59.01 Sheltered homelessness; Z86.73 Personal history of transient ischemic attack (TIA), and cerebral infarction without residual deficits; Z86.79 Personal history of other diseases of the circulatory system; Z91.199 Patient's noncompliance with other medical treatment and regimen due to unspecified reason; Z95.1 Presence of aortocoronary bypass graft; Z95.3 Presence of xenogenic heart valve
CPT/HCPCS: 36415; 71045; 72192; 80053; 80305; 81001; 82947; 82948; 83036; 83605; 83735; 83880; 84145; 84484; 85025; 85610; 85730; 86701; 87040; 87088; 87177; 87390; 87507; 87635; 93005; 94664; G0378; J0456; J0696; J1644; J1815; J1940; J2405; J3475; J7070

== ENCOUNTER 2022-11-07 16:57 | Emergency (ER) | payer OTHER ==
[~2022-11-07] VITALS: Ht 167.6 cm; Wt 63.5 kg
[2022-11-07 17:03] VITALS: BP 140/88
[2022-11-07] MEDS ORDERED: ALBU90AE2 IH (17:25)
== END 2022-11-07 17:26 | disposition left against medical advice (07) ==
LOC: EDH 17:02
DX: J44.9 Chronic obstructive pulmonary disease, unspecified (principal); I10 Essential (primary) hypertension; E11.9 Type 2 diabetes mellitus without complications; F17.200 Nicotine dependence, unspecified, uncomplicated; Z79.899 Other long term (current) drug therapy; Z79.82 Long term (current) use of aspirin; Z98.890 Other specified postprocedural states

== ENCOUNTER → 2022-11-11 | Emergency (ER) | payer OTHER ==
[~2022-11-11] MED LIST changes: +ALBU90AE2 IH
== END ==
LOC: EDH 11:40
DX: M25.562 Pain in left knee (principal); Z53.21 Procedure and treatment not carried out due to patient leaving prior to being seen by health care provider

== ENCOUNTER 2022-11-18 07:59 | Emergency (ER) | payer OTHER ==
[~2022-11-18] VITALS: Ht 170.2 cm; Wt 68.0 kg
[2022-11-18 08:33] LABS: BASOPHILS % (AUTO) 1.3 % (0.0-5.0); EOSINOPHILS % (AUTO) 1.1 % (0.0-8.0); HEMATOCRIT 40.6 % (42-54); LYMPHOCYTES % (AUTO) 20.4 % (21.0-51.0); MEAN CORPUSCULAR HEMOGLOBIN 27.3 pg (27.0-33.0); MEAN CORPUSCULAR VOLUME 87.9 fL (79-99); MONOCYTES % (AUTO) 7.1 % (3.0-13.0); NEUTROPHILS % (AUTO) 69.1 % (40.0-77.0); PLATELET COUNT (AUTO) 180 K/uL (130-400); RED BLOOD CELL COUNT(AUTO) 4.62 MIL/uL (4.50-6.20); RED CELL DISTRIBUTION WIDTH 14.8 % (11.0-15.5); WHITE BLOOD COUNT (AUTO) 5.2 K/uL (4.8-10.8)
[2022-11-18 08:44] LABS: CREATININE 1.7 mg/dL (0.5-1.5); POTASSIUM 4.7 mmol/L (3.5-5.1)
[2022-11-18 08:49] LABS: ALBUMIN 2.1 g/dL (3.5-5.0); TOTAL PROTEIN, SERUM 7.1 g/dL (6.0-8.3)
[2022-11-18 09:39] VITALS: BP 124/78
[2022-11-19] MEDS ORDERED: FURO-152 PO (18:12)
[2022-11-19] MEDS ORDERED: METO25PO2 PO (18:12)
== END 2022-11-18 13:12 | disposition home or self-care (01) ==
LOC: EDH 07:59
DX: Z00.00 Encounter for general adult medical examination without abnormal findings (principal); I10 Essential (primary) hypertension; E11.9 Type 2 diabetes mellitus without complications; Z59.00 Homelessness unspecified; Z79.899 Other long term (current) drug therapy
CPT/HCPCS: 36415; 80053; 85025

== ENCOUNTER 2022-11-19 12:11 | Emergency (ER) | payer OTHER ==
[~2022-11-19] VITALS: Ht 170.2 cm; Wt 68.0 kg
[2022-11-19 13:45] LABS: EOSINOPHILS % (AUTO) 2.2 % (0.0-8.0); HEMATOCRIT 40.6 % (42-54); LYMPHOCYTES % (AUTO) 24.2 % (21.0-51.0); MEAN CORPUSCULAR HEMOGLOBIN 27.2 pg (27.0-33.0); MEAN CORPUSCULAR VOLUME 87.7 fL (79-99); MONOCYTES % (AUTO) 7.9 % (3.0-13.0); NEUTROPHILS % (AUTO) 64.5 % (40.0-77.0); PLATELET COUNT (AUTO) 220 K/uL (130-400); RED BLOOD CELL COUNT(AUTO) 4.63 MIL/uL (4.50-6.20); RED CELL DISTRIBUTION WIDTH 14.7 % (11.0-15.5)
[2022-11-19 14:00] LABS: CREATININE 1.8 mg/dL (0.5-1.5); MAGNESIUM 1.9 mg/dL (1.80-2.40); POTASSIUM 4.9 mmol/L (3.5-5.1); TOTAL PROTEIN, SERUM 6.8 g/dL (6.0-8.3)
[2022-11-19 14:11] LABS: B-TYPE NATRIURETIC PEPTIDE 2120 pg/mL (0-100)
[2022-11-19] MEDS ORDERED: FUROSEMIDE 40MG VIAL IV ONE (15:00)
[2022-11-19] MEDS ORDERED: FUROSEMIDE 40MG VIAL ONE (15:03)
[2022-11-19 17:57] VITALS: BP 146/83
[2022-11-19] MEDS ORDERED: METO25PO2 PO (18:12)
[2022-11-19] MEDS ORDERED: FURO-152 PO (18:12)
== END 2022-11-19 18:21 | disposition home or self-care (01) ==
LOC: EDH 12:11
DX: I50.9 Heart failure, unspecified (principal); I11.0 Hypertensive heart disease with heart failure; E11.9 Type 2 diabetes mellitus without complications; F17.200 Nicotine dependence, unspecified, uncomplicated; Z79.899 Other long term (current) drug therapy; Z79.84 Long term (current) use of oral hypoglycemic drugs; Z79.82 Long term (current) use of aspirin
CPT/HCPCS: 99285; 96374; 71045; 82550; 83735; 84484; 80053; 83880; 85025; 36415; 93005; J1940

== ENCOUNTER 2022-12-17 00:32 | Inpatient (IN) | payer OTHER ==
[~2022-12-17] VITALS: Ht 170.2 cm; Wt 79.9 kg
[~2022-12-17 00:32] MED LIST changes: +FURO-152 PO; +METO25PO2 PO
[2022-12-17 00:59] LABS: BASOPHILS % (AUTO) 0.8 % (0.0-5.0); EOSINOPHILS % (AUTO) 2.7 % (0.0-8.0); HEMATOCRIT 42.8 % (42-54); LYMPHOCYTES % (AUTO) 11.9 % (21.0-51.0); MEAN CORPUSCULAR HEMOGLOBIN 26.5 pg (27.0-33.0); MEAN CORPUSCULAR HGB CONC 31.5 g/dL (32.0-36.0); MEAN CORPUSCULAR VOLUME 84.1 fL (79-99); NEUTROPHILS % (AUTO) 79.4 % (40.0-77.0); PLATELET COUNT (AUTO) 175 K/uL (130-400); RED BLOOD CELL COUNT(AUTO) 5.09 MIL/uL (4.50-6.20); RED CELL DISTRIBUTION WIDTH 15.1 % (11.0-15.5); WHITE BLOOD COUNT (AUTO) 6.6 K/uL (4.8-10.8)
[2022-12-17 01:16] LABS: CREATININE 1.3 mg/dL (0.5-1.5); POTASSIUM 5.1 mmol/L (3.5-5.1)
[2022-12-17 01:21] LABS: ALBUMIN 2.7 g/dL (3.5-5.0); TOTAL PROTEIN, SERUM 8.9 g/dL (6.0-8.3)
[2022-12-17 01:27] LABS: B-TYPE NATRIURETIC PEPTIDE 3580 pg/mL (0-100)
[2022-12-17] MEDS ORDERED: ACETAMINOPHEN 325 MG TAB PO PRN (03:00)
[2022-12-17] MEDS ORDERED: ONDANSETRON 4MG INJ IV PRN (03:00)
[2022-12-17] MEDS ORDERED: MORPHINE 4 MG SYG IV PRN (03:00)
[2022-12-17 06:30] VITALS: BP 151/110
[2022-12-17 08:49] VITALS: BP 162/100
[2022-12-17] MEDS: FAMOTIDINE 20MG TAB PO SCH (09:24)
[2022-12-17] MEDS: FUROSEMIDE 40MG VIAL IVP SCH ×2 (09:24→20:45)
[2022-12-17] MEDS ORDERED: GLUCAGON 1MG KIT 1 MG ML IM PRN (11:00)
[2022-12-17] MEDS ORDERED: DEXTROSE 50%-WATER 50 ML DISP.SYRIN IV PRN (11:00)
[2022-12-17] MEDS ORDERED: CEFTRIAXONE 2GM VIAL IVP SCH (11:00)
[2022-12-17] MEDS: INSULIN HUMULIN R 100 UNIT/ML 3ML SQ SCH ×3 (11:30→20:45)
[2022-12-17 11:51] LABS: AMPHET/METH SCREEN,URINE NEGATIVE (NEGATIVE); BARBITURATE SCREEN, URINE NEGATIVE (NEGATIVE); BENZODIAZEPINES SCREEN,URINE NEGATIVE (NEGATIVE); CANNABINOID SCREEN,URINE NEGATIVE (NEGATIVE); COCAINE SCREEN,URINE POSITIVE (NEGATIVE); OPIATE SCREEN,URINE NEGATIVE (NEGATIVE); PHENCYCLIDINE SCREEN,URINE NEGATIVE (NEGATIVE)
[2022-12-17] MEDS ORDERED: ZOSYN 3.375GM +NS 50ML IVPB SCH (12:00)
[2022-12-17] MEDS ORDERED: 0.9%NACL 50ML IV SCH (12:00)
[2022-12-17] MEDS ORDERED: METOPROLOL TARTRATE 25 MG TAB PO ONE (12:10)
[2022-12-17 12:33] VITALS: BP 132/80
[2022-12-17] MEDS ORDERED: VANCOMYCIN PROTOCOL PER PHARMACY IV SCH (13:00)
[2022-12-17] MEDS ORDERED: VANCOMYCIN 1.25 GM/250 ML BAG 250 ML IV ONE (14:00)
[2022-12-17] MEDS: SOLU-MEDROL 40MG VIAL IVP SCH ×2 (15:09→22:34)
[2022-12-17] MEDS: LEVOFLOXACIN 750 MG TABLET PO SCH (15:09)
[2022-12-17 15:56] LABS: CREATININE 1.6 mg/dL (0.5-1.5); MAGNESIUM 1.7 mg/dL (1.80-2.40); POTASSIUM 4.2 mmol/L (3.5-5.1)
[2022-12-17 16:00] VITALS: BP 132/83
[2022-12-17] MEDS ORDERED: MAGNESIUM 2GM PREMIX 50ML 50 ML IV PRN (16:00)
[2022-12-17] MEDS: ACETYLCYSTEINE 20% 200MG/ML 4ML VIAL IH SCH (19:23)
[2022-12-17] MEDS: IPRATROPIUM 0.5 MG/2.5 ML INH IH SCH (19:23)
[2022-12-17 20:00] VITALS: BP 138/99
[2022-12-17] MEDS: MONTELUKAST SODIUM 10 MG TAB PO SCH (20:44)
[2022-12-17] MEDS: TEMAZEPAM 15 MG CAPSULE PO SCH (20:44)
[2022-12-17] MEDS ORDERED: METOPROLOL TARTRATE 25 MG TAB PO SCH (21:00)
[2022-12-17 23:47] VITALS: BP 145/96
[2022-12-18] MEDS: VANCOMYCIN 750MG VIAL IVPB SCH ×2 (01:52→14:26)
[2022-12-18] MEDS: HYDROCODONE/ACETAMINOPHEN 5/325 MG TAB PO PRN (01:58)
[2022-12-18 02:30] LABS: HEPATITIS B SURFACE ANTIGEN Non-Reactive (Nonreactive)
[2022-12-18 03:35] VITALS: BP 119/86
[2022-12-18 03:56] LABS: BASOPHILS % (AUTO) 0.2 % (0.0-5.0); EOSINOPHILS % (AUTO) 0.2 % (0.0-8.0); HEMATOCRIT 39.3 % (42-54); LYMPHOCYTES % (AUTO) 10.5 % (21.0-51.0); MEAN CORPUSCULAR HEMOGLOBIN 26.5 pg (27.0-33.0); MEAN CORPUSCULAR HGB CONC 31.3 g/dL (32.0-36.0); MEAN CORPUSCULAR VOLUME 84.5 fL (79-99); MONOCYTES % (AUTO) 1.4 % (3.0-13.0); NEUTROPHILS % (AUTO) 87.5 % (40.0-77.0); PLATELET COUNT (AUTO) 132 K/uL (130-400); RED BLOOD CELL COUNT(AUTO) 4.65 MIL/uL (4.50-6.20); RED CELL DISTRIBUTION WIDTH 15.9 % (11.0-15.5); WHITE BLOOD COUNT (AUTO) 4.2 K/uL (4.8-10.8)
[2022-12-18 04:13] LABS: CREATININE 1.7 mg/dL (0.5-1.5); MAGNESIUM 1.8 mg/dL (1.80-2.40); PHOSPHORUS 4.3 mg/dL (2.5-4.9); POTASSIUM 5.3 mmol/L (3.5-5.1)
[2022-12-18 04:20] LABS: HEMOGLOBIN A1C 7.4 % (4.0-6.0)
[2022-12-18] MEDS: SOLU-MEDROL 40MG VIAL IVP SCH (05:55)
[2022-12-18] MEDS: INSULIN HUMULIN R 100 UNIT/ML 3ML SQ SCH ×4 (06:01→20:48)
[2022-12-18] MEDS: ACETYLCYSTEINE 20% 200MG/ML 4ML VIAL IH SCH ×2 (07:09→19:18)
[2022-12-18] MEDS: IPRATROPIUM 0.5 MG/2.5 ML INH IH SCH ×3 (07:10→19:18)
[2022-12-18 08:00] VITALS: BP 147/94
[2022-12-18] MEDS: FAMOTIDINE 20MG TAB PO SCH (08:59)
[2022-12-18] MEDS: FUROSEMIDE 40MG VIAL IVP SCH ×2 (08:59→20:48)
[2022-12-18] MEDS ORDERED: KAYEXALATE 15GM/60ML PO PRN (10:30)
[2022-12-18] MEDS ORDERED: PHARMACY COMMUNICATION MISC SCH (11:00)
[2022-12-18 11:21] LABS: HEPATITIS C ANTIBODY Non-Reactive (Nonreactive)
[2022-12-18 11:55] VITALS: BP 160/102
[2022-12-18] MEDS ORDERED: NA ZIRCON CYCLOSIL(LOKELMA 10GM) PO NR (12:00)
[2022-12-18] MEDS: LEVOFLOXACIN 750 MG TABLET PO SCH (14:27)
[2022-12-18 16:00] VITALS: BP 131/95
[2022-12-18 20:00] VITALS: BP 168/92
[2022-12-18] MEDS: TEMAZEPAM 15 MG CAPSULE PO SCH (20:46)
[2022-12-18] MEDS: MONTELUKAST SODIUM 10 MG TAB PO SCH (20:47)
[2022-12-18] MEDS: INSULIN GLARGINE 100 UNITS/ML 10 ML VIAL SQ SCH (20:50)
[2022-12-18 22:45] LABS: POTASSIUM 5.5 mmol/L (3.5-5.1)
[2022-12-19] VITALS (7 sets, daily range): BP systolic 118–160; BP diastolic 79–123
[2022-12-19] MEDS ORDERED: MORPHINE 2 MG SYG ONE (00:09)
[2022-12-19] MEDS: IPRATROPIUM 0.5 MG/2.5 ML INH IH SCH ×5 (00:10→23:33)
[2022-12-19] MEDS ORDERED: MORPHINE 2 MG SYG IVP PRN (00:30)
[2022-12-19 01:57] LABS: APPEARANCE,URINE CLEAR (CLEAR); BILIRUBIN,URINE NEGATIVE (NEGATIVE); COLOR,URINE LIGHT-YELLOW (YELLOW); GLUCOSE, URINE (UA) 30 mg/dL (NEGATIVE); KETONES,URINE NEGATIVE (NEGATIVE); LEUKOCYTE ESTERASE ,URINE 75 Leu/uL (NEGATIVE); NITRATE,URINE NEGATIVE (NEGATIVE); OCCULT BLOOD,URINE SMALL (NEGATIVE); PH,URINE 5.5 (5.0-8.0); PROTEIN,URINE 70 mg/dL (NEGATIVE); UROBILINOGEN,URINE 0.2 mg/dL (0.2-1.0)
[2022-12-19] MEDS: VANCOMYCIN 750MG VIAL IVPB SCH ×2 (02:05→13:11)
[2022-12-19 02:10] LABS: BACTERIA,URINE MOD /HPF (None Seen); MUCUS,URINE RARE LPF (None Seen); SQUAMOUS EPITHELIAL CELL,UR RARE /HPF (0-2); TRANSITIONAL EPI CELLS,URINE RARE /HPF (None Seen)
[2022-12-19] MEDS ORDERED: AMLODIPINE 5 MG TAB ONE (04:39)
[2022-12-19] MEDS: INSULIN HUMULIN R 100 UNIT/ML 3ML SQ SCH ×4 (05:42→20:58)
[2022-12-19] MEDS: ACETYLCYSTEINE 20% 200MG/ML 4ML VIAL IH SCH ×2 (07:16→18:00)
[2022-12-19] MEDS: FUROSEMIDE 40MG VIAL IVP SCH (08:35)
[2022-12-19] MEDS: AMLODIPINE 5 MG TAB PO SCH (08:35)
[2022-12-19] MEDS: FAMOTIDINE 20MG TAB PO SCH (08:35)
[2022-12-19] MEDS ORDERED: ENOXAPARIN SODIUM 40 MG/0.4 ML SYRINGE SQ SCH (12:22)
[2022-12-19] MEDS ORDERED: RENAL DOSE IV PRN (12:30)
[2022-12-19] MEDS ORDERED: NA ZIRCON CYCLOSIL(LOKELMA 10GM) PO SCH (12:30)
[2022-12-19] MEDS: LEVOFLOXACIN 750 MG TABLET PO SCH (14:18)
[2022-12-19] MEDS: 0.9%NACL 1000ML 1,000 ML IV SCH (14:19)
[2022-12-19] MEDS: DIPHENHYDRAMINE 2% CREAM 30 GM TP PRN (17:27)
[2022-12-19] MEDS ORDERED: BACITRACIN 28.4 GM OINT TP PRN ×2 (18:00)
[2022-12-19] MEDS: MONTELUKAST SODIUM 10 MG TAB PO SCH (20:50)
[2022-12-19] MEDS: TEMAZEPAM 15 MG CAPSULE PO SCH (20:50)
[2022-12-19] MEDS: INSULIN GLARGINE 100 UNITS/ML 10 ML VIAL SQ SCH (20:58)
[2022-12-20 04:05] LABS: HEMATOCRIT 39.3 % (42-54); MEAN CORPUSCULAR HEMOGLOBIN 27.2 pg (27.0-33.0); MEAN CORPUSCULAR HGB CONC 32.1 g/dL (32.0-36.0); MEAN CORPUSCULAR VOLUME 84.9 fL (79-99); NUCLEATED RED BLOOD CELLS 0.3 % (0.0-0.19); RED BLOOD CELL COUNT(AUTO) 4.63 MIL/uL (4.50-6.20); RED CELL DISTRIBUTION WIDTH 16.6 % (11.0-15.5); WHITE BLOOD COUNT (AUTO) 6.9 K/uL (4.8-10.8)
[2022-12-20 04:19] LABS: ALBUMIN 2.3 g/dL (3.5-5.0); CREATININE 2.2 mg/dL (0.5-1.5); MAGNESIUM 1.9 mg/dL (1.80-2.40); POTASSIUM 4.3 mmol/L (3.5-5.1); TOTAL PROTEIN, SERUM 7.8 g/dL (6.0-8.3)
[2022-12-20 04:34] VITALS: BP 121/87
[2022-12-20] MEDS: INSULIN HUMULIN R 100 UNIT/ML 3ML SQ SCH ×4 (05:44→21:33)
[2022-12-20] MEDS: IPRATROPIUM 0.5 MG/2.5 ML INH IH SCH ×3 (06:42→22:50)
[2022-12-20] MEDS: ACETYLCYSTEINE 20% 200MG/ML 4ML VIAL IH SCH ×2 (06:42→22:50)
[2022-12-20 08:00] VITALS: BP 134/104
[2022-12-20] MEDS ORDERED: VANCOMYCIN 750MG VIAL IVPB SCH (09:00)
[2022-12-20] MEDS: FAMOTIDINE 20MG TAB PO SCH (09:02)
[2022-12-20] MEDS: AMLODIPINE 5 MG TAB PO SCH (09:02)
[2022-12-20] MEDS: ENOXAPARIN SODIUM 40 MG/0.4 ML SYRINGE SQ SCH (09:03)
[2022-12-20] MEDS: 0.9%NACL 1000ML 1,000 ML IV SCH (09:03)
[2022-12-20] MEDS: VANCOMYCIN 750MG VIAL IVPB SCH (11:23)
[2022-12-20 11:42] VITALS: BP 127/96
[2022-12-20] MEDS: LEVOFLOXACIN 750 MG TABLET PO SCH (14:08)
[2022-12-20 16:00] VITALS: BP 120/93
[2022-12-20] MEDS: TEMAZEPAM 15 MG CAPSULE PO SCH (19:59)
[2022-12-20] MEDS: MONTELUKAST SODIUM 10 MG TAB PO SCH (19:59)
[2022-12-20 20:22] VITALS: BP 115/88
[2022-12-20] MEDS: INSULIN GLARGINE 100 UNITS/ML 10 ML VIAL SQ SCH (21:32)
[2022-12-20 23:15] VITALS: BP 119/75
[2022-12-21] MEDS: HYDROCODONE/ACETAMINOPHEN 5/325 MG TAB PO PRN ×3 (02:48→20:20)
[2022-12-21 03:44] VITALS: BP 98/73
[2022-12-21] MEDS: ACETAMINOPHEN 325 MG TAB PO PRN (05:46)
[2022-12-21] MEDS: INSULIN HUMULIN R 100 UNIT/ML 3ML SQ SCH ×4 (06:34→21:25)
[2022-12-21] MEDS: ACETYLCYSTEINE 20% 200MG/ML 4ML VIAL IH SCH ×2 (07:03→19:50)
[2022-12-21 07:30] VITALS: BP 132/101
[2022-12-21 08:51] LABS: HEMATOCRIT 39.9 % (42-54); MEAN CORPUSCULAR HEMOGLOBIN 27.1 pg (27.0-33.0); MEAN CORPUSCULAR HGB CONC 30.6 g/dL (32.0-36.0); MEAN CORPUSCULAR VOLUME 88.7 fL (79-99); PLATELET COUNT (AUTO) 161 K/uL (130-400); RED CELL DISTRIBUTION WIDTH 17.5 % (11.0-15.5); WHITE BLOOD COUNT (AUTO) 6.6 K/uL (4.8-10.8)
[2022-12-21] MEDS: ENOXAPARIN SODIUM 40 MG/0.4 ML SYRINGE SQ SCH ×2 (09:00→09:41)
[2022-12-21 09:05] LABS: ALBUMIN 2.6 g/dL (3.5-5.0); CREATININE 2.3 mg/dL (0.5-1.5); POTASSIUM 4.9 mmol/L (3.5-5.1); TOTAL PROTEIN, SERUM 8.3 g/dL (6.0-8.3)
[2022-12-21] MEDS: AMLODIPINE 5 MG TAB PO SCH (09:41)
[2022-12-21] MEDS: FAMOTIDINE 20MG TAB PO SCH (09:41)
[2022-12-21 11:30] VITALS: BP 132/87
[2022-12-21 11:39] LABS: INR 1.23 (0.85-1.15); PROTHROMBIN TIME 13.2 SEC (9.6-11.6)
[2022-12-21 11:41] LABS: PARTIAL THROMBOPLASTIN TIME 30.5 SEC (26.3-35.5)
[2022-12-21] MEDS: IPRATROPIUM 0.5 MG/2.5 ML INH IH SCH ×2 (11:51→19:49)
[2022-12-21 14:16] LABS: BODY FLUID RBC 1983 /cu. mm.; BODY FLUID WBC 33 /cu. mm.
[2022-12-21 14:20] LABS: APPEARANCE BODY FLUID SLIGHTLY CLOUDY (CLEAR); COLOR,BODY FLUID YELLOW (LT YELLOW); SPECIMENTYPE,BODY FLUID ASCITES; TOTAL VOLUME,BODY FLUID 1500 mL
[2022-12-21] MEDS: LEVOFLOXACIN 750 MG TABLET PO SCH (14:52)
[2022-12-21 15:30] VITALS: BP 132/87
[2022-12-21 16:51] LABS: BF EOSINOPHIL 3 %; BF LYMPHOCYTE 51 %; BF MESOTHELIAL 1 %; BF MONOCYTE 3 %; BF OTHER CELLS 1
[2022-12-21] MEDS ORDERED: PHARMACY COMMUNICATION MISC SCH ×2 (17:00→20:30)
[2022-12-21 20:00] VITALS: BP 141/84
[2022-12-21] MEDS: TEMAZEPAM 15 MG CAPSULE PO SCH (20:20)
[2022-12-21] MEDS: MONTELUKAST SODIUM 10 MG TAB PO SCH (20:20)
[2022-12-21] MEDS ORDERED: ARTIFICAL TEARS SOL 15 ML OU PRN (21:00)
[2022-12-21] MEDS: NYSTATIN-TRIAMCINOLONE CREAM 15 GM TP SCH (21:00)
[2022-12-21] MEDS: INSULIN GLARGINE 100 UNITS/ML 10 ML VIAL SQ SCH (21:25)
[2022-12-21] MEDS ORDERED: ALBUMIN (HUMAN) 25% 50 ML IV SCH (22:00)
[2022-12-22] VITALS: BP 120/81
[2022-12-22] MEDS: IPRATROPIUM 0.5 MG/2.5 ML INH IH SCH ×5 (00:34→23:16)
[2022-12-22 04:00] VITALS: BP 131/97
[2022-12-22 05:23] LABS: BASOPHILS % (AUTO) 0.4 % (0.0-5.0); EOSINOPHILS % (AUTO) 7.2 % (0.0-8.0); HEMATOCRIT 38.5 % (42-54); LYMPHOCYTES % (AUTO) 9.5 % (21.0-51.0); MEAN CORPUSCULAR HEMOGLOBIN 27.3 pg (27.0-33.0); MEAN CORPUSCULAR HGB CONC 30.4 g/dL (32.0-36.0); MEAN CORPUSCULAR VOLUME 89.7 fL (79-99); NEUTROPHILS % (AUTO) 73.4 % (40.0-77.0); PLATELET COUNT (AUTO) 165 K/uL (130-400); RED BLOOD CELL COUNT(AUTO) 4.29 MIL/uL (4.50-6.20); WHITE BLOOD COUNT (AUTO) 7.8 K/uL (4.8-10.8)
[2022-12-22 05:43] LABS: ALBUMIN 2.5 g/dL (3.5-5.0); CREATININE 2.4 mg/dL (0.5-1.5); CRP QUANTITATIVE 16.4 mg/L (0.00-9.0); PHOSPHORUS 4.1 mg/dL (2.5-4.9); POTASSIUM 5.2 mmol/L (3.5-5.1); THYROID STIMULATING HORMONE 23.12 uIU/mL (0.36-3.74); TOTAL PROTEIN, SERUM 7.6 g/dL (6.0-8.3); URIC ACID 6.3 mg/dL (2.6-7.2)
[2022-12-22] MEDS: INSULIN HUMULIN R 100 UNIT/ML 3ML SQ SCH ×4 (06:19→20:41)
[2022-12-22 06:36] LABS: ERYTHROCYTE SEDIMENTATION RATE 12 MM/HR (0-15)
[2022-12-22] MEDS: ACETYLCYSTEINE 20% 200MG/ML 4ML VIAL IH SCH (06:51)
[2022-12-22 07:30] VITALS: BP 149/110
[2022-12-22] MEDS: NYSTATIN-TRIAMCINOLONE CREAM 15 GM TP SCH ×2 (09:00→20:46)
[2022-12-22] MEDS: FAMOTIDINE 20MG TAB PO SCH (10:24)
[2022-12-22] MEDS: ACETAMINOPHEN 325 MG TAB PO PRN ×2 (10:25→17:31)
[2022-12-22] MEDS: AMLODIPINE 5 MG TAB PO SCH (10:25)
[2022-12-22] MEDS: ENOXAPARIN SODIUM 40 MG/0.4 ML SYRINGE SQ SCH (10:27)
[2022-12-22 11:30] VITALS: BP 127/59
[2022-12-22] MEDS: VANCOMYCIN 750MG VIAL IVPB SCH (12:17)
[2022-12-22] MEDS ORDERED: CARVEDILOL 3.125 MG TABLET PO ONE (13:00)
[2022-12-22] MEDS: LEVOFLOXACIN 750 MG TABLET PO SCH (13:22)
[2022-12-22] MEDS: CARVEDILOL 3.125 MG TABLET PO SCH ×2 (13:24→20:49)
[2022-12-22] MEDS: FUROSEMIDE 40MG VIAL IV SCH (14:38)
[2022-12-22 15:30] VITALS: BP 112/79
[2022-12-22] MEDS: ALBUMIN (HUMAN) 25% 100 ML IV SCH ×3 (15:53→18:58)
[2022-12-22 16:11] LABS: APPEARANCE,URINE CLEAR (CLEAR); BILIRUBIN,URINE NEGATIVE (NEGATIVE); COLOR,URINE YELLOW (YELLOW); GLUCOSE, URINE (UA) NEGATIVE (NEGATIVE); KETONES,URINE NEGATIVE (NEGATIVE); LEUKOCYTE ESTERASE ,URINE MODERATE Leu/uL (NEGATIVE); NITRATE,URINE NEGATIVE (NEGATIVE); OCCULT BLOOD,URINE SMALL (NEGATIVE); PROTEIN,URINE NEGATIVE (NEGATIVE); UROBILINOGEN,URINE 0.2 mg/dL (0.2-1.0)
[2022-12-22 16:15] LABS: AMPHET/METH SCREEN,URINE NEGATIVE (NEGATIVE); BARBITURATE SCREEN, URINE NEGATIVE (NEGATIVE); BENZODIAZEPINES SCREEN,URINE NEGATIVE (NEGATIVE); CANNABINOID SCREEN,URINE NEGATIVE (NEGATIVE); COCAINE SCREEN,URINE POSITIVE (NEGATIVE); OPIATE SCREEN,URINE POSITIVE (NEGATIVE); PHENCYCLIDINE SCREEN,URINE NEGATIVE (NEGATIVE)
[2022-12-22 16:27] LABS: BACTERIA,URINE RARE /HPF (None Seen); MUCUS,URINE RARE LPF (None Seen); SQUAMOUS EPITHELIAL CELL,UR RARE /HPF (0-2); WBC,URINE 26-50 /HPF (0-1); YEAST,URINE BUDDING FEW /HPF (None Seen)
[2022-12-22] MEDS: DIPHENHYDRAMINE 2% CREAM 30 GM TP PRN (18:55)
[2022-12-22 20:00] VITALS: BP 134/92
[2022-12-22] MEDS: TEMAZEPAM 15 MG CAPSULE PO SCH (20:49)
[2022-12-22] MEDS: MONTELUKAST SODIUM 10 MG TAB PO SCH (20:49)
[2022-12-22] MEDS: INSULIN GLARGINE 100 UNITS/ML 10 ML VIAL SQ SCH (20:52)
[2022-12-23] VITALS (14 sets, daily range): BP systolic 117–174; BP diastolic 75–103
[2022-12-23] MEDS: FUROSEMIDE 40MG VIAL IV SCH ×2 (01:12→13:54)
[2022-12-23] MEDS: ACETAMINOPHEN 325 MG TAB PO PRN ×4 (01:13→20:51)
[2022-12-23 04:20] LABS: HEMATOCRIT 33.5 % (42-54); MEAN CORPUSCULAR HEMOGLOBIN 27.3 pg (27.0-33.0); MEAN CORPUSCULAR HGB CONC 31.3 g/dL (32.0-36.0); PLATELET COUNT (AUTO) 137 K/uL (130-400); RED BLOOD CELL COUNT(AUTO) 3.85 MIL/uL (4.50-6.20); RED CELL DISTRIBUTION WIDTH 18.3 % (11.0-15.5); WHITE BLOOD COUNT (AUTO) 6.3 K/uL (4.8-10.8)
[2022-12-23 05:11] LABS: ALBUMIN 2.9 g/dL (3.5-5.0); CREATININE 2.2 mg/dL (0.5-1.5); MAGNESIUM 1.9 mg/dL (1.80-2.40); PHOSPHORUS 4.8 mg/dL (2.5-4.9); POTASSIUM 5.4 mmol/L (3.5-5.1); TOTAL PROTEIN, SERUM 6.8 g/dL (6.0-8.3)
[2022-12-23] MEDS: ACETYLCYSTEINE 20% 200MG/ML 4ML VIAL IH SCH (06:00)
[2022-12-23] MEDS: ALBUMIN (HUMAN) 25% 100 ML IV SCH (06:36)
[2022-12-23] MEDS: INSULIN HUMULIN R 100 UNIT/ML 3ML SQ SCH ×4 (06:37→20:54)
[2022-12-23] MEDS: IPRATROPIUM 0.5 MG/2.5 ML INH IH SCH ×5 (07:04→23:10)
[2022-12-23 07:36] LABS: BASOPHILS % (MANUAL) 2 % (0-2); EOSINOPHILS % (MANUAL) 9 % (1-6); LYMPHOCYTES % (MANUAL) 12 % (22-44); MAN.DIFF COMMENT-IMPRESSION MANUAL DIFFERENTIAL; MONOCYTES % (MANUAL) 8 % (2-9); PLATELET MORPHOLOGY COMMENT ADEQUATE; SEGMENTED NEUTROPHILS % 69 % (40-70)
[2022-12-23] MEDS: AMLODIPINE 5 MG TAB PO SCH (09:17)
[2022-12-23] MEDS: FAMOTIDINE 20MG TAB PO SCH (09:17)
[2022-12-23] MEDS: CARVEDILOL 3.125 MG TABLET PO SCH ×2 (09:18→20:48)
[2022-12-23] MEDS: ENOXAPARIN SODIUM 40 MG/0.4 ML SYRINGE SQ SCH (09:20)
[2022-12-23] MEDS: DIPHENHYDRAMINE 2% CREAM 30 GM TP PRN ×2 (09:40→21:04)
[2022-12-23] MEDS: LEVOFLOXACIN 750 MG TABLET PO SCH (13:54)
[2022-12-23] MEDS: NYSTATIN-TRIAMCINOLONE CREAM 15 GM TP SCH ×2 (15:04→20:55)
[2022-12-23] MEDS: MONTELUKAST SODIUM 10 MG TAB PO SCH (20:48)
[2022-12-23] MEDS: TEMAZEPAM 15 MG CAPSULE PO SCH (20:49)
[2022-12-23] MEDS: INSULIN GLARGINE 100 UNITS/ML 10 ML VIAL SQ SCH (20:55)
[2022-12-24] VITALS: BP 139/90
[2022-12-24] MEDS: FUROSEMIDE 40MG VIAL IV SCH ×2 (01:05→14:24)
[2022-12-24 04:00] VITALS: BP 123/80
[2022-12-24] MEDS: ACETAMINOPHEN 325 MG TAB PO PRN ×3 (05:15→21:05)
[2022-12-24 05:57] LABS: BASOPHILS % (AUTO) 0.4 % (0.0-5.0); EOSINOPHILS % (AUTO) 7.1 % (0.0-8.0); HEMATOCRIT 36.3 % (42-54); LYMPHOCYTES % (AUTO) 9.1 % (21.0-51.0); MEAN CORPUSCULAR HEMOGLOBIN 27.4 pg (27.0-33.0); MEAN CORPUSCULAR VOLUME 85.8 fL (79-99); MONOCYTES % (AUTO) 9.6 % (3.0-13.0); NEUTROPHILS % (AUTO) 72.6 % (40.0-77.0); PLATELET COUNT (AUTO) 150 K/uL (130-400); RED BLOOD CELL COUNT(AUTO) 4.23 MIL/uL (4.50-6.20); RED CELL DISTRIBUTION WIDTH 18.9 % (11.0-15.5); WHITE BLOOD COUNT (AUTO) 7.2 K/uL (4.8-10.8)
[2022-12-24] MEDS: INSULIN HUMULIN R 100 UNIT/ML 3ML SQ SCH ×4 (06:04→21:08)
[2022-12-24 06:15] LABS: ALBUMIN 2.9 g/dL (3.5-5.0); CREATININE 2.1 mg/dL (0.5-1.5); PHOSPHORUS 4.7 mg/dL (2.5-4.9); POTASSIUM 5.5 mmol/L (3.5-5.1)
[2022-12-24 06:16] LABS: MAGNESIUM 2.1 mg/dL (1.80-2.40); TOTAL PROTEIN, SERUM 6.9 g/dL (6.0-8.3)
[2022-12-24] MEDS: IPRATROPIUM 0.5 MG/2.5 ML INH IH SCH ×4 (07:15→23:45)
[2022-12-24 08:00] VITALS: BP 133/94
[2022-12-24] MEDS: FAMOTIDINE 20MG TAB PO SCH (08:44)
[2022-12-24] MEDS: AMLODIPINE 5 MG TAB PO SCH (08:44)
[2022-12-24] MEDS: CARVEDILOL 3.125 MG TABLET PO SCH ×2 (08:44→21:04)
[2022-12-24] MEDS: ENOXAPARIN SODIUM 40 MG/0.4 ML SYRINGE SQ SCH (08:46)
[2022-12-24] MEDS: NYSTATIN-TRIAMCINOLONE CREAM 15 GM TP SCH ×2 (14:24→21:06)
[2022-12-24] MEDS: LEVOFLOXACIN 750 MG TABLET PO SCH (14:24)
[2022-12-24] MEDS: VANCOMYCIN 750MG VIAL IVPB SCH (14:26)
[2022-12-24 16:00] VITALS: BP 115/72
[2022-12-24 20:00] VITALS: BP 110/77
[2022-12-24] MEDS: TEMAZEPAM 15 MG CAPSULE PO SCH (21:03)
[2022-12-24] MEDS: ALBUMIN (HUMAN) 25% 100 ML IV SCH (21:03)
[2022-12-24] MEDS: MONTELUKAST SODIUM 10 MG TAB PO SCH (21:04)
[2022-12-24] MEDS: DIPHENHYDRAMINE 2% CREAM 30 GM TP PRN (21:05)
[2022-12-24] MEDS: INSULIN GLARGINE 100 UNITS/ML 10 ML VIAL SQ SCH (21:08)
[2022-12-25] VITALS: BP 116/72
[2022-12-25] MEDS: FUROSEMIDE 40MG VIAL IV SCH ×2 (01:08→13:26)
[2022-12-25 04:00] VITALS: BP 109/74
[2022-12-25] MEDS: INSULIN HUMULIN R 100 UNIT/ML 3ML SQ SCH ×4 (05:46→20:42)
[2022-12-25 06:16] LABS: BASOPHILS % (AUTO) 0.5 % (0.0-5.0); EOSINOPHILS % (AUTO) 5.8 % (0.0-8.0); HEMATOCRIT 32.4 % (42-54); LYMPHOCYTES % (AUTO) 11.9 % (21.0-51.0); MEAN CORPUSCULAR HEMOGLOBIN 27.9 pg (27.0-33.0); MEAN CORPUSCULAR HGB CONC 32.4 g/dL (32.0-36.0); MEAN CORPUSCULAR VOLUME 85.9 fL (79-99); MONOCYTES % (AUTO) 9.8 % (3.0-13.0); NEUTROPHILS % (AUTO) 70.3 % (40.0-77.0); PLATELET COUNT (AUTO) 149 K/uL (130-400); RED BLOOD CELL COUNT(AUTO) 3.77 MIL/uL (4.50-6.20); RED CELL DISTRIBUTION WIDTH 19.2 % (11.0-15.5); WHITE BLOOD COUNT (AUTO) 6.4 K/uL (4.8-10.8)
[2022-12-25 06:33] LABS: ALBUMIN 2.9 g/dL (3.5-5.0); MAGNESIUM 2.2 mg/dL (1.80-2.40); PHOSPHORUS 5.3 mg/dL (2.5-4.9); TOTAL PROTEIN, SERUM 6.6 g/dL (6.0-8.3)
[2022-12-25] MEDS: IPRATROPIUM 0.5 MG/2.5 ML INH IH SCH ×4 (08:10→23:22)
[2022-12-25] MEDS: FAMOTIDINE 20MG TAB PO SCH (09:50)
[2022-12-25] MEDS: AMLODIPINE 5 MG TAB PO SCH (09:51)
[2022-12-25] MEDS: CARVEDILOL 3.125 MG TABLET PO SCH ×2 (09:51→20:35)
[2022-12-25] MEDS: NYSTATIN-TRIAMCINOLONE CREAM 15 GM TP SCH ×2 (09:52→20:36)
[2022-12-25] MEDS: ENOXAPARIN SODIUM 40 MG/0.4 ML SYRINGE SQ SCH (09:52)
[2022-12-25 12:00] VITALS: BP 123/77
[2022-12-25] MEDS: LEVOFLOXACIN 750 MG TABLET PO SCH (13:26)
[2022-12-25 16:00] VITALS: BP 126/72
[2022-12-25 20:00] VITALS: BP 138/86
[2022-12-25] MEDS: TEMAZEPAM 15 MG CAPSULE PO SCH (20:35)
[2022-12-25] MEDS: MONTELUKAST SODIUM 10 MG TAB PO SCH (20:35)
[2022-12-25] MEDS: ACETAMINOPHEN 325 MG TAB PO PRN (20:36)
[2022-12-25] MEDS: INSULIN GLARGINE 100 UNITS/ML 10 ML VIAL SQ SCH (20:42)
[2022-12-25] MEDS: ALBUMIN (HUMAN) 25% 100 ML IV SCH (21:12)
[2022-12-26] VITALS: BP 130/72
[2022-12-26] MEDS: FUROSEMIDE 40MG VIAL IV SCH ×2 (00:57→14:37)
[2022-12-26 04:00] VITALS: BP 128/80
[2022-12-26] MEDS: ACETAMINOPHEN 325 MG TAB PO PRN ×3 (04:31→20:31)
[2022-12-26] MEDS: CARVEDILOL 3.125 MG TABLET PO SCH ×2 (04:34→20:30)
[2022-12-26] MEDS: INSULIN HUMULIN R 100 UNIT/ML 3ML SQ SCH ×4 (06:00→20:56)
[2022-12-26] MEDS: IPRATROPIUM 0.5 MG/2.5 ML INH IH SCH ×3 (07:38→19:15)
[2022-12-26 08:22] VITALS: BP 142/94
[2022-12-26] MEDS: AMLODIPINE 5 MG TAB PO SCH (10:07)
[2022-12-26] MEDS: FAMOTIDINE 20MG TAB PO SCH (10:07)
[2022-12-26] MEDS: ENOXAPARIN SODIUM 40 MG/0.4 ML SYRINGE SQ SCH (10:07)
[2022-12-26] MEDS: NYSTATIN-TRIAMCINOLONE CREAM 15 GM TP SCH ×2 (10:08→21:38)
[2022-12-26 11:30] VITALS: BP 122/78
[2022-12-26] MEDS: VANCOMYCIN 750MG VIAL IVPB SCH (12:06)
[2022-12-26] MEDS: LEVOFLOXACIN 750 MG TABLET PO SCH (14:38)
[2022-12-26 17:28] VITALS: BP 122/96
[2022-12-26 20:00] VITALS: BP 124/88
[2022-12-26] MEDS: TEMAZEPAM 15 MG CAPSULE PO SCH (20:28)
[2022-12-26] MEDS: MONTELUKAST SODIUM 10 MG TAB PO SCH (20:30)
[2022-12-26] MEDS: INSULIN GLARGINE 100 UNITS/ML 10 ML VIAL SQ SCH (20:56)
[2022-12-27] VITALS: BP 130/72
[2022-12-27] MEDS: FUROSEMIDE 40MG VIAL IV SCH ×2 (01:13→14:45)
[2022-12-27] MEDS: IPRATROPIUM 0.5 MG/2.5 ML INH IH SCH ×6 (01:27→23:50)
[2022-12-27 04:00] VITALS: BP 128/84
[2022-12-27 06:44] LABS: HEMATOCRIT 35.2 % (42-54); MEAN CORPUSCULAR HEMOGLOBIN 27.6 pg (27.0-33.0); MEAN CORPUSCULAR HGB CONC 31.3 g/dL (32.0-36.0); MEAN CORPUSCULAR VOLUME 88.2 fL (79-99); RED BLOOD CELL COUNT(AUTO) 3.99 MIL/uL (4.50-6.20); RED CELL DISTRIBUTION WIDTH 20.2 % (11.0-15.5); WHITE BLOOD COUNT (AUTO) 6.5 K/uL (4.8-10.8)
[2022-12-27] MEDS: INSULIN HUMULIN R 100 UNIT/ML 3ML SQ SCH ×4 (06:47→21:00)
[2022-12-27 06:57] LABS: ALBUMIN 3.2 g/dL (3.5-5.0); CREATININE 2.3 mg/dL (0.5-1.5); POTASSIUM 4.7 mmol/L (3.5-5.1); TOTAL PROTEIN, SERUM 7.1 g/dL (6.0-8.3)
[2022-12-27 08:33] VITALS: BP 148/97
[2022-12-27] MEDS: AMLODIPINE 5 MG TAB PO SCH (09:48)
[2022-12-27] MEDS: ENOXAPARIN SODIUM 40 MG/0.4 ML SYRINGE SQ SCH (09:48)
[2022-12-27] MEDS: CARVEDILOL 3.125 MG TABLET PO SCH ×2 (09:48→21:24)
[2022-12-27] MEDS: FAMOTIDINE 20MG TAB PO SCH (09:48)
[2022-12-27] MEDS: NYSTATIN-TRIAMCINOLONE CREAM 15 GM TP SCH ×2 (09:49→21:25)
[2022-12-27 12:43] VITALS: BP 120/77
[2022-12-27] MEDS: LEVOFLOXACIN 750 MG TABLET PO SCH (14:45)
[2022-12-27 17:43] VITALS: BP 127/87
[2022-12-27 20:00] VITALS: BP 123/76
[2022-12-27] MEDS: TEMAZEPAM 15 MG CAPSULE PO SCH (21:25)
[2022-12-27] MEDS: MONTELUKAST SODIUM 10 MG TAB PO SCH (21:25)
[2022-12-27] MEDS: INSULIN GLARGINE 100 UNITS/ML 10 ML VIAL SQ SCH (21:28)
[2022-12-27] MEDS: ACETAMINOPHEN 325 MG TAB PO PRN (21:30)
[2022-12-28] VITALS (7 sets, daily range): BP systolic 120–151; BP diastolic 74–95
[2022-12-28] MEDS: FUROSEMIDE 40MG VIAL IV SCH ×2 (01:25→13:39)
[2022-12-28 06:33] LABS: BASOPHILS % (AUTO) 0.5 % (0.0-5.0); EOSINOPHILS % (AUTO) 4.7 % (0.0-8.0); HEMATOCRIT 35.8 % (42-54); LYMPHOCYTES % (AUTO) 13.4 % (21.0-51.0); MEAN CORPUSCULAR HEMOGLOBIN 27.6 pg (27.0-33.0); MEAN CORPUSCULAR HGB CONC 31.6 g/dL (32.0-36.0); MEAN CORPUSCULAR VOLUME 87.3 fL (79-99); MONOCYTES % (AUTO) 10.7 % (3.0-13.0); PLATELET COUNT (AUTO) 152 K/uL (130-400); RED CELL DISTRIBUTION WIDTH 19.7 % (11.0-15.5); WHITE BLOOD COUNT (AUTO) 6.4 K/uL (4.8-10.8)
[2022-12-28 06:45] LABS: ALBUMIN 3.1 g/dL (3.5-5.0); CREATININE 2.1 mg/dL (0.5-1.5); POTASSIUM 5.1 mmol/L (3.5-5.1)
[2022-12-28] MEDS: IPRATROPIUM 0.5 MG/2.5 ML INH IH SCH ×4 (07:12→23:36)
[2022-12-28] MEDS: CARVEDILOL 3.125 MG TABLET PO SCH ×3 (09:00→21:27)
[2022-12-28] MEDS: ENOXAPARIN SODIUM 40 MG/0.4 ML SYRINGE SQ SCH ×2 (09:00→09:22)
[2022-12-28] MEDS: FAMOTIDINE 20MG TAB PO SCH ×2 (09:00→09:23)
[2022-12-28] MEDS: AMLODIPINE 5 MG TAB PO SCH ×2 (09:00→09:23)
[2022-12-28] MEDS: INSULIN HUMULIN R 100 UNIT/ML 3ML SQ SCH ×3 (11:30→21:00)
[2022-12-28] MEDS ORDERED: VANCOMYCIN 1G/250ML KIT 250 ML IV SCH (12:00)
[2022-12-28] MEDS: ZYVOX 600 MG TAB PO SCH (13:39)
[2022-12-28] MEDS: LEVOFLOXACIN 750 MG TABLET PO SCH (13:39)
[2022-12-28] MEDS: ACETAMINOPHEN 325 MG TAB PO PRN (13:46)
[2022-12-28] MEDS: NYSTATIN-TRIAMCINOLONE CREAM 15 GM TP SCH ×2 (13:51→21:31)
[2022-12-28] MEDS: MONTELUKAST SODIUM 10 MG TAB PO SCH (21:27)
[2022-12-28] MEDS: TEMAZEPAM 15 MG CAPSULE PO SCH (21:27)
[2022-12-28] MEDS: INSULIN GLARGINE 100 UNITS/ML 10 ML VIAL SQ SCH (21:30)
[2022-12-29] MEDS: ZYVOX 600 MG TAB PO SCH ×2 (00:22→15:17)
[2022-12-29] MEDS: FUROSEMIDE 40MG VIAL IV SCH ×2 (00:22→15:18)
[2022-12-29 04:11] VITALS: BP 116/75
[2022-12-29] MEDS: IPRATROPIUM 0.5 MG/2.5 ML INH IH SCH ×4 (06:00→23:13)
[2022-12-29 06:29] LABS: HEMATOCRIT 33.8 % (42-54); MEAN CORPUSCULAR HEMOGLOBIN 27.8 pg (27.0-33.0); MEAN CORPUSCULAR HGB CONC 32.8 g/dL (32.0-36.0); MEAN CORPUSCULAR VOLUME 84.5 fL (79-99); RED CELL DISTRIBUTION WIDTH 19.9 % (11.0-15.5); WHITE BLOOD COUNT (AUTO) 7.3 K/uL (4.8-10.8)
[2022-12-29 06:35] LABS: CREATININE 2.5 mg/dL (0.5-1.5); TOTAL PROTEIN, SERUM 6.9 g/dL (6.0-8.3)
[2022-12-29 06:38] LABS: POTASSIUM 6.2 mmol/L (3.5-5.1)
[2022-12-29] MEDS: INSULIN HUMULIN R 100 UNIT/ML 3ML SQ SCH ×4 (06:41→21:00)
[2022-12-29 08:00] VITALS: BP 126/83
[2022-12-29] MEDS: ENOXAPARIN SODIUM 40 MG/0.4 ML SYRINGE SQ SCH (09:00)
[2022-12-29] MEDS: NYSTATIN-TRIAMCINOLONE CREAM 15 GM TP SCH ×2 (10:16→21:04)
[2022-12-29] MEDS ORDERED: NA ZIRCON CYCLOSIL(LOKELMA 10GM) PO ONE ×2 (10:30→14:00)
[2022-12-29] MEDS ORDERED: KAYEXALATE 15GM/60ML RC ONE (10:30)
[2022-12-29 11:56] VITALS: BP 134/93
[2022-12-29 15:03] VITALS: BP 138/95
[2022-12-29] MEDS: FAMOTIDINE 20MG TAB PO SCH (15:17)
[2022-12-29] MEDS: AMLODIPINE 5 MG TAB PO SCH (15:17)
[2022-12-29] MEDS: CARVEDILOL 3.125 MG TABLET PO SCH ×2 (15:17→20:56)
[2022-12-29] MEDS: LEVOFLOXACIN 750 MG TABLET PO SCH (15:17)
[2022-12-29] MEDS: TEMAZEPAM 15 MG CAPSULE PO SCH (20:55)
[2022-12-29] MEDS: MONTELUKAST SODIUM 10 MG TAB PO SCH (20:55)
[2022-12-29] MEDS: INSULIN GLARGINE 100 UNITS/ML 10 ML VIAL SQ SCH (21:01)
[2022-12-29 21:25] VITALS: BP 168/115
[2022-12-29 23:56] VITALS: BP 122/74
[2022-12-30 03:42] VITALS: BP 132/79
[2022-12-30] MEDS: ZYVOX 600 MG TAB PO SCH ×2 (03:42→13:00)
[2022-12-30] MEDS: FUROSEMIDE 40MG VIAL IV SCH ×2 (03:42→13:30)
[2022-12-30 05:18] LABS: BASOPHILS % (AUTO) 0.3 % (0.0-5.0); EOSINOPHILS % (AUTO) 3.4 % (0.0-8.0); HEMATOCRIT 33.6 % (42-54); LYMPHOCYTES % (AUTO) 11.7 % (21.0-51.0); MEAN CORPUSCULAR HEMOGLOBIN 27.9 pg (27.0-33.0); MEAN CORPUSCULAR HGB CONC 32.4 g/dL (32.0-36.0); MEAN CORPUSCULAR VOLUME 85.9 fL (79-99); MONOCYTES % (AUTO) 8.1 % (3.0-13.0); NEUTROPHILS % (AUTO) 75.5 % (40.0-77.0); PLATELET COUNT (AUTO) 131 K/uL (130-400); RED BLOOD CELL COUNT(AUTO) 3.91 MIL/uL (4.50-6.20); RED CELL DISTRIBUTION WIDTH 19.7 % (11.0-15.5); WHITE BLOOD COUNT (AUTO) 6.8 K/uL (4.8-10.8)
[2022-12-30 05:33] LABS: ALBUMIN 2.8 g/dL (3.5-5.0); CREATININE 2.2 mg/dL (0.5-1.5); TOTAL PROTEIN, SERUM 6.5 g/dL (6.0-8.3)
[2022-12-30] MEDS: ACETAMINOPHEN 325 MG TAB PO PRN (05:44)
[2022-12-30] MEDS: IPRATROPIUM 0.5 MG/2.5 ML INH IH SCH ×2 (06:52→11:27)
[2022-12-30 07:30] VITALS: BP 122/96
[2022-12-30] MEDS: INSULIN HUMULIN R 100 UNIT/ML 3ML SQ SCH ×2 (07:30→11:30)
[2022-12-30] MEDS: AMLODIPINE 5 MG TAB PO SCH (09:00)
[2022-12-30] MEDS: ENOXAPARIN SODIUM 40 MG/0.4 ML SYRINGE SQ SCH (09:00)
[2022-12-30] MEDS: FAMOTIDINE 20MG TAB PO SCH (09:00)
[2022-12-30] MEDS: CARVEDILOL 3.125 MG TABLET PO SCH (09:00)
[2022-12-30] MEDS: NYSTATIN-TRIAMCINOLONE CREAM 15 GM TP SCH (09:00)
[2022-12-30 11:30] VITALS: BP 136/98
[2022-12-30] MEDS: LEVOFLOXACIN 750 MG TABLET PO SCH (14:00)
== END 2022-12-30 18:00 | disposition home or self-care (01) | DRG 193 ==
LOC: EDH 00:32 → EDHIP 00:33 → 3CH 06:26
PROVIDERS: ADMIT Internal Medicine; ATTEND Internal Medicine
PROC: 0W9G3ZZ Drainage of Peritoneal Cavity, Percutaneous Approach (ICD-10-PCS; principal; 2022-12-21)
PROC: 0W9G3ZZ Drainage of Peritoneal Cavity, Percutaneous Approach (ICD-10-PCS; 2022-12-23)
DX: J18.9 Pneumonia, unspecified organism (principal); I50.43 Acute on chronic combined systolic (congestive) and diastolic (congestive) heart failure; J96.01 Acute respiratory failure with hypoxia; I13.0 Hypertensive heart and chronic kidney disease with heart failure and stage 1 through stage 4 chronic kidney disease, or unspecified chronic kidney disease; E87.1 Hypo-osmolality and hyponatremia; L03.115 Cellulitis of right lower limb; L03.116 Cellulitis of left lower limb; E44.0 Moderate protein-calorie malnutrition; M86.8X7 Other osteomyelitis, ankle and foot; D62 Acute posthemorrhagic anemia; I42.9 Cardiomyopathy, unspecified; J44.0 Chronic obstructive pulmonary disease with (acute) lower respiratory infection; M00.9 Pyogenic arthritis, unspecified; R18.8 Other ascites; N17.9 Acute kidney failure, unspecified; E11.69 Type 2 diabetes mellitus with other specified complication; F14.10 Cocaine abuse, uncomplicated; E87.5 Hyperkalemia; E11.65 Type 2 diabetes mellitus with hyperglycemia; E11.22 Type 2 diabetes mellitus with diabetic chronic kidney disease; E11.621 Type 2 diabetes mellitus with foot ulcer; E78.5 Hyperlipidemia, unspecified; E11.42 Type 2 diabetes mellitus with diabetic polyneuropathy; F17.210 Nicotine dependence, cigarettes, uncomplicated; H54.8 Legal blindness, as defined in USA; K74.60 Unspecified cirrhosis of liver; L97.519 Non-pressure chronic ulcer of other part of right foot with unspecified severity; N18.31 Chronic kidney disease, stage 3a; N50.89 Other specified disorders of the male genital organs; Z53.20 Procedure and treatment not carried out because of patient's decision for unspecified reasons; I25.10 Atherosclerotic heart disease of native coronary artery without angina pectoris; I25.2 Old myocardial infarction; Z91.199 Patient's noncompliance with other medical treatment and regimen due to unspecified reason; Z86.14 Personal history of Methicillin resistant Staphylococcus aureus infection; Z59.02 Unsheltered homelessness; Z86.73 Personal history of transient ischemic attack (TIA), and cerebral infarction without residual deficits; Z86.79 Personal history of other diseases of the circulatory system; Z91.119 Patient's noncompliance with dietary regimen due to unspecified reason; Z95.1 Presence of aortocoronary bypass graft; Z95.3 Presence of xenogenic heart valve; Z79.2 Long term (current) use of antibiotics
CPT/HCPCS: 36415; 49083; 71045; 71250; 73630; 73718; 76000; 76705; 80048; 80053; 80202; 80305; 81001; 82948; 83036; 83735; 83880; 83935; 84100; 84132; 84145; 84300; 84443; 84484; 84550; 85025; 85027; 85610; 85651; 85730; 86038; 86140; 86200; 86215; 86235; 86255; 86431; 86701; 86706; 87040; 87070; 87071; 87076; 87077; 87088; 87186; 87205; 87340; 87390; 87520; 87635; 87804; 89051; 93005; 93306; 93926; 94640; 94664; C1729; C9803; G0378; J0696; J1650; J1815; J1940; J2543; J2920; J3475; J7608; P9046

== ENCOUNTER → 2022-12-31 | Emergency (ER) | payer OTHER ==
[~2022-12-31] VITALS: Ht 170.2 cm; Wt 68.0 kg
[~2022-12-31] MED LIST changes: +CEPH500T PO; -METO25PO2 PO
[2022-12-31 12:15] VITALS: BP 140/92
== END ==
LOC: EDH 12:10
DX: R53.1 Weakness (principal); Z53.21 Procedure and treatment not carried out due to patient leaving prior to being seen by health care provider
CPT/HCPCS: 99281

== ENCOUNTER 2023-01-03 19:16 | Emergency (ER) | payer OTHER ==
[~2023-01-03 19:16] MED LIST changes: -CEPH500T PO
[2023-01-03 19:43] LABS: BASOPHILS % (AUTO) 0.4 % (0.0-5.0); EOSINOPHILS % (AUTO) 1.5 % (0.0-8.0); HEMATOCRIT 39.1 % (42-54); LYMPHOCYTES % (AUTO) 10.3 % (21.0-51.0); MEAN CORPUSCULAR HEMOGLOBIN 27.4 pg (27.0-33.0); MEAN CORPUSCULAR HGB CONC 30.9 g/dL (32.0-36.0); MEAN CORPUSCULAR VOLUME 88.5 fL (79-99); NEUTROPHILS % (AUTO) 81.2 % (40.0-77.0); PLATELET COUNT (AUTO) 113 K/uL (130-400); RED BLOOD CELL COUNT(AUTO) 4.42 MIL/uL (4.50-6.20); RED CELL DISTRIBUTION WIDTH 19.6 % (11.0-15.5); WHITE BLOOD COUNT (AUTO) 6.7 K/uL (4.8-10.8)
[2023-01-03 19:50] LABS: CREATININE 1.7 mg/dL (0.5-1.5); POTASSIUM 3.7 mmol/L (3.5-5.1)
[2023-01-03 19:55] LABS: MAGNESIUM 2.2 mg/dL (1.80-2.40); TOTAL PROTEIN, SERUM 7.5 g/dL (6.0-8.3)
[2023-01-03] MEDS ORDERED: CEPH500T PO (20:15)
[2023-01-03 20:59] VITALS: BP 128/70
== END 2023-01-03 21:09 | disposition home or self-care (01) ==
LOC: EDH 19:16
DX: S80.12XA Contusion of left lower leg, initial encounter (principal); S80.11XA Contusion of right lower leg, initial encounter; S40.812A Abrasion of left upper arm, initial encounter; S40.811A Abrasion of right upper arm, initial encounter; L97.519 Non-pressure chronic ulcer of other part of right foot with unspecified severity; I10 Essential (primary) hypertension; E11.9 Type 2 diabetes mellitus without complications; F17.200 Nicotine dependence, unspecified, uncomplicated; Z79.82 Long term (current) use of aspirin; Z79.899 Other long term (current) drug therapy; Z20.822 Contact with and (suspected) exposure to COVID-19; X58.XXXA Exposure to other specified factors, initial encounter; Y93.89 Activity, other specified; Y92.89 Other specified places as the place of occurrence of the external cause; Y99.8 Other external cause status
CPT/HCPCS: 99283; 87635; 83735; 80053; 85025; 87804 ×2; 36415; C9803

== ENCOUNTER 2023-01-04 11:19 | Emergency (ER) | payer OTHER ==
[~2023-01-04 11:19] MED LIST changes: +CEPH500T PO
== END 2023-01-04 12:04 | disposition left against medical advice (07) ==
LOC: EDH 11:19
DX: R53.1 Weakness (principal); Z53.21 Procedure and treatment not carried out due to patient leaving prior to being seen by health care provider

== ENCOUNTER 2023-01-06 01:01 | Emergency (ER) | payer OTHER ==
[~2023-01-06] VITALS: Ht 170.2 cm; Wt 64.9 kg
[2023-01-06 01:04] VITALS: BP 158/94
== END 2023-01-06 02:16 | disposition home or self-care (01) ==
LOC: EDH 01:01
DX: K74.60 Unspecified cirrhosis of liver (principal); F17.200 Nicotine dependence, unspecified, uncomplicated; G62.9 Polyneuropathy, unspecified; Z59.00 Homelessness unspecified; Z79.82 Long term (current) use of aspirin; Z79.84 Long term (current) use of oral hypoglycemic drugs; Z79.899 Other long term (current) drug therapy; Z83.3 Family history of diabetes mellitus; Z95.2 Presence of prosthetic heart valve

== ENCOUNTER 2023-01-09 02:04 | Emergency (ER) | payer OTHER ==
[~2023-01-09] VITALS: Ht 170.2 cm; Wt 67.1 kg
[2023-01-09 02:58] LABS: BASOPHILS % (AUTO) 0.6 % (0.0-5.0); EOSINOPHILS % (AUTO) 4.6 % (0.0-8.0); HEMATOCRIT 38.9 % (42-54); LYMPHOCYTES % (AUTO) 16.5 % (21.0-51.0); MEAN CORPUSCULAR HEMOGLOBIN 27.3 pg (27.0-33.0); MEAN CORPUSCULAR HGB CONC 31.6 g/dL (32.0-36.0); MEAN CORPUSCULAR VOLUME 86.3 fL (79-99); MONOCYTES % (AUTO) 8.3 % (3.0-13.0); NEUTROPHILS % (AUTO) 69.8 % (40.0-77.0); PLATELET COUNT (AUTO) 137 K/uL (130-400); RED BLOOD CELL COUNT(AUTO) 4.51 MIL/uL (4.50-6.20); RED CELL DISTRIBUTION WIDTH 17.8 % (11.0-15.5); WHITE BLOOD COUNT (AUTO) 5.5 K/uL (4.8-10.8)
[2023-01-09 03:13] LABS: CARBON DIOXIDE 26 mmol/L (21-32); CHLORIDE 102 mmol/L (101-111); CREATININE 1.7 mg/dL (0.5-1.5); GLOMERULAR FILTR. RATE CALC 52 mL/min (>90); GLUCOSE,RANDOM 185 mg/dL (70-105); POTASSIUM 3.6 mmol/L (3.5-5.1); SODIUM SERUM 135 mmol/L (136-145); UREA NITROGEN, BLOOD 32 mg/dL (7-18)
[2023-01-09 03:18] LABS: ALANINE AMINOTRANSFERASE 18 U/L (12-78); ALBUMIN 3.1 g/dL (3.5-5.0); ASPARTATE AMINOTRANSFERASE 19 U/L (10-37); TOTAL PROTEIN, SERUM 7.8 g/dL (6.0-8.3)
[2023-01-09 03:21] LABS: ACETAMINOPHEN < 1 mcg/mL (10-29); SALICYLATE < 2.8 mg/dL (2.8-20.0)
[2023-01-09 05:31] VITALS: BP 152/87
[2023-01-09 05:40] LABS: APPEARANCE,URINE TURBID (CLEAR); BILIRUBIN,URINE NEGATIVE (NEGATIVE); COLOR,URINE YELLOW (YELLOW); GLUCOSE, URINE (UA) TRACE mg/dL (NEGATIVE); KETONES,URINE NEGATIVE (NEGATIVE); LEUKOCYTE ESTERASE ,URINE 500 Leu/uL (NEGATIVE); NITRATE,URINE NEGATIVE (NEGATIVE); OCCULT BLOOD,URINE MODERATE (NEGATIVE); PH,URINE 6.5 (5.0-8.0); PROTEIN,URINE 300 mg/dL (NEGATIVE); UROBILINOGEN,URINE 0.2 mg/dL (0.2-1.0)
[2023-01-09 05:46] LABS: RBC,URINE 26-50 /HPF (0-1); WBC,URINE TNTC /HPF (0-1)
[2023-01-09 05:47] LABS: AMPHET/METH SCREEN,URINE NEGATIVE (NEGATIVE); BARBITURATE SCREEN, URINE NEGATIVE (NEGATIVE); BENZODIAZEPINES SCREEN,URINE NEGATIVE (NEGATIVE); CANNABINOID SCREEN,URINE NEGATIVE (NEGATIVE); COCAINE SCREEN,URINE POSITIVE (NEGATIVE); OPIATE SCREEN,URINE NEGATIVE (NEGATIVE); PHENCYCLIDINE SCREEN,URINE NEGATIVE (NEGATIVE)
[2023-01-09] MEDS ORDERED: ACETAMINOPHEN 325 MG TAB PO ONE (09:30)
[2023-01-09] MEDS ORDERED: CEFTRIAXONE 1G VIAL IM ONE (09:30)
[2023-01-09] MEDS ORDERED: CEPH500B PO (09:30)
[2023-01-09] MEDS ORDERED: CEFTRIAXONE 1G VIAL ONE (09:41)
== END 2023-01-09 09:52 | disposition home or self-care (01) ==
LOC: EDH 02:04
DX: F32.A Depression, unspecified (principal); N18.9 Chronic kidney disease, unspecified; F19.10 Other psychoactive substance abuse, uncomplicated; N30.00 Acute cystitis without hematuria; F41.9 Anxiety disorder, unspecified; Z79.82 Long term (current) use of aspirin; Z79.899 Other long term (current) drug therapy; Z98.890 Other specified postprocedural states
CPT/HCPCS: 99283; 80053; 80305; 85025; 87088; 36415; 96372; 81001; G0481; J0696

== ENCOUNTER 2023-01-12 19:36 | Inpatient (IN) | payer OTHER ==
[~2023-01-12] VITALS: Ht 165.1 cm; Wt 50.5 kg
[~2023-01-12 19:36] MED LIST changes: +CEPH500B PO
[2023-01-12] MEDS ORDERED: ONDANSETRON 4MG INJ IVP ONE (20:30)
[2023-01-12] MEDS ORDERED: 0.9%NACL 1000ML 1,000 ML IV ONE (20:30)
[2023-01-12] MEDS ORDERED: MORPHINE 4 MG SYG IM ONE (20:30)
[2023-01-12 20:45] LABS: BASOPHILS % (AUTO) 0.4 % (0.0-5.0); EOSINOPHILS % (AUTO) 2.7 % (0.0-8.0); HEMATOCRIT 42.1 % (42-54); LYMPHOCYTES % (AUTO) 16.6 % (21.0-51.0); MEAN CORPUSCULAR HEMOGLOBIN 27.7 pg (27.0-33.0); MEAN CORPUSCULAR HGB CONC 31.8 g/dL (32.0-36.0); MONOCYTES % (AUTO) 7.4 % (3.0-13.0); NEUTROPHILS % (AUTO) 72.4 % (40.0-77.0); PLATELET COUNT (AUTO) 155 K/uL (130-400); RED BLOOD CELL COUNT(AUTO) 4.84 MIL/uL (4.50-6.20); RED CELL DISTRIBUTION WIDTH 17.1 % (11.0-15.5); WHITE BLOOD COUNT (AUTO) 5.5 K/uL (4.8-10.8)
[2023-01-12 20:57] LABS: INR 1.21 (0.85-1.15)
[2023-01-12 21:02] LABS: CREATININE 1.5 mg/dL (0.5-1.5); POTASSIUM 3.5 mmol/L (3.5-5.1)
[2023-01-12 21:11] LABS: TOTAL PROTEIN, SERUM 7.8 g/dL (6.0-8.3)
[2023-01-12] MEDS ORDERED: ASPIRIN 81MG CHEW TAB PO ONE (23:30)
[2023-01-12] MEDS ORDERED: NITROGLYCERIN 0.4 MG SL TAB SL PRN (23:30)
[2023-01-12] MEDS: ZOSYN 3.375GM+NS 50ML 50 ML IVPB SCH (23:55)
[2023-01-12] MEDS: LACTATED RINGERS 1000ML 1,000 ML IV SCH (23:55)
[2023-01-13] VITALS (20 sets, daily range): BP systolic 117–175; BP diastolic 81–118
[2023-01-13] MEDS: ACETAMINOPHEN 325 MG TAB PO PRN ×2 (00:07→05:42)
[2023-01-13] MEDS ORDERED: POTASSIUM CHLORIDE 20MEQ/100ML 100 ML IV PRN (01:00)
[2023-01-13] MEDS ORDERED: MAGNESIUM 2GM PREMIX 50ML 50 ML IV PRN (01:00)
[2023-01-13] MEDS ORDERED: LISINOPRIL 10 MG TABLET PO ONE (01:00)
[2023-01-13] MEDS ORDERED: PHARMACY COMMUNICATION MISC SCH (01:00)
[2023-01-13] MEDS ORDERED: KCL 20 MEQ ERTAB PO PRN (01:00)
[2023-01-13] MEDS ORDERED: POTASSIUM CHLORIDE 10% ELIXIR 20 MEQ/15 ML UDCUP PO PRN (01:00)
[2023-01-13] MEDS: CLONIDINE HCL 0.1 MG TABLET PO PRN (02:23)
[2023-01-13 05:05] LABS: HEMATOCRIT 40.3 % (42-54); MEAN CORPUSCULAR HGB CONC 31.5 g/dL (32.0-36.0); MEAN CORPUSCULAR VOLUME 85.6 fL (79-99); RED BLOOD CELL COUNT(AUTO) 4.71 MIL/uL (4.50-6.20); WHITE BLOOD COUNT (AUTO) 4.8 K/uL (4.8-10.8)
[2023-01-13 05:06] LABS: BASOPHILS % (AUTO) 0.4 % (0.0-5.0); EOSINOPHILS % (AUTO) 4.2 % (0.0-8.0); LYMPHOCYTES % (AUTO) 22.5 % (21.0-51.0); MONOCYTES % (AUTO) 7.6 % (3.0-13.0); NEUTROPHILS % (AUTO) 65.1 % (40.0-77.0); PLATELET COUNT (AUTO) 195 K/uL (130-400); RED CELL DISTRIBUTION WIDTH 17.1 % (11.0-15.5)
[2023-01-13 05:13] LABS: APPEARANCE,URINE CLOUDY (CLEAR); BILIRUBIN,URINE NEGATIVE (NEGATIVE); COLOR,URINE LIGHT-YELLOW (YELLOW); GLUCOSE, URINE (UA) NEGATIVE (NEGATIVE); KETONES,URINE 10 mg/dL (NEGATIVE); LEUKOCYTE ESTERASE ,URINE 500 Leu/uL (NEGATIVE); NITRATE,URINE NEGATIVE (NEGATIVE); OCCULT BLOOD,URINE MODERATE (NEGATIVE); PROTEIN,URINE 200 mg/dL (NEGATIVE); UROBILINOGEN,URINE 0.2 mg/dL (0.2-1.0)
[2023-01-13 05:16] LABS: HEMOGLOBIN A1C 7.6 % (4.0-6.0)
[2023-01-13 05:18] LABS: MUCUS,URINE RARE LPF (None Seen); SQUAMOUS EPITHELIAL CELL,UR RARE /HPF (0-2); WBC,URINE TNTC /HPF (0-1)
[2023-01-13] MEDS: ONDANSETRON 4MG INJ IV PRN (05:49)
[2023-01-13] MEDS: MORPHINE 4 MG SYG IV PRN ×2 (05:50→16:01)
[2023-01-13 06:45] LABS: CREATININE 1.5 mg/dL (0.5-1.5); PHOSPHORUS 3.5 mg/dL (2.5-4.9); POTASSIUM 3.8 mmol/L (3.5-5.1)
[2023-01-13] MEDS ORDERED: DEXTROSE 50%-WATER 50 ML DISP.SYRIN IV ONE ×2 (06:52→07:00)
[2023-01-13] MEDS: HEPARIN 5,000 UNIT VIAL SQ SCH ×2 (09:00→20:46)
[2023-01-13] MEDS: ASPIRIN 81MG CHEW TAB PO SCH (09:00)
[2023-01-13 09:08] LABS: AMPHET/METH SCREEN,URINE NEGATIVE (NEGATIVE); BARBITURATE SCREEN, URINE NEGATIVE (NEGATIVE); BENZODIAZEPINES SCREEN,URINE NEGATIVE (NEGATIVE); CANNABINOID SCREEN,URINE NEGATIVE (NEGATIVE); COCAINE SCREEN,URINE POSITIVE (NEGATIVE); OPIATE SCREEN,URINE NEGATIVE (NEGATIVE); PHENCYCLIDINE SCREEN,URINE NEGATIVE (NEGATIVE)
[2023-01-13] MEDS: LACTATED RINGERS 1000ML 1,000 ML IV SCH ×2 (09:30→19:30)
[2023-01-13] MEDS ORDERED: LIDOCAINE HCL 1% 20 ML VIAL ONE (11:28)
[2023-01-13] MEDS ORDERED: BUPIVACAINE/PF 0.5% 30ML VIAL ONE (11:28)
[2023-01-13] MEDS: INSULIN HUMULIN R 100 UNIT/ML 3ML SQ SCH ×3 (11:30→20:46)
[2023-01-13] MEDS ORDERED: MIDAZOLAM HCL 1 MG/ML 2ML VIAL ONE (11:32)
[2023-01-13] MEDS ORDERED: FENTANYL CITRATE PF 50 MCG/1 ML 2ML VIAL ONE (11:32)
[2023-01-13] MEDS ORDERED: PROPOFOL 1000 MG/100 ML 100 ML IV ONE (11:34)
[2023-01-13] MEDS: ZOSYN 3.375GM+NS 50ML 50 ML IVPB SCH ×2 (15:58→23:34)
[2023-01-13] MEDS: FAMOTIDINE 20MG TAB PO SCH (15:58)
[2023-01-13] MEDS: LISINOPRIL 10 MG TABLET PO SCH (15:58)
[2023-01-14] VITALS: BP 145/80
[2023-01-14] MEDS: MORPHINE 2 MG SYG IV PRN (01:43)
[2023-01-14 04:00] VITALS: BP 146/80
[2023-01-14] MEDS: LACTATED RINGERS 1000ML 1,000 ML IV SCH ×3 (05:05→23:36)
[2023-01-14] MEDS: ACETAMINOPHEN 325 MG TAB PO PRN (05:28)
[2023-01-14 06:14] LABS: BASOPHILS % (AUTO) 0.2 % (0.0-5.0); EOSINOPHILS % (AUTO) 4.4 % (0.0-8.0); HEMATOCRIT 37.1 % (42-54); LYMPHOCYTES % (AUTO) 16.4 % (21.0-51.0); MEAN CORPUSCULAR HEMOGLOBIN 27.1 pg (27.0-33.0); MEAN CORPUSCULAR HGB CONC 30.7 g/dL (32.0-36.0); MEAN CORPUSCULAR VOLUME 88.1 fL (79-99); MONOCYTES % (AUTO) 8.1 % (3.0-13.0); NEUTROPHILS % (AUTO) 70.7 % (40.0-77.0); PLATELET COUNT (AUTO) 178 K/uL (130-400); RED BLOOD CELL COUNT(AUTO) 4.21 MIL/uL (4.50-6.20); RED CELL DISTRIBUTION WIDTH 17.4 % (11.0-15.5); WHITE BLOOD COUNT (AUTO) 4.8 K/uL (4.8-10.8)
[2023-01-14 06:36] LABS: ALBUMIN 2.7 g/dL (3.5-5.0); CREATININE 1.8 mg/dL (0.5-1.5); POTASSIUM 3.4 mmol/L (3.5-5.1)
[2023-01-14] MEDS: INSULIN HUMULIN R 100 UNIT/ML 3ML SQ SCH ×4 (06:41→20:54)
[2023-01-14 08:29] VITALS: BP 85/51
[2023-01-14] MEDS: ASPIRIN 81MG CHEW TAB PO SCH (09:14)
[2023-01-14] MEDS: LISINOPRIL 10 MG TABLET PO SCH (09:15)
[2023-01-14] MEDS: HEPARIN 5,000 UNIT VIAL SQ SCH ×2 (09:22→20:55)
[2023-01-14] MEDS: MORPHINE 4 MG SYG IV PRN (09:23)
[2023-01-14] MEDS: FAMOTIDINE 20MG TAB PO SCH (09:23)
[2023-01-14] MEDS: ZOSYN 3.375GM+NS 50ML 50 ML IVPB SCH ×2 (11:55→23:36)
[2023-01-14] MEDS ORDERED: PERMETHRIN LOTION 1% 59ML BOTTLE TP PRN (12:30)
[2023-01-14 12:47] VITALS: BP 157/112
[2023-01-14] MEDS: DIPHENHYDRAMINE HCL 25 MG CAPSULE PO PRN (13:43)
[2023-01-14] MEDS ORDERED: PERMETHRIN CREAM 5% 60GM TUBE TP PRN (14:30)
[2023-01-14 16:00] VITALS: BP 135/99
[2023-01-14 20:00] VITALS: BP 133/85
[2023-01-15] VITALS: BP 137/84
[2023-01-15 04:00] VITALS: BP 144/95
[2023-01-15] MEDS: MORPHINE 2 MG SYG IV PRN (04:37)
[2023-01-15 05:14] LABS: HEMATOCRIT 36.6 % (42-54); MEAN CORPUSCULAR HEMOGLOBIN 27.8 pg (27.0-33.0); MEAN CORPUSCULAR HGB CONC 31.4 g/dL (32.0-36.0); MEAN CORPUSCULAR VOLUME 88.4 fL (79-99); RED BLOOD CELL COUNT(AUTO) 4.14 MIL/uL (4.50-6.20); RED CELL DISTRIBUTION WIDTH 17.2 % (11.0-15.5); WHITE BLOOD COUNT (AUTO) 5.5 K/uL (4.8-10.8)
[2023-01-15 05:46] LABS: ALBUMIN 2.6 g/dL (3.5-5.0); CREATININE 1.8 mg/dL (0.5-1.5); POTASSIUM 4.6 mmol/L (3.5-5.1); TOTAL PROTEIN, SERUM 7.1 g/dL (6.0-8.3)
[2023-01-15] MEDS: INSULIN HUMULIN R 100 UNIT/ML 3ML SQ SCH ×4 (06:48→19:37)
[2023-01-15] MEDS: LISINOPRIL 10 MG TABLET PO SCH (08:17)
[2023-01-15] MEDS: ASPIRIN 81MG CHEW TAB PO SCH (08:18)
[2023-01-15] MEDS: ACETAMINOPHEN 325 MG TAB PO PRN (08:18)
[2023-01-15] MEDS: FAMOTIDINE 20MG TAB PO SCH (08:18)
[2023-01-15] MEDS: HEPARIN 5,000 UNIT VIAL SQ SCH ×2 (08:31→19:37)
[2023-01-15 08:41] VITALS: BP 139/77
[2023-01-15 11:31] VITALS: BP 134/98
[2023-01-15] MEDS: ZOSYN 3.375GM+NS 50ML 50 ML IVPB SCH ×2 (11:43→23:21)
[2023-01-15] MEDS: LACTATED RINGERS 1000ML 1,000 ML IV SCH ×2 (11:48→23:30)
[2023-01-15] MEDS: MORPHINE 4 MG SYG IV PRN (12:50)
[2023-01-15] MEDS: ONDANSETRON 4MG INJ IV PRN (12:50)
[2023-01-15] MEDS: DIPHENHYDRAMINE HCL 25 MG CAPSULE PO PRN (15:30)
[2023-01-15 16:49] VITALS: BP 139/99
[2023-01-15 19:52] VITALS: BP 138/96
[2023-01-16 00:21] VITALS: BP 135/93
[2023-01-16] MEDS: LACTATED RINGERS 1000ML 1,000 ML IV SCH ×2 (03:38→17:36)
[2023-01-16 04:16] VITALS: BP 137/93
[2023-01-16] MEDS: INSULIN HUMULIN R 100 UNIT/ML 3ML SQ SCH ×4 (06:39→21:00)
[2023-01-16 07:59] VITALS: BP 144/81
[2023-01-16 08:02] LABS: HEMATOCRIT 36.9 % (42-54); MEAN CORPUSCULAR HEMOGLOBIN 27.9 pg (27.0-33.0); MEAN CORPUSCULAR HGB CONC 31.7 g/dL (32.0-36.0); MEAN CORPUSCULAR VOLUME 88.1 fL (79-99); RED BLOOD CELL COUNT(AUTO) 4.19 MIL/uL (4.50-6.20); RED CELL DISTRIBUTION WIDTH 17.3 % (11.0-15.5); WHITE BLOOD COUNT (AUTO) 5.8 K/uL (4.8-10.8)
[2023-01-16] MEDS: ASPIRIN 81MG CHEW TAB PO SCH (09:37)
[2023-01-16] MEDS: LISINOPRIL 10 MG TABLET PO SCH (09:37)
[2023-01-16] MEDS: FAMOTIDINE 20MG TAB PO SCH (09:37)
[2023-01-16] MEDS: HEPARIN 5,000 UNIT VIAL SQ SCH ×2 (09:43→21:50)
[2023-01-16] MEDS: ACETAMINOPHEN 325 MG TAB PO PRN (09:47)
[2023-01-16 11:27] LABS: CREATININE 2.1 mg/dL (0.5-1.5); POTASSIUM 5.4 mmol/L (3.5-5.1)
[2023-01-16 11:33] LABS: ALBUMIN 2.3 g/dL (3.5-5.0); TOTAL PROTEIN, SERUM 6.5 g/dL (6.0-8.3)
[2023-01-16] MEDS: ZOSYN 3.375GM+NS 50ML 50 ML IVPB SCH ×2 (11:33→23:07)
[2023-01-16] MEDS: FLUCONAZOLE 100 MG TAB PO SCH (11:33)
[2023-01-16] MEDS: ONDANSETRON 4MG INJ IV PRN ×2 (11:35→23:35)
[2023-01-16 11:46] VITALS: BP 149/77
[2023-01-16 16:00] VITALS: BP 152/83
[2023-01-16 20:11] VITALS: BP 142/92
[2023-01-16] MEDS: MORPHINE 2 MG SYG IV PRN (23:26)
[2023-01-17 00:23] VITALS: BP 150/99
[2023-01-17] MEDS: LACTATED RINGERS 1000ML 1,000 ML IV SCH ×2 (03:30→13:34)
[2023-01-17 03:45] VITALS: BP 139/86
[2023-01-17] MEDS: ONDANSETRON 4MG INJ IV PRN ×2 (05:58→13:55)
[2023-01-17] MEDS: DIPHENHYDRAMINE HCL 25 MG CAPSULE PO PRN (05:58)
[2023-01-17] MEDS: INSULIN HUMULIN R 100 UNIT/ML 3ML SQ SCH ×3 (06:04→16:21)
[2023-01-17 07:10] VITALS: BP 165/114
[2023-01-17] MEDS: CLONIDINE HCL 0.1 MG TABLET PO PRN (07:33)
[2023-01-17] MEDS ORDERED: DEXTROSE 50%-WATER 50 ML DISP.SYRIN IV ONE (08:10)
[2023-01-17 08:39] VITALS: BP 156/109
[2023-01-17] MEDS: FAMOTIDINE 20MG TAB PO SCH (09:43)
[2023-01-17] MEDS: FLUCONAZOLE 100 MG TAB PO SCH (09:43)
[2023-01-17] MEDS: ASPIRIN 81MG CHEW TAB PO SCH (09:43)
[2023-01-17] MEDS: LISINOPRIL 10 MG TABLET PO SCH (09:43)
[2023-01-17] MEDS: HEPARIN 5,000 UNIT VIAL SQ SCH (09:44)
[2023-01-17 11:00] VITALS: BP 148/103
[2023-01-17 11:20] LABS: HEMATOCRIT 37.1 % (42-54); MEAN CORPUSCULAR HEMOGLOBIN 27.8 pg (27.0-33.0); MEAN CORPUSCULAR HGB CONC 31.5 g/dL (32.0-36.0); MEAN CORPUSCULAR VOLUME 88.1 fL (79-99); RED BLOOD CELL COUNT(AUTO) 4.21 MIL/uL (4.50-6.20); RED CELL DISTRIBUTION WIDTH 17.2 % (11.0-15.5); WHITE BLOOD COUNT (AUTO) 6.4 K/uL (4.8-10.8)
[2023-01-17 11:37] LABS: ALBUMIN 2.4 g/dL (3.5-5.0); CREATININE 1.9 mg/dL (0.5-1.5); MAGNESIUM 1.7 mg/dL (1.80-2.40); POTASSIUM 4.7 mmol/L (3.5-5.1); TOTAL PROTEIN, SERUM 6.6 g/dL (6.0-8.3)
[2023-01-17] MEDS: AMOXICILLIN 500 MG CAPSULE PO SCH ×2 (12:32→17:50)
[2023-01-17] MEDS: MORPHINE 2 MG SYG IV PRN (13:55)
[2023-01-17] MEDS ORDERED: AMOX500T2 PO (14:11)
[2023-01-17] MEDS ORDERED: FLUC200T12 PO (14:11)
[2023-01-17 15:00] VITALS: BP 148/102
[2023-01-17] MEDS: ACETAMINOPHEN 325 MG TAB PO PRN (19:45)
== END 2023-01-17 21:00 | disposition home or self-care (01) | DRG 628 ==
LOC: EDH 19:36 → EDHIP 19:37 → 3DH 01-13 09:59
PROVIDERS: ADMIT Internal Medicine; ATTEND Internal Medicine
PROC: 0QBN0ZZ Excision of Right Metatarsal, Open Approach (ICD-10-PCS; principal; 2023-01-13 11:37)
DX: E11.69 Type 2 diabetes mellitus with other specified complication (principal); I33.0 Acute and subacute infective endocarditis; I13.0 Hypertensive heart and chronic kidney disease with heart failure and stage 1 through stage 4 chronic kidney disease, or unspecified chronic kidney disease; M00.9 Pyogenic arthritis, unspecified; M86.8X7 Other osteomyelitis, ankle and foot; Z20.822 Contact with and (suspected) exposure to COVID-19; E11.621 Type 2 diabetes mellitus with foot ulcer; L03.031 Cellulitis of right toe; E11.65 Type 2 diabetes mellitus with hyperglycemia; K74.60 Unspecified cirrhosis of liver; N18.31 Chronic kidney disease, stage 3a; I50.9 Heart failure, unspecified; E11.22 Type 2 diabetes mellitus with diabetic chronic kidney disease; E11.42 Type 2 diabetes mellitus with diabetic polyneuropathy; E78.5 Hyperlipidemia, unspecified; F17.200 Nicotine dependence, unspecified, uncomplicated; F31.9 Bipolar disorder, unspecified; G89.29 Other chronic pain; I25.10 Atherosclerotic heart disease of native coronary artery without angina pectoris; Z59.00 Homelessness unspecified; Z79.82 Long term (current) use of aspirin; Z95.2 Presence of prosthetic heart valve; Z86.73 Personal history of transient ischemic attack (TIA), and cerebral infarction without residual deficits; Z95.1 Presence of aortocoronary bypass graft
CPT/HCPCS: 36415; 73630; 80048; 80053; 80305; 81001; 82550; 82948; 83036; 83605; 83735; 84100; 84145; 84484; 85025; 85027; 85610; 85651; 85730; 86140; 87040; 87070; 87076; 87077; 87088; 87186; 87635; 97039; G0378; J1644; J2250; J2270; J2405; J2543; J2704; J3010; J3490; J7030; J7070; J7120; Q0163

== ENCOUNTER 2023-01-18 18:45 | Inpatient (IN) | payer OTHER ==
[~2023-01-18] VITALS: Ht 165.1 cm; Wt 68.0 kg
[~2023-01-18 18:45] MED LIST changes: +AMOX500T2 PO; -CEPH500B PO; -CEPH500T PO; +FLUC200T12 PO; -FURO-152 PO
[2023-01-18 20:59] LABS: BASOPHILS % (AUTO) 0.5 % (0.0-5.0); EOSINOPHILS % (AUTO) 3.2 % (0.0-8.0); HEMATOCRIT 38.9 % (42-54); LYMPHOCYTES % (AUTO) 16.2 % (21.0-51.0); MEAN CORPUSCULAR HEMOGLOBIN 28.1 pg (27.0-33.0); MEAN CORPUSCULAR HGB CONC 31.9 g/dL (32.0-36.0); MONOCYTES % (AUTO) 6.2 % (3.0-13.0); NEUTROPHILS % (AUTO) 73.5 % (40.0-77.0); PLATELET COUNT (AUTO) 190 K/uL (130-400); RED BLOOD CELL COUNT(AUTO) 4.42 MIL/uL (4.50-6.20); RED CELL DISTRIBUTION WIDTH 17.9 % (11.0-15.5); WHITE BLOOD COUNT (AUTO) 5.7 K/uL (4.8-10.8)
[2023-01-18 21:16] LABS: CARBON DIOXIDE 24 mmol/L (21-32); CHLORIDE 104 mmol/L (101-111); CREATININE 1.7 mg/dL (0.5-1.5); GLOMERULAR FILTR. RATE CALC 52 mL/min (>90); GLUCOSE,RANDOM 87 mg/dL (70-105); POTASSIUM 4.7 mmol/L (3.5-5.1); SODIUM SERUM 136 mmol/L (136-145); UREA NITROGEN, BLOOD 23 mg/dL (7-18)
[2023-01-18 21:23] LABS: ALANINE AMINOTRANSFERASE 10 U/L (12-78); ALBUMIN 2.7 g/dL (3.5-5.0); ASPARTATE AMINOTRANSFERASE 22 U/L (10-37); CREATINE KINASE, TOTAL 88 U/L (21-232); TOTAL PROTEIN, SERUM 7.2 g/dL (6.0-8.3)
[2023-01-18] MEDS ORDERED: LACTULOSE 20 GM/30 ML UDCUP PO PRN (21:30)
[2023-01-18] MEDS ORDERED: ACETAMINOPHEN 325 MG TAB PO PRN (21:30)
[2023-01-18 21:35] LABS: LIPASE < 50 U/L (114-286)
[2023-01-18 21:50] LABS: ABG OXYGEN SATURATION 59.3 % (95.0-99.0); BASE EXCESS,VENOUS BLOOD GAS -3.3 (-2.0-3.0); HCO3,VENOUS BLOOD GAS 21.8 (21.0-28.0); PCO2,VENOUS BLOOD GAS 40 (35-48); PH,VENOUS BLOOD GAS 7.359 (7.350-7.450)
[2023-01-18] MEDS: AMOXICILLIN 500 MG CAPSULE PO SCH (22:18)
[2023-01-18] MEDS: ACETAMINOPHEN 325 MG TAB PO PRN (22:26)
[2023-01-18 23:20] VITALS: BP 182/27
[2023-01-18] MEDS: LABETALOL 20MG VIAL IV PRN (23:33)
[2023-01-19] VITALS (7 sets, daily range): BP systolic 133–164; BP diastolic 84–145
[2023-01-19] MEDS ORDERED: PERM60CR4 TP (02:16)
[2023-01-19] MEDS: ACETAMINOPHEN 325 MG TAB PO PRN ×4 (04:41→20:00)
[2023-01-19] MEDS: AMOXICILLIN 500 MG CAPSULE PO SCH ×3 (04:41→19:59)
[2023-01-19] MEDS: LABETALOL 20MG VIAL IV PRN (04:45)
[2023-01-19] MEDS: ONDANSETRON 4MG INJ IV PRN ×2 (04:52→20:47)
[2023-01-19] MEDS: FLUCONAZOLE 100 MG TAB PO SCH ×2 (09:08→19:59)
[2023-01-19] MEDS: FAMOTIDINE 20MG TAB PO SCH ×2 (09:08→19:59)
[2023-01-19] MEDS ORDERED: POTASSIUM CHLORIDE 20MEQ/100ML 100 ML IV PRN (11:30)
[2023-01-19] MEDS ORDERED: POTASSIUM CHLORIDE 10% ELIXIR 20 MEQ/15 ML UDCUP PO PRN (11:30)
[2023-01-19] MEDS ORDERED: MAGNESIUM 2GM PREMIX 50ML 50 ML IV PRN (11:30)
[2023-01-19] MEDS ORDERED: KCL 20 MEQ ERTAB PO PRN (11:30)
[2023-01-19 11:56] LABS: HEMATOCRIT 38.2 % (42-54); MEAN CORPUSCULAR HEMOGLOBIN 27.7 pg (27.0-33.0); MEAN CORPUSCULAR HGB CONC 31.2 g/dL (32.0-36.0); RED BLOOD CELL COUNT(AUTO) 4.29 MIL/uL (4.50-6.20); RED CELL DISTRIBUTION WIDTH 18.2 % (11.0-15.5); WHITE BLOOD COUNT (AUTO) 5.1 K/uL (4.8-10.8)
[2023-01-19 12:05] LABS: CREATININE 1.8 mg/dL (0.5-1.5); POTASSIUM 4.4 mmol/L (3.5-5.1)
[2023-01-19 12:10] LABS: ALBUMIN 2.5 g/dL (3.5-5.0); TOTAL PROTEIN, SERUM 6.8 g/dL (6.0-8.3)
[2023-01-20] MEDS: ACETAMINOPHEN 325 MG TAB PO PRN ×3 (01:59→10:22)
[2023-01-20 04:12] VITALS: BP 147/92
[2023-01-20] MEDS: AMOXICILLIN 500 MG CAPSULE PO SCH ×2 (05:40→13:27)
[2023-01-20 08:00] VITALS: BP 141/96
[2023-01-20] MEDS ORDERED: ENOXAPARIN SODIUM 40 MG/0.4 ML SYRINGE SQ SCH (09:00)
[2023-01-20] MEDS ORDERED: METOCLOPRAMIDE 10 MG/2 ML VIAL IVP ONE (09:30)
[2023-01-20] MEDS ORDERED: FLUC200T12 PO (09:37)
[2023-01-20] MEDS ORDERED: AMOX500T2 PO (09:37)
[2023-01-20] MEDS: FAMOTIDINE 20MG TAB PO SCH (10:21)
[2023-01-20] MEDS: FLUCONAZOLE 100 MG TAB PO SCH (10:21)
== END 2023-01-20 13:40 | disposition home or self-care (01) | DRG 683 ==
LOC: EDH 18:45 → EDHIP 18:46 → 3AH 22:35
PROVIDERS: ADMIT Hospitalist; ATTEND Hospitalist
DX: N17.9 Acute kidney failure, unspecified (principal); I13.0 Hypertensive heart and chronic kidney disease with heart failure and stage 1 through stage 4 chronic kidney disease, or unspecified chronic kidney disease; N18.31 Chronic kidney disease, stage 3a; I50.9 Heart failure, unspecified; E78.5 Hyperlipidemia, unspecified; K74.60 Unspecified cirrhosis of liver; H54.8 Legal blindness, as defined in USA; I25.10 Atherosclerotic heart disease of native coronary artery without angina pectoris; F32.A Depression, unspecified; F41.9 Anxiety disorder, unspecified; E11.22 Type 2 diabetes mellitus with diabetic chronic kidney disease; F17.200 Nicotine dependence, unspecified, uncomplicated; Z89.421 Acquired absence of other right toe(s); Z95.1 Presence of aortocoronary bypass graft; Z59.00 Homelessness unspecified; Z91.199 Patient's noncompliance with other medical treatment and regimen due to unspecified reason; Z95.2 Presence of prosthetic heart valve
CPT/HCPCS: 36415; 36600; 80053; 82435; 82550; 82803; 82947; 82948; 83605; 83690; 83735; 83880; 84132; 84145; 84295; 84484; 85025; 85027; 93005; G0378; J1650; J2405; J2765; J3490

== ENCOUNTER 2023-01-22 23:21 | Emergency (ER) | payer OTHER ==
[~2023-01-22] VITALS: Ht 162.6 cm; Wt 63.5 kg
[~2023-01-22 23:21] MED LIST changes: +PERM60CR4 TP
[2023-01-22 23:47] LABS: BASOPHILS % (AUTO) 0.6 % (0.0-5.0); EOSINOPHILS % (AUTO) 3.2 % (0.0-8.0); HEMATOCRIT 39.7 % (42-54); LYMPHOCYTES % (AUTO) 24.9 % (21.0-51.0); MEAN CORPUSCULAR HEMOGLOBIN 27.5 pg (27.0-33.0); MEAN CORPUSCULAR VOLUME 88.6 fL (79-99); MONOCYTES % (AUTO) 9.3 % (3.0-13.0); NEUTROPHILS % (AUTO) 61.8 % (40.0-77.0); PLATELET COUNT (AUTO) 166 K/uL (130-400); RED BLOOD CELL COUNT(AUTO) 4.48 MIL/uL (4.50-6.20); RED CELL DISTRIBUTION WIDTH 17.6 % (11.0-15.5); WHITE BLOOD COUNT (AUTO) 5.4 K/uL (4.8-10.8)
[2023-01-23] LABS: CREATININE 1.6 mg/dL (0.5-1.5)
[2023-01-23 00:04] LABS: ALBUMIN 2.2 g/dL (3.5-5.0); TOTAL PROTEIN, SERUM 7.5 g/dL (6.0-8.3)
[2023-01-23 07:19] VITALS: BP 170/67
[2023-01-23 07:20] LABS: APPEARANCE,URINE CLEAR (CLEAR); BILIRUBIN,URINE NEGATIVE (NEGATIVE); COLOR,URINE LIGHT-YELLOW (YELLOW); GLUCOSE, URINE (UA) NEGATIVE (NEGATIVE); KETONES,URINE NEGATIVE (NEGATIVE); LEUKOCYTE ESTERASE ,URINE 25 Leu/uL (NEGATIVE); NITRATE,URINE NEGATIVE (NEGATIVE); PH,URINE 6.5 (5.0-8.0); PROTEIN,URINE 300 mg/dL (NEGATIVE); UROBILINOGEN,URINE 0.2 mg/dL (0.2-1.0)
[2023-01-23 07:23] LABS: MUCUS,URINE RARE LPF (None Seen); SQUAMOUS EPITHELIAL CELL,UR RARE /HPF (0-2); WBC,URINE 26-50 /HPF (0-1)
[2023-01-23] MEDS ORDERED: ACETAMINOPHEN 325 MG TAB PO ONE (07:30)
[2023-01-23] MEDS ORDERED: CIPR-278 PO (07:48)
== END 2023-01-23 08:24 | disposition home or self-care (01) ==
LOC: EDH 23:21
DX: N39.0 Urinary tract infection, site not specified (principal); I10 Essential (primary) hypertension; E11.9 Type 2 diabetes mellitus without complications; Z79.82 Long term (current) use of aspirin; Z79.84 Long term (current) use of oral hypoglycemic drugs; Z79.899 Other long term (current) drug therapy; Z98.890 Other specified postprocedural states; Z95.2 Presence of prosthetic heart valve; Z20.822 Contact with and (suspected) exposure to COVID-19
CPT/HCPCS: 99284; 87635; 80053; 85025; 87040 ×2; 87077; 87088; 87186; 87804 ×2; 83605; 86140; 81001; 36415; C9803